=== PATIENT | male | born 1935 | race African-American/Black ===

== ENCOUNTER 2018-04-25 09:26 | Inpatient (IN) | payer MEDICARE ==
[~2018-04-25] VITALS: Ht 182.9 cm; Wt 73.0 kg
[2018-04-25] MEDS ORDERED: IV NORMAL SALINE 1000ML BAG 1,000 ML IV SCH (09:38)
[2018-04-25] MEDS ORDERED: HYOSCYAMINE 0.125 MG TAB.RAPDIS PO ONE (09:45)
[2018-04-25] MEDS ORDERED: ONDANSETRON PF 4 MG/2 ML VIAL. IV ONE (09:45)
[2018-04-25 10:00] LABS: BASO % 0 % (0-3); EOS % 0 % (0-3); HEMATOCRIT 41.1 % (39.0-53.0); HEMOGLOBIN 13.2 g/dL (13.0-17.5); LYMPH # 1.7 x10^3/uL (1.0-4.8); LYMPH % 13 % (24-48); MEAN CORPUSCULAR HEMOGLOBIN 23 pg (25-35); MEAN CORPUSCULAR HGB CONC 32 g/dL (31-37); MEAN CORPUSCULAR VOLUME 71 fL (79-100); MONO # 0.8 x10^3/uL (0.0-1.1); MONO % 6 % (0-9); NEUT # 11.3 x10^3uL (1.8-7.7); NEUT % 82 % (31-73); PLATELET COUNT 465 x10^3/uL (140-400); RED CELL DISTRIBUTION WIDTH 15.9 % (11.5-14.5); WHITE BLOOD COUNT 13.9 x10^3/uL (4.0-11.0)
--- NOTE | 2018-04-25 10:10 | PHYS DOC ---
Past Medical History Past Medical History: Asthma, Hypertension Additional Past Surgical Histo: KNEE Additional Information: NON-SMOKER Alcohol Use: None Drug Use: None Adult General Chief Complaint Chief Complaint: ABDOMINAL PAIN HPI HPI Patient is a 82 year old male who presents with upper abdominal pain, vomiting , and diarrhea. This has been present for the past week. He reports some blood in the emesis. Denies black or bloody stool. Reports that he normally only eats one meal a day but that he is been unable to tolerate it during this time. Pain is dull and burning. Moderate to severe in intensity. Patient reports that he has been taking ibuprofen without any relief.[] Review of Systems Review of Systems Constitutional: Denies fever or chills [] Eyes: Denies change in visual acuity, redness, or eye pain [] HENT: Denies nasal congestion or sore throat [] Respiratory: Denies cough or shortness of breath [] Cardiovascular: No chest pain or palpitations[] GI: See history of present illness[] : Denies dysuria or hematuria [] Musculoskeletal: Denies back pain or joint pain [] Integument: Denies rash or skin lesions [] Neurologic: Denies headache, focal weakness or sensory changes [] Endocrine: Denies polyuria or polydipsia [] All other systems were reviewed and found to be within normal limits, except as documented in this note. Current Medications Current Medications Current Medications Medications (Trade) Dose Ordered Sig/Mina Start Time Stop Time Status Last Admin Dose Admin Hyoscyamine (Anaspaz) 0.125 mg ONCE ONCE 04/25/18 09:45 04/25/18 09:46 DC 04/25/18 10:12 0.125 MG Ondansetron HCl (Zofran) 4 mg 1X ONCE 04/25/18 09:45 04/25/18 09:46 DC 04/25/18 10:11 4 MG Pantoprazole Sodium (PROTONIX VIAL for IV PUSH) 40 mg 1X ONCE 04/25/18 10:15 04/25/18 10:16 DC 04/25/18 10:23 40 MG Sodium Chloride 1,000 ml @ 1,000 mls/hr Q1H 04/25/18 09:38 04/25/18 10:37 DC 04/25/18 10:12 1,000 MLS/HR Allergies Allergies Allergies Coded Allergies Type Severity Reaction Last Updated Verified No Known Drug Allergies 04/25/18 No Physical Exam Physical Exam Constitutional: Well developed, well nourished, no acute distress, non-toxic appearance. [] HENT: Normocephalic, atraumatic, bilateral external ears normal, oropharynx moist, no oral exudates, nose normal. [] Eyes: PERRLA, EOMI, conjunctiva normal, no discharge. [] Neck: Normal range of motion, no tenderness, supple, no stridor. [] Cardiovascular:Heart rate regular rhythm, no murmur [] Lungs & Thorax: Bilateral breath sounds clear to auscultation [] Abdomen: Bowel sounds normal, soft, epigastric tenderness, no rebound, no guarding, no rigidity, no masses, no pulsatile masses. Rectal exam showed brown stool, no gross bleeding [] Skin: Warm, dry, no erythema, no rash. [] Back: No tenderness, no CVA tenderness. [] Extremities: No tenderness, no cyanosis, no clubbing, ROM intact, no edema. [] Neurologic: Alert and oriented X 3, normal motor function, normal sensory function, no focal deficits noted. [] Psychologic: Affect normal, judgement normal, mood normal. [] Current Patient Data Vital Signs Vital Signs Date Time Temp Pulse Resp B/P (MAP) Pulse Ox O2 Delivery O2 Flow Rate FiO2 04/25/18 09:33 97.7 91 18 116/59 (78) 99 Room Air 97.7 Lab Values Laboratory Tests Test 04/25/18 09:40 04/25/18 09:54 04/25/18 10:08 04/25/18 10:40 White Blood Count 13.9 x10^3/uL (4.0-11.0) H Red Blood Count 5.80 x10^6/uL (4.30-5.70) H Hemoglobin 13.2 g/dL (13.0-17.5) Hematocrit 41.1 % (39.0-53.0) Mean Corpuscular Volume 71 fL (79-100) L Mean Corpuscular Hemoglobin 23 pg (25-35) L Mean Corpuscular Hemoglobin Concent 32 g/dL (31-37) Red Cell Distribution Width 15.9 % (11.5-14.5) H Platelet Count 465 x10^3/uL (140-400) H Neutrophils (%) (Auto) 82 % (31-73) H Lymphocytes (%) (Auto) 13 % (24-48) L Monocytes (%) (Auto) 6 % (0-9) Eosinophils (%) (Auto) 0 % (0-3) Basophils (%) (Auto) 0 % (0-3) Neutrophils # (Auto) 11.3 x10^3uL (1.8-7.7) H Lymphocytes # (Auto) 1.7 x10^3/uL (1.0-4.8) Monocytes # (Auto) 0.8 x10^3/uL (0.0-1.1) Eosinophils # (Auto) 0.0 x10^3/uL (0.0-0.7) Basophils # (Auto) 0.0 x10^3/uL (0.0-0.2) Platelet Estimate Pending Sodium Level 138 mmol/L (136-145) Potassium Level 3.1 mmol/L (3.5-5.1) L Chloride Level 97 mmol/L (98-107) L Carbon Dioxide Level 19 mmol/L (21-32) L Anion Gap 22 (6-14) H Blood Urea Nitrogen 88 mg/dL (8-26) H Creatinine 3.7 mg/dL (0.7-1.3) H Estimated GFR (Cockcroft-Gault) 19.1 BUN/Creatinine Ratio 24 (6-20) H Glucose Level 128 mg/dL (70-99) H Calcium Level 9.8 mg/dL (8.5-10.1) Total Bilirubin 1.4 mg/dL (0.2-1.0) H Aspartate Amino Transferase (AST) 29 U/L (15-37) Alanine Aminotransferase (ALT) 26 U/L (16-63) Alkaline Phosphatase 292 U/L (46-116) H Troponin I Quantitative < 0.017 ng/mL (0.000-0.055) Total Protein 8.2 g/dL (6.4-8.2) Albumin 2.7 g/dL (3.4-5.0) L Albumin/Globulin Ratio 0.5 (1.0-1.7) L Lipase 3214 U/L (73-393) H Influenza Type A Antigen Negative (NEGATIVE) Influenza Type B Antigen Negative (NEGATIVE) Stool Occult Blood Negative (NEG) Prothrombin Time 15.4 SEC (11.7-14.0) H Prothrombin Time INR 1.3 (0.8-1.1) H Laboratory Tests 04/25/18 09:40 Laboratory Tests 04/25/18 09:40 EKG EKG EKG shows a sinus rhythm at 90 bpm, normal axis, prolonged QTc at 523 ms, no ST elevations, no old EKG is available for comparison, this was interpreted by me at 0950[] Radiology/Procedures Radiology/Procedures Examination: CT of the abdomen pelvis without contrast HISTORY: History of upper abdominal pain COMPARISON: None available Technique: Axial CT images of the abdomen pelvis were performed without contrast. Coronal and sagittal reformats are performed. Exposure: One or more of the following individualized dose reduction techniques were utilized for this examination: 1. Automated exposure control 2. Adjustment of the mA and/or kV according to patient size 3. Use of iterative reconstruction technique FINDINGS: Bibasilar lung airspace opacities likely atelectasis or infiltrates with possible atelectasis or focal consolidation the left lower lobe of the lung. No evidence of free air identified in the abdomen. Hepatomegaly is identified. There are ill-defined hypodensities identified in the liver with the largest measuring 4.5 cm in the left lobe of the liver. Small hiatal hernia is identified. The stomach is mildly distended. Questionable minimal stranding identified about the pancreas. The small bowel is nondilated. Feces and gas noted in the colon. Multiple sigmoid colon diverticulosis identified. Appendix is normal. Urinary bladder is mildly distended. Urinary bladder diverticula identified with the largest measuring 4.5 cm in the posteriorly on the left to the urinary bladder. The prostate is mildly enlarged. Cystic structure identified in the left kidney measuring 2.5 cm. Mild aortic atherosclerosis. Moderate to severe degenerative changes identified in the visualized thoracolumbar spine. Small superior endplate Schmorl's node identified at L4 vertebral level. There is mild anterolisthesis of L4 on L5. IMPRESSION: 1. Multiple ill-defined hypodensities identified in the liver with the largest measuring 4.5 cm in the left lobe suspicious for metastasis or malignancy however evaluation is limited without contrast. Recommend MRI abdomen for further evaluation. 2. Questionable minimal fat stranding identified about the pancreas probably artifactual and less likely pancreatitis. Correlate with lab values. 3. 2.5 cm cystic structure identified in the left kidney could be a cyst or cystic lesion. 4. Focal consolidation identified in the left lower lobe of the lung could be round atelectasis or focal infiltrate with mild bibasilar lung airspace opacities likely atelectasis or infiltrates. Electronically signed by: Juan Alberto Boyle MD (04/25/2018 11:18 AM) [place] [id number] Portable chest, 04/25/2018: HISTORY: Upper abdominal pain The heart size is normal. There is calcific plaquing and tortuosity of the thoracic aorta. There are mild bibasilar opacities suggesting infiltrate. The basilar pulmonary markings were also prominent on an old chest exam from 05/12/2009, suggesting a component of scarring. The upper lung hamilton are clear. There is no evidence of pleural fluid. IMPRESSION: 1. Aortic atherosclerosis. 2. Mild bibasilar infiltrate and/or scarring. Electronically signed by: Silver Mar MD (04/25/2018 11:16 AM) [facility] [] Course & Med Decision Making Course & Med Decision Making Pertinent Labs and Imaging studies reviewed. (See chart for details) ED course and medical decision making: Patient arrived from EMS was placed in bed and tolerated exam well. EMS reports that the patient lives at home alone and his lighting situation is provided only by flashlights. He was noted to have an elevated heart rate given his age and slightly dry mucous membranes, IV fluids were started. His lipase was noted to be significantly elevated along with a slightly elevated white count so fluids were continued. He was also noted to have an infiltrate/atelectasis on the CT scan and imaging so IV antibiotics were started. Consultation was made with the hospitalist service for admission and they graciously accepted him. During his department stay up became concerned about his mental state/possible dementia, when going to perform the Hemoccult patient was very focused on his abdominal pain and unable to easily get across the need for the Hemoccult given his complaint of vomiting blood and insuring that there was no blood in his stool. 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 He was very tangentially focused and could not express a reason not to have a Hemoccult performed.[] Dragon Disclaimer Dragon Disclaimer This electronic medical record was generated, in whole or in part, using a voice recognition dictation system. Departure Departure Impression: Primary Impression: Pancreatitis Additional Impressions: Pneumonia Renal insufficiency Disposition: 01 HOME, SELF-CARE Admitting Physician: Other Condition: IMPROVED Problem Qualifiers Primary Impression: Pancreatitis Chronicity: acute Pancreatitis type: unspecified pancreatitis type Acute pancreatitis complication: unspecified Qualified Codes: K85.90 - Acute pancreatitis without necrosis or infection, unspecified Additional Impressions: Pneumonia Pneumonia type: due to unspecified organism Laterality: bilateral Lung location: lower lobe of lung Qualified Codes: J18.1 - Lobar pneumonia, unspecified organism MADAN SMALL DO Apr 25, 2018 10:10
[2018-04-25] MEDS ORDERED: PANTOPRAZOLE IV PUSH 40 MG VIAL. IVP ONE (10:15)
[2018-04-25 10:22] LABS: INFLUENZA A PATIENT NEGATIVE (NEGATIVE); INFLUENZA B PATIENT NEGATIVE (NEGATIVE)
[2018-04-25 10:24] LABS: CALCIUM 9.8 mg/dL (8.5-10.1); CREATININE 3.7 mg/dL (0.7-1.3); GFR 19.1; POTASSIUM 3.1 mmol/L (3.5-5.1)
[2018-04-25 10:28] LABS: ALBUMIN 2.7 g/dL (3.4-5.0); ALBUMIN/GLOBULIN RATIO 0.5 (1.0-1.7); TOTAL BILIRUBIN 1.4 mg/dL (0.2-1.0); TOTAL PROTEIN 8.2 g/dL (6.4-8.2)
[2018-04-25 10:49] LABS: FECAL OB PT NEGATIVE (NEG)
[2018-04-25 10:58] LABS: PROTHROMBIN TIME PATIENT 15.4 SEC (11.7-14.0)
--- NOTE | 2018-04-25 11:19 | RAD ---
Portable chest, 04/25/2018: HISTORY: Upper abdominal pain The heart size is normal. There is calcific plaquing and tortuosity of the thoracic aorta. There are mild bibasilar opacities suggesting infiltrate. The basilar pulmonary markings were also prominent on an old chest exam from 05/12/2009, suggesting a component of scarring. The upper lung hamilton are clear. There is no evidence of pleural fluid. IMPRESSION: 1. Aortic atherosclerosis. 2. Mild bibasilar infiltrate and/or scarring. Electronically signed by: Silver Mar MD (04/25/2018 11:16 AM) [facility]
--- NOTE | 2018-04-25 11:21 | RAD ---
Examination: CT of the abdomen pelvis without contrast HISTORY: History of upper abdominal pain COMPARISON: None available Technique: Axial CT images of the abdomen pelvis were performed without contrast. Coronal and sagittal reformats are performed. Exposure: One or more of the following individualized dose reduction techniques were utilized for this examination: 1. Automated exposure control 2. Adjustment of the mA and/or kV according to patient size 3. Use of iterative reconstruction technique FINDINGS: Bibasilar lung airspace opacities likely atelectasis or infiltrates with possible atelectasis or focal consolidation the left lower lobe of the lung. No evidence of free air identified in the abdomen. Hepatomegaly is identified. There are ill-defined hypodensities identified in the liver with the largest measuring 4.5 cm in the left lobe of the liver. Small hiatal hernia is identified. The stomach is mildly distended. Questionable minimal stranding identified about the pancreas. The small bowel is nondilated. Feces and gas noted in the colon. Multiple sigmoid colon diverticulosis identified. Appendix is normal. Urinary bladder is mildly distended. Urinary bladder diverticula identified with the largest measuring 4.5 cm in the posteriorly on the left to the urinary bladder. The prostate is mildly enlarged. Cystic structure identified in the left kidney measuring 2.5 cm. Mild aortic atherosclerosis. Moderate to severe degenerative changes identified in the visualized thoracolumbar spine. Small superior endplate Schmorl's node identified at L4 vertebral level. There is mild anterolisthesis of L4 on L5. IMPRESSION: 1. Multiple ill-defined hypodensities identified in the liver with the largest measuring 4.5 cm in the left lobe suspicious for metastasis or malignancy however evaluation is limited without contrast. Recommend MRI abdomen for further evaluation. 2. Questionable minimal fat stranding identified about the pancreas probably artifactual and less likely pancreatitis. Correlate with lab values. 3. 2.5 cm cystic structure identified in the left kidney could be a cyst or cystic lesion. 4. Focal consolidation identified in the left lower lobe of the lung could be round atelectasis or focal infiltrate with mild bibasilar lung airspace opacities likely atelectasis or infiltrates. Electronically signed by: Juan Alberto Boyle MD (04/25/2018 11:18 AM) [place] [id number]
[2018-04-25 11:41] LABS: ANISOCYTOSIS SLIGHT; HYPOCHROMIA MOD; MICROCYTOSIS SLIGHT; PLT ESTIMATE INCREASED (ADEQUATE)
--- NOTE | 2018-04-25 11:44 | PDOC1 ---
History and Physical Date of Admission Date of Admission DATE: 04/25/18 TIME: 11:39 Identification/Chief Complaint Chief Complaint Abdominal Pain Source Source: Chart review, Patient History of Present Illness History of Present Illness 82 year old male with PMHx HTN (he cannot recall any other PMHx) who presents with upper abdominal pain, vomiting, and diarrhea. This has been present for the past week. He reports some blood in his emesis. Denies black or bloody stool. Reports that he normally only eats one meal a day but that he is been unable to tolerate it during this time and states that even bread makes him feel nauseated. Cannot stand the sight of food recently. Pain is dull and burning. Moderate to severe in intensity. Patient reports that he has been taking ibuprofen without any relief. In ED had concerning CT scan for liver masses and pancreatic fat stranding and Lipase 3214 as well as leukocytosis WBC 13K, Bili 1.4, Alk phos 292 and Cr 3.7 as well as BUN 88 and K of 3.1. 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 He is from [place], [place] and has moved to [place] 6 years ago to be near his ex-. Notably he cannot remember her phone number or any of his children. He knows his pharmacy is [facility] and does not remember the name of his PCP. He notes he is a practicing [employer] and does not drink or smoke or use illicit substances. 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) Family History Family History: Hypertension (Father) Social History Smoke: No ALCOHOL: none Drugs: None Current Medications Current Medications Current Medications Sodium Chloride 1,000 ml @ 1,000 mls/hr Q1H IV Last administered on 04/25/18at 10:12; Start 04/25/18 at 09:38; Stop 04/25/18 at 10:37; Status DC Ondansetron HCl (Zofran) 4 mg 1X ONCE IV Last administered on 04/25/18at 10:11 ; Start 04/25/18 at 09:45; Stop 04/25/18 at 09:46; Status DC Hyoscyamine (Anaspaz) 0.125 mg ONCE ONCE PO Last administered on 04/25/18at 10: 12; Start 04/25/18 at 09:45; Stop 04/25/18 at 09:46; Status DC Pantoprazole Sodium (PROTONIX VIAL for IV PUSH) 40 mg 1X ONCE IVP Last administered on 04/25/18at 10:23; Start 04/25/18 at 10:15; Stop 04/25/18 at 10:16 ; Status DC Ceftriaxone Sodium (Rocephin) 1 gm 1X ONCE IVP ; Start 04/25/18 at 11:45; Stop 04/25/18 at 11:46; Status UNV Azithromycin 250 ml @ 250 mls/hr 1X ONCE IV ; Start 04/25/18 at 11:45; Stop at 12:44; Status UNV Ondansetron HCl (Zofran) 4 mg PRN Q8HRS PRN IV NAUSEA/VOMITING; Start 04/25/18 at 11:45; Stop 04/26/18 at 11:44; Status UNV Allergies Allergies: Coded Allergies: No Known Drug Allergies (Unverified , 04/25/18) ROS General: YES: Fatigue, Malaise, Appetite; No: Chills, Night Sweats, Other PSYCHOLOGICAL ROS: No: Anxiety, Behavioral Disorder, Concentration difficultie , Decreased libido, Depression, Disorientation, Hallucinations, Hostility, Irritablity, Memory difficulties, Mood Swings, Obsessive thoughts, Physical abuse, Sexual abuse, Sleep disturbances, Suicidal ideation, Other Eyes: No Blurry vision, No Decreased vision, No Double vision, No Dry eyes, No Excessive tearing, No Eye Pain, No Itchy Eyes, No Loss of vision, No Photophobia , No Scotomata, No Uses contacts, No Uses glasses, No Other HEENT: YES: Nasal congestion, Nasal discharge; No: Heacaches, Visual Changes, Hearing change, Oral lesions, Sinus pain, Sore Throat, Epistaxis, Sneezing, Snoring, Tinnitus, Vertigo, Vocal changes, Other ALLERGY AND IMMUNOLOGY: No: Hives, Insect Bite Sensitivity, Itchy/Watery Eyes, Nasal Congestion, Post Nasal Drip, Seasonal Allergies, Other Hematological and Lymphatic: No: Bleeding Problems, Blood Clots, Blood Transfusions, Brusing, Night Sweats, Pallor, Swollen Lymph Nodes, Other ENDOCRINE: No: Breast Changes, Galactorrhea, Hair Pattern Changes, Hot Flashes , Malaise/lethargy, Mood Swings, Palpitations, Polydipsia/polyuria, Skin Changes , Temperature Intolerance, Unexpected Weight Changes, Other Breast: No New/Changing Breast Lumps, No Nipple changes, No Nipple discharge, No Other Respiratory: No: Cough, Hemoptysis, Orthopnea, Pleuritic Pain, Shortness of breath, SOB with excertion, Sputum Changes, Stridor, Tachypnea, Wheezing, Other Cardiovascular: No Chest Pain, No Palpitations, No Orthopnea, No Paroxysmal Noc. Dyspnea, No Edema, No Lt Headedness, No Other Gastrointestinal: Yes Nausea, Yes Vomiting, Yes Abdominal Pain, Yes Other ( Hematemesis x1) Genitourinary: No Dysuria, No Frequency, No Incontinence, No Hematuria, No Retention, No Discharge, No Urgency, No Pain, No Flank Pain, No Other, No , No , No , No , No , No , No Musculoskeletal: No Gait Disturbance, No Joint Pain, No Joint Stiffness, No Joint Swelling, No Muscle Pain, No Muscular Weakness, No Pain In:, No Swelling In:, No Other Neurological: Yes Confusion; No Behavorial Changes, No Bowel/Bladder ControlChng, No Dizziness, No Gait Disturbance, No Headaches, No Impaired Coord/balance, No Memory Loss, No Numbness/Tingling, No Seizures, No Speech Problems, No Tremors, No Visual Changes, No Weakness, No Other Skin: No Dry Skin, No Eczema, No Hair Changes, No Lumps, No Mole Changes, No Mottling, No Nail Changes, No Pruritus, No Rash, No Skin Lesion Changes, No Other, No Acne Physical Exam General: Alert, Cooperative, mild distress HEENT: Atraumatic, PERRLA, EOMI, Mucous membr. moist/pink Lungs: Clear to auscultation, Normal air movement Heart: S1S2, RRR, no gallops, no murmurs Abdomen: Normal bowel sounds, Soft, No hepatosplenomegaly, No masses, Other ( RUQ tenderness) Male Genitals Exam: normal genitalia Rectal Exam: not examined Extremities: No clubbing, No cyanosis, No edema, Normal pulses, No tenderness/ swelling Skin: No rashes, No breakdown, No significant lesion Neuro: Normal speech, Strength at 5/5 X4 ext, Normal tone, Sensation intact, Cranial nerves 3-12 NL, Reflexes 2+ Psych/Mental Status: Mood NL, Other (Confused intermittently) Vitals Vitals Vital Signs Date Time Temp Pulse Resp B/P (MAP) Pulse Ox O2 Delivery O2 Flow Rate FiO2 04/25/18 09:33 97.7 91 18 116/59 (78) 99 Room Air 97.7 Labs Labs Laboratory Tests Test 04/25/18 09:40 04/25/18 09:54 04/25/18 10:08 04/25/18 10:40 White Blood Count 13.9 x10^3/uL (4.0-11.0) Red Blood Count 5.80 x10^6/uL (4.30-5.70) Hemoglobin 13.2 g/dL (13.0-17.5) Hematocrit 41.1 % (39.0-53.0) Mean Corpuscular Volume 71 fL (79-100) Mean Corpuscular Hemoglobin 23 pg (25-35) Mean Corpuscular Hemoglobin Concent 32 g/dL (31-37) Red Cell Distribution Width 15.9 % (11.5-14.5) Platelet Count 465 x10^3/uL (140-400) Neutrophils (%) (Auto) 82 % (31-73) Lymphocytes (%) (Auto) 13 % (24-48) Monocytes (%) (Auto) 6 % (0-9) Eosinophils (%) (Auto) 0 % (0-3) Basophils (%) (Auto) 0 % (0-3) Neutrophils # (Auto) 11.3 x10^3uL (1.8-7.7) Lymphocytes # (Auto) 1.7 x10^3/uL (1.0-4.8) Monocytes # (Auto) 0.8 x10^3/uL (0.0-1.1) Eosinophils # (Auto) 0.0 x10^3/uL (0.0-0.7) Basophils # (Auto) 0.0 x10^3/uL (0.0-0.2) Sodium Level 138 mmol/L (136-145) Potassium Level 3.1 mmol/L (3.5-5.1) Chloride Level 97 mmol/L (98-107) Carbon Dioxide Level 19 mmol/L (21-32) Anion Gap 22 (6-14) Blood Urea Nitrogen 88 mg/dL (8-26) Creatinine 3.7 mg/dL (0.7-1.3) Estimated GFR (Cockcroft-Gault) 19.1 BUN/Creatinine Ratio 24 (6-20) Glucose Level 128 mg/dL (70-99) Calcium Level 9.8 mg/dL (8.5-10.1) Total Bilirubin 1.4 mg/dL (0.2-1.0) Aspartate Amino Transf (AST/SGOT) 29 U/L (15-37) Alanine Aminotransferase (ALT/SGPT) 26 U/L (16-63) Alkaline Phosphatase 292 U/L (46-116) Troponin I Quantitative < 0.017 ng/mL (0.000-0.055) Total Protein 8.2 g/dL (6.4-8.2) Albumin 2.7 g/dL (3.4-5.0) Albumin/Globulin Ratio 0.5 (1.0-1.7) Lipase 3214 U/L (73-393) Influenza Type A Antigen Negative (NEGATIVE) Influenza Type B Antigen Negative (NEGATIVE) Stool Occult Blood Negative (NEG) Prothrombin Time 15.4 SEC (11.7-14.0) Prothromb Time International Ratio 1.3 (0.8-1.1) Laboratory Tests Test 04/25/18 09:40 04/25/18 09:54 04/25/18 10:08 04/25/18 10:40 White Blood Count 13.9 x10^3/uL (4.0-11.0) Red Blood Count 5.80 x10^6/uL (4.30-5.70) Hemoglobin 13.2 g/dL (13.0-17.5) Hematocrit 41.1 % (39.0-53.0) Mean Corpuscular Volume 71 fL (79-100) Mean Corpuscular Hemoglobin 23 pg (25-35) Mean Corpuscular Hemoglobin Concent 32 g/dL (31-37) Red Cell Distribution Width 15.9 % (11.5-14.5) Platelet Count 465 x10^3/uL (140-400) Neutrophils (%) (Auto) 82 % (31-73) Lymphocytes (%) (Auto) 13 % (24-48) Monocytes (%) (Auto) 6 % (0-9) Eosinophils (%) (Auto) 0 % (0-3) Basophils (%) (Auto) 0 % (0-3) Neutrophils # (Auto) 11.3 x10^3uL (1.8-7.7) Lymphocytes # (Auto) 1.7 x10^3/uL (1.0-4.8) Monocytes # (Auto) 0.8 x10^3/uL (0.0-1.1) Eosinophils # (Auto) 0.0 x10^3/uL (0.0-0.7) Basophils # (Auto) 0.0 x10^3/uL (0.0-0.2) Sodium Level 138 mmol/L (136-145) Potassium Level 3.1 mmol/L (3.5-5.1) Chloride Level 97 mmol/L (98-107) Carbon Dioxide Level 19 mmol/L (21-32) Anion Gap 22 (6-14) Blood Urea Nitrogen 88 mg/dL (8-26) Creatinine 3.7 mg/dL (0.7-1.3) Estimated GFR (Cockcroft-Gault) 19.1 BUN/Creatinine Ratio 24 (6-20) Glucose Level 128 mg/dL (70-99) Calcium Level 9.8 mg/dL (8.5-10.1) Total Bilirubin 1.4 mg/dL (0.2-1.0) Aspartate Amino Transf (AST/SGOT) 29 U/L (15-37) Alanine Aminotransferase (ALT/SGPT) 26 U/L (16-63) Alkaline Phosphatase 292 U/L (46-116) Troponin I Quantitative < 0.017 ng/mL (0.000-0.055) Total Protein 8.2 g/dL (6.4-8.2) Albumin 2.7 g/dL (3.4-5.0) Albumin/Globulin Ratio 0.5 (1.0-1.7) Lipase 3214 U/L (73-393) Influenza Type A Antigen Negative (NEGATIVE) Influenza Type B Antigen Negative (NEGATIVE) Stool Occult Blood Negative (NEG) Prothrombin Time 15.4 SEC (11.7-14.0) Prothromb Time International Ratio 1.3 (0.8-1.1) Images Images CT abdomen - 1. Multiple ill-defined hypodensities identified in the liver with the largest measuring 4.5 cm in the left lobe suspicious for metastasis or malignancy however evaluation is limited without contrast. Recommend MRI abdomen for further evaluation. 2. Questionable minimal fat stranding identified about the pancreas probably artifactual and less likely pancreatitis. Correlate with lab values. 3. 2.5 cm cystic structure identified in the left kidney could be a cyst or cystic lesion. 4. Focal consolidation identified in the left lower lobe of the lung could be round atelectasis or focal infiltrate with mild bibasilar lung airspace opacities likely atelectasis or infiltrates. CXR - 1. Aortic atherosclerosis. 2. Mild bibasilar infiltrate and/or scarring. (NOTED IN 2010 as well) VTE Prophylaxis Ordered VTE Prophylaxis Devices: Yes VTE Pharmacological Prophylaxi: No Assessment/Plan Assessment/Plan A/P: Acute pancreatitis - with Abdominal pain, nausea vomiting. NPO, consult GI. Still has GB, triglycerides normal, not on a thiazide that he knows of and he doesn't recall if he has been losing weight. Concerning liver masses on CT could be metastatic disease, he does not recall his last colonoscopy during my interview. Pain control with morphine Acute encephalopathy - this seems partially delerium as he can give accurate information but then is inaccurate with some easy questions. Bili not that high , could be uremia or he may have an element of dementia Hypokalemia - 3.1, will monitor. Replace IVF SYLVIE - Cr and BUN elevated. Unknown baseline. Seems acute with his mental status. Will consult nephrology Liver masses - possibly metastatic disease. Contrast contraindicated based on his renal function. Will consult GI. Will see if I can get ahold of his [facility] medical records. RBC microcytosis - will check iron studies, may be sickle trait, he does not recall HTN - will need to reconcile his meds FEN - NPO PPX - heparin SC FULL CODE Inpatient med/tele for at least 2 midnights for pancreatitis LAKISHA CR MD Apr 25, 2018 11:44
[2018-04-25] MEDS ORDERED: MORPHINE SULFATE 4 MG/ML VIAL. IV PRN (11:45)
[2018-04-25] MEDS ORDERED: cefTRIAXone IV Push 1 GM VIAL. IVP ONE (11:45)
[2018-04-25] MEDS ORDERED: ONDANSETRON PF 4 MG/2 ML VIAL. IV PRN ×2 (11:45→13:45)
[2018-04-25] MEDS ORDERED: AZITHRMYCN 500MG IVPB FOR OMNI 250 ML IV ONE (11:45)
[2018-04-25 11:59] LABS: BILIRUBIN,URINE MODERATE (NEG); CLARITY,URINE CLOUDY; COLOR,URINE AMBER; NITRITE,URINE NEGATIVE (NEG); PROTEIN,URINE 30 mg/dL (NEG-TRACE); UROBILINOGEN,URINE 0.2 mg/dL (0.2 mg/dL)
[2018-04-25 12:12] LABS: HYALINE CASTS, URINE MODERATE /HPF
[2018-04-25 12:13] LABS: BACTERIA,URINE 0 /HPF (0-FEW); RBC,URINE 20-40 /HPF (0-2); WBC,URINE OCC /HPF (0-4)
[2018-04-25 13:20] VITALS: BP 118/70
--- NOTE | 2018-04-25 14:19 | EKG ---
[facility] [address] [place] [address] Test Date: 2018-04-25 Test Time: 09:43:53 Pat Name: ODALIS YEAGER Department: Room: 526 1 Gender: Electronics Hardware Design Engineer: : 1935 Requested By: MADAN SMALL Order Number: [id number] Reading MD: Keegan Cardenas Measurements Intervals [place] Rate: P: WA: QRS: QRSD: T: QT: QTc: Interpretive Statements No previous ECG available for comparison Electronically Signed On 04-26-2018 9:12:03 [employer]IVIL ENGINEERING INTERN by Keegan Cardenas
--- NOTE | 2018-04-25 14:20 | PDOC2 ---
GI CONSULT Reason For Consult: Pancreatitis HPI: HPI: Pleasant and cooperative 82 y/o male though not a a good historian. Admitted through ER - I saw him this afternoon during abdominal ultrasound. He has been ill for awhile ("too long") but can't tell me exactly how long. Lives alone. Reports "pneumonia" but isn't sure who suggested that diagnosis and says he hasn 't been treated for this. Describes "a lot of phlegm." Says he saw a doctor at some point (?after symptoms began) but cannot tell me their name. Has upper abdominal pain and diarrhea (says 3-4 or 6-7 times daily). Additionally has had some vomiting (can't really tell me how frequently) and has been eating less (can't tell me the last time he ate). ER note suggests he reported blood in emesis - he denies this to me but says he sometimes sees red blood in stool that he attributes to hemorrhoids. Says he has lost 80 pounds - not sure over what time period. H/o GERD improved w/ Prilosec. No dysphagia or odynophagia. No melena. No constipation. Reports EGD and colonoscopy ~9 years ago in [place] - says both were normal. Thinks s/p cholecystectomy. No liver or pancreas history. Takes ibuprofen 800mg most days for knee pain. Notable labs: WBC 13.9, Hgb 13.2, MCV 71, INR 1.3, BUN 88, Cr 3.7, K 3.1, bili 1.4, AST 29, ALT 26, Alk Phos 292, lipase 3214, UA +blood, fecal occult neg. On CT: ?focal LLL consolidation, hepatomegaly, ill-defined hypodensities identified in the liver ( largest measuring 4.5 cm in left lobe), small hiatal hernia, mildly distended stomach, questionable minimal stranding identified about the pancreas, feces and gas noted in the colon, sigmoid diverticulosis, urinary bladder diverticula, mildly enlarged prostate, left kidney cystic structure. 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 PMH: PMH: ?HTN, asthma, diverticulosis bilateral knee replacements FH: Family History: No pertinent hx Social History: Smoke: No ALCOHOL: none Drugs: None ROS: GEN: Denies fevers, chills, sweats HEENT: Denies blurred vision, sore throat CV: Denies chest pain RESP: Denies shortness of air, cough GI: Per HPI : Denies hematuria, dysuria ENDO: +weight loss NEURO: Denies confusion, dizziness MSK: +knee pain SKIN: Denies jaundice, pruritus Vitals: Vitals: Vital Signs Date Time Temp Pulse Resp B/P (MAP) Pulse Ox O2 Delivery O2 Flow Rate FiO2 04/25/18 13:16 86 20 120/60 (80) 98 Room Air 04/25/18 09:33 97.7 97.7 Labs: Labs: Laboratory Tests Test 04/25/18 09:40 04/25/18 09:54 04/25/18 10:08 04/25/18 10:40 White Blood Count 13.9 x10^3/uL (4.0-11.0) Red Blood Count 5.80 x10^6/uL (4.30-5.70) Hemoglobin 13.2 g/dL (13.0-17.5) Hematocrit 41.1 % (39.0-53.0) Mean Corpuscular Volume 71 fL (79-100) Mean Corpuscular Hemoglobin 23 pg (25-35) Mean Corpuscular Hemoglobin Concent 32 g/dL (31-37) Red Cell Distribution Width 15.9 % (11.5-14.5) Platelet Count 465 x10^3/uL (140-400) Neutrophils (%) (Auto) 82 % (31-73) Lymphocytes (%) (Auto) 13 % (24-48) Monocytes (%) (Auto) 6 % (0-9) Eosinophils (%) (Auto) 0 % (0-3) Basophils (%) (Auto) 0 % (0-3) Neutrophils # (Auto) 11.3 x10^3uL (1.8-7.7) Lymphocytes # (Auto) 1.7 x10^3/uL (1.0-4.8) Monocytes # (Auto) 0.8 x10^3/uL (0.0-1.1) Eosinophils # (Auto) 0.0 x10^3/uL (0.0-0.7) Basophils # (Auto) 0.0 x10^3/uL (0.0-0.2) Platelet Estimate Increased (ADEQUATE) Hypochromasia Mod Anisocytosis Slight Microcytosis Slight Sodium Level 138 mmol/L (136-145) Potassium Level 3.1 mmol/L (3.5-5.1) Chloride Level 97 mmol/L (98-107) Carbon Dioxide Level 19 mmol/L (21-32) Anion Gap 22 (6-14) Blood Urea Nitrogen 88 mg/dL (8-26) Creatinine 3.7 mg/dL (0.7-1.3) Estimated GFR (Cockcroft-Gault) 19.1 BUN/Creatinine Ratio 24 (6-20) Glucose Level 128 mg/dL (70-99) Calcium Level 9.8 mg/dL (8.5-10.1) Total Bilirubin 1.4 mg/dL (0.2-1.0) Aspartate Amino Transf (AST/SGOT) 29 U/L (15-37) Alanine Aminotransferase (ALT/SGPT) 26 U/L (16-63) Alkaline Phosphatase 292 U/L (46-116) Troponin I Quantitative < 0.017 ng/mL (0.000-0.055) Total Protein 8.2 g/dL (6.4-8.2) Albumin 2.7 g/dL (3.4-5.0) Albumin/Globulin Ratio 0.5 (1.0-1.7) Lipase 3214 U/L (73-393) Influenza Type A Antigen Negative (NEGATIVE) Influenza Type B Antigen Negative (NEGATIVE) Stool Occult Blood Negative (NEG) Prothrombin Time 15.4 SEC (11.7-14.0) Prothromb Time International Ratio 1.3 (0.8-1.1) Ethyl Alcohol Level < 10 mg/dL (0-10) Test 04/25/18 11:40 Urine Collection Type U cath Urine Color Teresa Urine Clarity Cloudy Urine pH 5.0 Urine Specific [place] 1.020 Urine Protein 30 mg/dL (NEG-TRACE) Urine Glucose (UA) Negative mg/dL (NEG) Urine Ketones (Stick) Negative mg/dL (NEG) Urine Blood Large (NEG) Urine Nitrite Negative (NEG) Urine Bilirubin Moderate (NEG) Urine Urobilinogen Dipstick 0.2 mg/dL (0.2 mg/dL) Urine Leukocyte Esterase Negative (NEG) Urine RBC 20-40 /HPF (0-2) Urine WBC Occ /HPF (0-4) Urine Bacteria 0 /HPF (0-FEW) Urine Hyaline Casts Moderate /HPF Urine Mucus Slight /LPF Allergies: Coded Allergies: No Known Drug Allergies (Unverified , 04/25/18) Medications: Current Medications Medications (Trade) Dose Ordered Sig/Mina Route PRN Reason Start Time Stop Time Status Last Admin Dose Admin Sodium Chloride 1,000 ml @ 1,000 mls/hr Q1H IV 04/25/18 09:38 04/25/18 10:37 DC 04/25/18 10:12 Ondansetron HCl (Zofran) 4 mg 1X ONCE IV 04/25/18 09:45 04/25/18 09:46 DC 04/25/18 10:11 Hyoscyamine (Anaspaz) 0.125 mg ONCE ONCE PO 04/25/18 09:45 04/25/18 09:46 DC 04/25/18 10:12 Pantoprazole Sodium (PROTONIX VIAL for IV PUSH) 40 mg 1X ONCE IVP 04/25/18 10:15 04/25/18 10:16 DC 04/25/18 10:23 Ceftriaxone Sodium (Rocephin) 1 gm 1X ONCE IVP 04/25/18 11:45 04/25/18 11:46 DC 04/25/18 12:23 Azithromycin 250 ml @ 250 mls/hr 1X ONCE IV 04/25/18 11:45 04/25/18 12:44 DC 04/25/18 12:23 Morphine Sulfate (Morphine Sulfate) 2 mg PRN Q2HR PRN IV PAIN 04/25/18 11:45 04/26/18 11:44 04/25/18 12:19 Imaging: Imaging: CXR IMPRESSION: 1. Aortic atherosclerosis. 2. Mild bibasilar infiltrate and/or scarring. CT A/P FINDINGS: Bibasilar lung airspace opacities likely atelectasis or infiltrates with possible atelectasis or focal consolidation the left lower lobe of the lung. No evidence of free air identified in the abdomen. Hepatomegaly is identified. There are ill-defined hypodensities identified in the liver with the largest measuring 4.5 cm in the left lobe of the liver. Small hiatal hernia is identified. The stomach is mildly distended. Questionable minimal stranding identified about the pancreas. The small bowel is nondilated. Feces and gas noted in the colon. Multiple sigmoid colon diverticulosis identified. Appendix is normal. Urinary bladder is mildly distended. Urinary bladder diverticula identified with the largest measuring 4.5 cm in the posteriorly on the left to the urinary bladder. The prostate is mildly enlarged. Cystic structure identified in the left kidney measuring 2.5 cm. Mild aortic atherosclerosis. Moderate to severe degenerative changes identified in the visualized thoracolumbar spine. Small superior endplate Schmorl's node identified at L4 vertebral level. There is mild anterolisthesis of L4 on L5. IMPRESSION: 1. Multiple ill-defined hypodensities identified in the liver with the largest measuring 4.5 cm in the left lobe suspicious for metastasis or malignancy however evaluation is limited without contrast. Recommend MRI abdomen for further evaluation. 2. Questionable minimal fat stranding identified about the pancreas probably artifactual and less likely pancreatitis. Correlate with lab values. 3. 2.5 cm cystic structure identified in the left kidney could be a cyst or cystic lesion. 4. Focal consolidation identified in the left lower lobe of the lung could be round atelectasis or focal infiltrate with mild bibasilar lung airspace opacities likely atelectasis or infiltrates. Abd US (pending) PE: GEN: NAD HEENT: Atraumatic, PERRL LUNGS: CTAB HEART: RRR ABD: BS+, soft, non-distended, most discomfort in epigastrium EXTREMITY: No edema SKIN: No rashes, no jaundice NEURO/PSYCH: forgetful - can tell me the year, knows he's at the hospital but not sure the name (though knows it's on [address]), says he knows who the president is but prefers not to speak his name, knows his date of A/P: A/P: Upper abd pain, vomiting, diarrhea, weight loss, ?AMS Leukocytosis, microcytosis, SYLVIE, hypokalemia, hyperglycemia Mildly elevated bilirubin, elevated Alk Phos, elevated lipase Abnormal CT - hepatomegaly, ill-defined hypodensities identified in the liver, questionable minimal stranding identified about the pancreas GERD - on PPI, reports normal EGD 9 years ago CRC screen - reports normal colonoscopy 9 years ago in [place] Diverticulosis - in sigmoid colon and bladder on CT ?s/p cholecystectomy -- Pancreatitis - unclear etiology. Also note abnormal liver findings on CT. Abd US pending - await this. Continue PPI. ?diarrhea - monitor, check stool tests if indicated. Check iron profile. Additional recs per Dr. Gilmore. JOEL REIS Apr 25, 2018 14:20
[2018-04-25 14:42] LABS: CHOLESTEROL/HDL RATIO 2.7
[2018-04-25 15:00] VITALS: BP 119/72
--- NOTE | 2018-04-25 16:23 | RAD ---
Abdominal ultrasound, 04/25/2018: HISTORY: Pancreatitis The gallbladder is within normal limits in size. There is no sonographic evidence of cholelithiasis. The gallbladder wall is not thickened. The liver is enlarged and contains multiple ill-defined masses. The findings suggest metastatic disease. The largest of these measures approximately 10 cm. The pancreas was obscured by overlying bowel . The spleen is also inadequately visualized. The upper abdominal aorta is unremarkable. The distal aorta and inferior vena cava were obscured by overlying bowel. A 3.1 cm cyst is present in the left kidney. The kidneys show no evidence of obstruction. No free fluid is evident in the abdomen. IMPRESSION: 1. Hepatomegaly with multiple hepatic masses compatible with metastatic disease. 2. Small left renal cyst. 3. Obscuration of the pancreas, spleen and central retroperitoneum by overlying bowel. Electronically signed by: Silver Mar MD (04/25/2018 4:21 PM) [facility]
[2018-04-25] MEDS: IV NORMAL SALINE 1000ML BAG 1,000 ML IV SCH ×2 (16:34→19:36)
[2018-04-25 19:00] VITALS: BP 118/64
[2018-04-25] MEDS: IV RINGERS,LACTATED 1000ML 1,000 ML IV SCH (20:14)
[2018-04-25] MEDS: HEPARIN for SUB-Q USE 5,000 UNIT/ML VIAL. SQ SCH (21:00)
[2018-04-25 23:00] VITALS: BP 136/78
[2018-04-26] VITALS (11 sets, daily range): BP systolic 106–148; BP diastolic 62–108
[2018-04-26] MEDS: IV RINGERS,LACTATED 1000ML 1,000 ML IV SCH ×5 (00:04→11:54)
[2018-04-26] MEDS ORDERED: ALLO300T PO (03:09)
[2018-04-26] MEDS ORDERED: TAMS0.4C2 PO (03:09)
[2018-04-26] MEDS ORDERED: IBUP-1060 PO (03:09)
[2018-04-26] MEDS ORDERED: POTA20TA82 PO (03:09)
[2018-04-26] MEDS ORDERED: FURO20TA3 PO (03:09)
[2018-04-26] MEDS ORDERED: FINA5TAB4 PO (03:09)
[2018-04-26] MEDS ORDERED: LOSA100T14 PO (03:09)
[2018-04-26] MEDS ORDERED: DOXA8TAB59 PO (03:09)
[2018-04-26] MEDS ORDERED: ALBU2.5V5 NEB (03:09)
[2018-04-26] MEDS ORDERED: MECL12.52 PO (03:09)
[2018-04-26] MEDS ORDERED: PANT20TA2 PO (03:09)
[2018-04-26] MEDS: IV NORMAL SALINE 1000ML BAG 1,000 ML IV SCH (03:36)
[2018-04-26 07:17] LABS: BASO % 0 % (0-3); EOS % 0 % (0-3); HEMATOCRIT 37.9 % (39.0-53.0); LYMPH # 1.2 x10^3/uL (1.0-4.8); LYMPH % 7 % (24-48); MEAN CORPUSCULAR HEMOGLOBIN 23 pg (25-35); MEAN CORPUSCULAR HGB CONC 32 g/dL (31-37); MEAN CORPUSCULAR VOLUME 71 fL (79-100); MONO # 1.2 x10^3/uL (0.0-1.1); MONO % 7 % (0-9); NEUT # 14.9 x10^3uL (1.8-7.7); NEUT % 86 % (31-73); PLATELET COUNT 427 x10^3/uL (140-400); RED BLOOD COUNT 5.34 x10^6/uL (4.30-5.70); RED CELL DISTRIBUTION WIDTH 16.2 % (11.5-14.5); WHITE BLOOD COUNT 17.3 x10^3/uL (4.0-11.0)
[2018-04-26 07:31] LABS: ALBUMIN 2.3 g/dL (3.4-5.0); ALBUMIN/GLOBULIN RATIO 0.5 (1.0-1.7); CALCIUM 8.9 mg/dL (8.5-10.1); GFR 24.4; TOTAL BILIRUBIN 0.8 mg/dL (0.2-1.0); TOTAL PROTEIN 7.4 g/dL (6.4-8.2)
[2018-04-26 07:37] LABS: POTASSIUM 2.7 mmol/L (3.5-5.1)
[2018-04-26] MEDS: HEPARIN for SUB-Q USE 5,000 UNIT/ML VIAL. SQ SCH (09:00)
[2018-04-26] MEDS: PANTOPRAZOLE IV PUSH 40 MG VIAL. IVP SCH (09:12)
[2018-04-26 09:36] LABS: % LYMPHS 12 % (24-48); % MONOS 6 % (0-10); % SEGS 82 % (35-66)
[2018-04-26 09:37] LABS: HYPOCHROMIA MOD; PLT ESTIMATE INCREASED (ADEQUATE)
[2018-04-26 09:38] LABS: ANISOCYTOSIS PRESENT; MICROCYTOSIS MOD; OVALOCYTES FEW; POIKILOCYTOSIS PRESENT
--- NOTE | 2018-04-26 09:45 | NUR ---
Pt scheduled for a liver biopsy today through IR. Pt is alert and oriented to self only. It was noted in report that pt children live out of town and pt currently lives home alone. This RN looked through chart and found next of kin contact as Darnell Barone, , relation is friend. This RN attempted to call this number twice, and it is a number that is no longer in service. Consents were obtained with two nurse and physician verification. Verified with Dr. Patel and Shima RN. Notified Bev in IR of these plans. Will continue to monitor.
--- NOTE | 2018-04-26 09:52 | PDOC ---
PROGRESS NOTES Chief Complaint Chief Complaint Acute pancreatitis - with Abdominal pain, nausea vomiting. NPO, consult GI. Still has GB, triglycerides normal, not on a thiazide that he knows of and he doesn't recall if he has been losing weight. Concerning liver masses on CT could be metastatic disease, he does not recall his last colonoscopy during my interview. Pain control with morphine Acute metabolic encephalopathy - uremia, delirium Hypokalemia - 3.1, will monitor. Replace IVF SYLVIE - vasomotor with possible ATN, appears dry and Cr and BUN elevated. Unknown baseline. Liver masses - possibly metastatic disease. Contrast contraindicated based on his renal function. Will consult GI. Will see if I can get ahold of his [facility] medical records. RBC microcytosis - will check iron studies, may be sickle trait, he does not recall HTN - will need to reconcile his meds History of Present Illness History of Present Illness complains of NPO, dry mouth, upset, asks in animated fashion for "water, water, water, water, water" try to get liver biopsy today liver ca. suspected Vitals Vitals Vital Signs Date Time Temp Pulse Resp B/P (MAP) Pulse Ox O2 Delivery O2 Flow Rate FiO2 04/26/18 07:00 98.4 90 16 131/79 (96) 98 Room Air 98.4 Physical Exam General: Alert, Cooperative, mild distress Abdomen: Normal bowel sounds, Soft, No hepatosplenomegaly, No masses, Other ( RUQ tenderness) Extremities: No clubbing, No cyanosis, No edema, Normal pulses, No tenderness/ swelling Skin: No rashes, No breakdown, No significant lesion Labs LABS Laboratory Tests Test 04/25/18 09:54 04/25/18 10:08 04/25/18 10:40 04/25/18 11:40 Influenza Type A Antigen Negative (NEGATIVE) Influenza Type B Antigen Negative (NEGATIVE) Stool Occult Blood Negative (NEG) Prothrombin Time 15.4 SEC (11.7-14.0) Prothromb Time International Ratio 1.3 (0.8-1.1) Ferritin 620 ng/mL (26-388) Ethyl Alcohol Level < 10 mg/dL (0-10) Urine Collection Type U cath Urine Color Teresa Urine Clarity Cloudy Urine pH 5.0 Urine Specific [place] 1.020 Urine Protein 30 mg/dL (NEG-TRACE) Urine Glucose (UA) Negative mg/dL (NEG) Urine Ketones (Stick) Negative mg/dL (NEG) Urine Blood Large (NEG) Urine Nitrite Negative (NEG) Urine Bilirubin Moderate (NEG) Urine Urobilinogen Dipstick 0.2 mg/dL (0.2 mg/dL) Urine Leukocyte Esterase Negative (NEG) Urine RBC 20-40 /HPF (0-2) Urine WBC Occ /HPF (0-4) Urine Bacteria 0 /HPF (0-FEW) Urine Hyaline Casts Moderate /HPF Urine Mucus Slight /LPF Test 04/26/18 06:22 White Blood Count 17.3 x10^3/uL (4.0-11.0) Red Blood Count 5.34 x10^6/uL (4.30-5.70) Hemoglobin 12.0 g/dL (13.0-17.5) Hematocrit 37.9 % (39.0-53.0) Mean Corpuscular Volume 71 fL (79-100) Mean Corpuscular Hemoglobin 23 pg (25-35) Mean Corpuscular Hemoglobin Concent 32 g/dL (31-37) Red Cell Distribution Width 16.2 % (11.5-14.5) Platelet Count 427 x10^3/uL (140-400) Neutrophils (%) (Auto) 86 % (31-73) Lymphocytes (%) (Auto) 7 % (24-48) Monocytes (%) (Auto) 7 % (0-9) Eosinophils (%) (Auto) 0 % (0-3) Basophils (%) (Auto) 0 % (0-3) Neutrophils # (Auto) 14.9 x10^3uL (1.8-7.7) Lymphocytes # (Auto) 1.2 x10^3/uL (1.0-4.8) Monocytes # (Auto) 1.2 x10^3/uL (0.0-1.1) Eosinophils # (Auto) 0.0 x10^3/uL (0.0-0.7) Basophils # (Auto) 0.0 x10^3/uL (0.0-0.2) Segmented Neutrophils % 82 % (35-66) Lymphocytes % 12 % (24-48) Monocytes % 6 % (0-10) Platelet Estimate Increased (ADEQUATE) Large Platelets Present Hypochromasia Mod Poikilocytosis Present Anisocytosis Present Microcytosis Mod Ovalocytes Few Sodium Level 147 mmol/L (136-145) Potassium Level 2.7 mmol/L (3.5-5.1) Chloride Level 106 mmol/L (98-107) Carbon Dioxide Level 22 mmol/L (21-32) Anion Gap 19 (6-14) Blood Urea Nitrogen 88 mg/dL (8-26) Creatinine 3.0 mg/dL (0.7-1.3) Estimated GFR (Cockcroft-Gault) 24.4 BUN/Creatinine Ratio 29 (6-20) Glucose Level 81 mg/dL (70-99) Calcium Level 8.9 mg/dL (8.5-10.1) Total Bilirubin 0.8 mg/dL (0.2-1.0) Aspartate Amino Transf (AST/SGOT) 38 U/L (15-37) Alanine Aminotransferase (ALT/SGPT) 21 U/L (16-63) Alkaline Phosphatase 251 U/L (46-116) Total Protein 7.4 g/dL (6.4-8.2) Albumin 2.3 g/dL (3.4-5.0) Albumin/Globulin Ratio 0.5 (1.0-1.7) Assessment and Plan Assessmemt and Plan Problems Medical Problems: (1) Renal insufficiency Status: Acute Comment Review of Relevant I have reviewed the following items pily (where applicable) has been applied. Labs Laboratory Tests Test 04/25/18 09:40 04/25/18 09:54 04/25/18 10:08 04/25/18 10:40 White Blood Count 13.9 x10^3/uL (4.0-11.0) Red Blood Count 5.80 x10^6/uL (4.30-5.70) Hemoglobin 13.2 g/dL (13.0-17.5) Hematocrit 41.1 % (39.0-53.0) Mean Corpuscular Volume 71 fL (79-100) Mean Corpuscular Hemoglobin 23 pg (25-35) Mean Corpuscular Hemoglobin Concent 32 g/dL (31-37) Red Cell Distribution Width 15.9 % (11.5-14.5) Platelet Count 465 x10^3/uL (140-400) Neutrophils (%) (Auto) 82 % (31-73) Lymphocytes (%) (Auto) 13 % (24-48) Monocytes (%) (Auto) 6 % (0-9) Eosinophils (%) (Auto) 0 % (0-3) Basophils (%) (Auto) 0 % (0-3) Neutrophils # (Auto) 11.3 x10^3uL (1.8-7.7) Lymphocytes # (Auto) 1.7 x10^3/uL (1.0-4.8) Monocytes # (Auto) 0.8 x10^3/uL (0.0-1.1) Eosinophils # (Auto) 0.0 x10^3/uL (0.0-0.7) Basophils # (Auto) 0.0 x10^3/uL (0.0-0.2) Platelet Estimate Increased (ADEQUATE) Hypochromasia Mod Anisocytosis Slight Microcytosis Slight Sodium Level 138 mmol/L (136-145) Potassium Level 3.1 mmol/L (3.5-5.1) Chloride Level 97 mmol/L (98-107) Carbon Dioxide Level 19 mmol/L (21-32) Anion Gap 22 (6-14) Blood Urea Nitrogen 88 mg/dL (8-26) Creatinine 3.7 mg/dL (0.7-1.3) Estimated GFR (Cockcroft-Gault) 19.1 BUN/Creatinine Ratio 24 (6-20) Glucose Level 128 mg/dL (70-99) Calcium Level 9.8 mg/dL (8.5-10.1) Iron Level 25 ug/dL (65-175) Total Iron Binding Capacity 133 ug/dL (250-450) Iron Saturation 19 % (15-34) Total Bilirubin 1.4 mg/dL (0.2-1.0) Aspartate Amino Transf (AST/SGOT) 29 U/L (15-37) Alanine Aminotransferase (ALT/SGPT) 26 U/L (16-63) Alkaline Phosphatase 292 U/L (46-116) Troponin I Quantitative < 0.017 ng/mL (0.000-0.055) Total Protein 8.2 g/dL (6.4-8.2) Albumin 2.7 g/dL (3.4-5.0) Albumin/Globulin Ratio 0.5 (1.0-1.7) Triglycerides Level 54 mg/dL (0-150) Cholesterol Level 112 mg/dL (0-200) LDL Cholesterol, Calculated 59 mg/dL (0-100) VLDL Cholesterol, Calculated 11 mg/dL (0-40) Non-HDL Cholesterol Calculated 70 mg/dL (0-129) HDL Cholesterol 42 mg/dL (40-60) Cholesterol/HDL Ratio 2.7 Lipase 3214 U/L (73-393) Tumor Marker Alpha Fetoprotein 1.7 ng/mL (0.0-8.3) Influenza Type A Antigen Negative (NEGATIVE) Influenza Type B Antigen Negative (NEGATIVE) Stool Occult Blood Negative (NEG) Prothrombin Time 15.4 SEC (11.7-14.0) Prothromb Time International Ratio 1.3 (0.8-1.1) Ferritin 620 ng/mL (26-388) Ethyl Alcohol Level < 10 mg/dL (0-10) Test 04/25/18 11:40 04/26/18 06:22 Urine Collection Type U cath Urine Color Teresa Urine Clarity Cloudy Urine pH 5.0 Urine Specific [place] 1.020 Urine Protein 30 mg/dL (NEG-TRACE) Urine Glucose (UA) Negative mg/dL (NEG) Urine Ketones (Stick) Negative mg/dL (NEG) Urine Blood Large (NEG) Urine Nitrite Negative (NEG) Urine Bilirubin Moderate (NEG) Urine Urobilinogen Dipstick 0.2 mg/dL (0.2 mg/dL) Urine Leukocyte Esterase Negative (NEG) Urine RBC 20-40 /HPF (0-2) Urine WBC Occ /HPF (0-4) Urine Bacteria 0 /HPF (0-FEW) Urine Hyaline Casts Moderate /HPF Urine Mucus Slight /LPF White Blood Count 17.3 x10^3/uL (4.0-11.0) Red Blood Count 5.34 x10^6/uL (4.30-5.70) Hemoglobin 12.0 g/dL (13.0-17.5) Hematocrit 37.9 % (39.0-53.0) Mean Corpuscular Volume 71 fL (79-100) Mean Corpuscular Hemoglobin 23 pg (25-35) Mean Corpuscular Hemoglobin Concent 32 g/dL (31-37) Red Cell Distribution Width 16.2 % (11.5-14.5) Platelet Count 427 x10^3/uL (140-400) Neutrophils (%) (Auto) 86 % (31-73) Lymphocytes (%) (Auto) 7 % (24-48) Monocytes (%) (Auto) 7 % (0-9) Eosinophils (%) (Auto) 0 % (0-3) Basophils (%) (Auto) 0 % (0-3) Neutrophils # (Auto) 14.9 x10^3uL (1.8-7.7) Lymphocytes # (Auto) 1.2 x10^3/uL (1.0-4.8) Monocytes # (Auto) 1.2 x10^3/uL (0.0-1.1) Eosinophils # (Auto) 0.0 x10^3/uL (0.0-0.7) Basophils # (Auto) 0.0 x10^3/uL (0.0-0.2) Segmented Neutrophils % 82 % (35-66) Lymphocytes % 12 % (24-48) Monocytes % 6 % (0-10) Platelet Estimate Increased (ADEQUATE) Large Platelets Present Hypochromasia Mod Poikilocytosis Present Anisocytosis Present Microcytosis Mod Ovalocytes Few Sodium Level 147 mmol/L (136-145) Potassium Level 2.7 mmol/L (3.5-5.1) Chloride Level 106 mmol/L (98-107) Carbon Dioxide Level 22 mmol/L (21-32) Anion Gap 19 (6-14) Blood Urea Nitrogen 88 mg/dL (8-26) Creatinine 3.0 mg/dL (0.7-1.3) Estimated GFR (Cockcroft-Gault) 24.4 BUN/Creatinine Ratio 29 (6-20) Glucose Level 81 mg/dL (70-99) Calcium Level 8.9 mg/dL (8.5-10.1) Total Bilirubin 0.8 mg/dL (0.2-1.0) Aspartate Amino Transf (AST/SGOT) 38 U/L (15-37) Alanine Aminotransferase (ALT/SGPT) 21 U/L (16-63) Alkaline Phosphatase 251 U/L (46-116) Total Protein 7.4 g/dL (6.4-8.2) Albumin 2.3 g/dL (3.4-5.0) Albumin/Globulin Ratio 0.5 (1.0-1.7) Laboratory Tests Test 04/25/18 09:54 04/25/18 10:08 04/25/18 10:40 04/25/18 11:40 Influenza Type A Antigen Negative (NEGATIVE) Influenza Type B Antigen Negative (NEGATIVE) Stool Occult Blood Negative (NEG) Prothrombin Time 15.4 SEC (11.7-14.0) Prothromb Time International Ratio 1.3 (0.8-1.1) Ferritin 620 ng/mL (26-388) Ethyl Alcohol Level < 10 mg/dL (0-10) Urine Collection Type U cath Urine Color Teresa Urine Clarity Cloudy Urine pH 5.0 Urine Specific [place] 1.020 Urine Protein 30 mg/dL (NEG-TRACE) Urine Glucose (UA) Negative mg/dL (NEG) Urine Ketones (Stick) Negative mg/dL (NEG) Urine Blood Large (NEG) Urine Nitrite Negative (NEG) Urine Bilirubin Moderate (NEG) Urine Urobilinogen Dipstick 0.2 mg/dL (0.2 mg/dL) Urine Leukocyte Esterase Negative (NEG) Urine RBC 20-40 /HPF (0-2) Urine WBC Occ /HPF (0-4) Urine Bacteria 0 /HPF (0-FEW) Urine Hyaline Casts Moderate /HPF Urine Mucus Slight /LPF Test 04/26/18 06:22 White Blood Count 17.3 x10^3/uL (4.0-11.0) Red Blood Count 5.34 x10^6/uL (4.30-5.70) Hemoglobin 12.0 g/dL (13.0-17.5) Hematocrit 37.9 % (39.0-53.0) Mean Corpuscular Volume 71 fL (79-100) Mean Corpuscular Hemoglobin 23 pg (25-35) Mean Corpuscular Hemoglobin Concent 32 g/dL (31-37) Red Cell Distribution Width 16.2 % (11.5-14.5) Platelet Count 427 x10^3/uL (140-400) Neutrophils (%) (Auto) 86 % (31-73) Lymphocytes (%) (Auto) 7 % (24-48) Monocytes (%) (Auto) 7 % (0-9) Eosinophils (%) (Auto) 0 % (0-3) Basophils (%) (Auto) 0 % (0-3) Neutrophils # (Auto) 14.9 x10^3uL (1.8-7.7) Lymphocytes # (Auto) 1.2 x10^3/uL (1.0-4.8) Monocytes # (Auto) 1.2 x10^3/uL (0.0-1.1) Eosinophils # (Auto) 0.0 x10^3/uL (0.0-0.7) Basophils # (Auto) 0.0 x10^3/uL (0.0-0.2) Segmented Neutrophils % 82 % (35-66) Lymphocytes % 12 % (24-48) Monocytes % 6 % (0-10) Platelet Estimate Increased (ADEQUATE) Large Platelets Present Hypochromasia Mod Poikilocytosis Present Anisocytosis Present Microcytosis Mod Ovalocytes Few Sodium Level 147 mmol/L (136-145) Potassium Level 2.7 mmol/L (3.5-5.1) Chloride Level 106 mmol/L (98-107) Carbon Dioxide Level 22 mmol/L (21-32) Anion Gap 19 (6-14) Blood Urea Nitrogen 88 mg/dL (8-26) Creatinine 3.0 mg/dL (0.7-1.3) Estimated GFR (Cockcroft-Gault) 24.4 BUN/Creatinine Ratio 29 (6-20) Glucose Level 81 mg/dL (70-99) Calcium Level 8.9 mg/dL (8.5-10.1) Total Bilirubin 0.8 mg/dL (0.2-1.0) Aspartate Amino Transf (AST/SGOT) 38 U/L (15-37) Alanine Aminotransferase (ALT/SGPT) 21 U/L (16-63) Alkaline Phosphatase 251 U/L (46-116) Total Protein 7.4 g/dL (6.4-8.2) Albumin 2.3 g/dL (3.4-5.0) Albumin/Globulin Ratio 0.5 (1.0-1.7) Medications Current Medications Sodium Chloride 1,000 ml @ 1,000 mls/hr Q1H IV Last administered on 04/25/18at 10:12; Start 04/25/18 at 09:38; Stop 04/25/18 at 10:37; Status DC Ondansetron HCl (Zofran) 4 mg 1X ONCE IV Last administered on 04/25/18at 10:11 ; Start 04/25/18 at 09:45; Stop 04/25/18 at 09:46; Status DC Hyoscyamine (Anaspaz) 0.125 mg ONCE ONCE PO Last administered on 04/25/18 10: 12; Start 04/25/18 at 09:45; Stop 04/25/18 at 09:46; Status DC Pantoprazole Sodium (PROTONIX VIAL for IV PUSH) 40 mg 1X ONCE IVP Last administered on 04/25/18 10:23; Start 04/25/18 at 10:15; Stop 04/25/18 at 10:16 ; Status DC Ceftriaxone Sodium (Rocephin) 1 gm 1X ONCE IVP Last administered on 04/25/18 12:23; Start 04/25/18 at 11:45; Stop 04/25/18 at 11:46; Status DC Azithromycin 250 ml @ 250 mls/hr 1X ONCE IV Last administered on 04/25/18at 12 :23; Start 04/25/18 at 11:45; Stop 04/25/18 at 12:44; Status DC Ondansetron HCl (Zofran) 4 mg PRN Q8HRS PRN IV NAUSEA/VOMITING; Start 04/25/18 at 11:45; Stop 04/26/18 at 11:44 Morphine Sulfate (Morphine Sulfate) 2 mg PRN Q2HR PRN IV PAIN Last administered on 04/25/18 12:19; Start 04/25/18 at 11:45; Stop 04/26/18 at 11:44 Sodium Chloride 1,000 ml @ 125 mls/hr Q8H IV Last administered on 04/25/18at 16 :34; Start 04/25/18 at 11:36; Stop 04/26/18 at 06:23; Status DC Ringer's Solution 1,000 ml @ 150 mls/hr Q6H40M IV Last administered on 06:36; Start 04/25/18 at 13:34 Ondansetron HCl (Zofran) 4 mg PRN Q6HRS PRN IV NAUSEA/VOMITING; Start 04/25/18 at 13:45 Morphine Sulfate (Morphine Sulfate) 2 mg PRN Q4HRS PRN IV PAIN; Start 04/25/18 at 13:45 Acetaminophen/ Hydrocodone Bitart (Lortab 5/325) 1 tab PRN Q4HRS PRN PO MILD PAIN, 2ND CHOICE; Start 04/25/18 at 13:45 Heparin Sodium (Porcine) (Heparin Sodium) 5,000 unit Q12HR SQ ; Start 04/25/18 at 21:00 Pantoprazole Sodium (PROTONIX VIAL for IV PUSH) 40 mg DAILYAC IVP Last administered on 04/26/18at 09:12; Start 04/26/18 at 07:30 Active Scripts Active Reported Tamsulosin Hcl 0.4 Mg Cap.er.24h 0.4 Mg PO DAILY Potassium Chloride 20 Meq Tablet.er 20 Meq PO DAILY Protonix (Pantoprazole Sodium) 20 Mg Tablet.dr 20 Mg PO DAILY Meclizine Hcl 12.5 Mg Tablet 2 Tab PO TID Losartan Potassium 100 Mg Tablet 100 Mg PO DAILY Albuterol Sulfate Neb Soln (Albuterol Sulfate) 2.5 Mg/3 Ml Vial.neb 1 Vial NEB PRN Q4HRS Ibuprofen 800 Mg Tablet 800 Mg PO TID PRN Furosemide 20 Mg Tablet 1 Tab PO DAILY Finasteride 5 Mg Tablet 1 Tab PO DAILY Doxazosin Mesylate 8 Mg Tablet 1 Tab PO DAILY Allopurinol 300 Mg Tablet 1 Tab PO DAILY Vitals/I & O Vital Sign - Last 24 Hours 04/25/18 04/25/18 04/25/18 04/25/18 10:30 11:30 12:02 12:19 Pulse 90 88 88 Resp B/P (MAP) 114/65 (81) 119/69 (86) 128/65 (86) Pulse Ox 98 98 99 98 O2 Delivery Room Air Room Air Room Air Room Air 04/25/18 04/25/18 04/25/18 04/25/18 13:16 13:20 14:00 15:00 Temp 97.9 98.1 97.9 98.1 Pulse 86 86 87 Resp B/P (MAP) 120/60 (80) 118/70 (86) 119/72 (88) Pulse Ox 98 99 99 O2 Delivery Room Air Room Air Room Air Room Air 04/25/18 04/25/18 04/25/18 04/26/18 19:00 20:30 23:00 03:00 Temp 97.4 97.4 97.1 97.4 97.4 97.1 Pulse 90 95 89 Resp B/P (MAP) 118/64 (82) 136/78 (97) 125/80 (95) Pulse Ox 97 98 96 O2 Delivery Room Air Room Air Room Air Room Air 04/26/18 07:00 Temp 98.4 98.4 Pulse 90 Resp 16 B/P (MAP) 131/79 (96) Pulse Ox 98 O2 Delivery Room Air Intake and Output 04/25/18 04/25/18 04/26/18 15:00 23:00 07:00 Intake Total 1000 ml 120 ml 0 ml Output Total 1 ml 400 ml Balance 1000 ml 119 ml -400 ml JEFF OCHOA MD Apr 26, 2018 09:52
--- NOTE | 2018-04-26 10:00 | NUR ---
Pt attempting to get OOB on own. Frequently needing to be reoriented. Will move patient to room closer to nursing station.
--- NOTE | 2018-04-26 10:03 | PDOC ---
Subjective: Subjective: Wants some water - "I've been here for 20 days and no one will give me water." "Probably" has abdominal pain. Unsure if he has stooled - "if I did it was liquid." Objective: Objective: No stools charted. Vital Signs: Vital Signs Date Time Temp Pulse Resp B/P (MAP) Pulse Ox O2 Delivery O2 Flow Rate FiO2 04/26/18 07:00 98.4 90 16 131/79 (96) 98 Room Air 98.4 Labs: Laboratory Tests Test 04/25/18 09:54 04/25/18 10:08 04/25/18 10:40 04/25/18 11:40 Influenza Type A Antigen Negative Influenza Type B Antigen Negative Stool Occult Blood Negative Prothrombin Time 15.4 SEC Prothromb Time International Ratio 1.3 Ferritin 620 ng/mL Ethyl Alcohol Level < 10 mg/dL Urine Collection Type U cath Urine Color Teresa Urine Clarity Cloudy Urine pH 5.0 Urine Specific [place] 1.020 Urine Protein 30 mg/dL Urine Glucose (UA) Negative mg/dL Urine Ketones (Stick) Negative mg/dL Urine Blood Large Urine Nitrite Negative Urine Bilirubin Moderate Urine Urobilinogen Dipstick 0.2 mg/dL Urine Leukocyte Esterase Negative Urine RBC 20-40 /HPF Urine WBC Occ /HPF Urine Bacteria 0 /HPF Urine Hyaline Casts Moderate /HPF Urine Mucus Slight /LPF Test 04/26/18 06:22 White Blood Count 17.3 x10^3/uL Red Blood Count 5.34 x10^6/uL Hemoglobin 12.0 g/dL Hematocrit 37.9 % Mean Corpuscular Volume 71 fL Mean Corpuscular Hemoglobin 23 pg Mean Corpuscular Hemoglobin Concent 32 g/dL Red Cell Distribution Width 16.2 % Platelet Count 427 x10^3/uL Neutrophils (%) (Auto) 86 % Lymphocytes (%) (Auto) 7 % Monocytes (%) (Auto) 7 % Eosinophils (%) (Auto) 0 % Basophils (%) (Auto) 0 % Neutrophils # (Auto) 14.9 x10^3uL Lymphocytes # (Auto) 1.2 x10^3/uL Monocytes # (Auto) 1.2 x10^3/uL Eosinophils # (Auto) 0.0 x10^3/uL Basophils # (Auto) 0.0 x10^3/uL Segmented Neutrophils % 82 % Lymphocytes % 12 % Monocytes % 6 % Platelet Estimate Increased Large Platelets Present Hypochromasia Mod Poikilocytosis Present Anisocytosis Present Microcytosis Mod Ovalocytes Few Sodium Level 147 mmol/L Potassium Level 2.7 mmol/L Chloride Level 106 mmol/L Carbon Dioxide Level 22 mmol/L Anion Gap 19 Blood Urea Nitrogen 88 mg/dL Creatinine 3.0 mg/dL Estimated GFR (Cockcroft-Gault) 24.4 BUN/Creatinine Ratio 29 Glucose Level 81 mg/dL Calcium Level 8.9 mg/dL Total Bilirubin 0.8 mg/dL Aspartate Amino Transf (AST/SGOT) 38 U/L Alanine Aminotransferase (ALT/SGPT) 21 U/L Alkaline Phosphatase 251 U/L Total Protein 7.4 g/dL Albumin 2.3 g/dL Albumin/Globulin Ratio 0.5 Imaging: Abd US 04/25 The gallbladder is within normal limits in size. There is no sonographic evidence of cholelithiasis. The gallbladder wall is not thickened. The liver is enlarged and contains multiple ill-defined masses. The findings suggest metastatic disease. The largest of these measures approximately 10cm. The pancreas was obscured by overlying bowel . The spleen is also inadequately visualized. The upper abdominal aorta is unremarkable. The distal aorta and inferior vena cava were obscured by overlying bowel. A 3.1 cm cyst is present in the left kidney. The kidneys show no evidence of obstruction. No free fluid is evident in the abdomen. IMPRESSION: 1. Hepatomegaly with multiple hepatic masses compatible with metastatic disease. 2. Small left renal cyst. 3. Obscuration of the pancreas, spleen and central retroperitoneum by overlying bowel. PE: GEN: NAD LUNGS: CTAB HEART: RRR ABD: less tender NEURO/PSYCH: forgetful A/P: Abd pain, ?diarrhea, ?AMS Leukocytosis (worse), microcytic anemia (iron studies c/w chronic disease), SYLVIE (Cr better), hypokalemia (worse) Pancreatitis - unclear cause Hepatic masses - concerning for metastatic disease; AFP normal, CEA pending -- ?timing of liver biopsy Abd pain better? Could probably try some ice chips and water. JOEL REIS Apr 26, 2018 10:03
--- NOTE | 2018-04-26 11:29 | NUR ---
Pt has not had a BM since 04/24/18. No bowel movement noted since admission, cancelled the C.Diff stool sample. Will continue to monitor.
[2018-04-26] MEDS: POTASSIUM CHLORIDE 10MEQ 100 ML IV SCH ×4 (11:50→14:30)
--- NOTE | 2018-04-26 12:18 | PDOC2 ---
CONSULT Date of Consult Date of Consult DATE: 04/26/18 TIME: 12:01 Reason for Consult Reason for Consult: SYLVIE Identification/Chief Complaint Chief Complaint Unable to Obtain from Pt - Poor Historian,? Confused Source Source: Chart review History of Present Illness Reason for Visit: 82 year old male with PMHx HTN (he cannot recall any other PMHx) who presents with upper abdominal pain, vomiting, and diarrhea, present for the past week. He reported some blood when he vomited. Denies black or bloody stool. Poor PO intake He has been taking ibuprofen for abdominal pain without any relief. In ED had CT scan for liver masses and pancreatic fat stranding and elevated Lipase , WBC 13K, Increased BUN/Cr Denies any urinary complaints. No CP/SOB . 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) Family History Family History: Hypertension (Father) Social History No ALCOHOL: none Drugs: None Current Problem List Problem List Problems Medical Problems: (1) Renal insufficiency Status: Acute Current Medications Current Medications Current Medications Sodium Chloride 1,000 ml @ 1,000 mls/hr Q1H IV Last administered on 04/25/18at 10:12; Start 04/25/18 at 09:38; Stop 04/25/18 at 10:37; Status DC Ondansetron HCl (Zofran) 4 mg 1X ONCE IV Last administered on 04/25/18at 10:11 ; Start 04/25/18 at 09:45; Stop 04/25/18 at 09:46; Status DC Hyoscyamine (Anaspaz) 0.125 mg ONCE ONCE PO Last administered on 04/25/18at 10: 12; Start 04/25/18 at 09:45; Stop 04/25/18 at 09:46; Status DC Pantoprazole Sodium (PROTONIX VIAL for IV PUSH) 40 mg 1X ONCE IVP Last administered on 04/25/18at 10:23; Start 04/25/18 at 10:15; Stop 04/25/18 at 10:16 ; Status DC Ceftriaxone Sodium (Rocephin) 1 gm 1X ONCE IVP Last administered on 04/25/18 12:23; Start 04/25/18 at 11:45; Stop 04/25/18 at 11:46; Status DC Azithromycin 250 ml @ 250 mls/hr 1X ONCE IV Last administered on 04/25/18at 12 :23; Start 04/25/18 at 11:45; Stop 04/25/18 at 12:44; Status DC Ondansetron HCl (Zofran) 4 mg PRN Q8HRS PRN IV NAUSEA/VOMITING; Start 04/25/18 at 11:45; Stop 04/26/18 at 11:44; Status DC Morphine Sulfate (Morphine Sulfate) 2 mg PRN Q2HR PRN IV PAIN Last administered on 04/25/18 12:19; Start 04/25/18 at 11:45; Stop 04/26/18 at 11:44 ; Status DC Sodium Chloride 1,000 ml @ 125 mls/hr Q8H IV Last administered on 04/25/18at 16 :34; Start 04/25/18 at 11:36; Stop 04/26/18 at 06:23; Status DC Ringer's Solution 1,000 ml @ 150 mls/hr Q6H40M IV Last administered on at 11:54; Start 04/25/18 at 13:34 Ondansetron HCl (Zofran) 4 mg PRN Q6HRS PRN IV NAUSEA/VOMITING; Start 04/25/18 at 13:45 Morphine Sulfate (Morphine Sulfate) 2 mg PRN Q4HRS PRN IV PAIN; Start 04/25/18 at 13:45 Acetaminophen/ Hydrocodone Bitart (Lortab 5/325) 1 tab PRN Q4HRS PRN PO MILD PAIN, 2ND CHOICE; Start 04/25/18 at 13:45 Heparin Sodium (Porcine) (Heparin Sodium) 5,000 unit Q12HR SQ ; Start 04/25/18 at 21:00 Pantoprazole Sodium (PROTONIX VIAL for IV PUSH) 40 mg DAILYAC IVP Last administered on 04/26/18at 09:12; Start 04/26/18 at 07:30 Saliva Substitute (Biotene Moisturizing Mouth) 2 spray PRN Q15MIN PRN PO DRY MOUTH; Start 04/26/18 at 10:00 Potassium Chloride/Water 100 ml @ 100 mls/hr Q1H IV Last administered on at 11:50; Start 04/26/18 at 11:30; Stop 04/26/18 at 15:29 Potassium Chloride (Klor-Con) 20 meq DAILYWBKFT PO ; Start 04/27/18 at 08:00 Potassium Chloride (Klor-Con) 40 meq 1X ONCE PO ; Start 04/26/18 at 19:00; Stop 04/26/18 at 19:01 Active Scripts Active Reported Tamsulosin Hcl 0.4 Mg Cap.er.24h 0.4 Mg PO DAILY Potassium Chloride 20 Meq Tablet.er 20 Meq PO DAILY Protonix (Pantoprazole Sodium) 20 Mg Tablet.dr 20 Mg PO DAILY Meclizine Hcl 12.5 Mg Tablet 2 Tab PO TID Losartan Potassium 100 Mg Tablet 100 Mg PO DAILY Albuterol Sulfate Neb Soln (Albuterol Sulfate) 2.5 Mg/3 Ml Vial.neb 1 Vial NEB PRN Q4HRS Ibuprofen 800 Mg Tablet 800 Mg PO TID PRN Furosemide 20 Mg Tablet 1 Tab PO DAILY Finasteride 5 Mg Tablet 1 Tab PO DAILY Doxazosin Mesylate 8 Mg Tablet 1 Tab PO DAILY Allopurinol 300 Mg Tablet 1 Tab PO DAILY Allergies Allergies: Coded Allergies: No Known Drug Allergies (Unverified , 04/25/18) ROS Review of System As per HPI Physical Exam Physical Exam General:NAD , sitting up in chair HEENT: OM- Dryish Neck Supple Lungs: Clear to auscultation,Non labored Heart: S1S2, RRR, no gallops, no murmurs Abdomen: Normal bowel sounds, Soft, Extremities: No edema LE Skin: No rashes Neuro:? Confused , Grossly normal - No flank or SP tenderness, No Minor Vital Signs Vital Signs Date Time Temp Pulse Resp B/P (MAP) Pulse Ox O2 Delivery O2 Flow Rate FiO2 04/26/18 11:00 98.0 92 17 106/88 (94) 96 Room Air 98.0 Assessment & Plan SYLVIE - Dehydration sec to N/V poor PO intake Baseline renal function unknown Continue IVF, Strict I/O US- Unremarkable Kidneys, Bladder not reported UA- microscopic hematuria Monitor, Currently no emergent indication for VAMP MARKER Microscopic hematuria- ?Minor sample Check Non Minor sample - if persistent Consult urology No Proteinuria Hypokalemia- Replaced Monitor and replace as needed Acute pancreatitis -GI consulted Liver masses - possibly metastatic disease. GI consulted Plan for Liver Bx HTN - stable Discussed with RN, Unable to contact family as per RN Labs Labs Laboratory Tests Test 04/25/18 09:40 04/25/18 09:54 04/25/18 10:08 04/25/18 10:40 White Blood Count 13.9 x10^3/uL (4.0-11.0) Red Blood Count 5.80 x10^6/uL (4.30-5.70) Hemoglobin 13.2 g/dL (13.0-17.5) Hematocrit 41.1 % (39.0-53.0) Mean Corpuscular Volume 71 fL (79-100) Mean Corpuscular Hemoglobin 23 pg (25-35) Mean Corpuscular Hemoglobin Concent 32 g/dL (31-37) Red Cell Distribution Width 15.9 % (11.5-14.5) Platelet Count 465 x10^3/uL (140-400) Neutrophils (%) (Auto) 82 % (31-73) Lymphocytes (%) (Auto) 13 % (24-48) Monocytes (%) (Auto) 6 % (0-9) Eosinophils (%) (Auto) 0 % (0-3) Basophils (%) (Auto) 0 % (0-3) Neutrophils # (Auto) 11.3 x10^3uL (1.8-7.7) Lymphocytes # (Auto) 1.7 x10^3/uL (1.0-4.8) Monocytes # (Auto) 0.8 x10^3/uL (0.0-1.1) Eosinophils # (Auto) 0.0 x10^3/uL (0.0-0.7) Basophils # (Auto) 0.0 x10^3/uL (0.0-0.2) Platelet Estimate Increased (ADEQUATE) Hypochromasia Mod Anisocytosis Slight Microcytosis Slight Sodium Level 138 mmol/L (136-145) Potassium Level 3.1 mmol/L (3.5-5.1) Chloride Level 97 mmol/L (98-107) Carbon Dioxide Level 19 mmol/L (21-32) Anion Gap 22 (6-14) Blood Urea Nitrogen 88 mg/dL (8-26) Creatinine 3.7 mg/dL (0.7-1.3) Estimated GFR (Cockcroft-Gault) 19.1 BUN/Creatinine Ratio 24 (6-20) Glucose Level 128 mg/dL (70-99) Calcium Level 9.8 mg/dL (8.5-10.1) Iron Level 25 ug/dL (65-175) Total Iron Binding Capacity 133 ug/dL (250-450) Iron Saturation 19 % (15-34) Total Bilirubin 1.4 mg/dL (0.2-1.0) Aspartate Amino Transf (AST/SGOT) 29 U/L (15-37) Alanine Aminotransferase (ALT/SGPT) 26 U/L (16-63) Alkaline Phosphatase 292 U/L (46-116) Troponin I Quantitative < 0.017 ng/mL (0.000-0.055) Total Protein 8.2 g/dL (6.4-8.2) Albumin 2.7 g/dL (3.4-5.0) Albumin/Globulin Ratio 0.5 (1.0-1.7) Triglycerides Level 54 mg/dL (0-150) Cholesterol Level 112 mg/dL (0-200) LDL Cholesterol, Calculated 59 mg/dL (0-100) VLDL Cholesterol, Calculated 11 mg/dL (0-40) Non-HDL Cholesterol Calculated 70 mg/dL (0-129) HDL Cholesterol 42 mg/dL (40-60) Cholesterol/HDL Ratio 2.7 Lipase 3214 U/L (73-393) Tumor Marker Alpha Fetoprotein 1.7 ng/mL (0.0-8.3) Influenza Type A Antigen Negative (NEGATIVE) Influenza Type B Antigen Negative (NEGATIVE) Stool Occult Blood Negative (NEG) Prothrombin Time 15.4 SEC (11.7-14.0) Prothromb Time International Ratio 1.3 (0.8-1.1) Ferritin 620 ng/mL (26-388) Ethyl Alcohol Level < 10 mg/dL (0-10) Test 04/25/18 11:40 04/26/18 06:22 Urine Collection Type U cath Urine Color Teresa Urine Clarity Cloudy Urine pH 5.0 Urine Specific Morris 1.020 Urine Protein 30 mg/dL (NEG-TRACE) Urine Glucose (UA) Negative mg/dL (NEG) Urine Ketones (Stick) Negative mg/dL (NEG) Urine Blood Large (NEG) Urine Nitrite Negative (NEG) Urine Bilirubin Moderate (NEG) Urine Urobilinogen Dipstick 0.2 mg/dL (0.2 mg/dL) Urine Leukocyte Esterase Negative (NEG) Urine RBC 20-40 /HPF (0-2) Urine WBC Occ /HPF (0-4) Urine Bacteria 0 /HPF (0-FEW) Urine Hyaline Casts Moderate /HPF Urine Mucus Slight /LPF White Blood Count 17.3 x10^3/uL (4.0-11.0) Red Blood Count 5.34 x10^6/uL (4.30-5.70) Hemoglobin 12.0 g/dL (13.0-17.5) Hematocrit 37.9 % (39.0-53.0) Mean Corpuscular Volume 71 fL (79-100) Mean Corpuscular Hemoglobin 23 pg (25-35) Mean Corpuscular Hemoglobin Concent 32 g/dL (31-37) Red Cell Distribution Width 16.2 % (11.5-14.5) Platelet Count 427 x10^3/uL (140-400) Neutrophils (%) (Auto) 86 % (31-73) Lymphocytes (%) (Auto) 7 % (24-48) Monocytes (%) (Auto) 7 % (0-9) Eosinophils (%) (Auto) 0 % (0-3) Basophils (%) (Auto) 0 % (0-3) Neutrophils # (Auto) 14.9 x10^3uL (1.8-7.7) Lymphocytes # (Auto) 1.2 x10^3/uL (1.0-4.8) Monocytes # (Auto) 1.2 x10^3/uL (0.0-1.1) Eosinophils # (Auto) 0.0 x10^3/uL (0.0-0.7) Basophils # (Auto) 0.0 x10^3/uL (0.0-0.2) Segmented Neutrophils % 82 % (35-66) Lymphocytes % 12 % (24-48) Monocytes % 6 % (0-10) Platelet Estimate Increased (ADEQUATE) Large Platelets Present Hypochromasia Mod Poikilocytosis Present Anisocytosis Present Microcytosis Mod Ovalocytes Few Sodium Level 147 mmol/L (136-145) Potassium Level 2.7 mmol/L (3.5-5.1) Chloride Level 106 mmol/L (98-107) Carbon Dioxide Level 22 mmol/L (21-32) Anion Gap 19 (6-14) Blood Urea Nitrogen 88 mg/dL (8-26) Creatinine 3.0 mg/dL (0.7-1.3) Estimated GFR (Cockcroft-Gault) 24.4 BUN/Creatinine Ratio 29 (6-20) Glucose Level 81 mg/dL (70-99) Calcium Level 8.9 mg/dL (8.5-10.1) Total Bilirubin 0.8 mg/dL (0.2-1.0) Aspartate Amino Transf (AST/SGOT) 38 U/L (15-37) Alanine Aminotransferase (ALT/SGPT) 21 U/L (16-63) Alkaline Phosphatase 251 U/L (46-116) Total Protein 7.4 g/dL (6.4-8.2) Albumin 2.3 g/dL (3.4-5.0) Albumin/Globulin Ratio 0.5 (1.0-1.7) Laboratory Tests Test 04/26/18 06:22 White Blood Count 17.3 x10^3/uL (4.0-11.0) Red Blood Count 5.34 x10^6/uL (4.30-5.70) Hemoglobin 12.0 g/dL (13.0-17.5) Hematocrit 37.9 % (39.0-53.0) Mean Corpuscular Volume 71 fL (79-100) Mean Corpuscular Hemoglobin 23 pg (25-35) Mean Corpuscular Hemoglobin Concent 32 g/dL (31-37) Red Cell Distribution Width 16.2 % (11.5-14.5) Platelet Count 427 x10^3/uL (140-400) Neutrophils (%) (Auto) 86 % (31-73) Lymphocytes (%) (Auto) 7 % (24-48) Monocytes (%) (Auto) 7 % (0-9) Eosinophils (%) (Auto) 0 % (0-3) Basophils (%) (Auto) 0 % (0-3) Neutrophils # (Auto) 14.9 x10^3uL (1.8-7.7) Lymphocytes # (Auto) 1.2 x10^3/uL (1.0-4.8) Monocytes # (Auto) 1.2 x10^3/uL (0.0-1.1) Eosinophils # (Auto) 0.0 x10^3/uL (0.0-0.7) Basophils # (Auto) 0.0 x10^3/uL (0.0-0.2) Segmented Neutrophils % 82 % (35-66) Lymphocytes % 12 % (24-48) Monocytes % 6 % (0-10) Platelet Estimate Increased (ADEQUATE) Large Platelets Present Hypochromasia Mod Poikilocytosis Present Anisocytosis Present Microcytosis Mod Ovalocytes Few Sodium Level 147 mmol/L (136-145) Potassium Level 2.7 mmol/L (3.5-5.1) Chloride Level 106 mmol/L (98-107) Carbon Dioxide Level 22 mmol/L (21-32) Anion Gap 19 (6-14) Blood Urea Nitrogen 88 mg/dL (8-26) Creatinine 3.0 mg/dL (0.7-1.3) Estimated GFR (Cockcroft-Gault) 24.4 BUN/Creatinine Ratio 29 (6-20) Glucose Level 81 mg/dL (70-99) Calcium Level 8.9 mg/dL (8.5-10.1) Total Bilirubin 0.8 mg/dL (0.2-1.0) Aspartate Amino Transf (AST/SGOT) 38 U/L (15-37) Alanine Aminotransferase (ALT/SGPT) 21 U/L (16-63) Alkaline Phosphatase 251 U/L (46-116) Total Protein 7.4 g/dL (6.4-8.2) Albumin 2.3 g/dL (3.4-5.0) Albumin/Globulin Ratio 0.5 (1.0-1.7) Review All relevant outside records, renal labs, imaging studies, telemetry/EKG's were reviewed. Images Images CT abdomen - 1. Multiple ill-defined hypodensities identified in the liver with the largest measuring 4.5 cm in the left lobe suspicious for metastasis or malignancy however evaluation is limited without contrast. Recommend MRI abdomen for further evaluation. 2. Questionable minimal fat stranding identified about the pancreas probably artifactual and less likely pancreatitis. Correlate with lab values. 3. 2.5 cm cystic structure identified in the left kidney could be a cyst or cystic lesion. 4. Focal consolidation identified in the left lower lobe of the lung could be round atelectasis or focal infiltrate with mild bibasilar lung airspace opacities likely atelectasis or infiltrates. CXR - 1. Aortic atherosclerosis. 2. Mild bibasilar infiltrate and/or scarring. (NOTED IN 2010 as well) US Abdomen-- The kidneys show no evidence of obstruction. No free fluid is evident in the abdomen. Hepatomegaly with multiple hepatic masses compatible with metastatic disease. Small left renal cyst. Obscuration of the pancreas, spleen and central retroperitoneum by overlying bowel. DEION AZEVEDO MD Apr 26, 2018 12:17
[2018-04-26] MEDS ORDERED: GELATIN SPONGE SIZE 12-7MM SPONGE. ONE (13:46)
[2018-04-26] MEDS ORDERED: LIDOCAINE WITH 8.4% SOD BICARB 3 ML DISP.SYRIN. ONE (13:46)
[2018-04-26] MEDS ORDERED: fentaNYL PF VIAL 100 MCG/2 ML VIAL ONE (14:13)
[2018-04-26] MEDS ORDERED: MIDAZOLAM HCL/PF 2 MG/2 ML VIAL. ONE (14:13)
--- NOTE | 2018-04-26 14:44 | PDOC ---
BRIEF OPERATIVE NOTE Pre-Op Diagnosis Liver masses Post-Op Diagnosis same Procedure Performed US liver biopsy Surgeon Airam Findings 4 x 20g cores Complications No immediate RACHELLE NAVAS MD Apr 26, 2018 14:44
[2018-04-26] MEDS ORDERED: GELATIN SPONGE SIZE 12-7MM SPONGE. TP ONE (14:45)
[2018-04-26] MEDS ORDERED: LIDOCAINE WITH 8.4% SOD BICARB 3 ML DISP.SYRIN. INJ ONE (14:45)
--- NOTE | 2018-04-26 15:05 | RAD ---
Procedure: Ultrasound-guided liver biopsy Clinical Indication: 82-year-old with multiple large liver masses Sedation: Local anesthesia only Antibiotics: None Sterility: The procedure was performed in its entirety using appropriate elements of sterile technique. Consent: The procedure was explained in its entirety to the patient or the patients designated credit representative by a member of the treatment team, including a discussion of the risks, benefits and commonly accepted alternatives to the procedure, as well as the expected consequences of no therapy whatsoever. Discussion of the risks included, but was not limited to, those that are most frequent and those that are rare but possibly severe or life-threatening, as well as the possibility of unforeseen complications. Technique and Findings: Following informed consent, the patient was prepped and draped in usual sterile fashion. Ultrasound interrogation of the liver revealed numerous liver masses. 1% lidocaine was used to achieve local anesthesia over the area of interest. A small dermatotomy was made. Under ultrasound guidance, a 17-gauge guide was advanced towards a large target lesion within the right lobe of the liver. Hardcopy ultrasound images were recorded. 4 x 18-gauge core biopsy specimens were then obtained and preserved in formalin. Gelfoam pledgets were applied as the needle guide was removed and hemostasis was achieved with manual compression. Complications: No immediate Impression: 1. Ultrasound-guided liver biopsy as described
--- NOTE | 2018-04-26 16:35 | NUR ---
SW following pt for anticipated dc needs. Spoke with RN who reported 'pt is not able to remember family names'. SW phoned the phone number listed on pt's face sheet and home address but phone was either disconnected or keeps ringing. SW will continue to follow.
--- NOTE | 2018-04-26 16:45 | NUR ---
Upon doing patient rounds, found patient sitting at end of bed, with peripheral IV pulled out and blood on bed and patient. Cleaned patient and changed linens. Asked patient if there was anyone whom we could call to notify them of pt's hospitalization. Pt did not answer. Will continue to monitor.
[2018-04-26] MEDS: cefTRIAXone IV Push 1 GM VIAL. IVP SCH (17:49)
[2018-04-26] MEDS: AZITHROMYCIN 250 MG in IV NORMAL SALINE 250ML 250 ML IV SCH (17:49)
[2018-04-26] MEDS ORDERED: POTASSIUM CHLORIDE 20 MEQ TABLET.ER. PO ONE (19:00)
[2018-04-26] MEDS: MORPHINE SULFATE 4 MG/ML VIAL. IV PRN (21:47)
[2018-04-27] MEDS: MORPHINE SULFATE 4 MG/ML VIAL. IV PRN ×2 (02:03→19:29)
[2018-04-27] MEDS: IV RINGERS,LACTATED 1000ML 1,000 ML IV SCH ×4 (02:03→21:24)
[2018-04-27 07:00] VITALS: BP 131/78
[2018-04-27 07:37] LABS: BASO % 0 % (0-3); EOS % 0 % (0-3); HEMATOCRIT 37.9 % (39.0-53.0); LYMPH # 1.6 x10^3/uL (1.0-4.8); LYMPH % 10 % (24-48); MEAN CORPUSCULAR HEMOGLOBIN 22 pg (25-35); MEAN CORPUSCULAR HGB CONC 32 g/dL (31-37); MEAN CORPUSCULAR VOLUME 71 fL (79-100); MONO # 1.5 x10^3/uL (0.0-1.1); MONO % 10 % (0-9); NEUT # 12.1 x10^3uL (1.8-7.7); NEUT % 79 % (31-73); PLATELET COUNT 407 x10^3/uL (140-400); RED BLOOD COUNT 5.36 x10^6/uL (4.30-5.70); RED CELL DISTRIBUTION WIDTH 16.5 % (11.5-14.5); WHITE BLOOD COUNT 15.3 x10^3/uL (4.0-11.0)
[2018-04-27] MEDS: PANTOPRAZOLE IV PUSH 40 MG VIAL. IVP SCH (07:37)
[2018-04-27] MEDS: POTASSIUM CHLORIDE 20 MEQ TABLET.ER. PO SCH ×2 (08:00→08:20)
[2018-04-27 08:21] LABS: ALBUMIN/GLOBULIN RATIO 0.4 (1.0-1.7); CREATININE 2.2 mg/dL (0.7-1.3); GFR 34.8; MAGNESIUM 2.9 mg/dL (1.8-2.4); TOTAL BILIRUBIN 0.7 mg/dL (0.2-1.0); TOTAL PROTEIN 6.8 g/dL (6.4-8.2)
--- NOTE | 2018-04-27 08:41 | NUR ---
Patient unable to take his PO Potassium. RN notified. Will monitor and support. SN SHAGUFTA Mera with instructor Nghia Murguia RN
--- NOTE | 2018-04-27 09:23 | NUR ---
Dr. Christensen notified patient too sleepy to take oral medication, possible r/t morphine for pain through noc. Patient serum potassium 3.0, last waxer. 2.2. Dr. Christensen notified. See orders.
[2018-04-27] MEDS: POTASSIUM CHLORIDE 10MEQ 100 ML IV SCH ×2 (09:53→11:10)
[2018-04-27 11:00] VITALS: BP 134/76
--- NOTE | 2018-04-27 11:05 | PDOC ---
Objective: Objective: D/w RN - got morphine overnight w/ agitation, drowsy this morning - too drowsy to take anything PO but has asked for urinal and uses that without issue. student services counselor says he was uncomfortable when they examined his abdomen. Vital Signs: Vital Signs Date Time Temp Pulse Resp B/P (MAP) Pulse Ox O2 Delivery O2 Flow Rate FiO2 04/27/18 08:00 Room Air 04/27/18 07:00 97.7 86 17 131/78 (95) 96 97.7 Labs: Laboratory Tests Test 04/27/18 07:15 White Blood Count 15.3 x10^3/uL Red Blood Count 5.36 x10^6/uL Hemoglobin 12.0 g/dL Hematocrit 37.9 % Mean Corpuscular Volume 71 fL Mean Corpuscular Hemoglobin 22 pg Mean Corpuscular Hemoglobin Concent 32 g/dL Red Cell Distribution Width 16.5 % Platelet Count 407 x10^3/uL Neutrophils (%) (Auto) 79 % Lymphocytes (%) (Auto) 10 % Monocytes (%) (Auto) 10 % Eosinophils (%) (Auto) 0 % Basophils (%) (Auto) 0 % Neutrophils # (Auto) 12.1 x10^3uL Lymphocytes # (Auto) 1.6 x10^3/uL Monocytes # (Auto) 1.5 x10^3/uL Eosinophils # (Auto) 0.0 x10^3/uL Basophils # (Auto) 0.0 x10^3/uL Sodium Level 146 mmol/L Potassium Level 3.0 mmol/L Chloride Level 106 mmol/L Carbon Dioxide Level 24 mmol/L Anion Gap 16 Blood Urea Nitrogen 76 mg/dL Creatinine 2.2 mg/dL Estimated GFR (Cockcroft-Gault) 34.8 BUN/Creatinine Ratio 35 Glucose Level 85 mg/dL Calcium Level 9.0 mg/dL Magnesium Level 2.9 mg/dL Total Bilirubin 0.7 mg/dL Aspartate Amino Transf (AST/SGOT) 33 U/L Alanine Aminotransferase (ALT/SGPT) 19 U/L Alkaline Phosphatase 244 U/L Total Protein 6.8 g/dL Albumin 2.0 g/dL Albumin/Globulin Ratio 0.4 BLOOD CULTURE Preliminary NO GROWTH AFTER 1 DAY PE: GEN: NAD - holding cup of water LUNGS: room air HEART: RRR ABD: soft, BS+, ?non-tender NEURO/PSYCH: keeps eyes closed and does not respond during interview/exam A/P: Hepatic masses s/p liver biopsy 04/26/18, AFP WNL, CEA pending Pancreatitis - unclear cause ACD Leukocytosis, SYLVIE - better -- Not communicating/drowsy this morning. Unclear what baseline mental status is - apparently lives at home alone. JOEL REIS Apr 27, 2018 11:05
--- NOTE | 2018-04-27 13:32 | PDOC ---
SUBJECTIVE ROS Stable OBJECTIVE Vital Signs Vital Signs Date Time Temp Pulse Resp B/P (MAP) Pulse Ox O2 Delivery O2 Flow Rate FiO2 04/27/18 11:00 97.9 83 16 134/76 (95) 100 Room Air 97.9 I & 0 Intake and Output 04/27/18 07:00 Intake Total 1300 ml Output Total 800 ml Balance 500 ml Intake Oral 300 ml IV Total 1000 ml Output Urine Total 800 ml # Voids 2 PHYSICAL EXAM Physical Exam General:NAD , sitting up in chair HEENT: OM- Dryish Neck Supple Lungs: Clear to auscultation,Non labored Heart: S1S2, RRR, no gallops, no murmurs Abdomen: Normal bowel sounds, Soft, Extremities: No edema LE Skin: No rashes Neuro:? Confused , Grossly normal - No flank or SP tenderness, No Minor DIAGNOSIS/ASSESSMENT Assessment & Plan SYLVIE - Dehydration sec to N/V poor PO intake Baseline renal function unknown Improving renal function US- Unremarkable Kidneys, UA- microscopic hematuria Monitor , strict I/O Microscopic hematuria- ?Minor sample Check Non Minor sample - if persistent Consult urology No Proteinuria Hypokalemia- Monitor and replace as needed Hypernatremia Mild Acute pancreatitis -GI consulted Liver masses - possibly metastatic disease. GI consulted s/p liver biopsy 04/26/18, AFP WNL, CEA pending HTN - stable COMMENT/RELEVANT DATA Meds Current Medications Medications (Trade) Dose Ordered Sig/Mina Start Time Stop Time Status Last Admin Dose Admin Acetaminophen/ Hydrocodone Bitart (Lortab 5/325) 1 tab PRN Q4HRS PRN 04/25/18 13:45 Azithromycin 250 ml @ 250 mls/hr 1X ONCE 04/25/18 11:45 04/25/18 12:44 DC 04/25/18 12:23 250 MLS/HR Azithromycin 250 mg/Sodium Chloride 250 ml @ 250 mls/hr Q24H 04/26/18 18:00 04/26/18 17:49 250 MLS/HR Ceftriaxone Sodium (Rocephin) 1 gm Q24H 04/26/18 17:30 04/26/18 17:49 1 GM Fentanyl Citrate (Fentanyl 2ml Vial) 100 mcg STK-MED ONCE 04/26/18 14:13 04/26/18 14:14 DC Gelatin (Gelfoam Size 12-7mm) 1 each 1X ONCE 04/26/18 14:45 04/26/18 14:46 DC 04/26/18 14:44 1 EACH Heparin Sodium (Porcine) (Heparin Sodium) 5,000 unit Q12HR 04/25/18 21:00 04/26/18 17:38 DC Hyoscyamine (Anaspaz) 0.125 mg ONCE ONCE 04/25/18 09:45 04/25/18 09:46 DC 04/25/18 10:12 0.125 MG Lidocaine/Sodium Bicarbonate (Buffered Lidocaine 1%) 3 ml 1X ONCE 04/26/18 14:45 04/26/18 14:46 DC 04/26/18 14:44 7 ML Midazolam HCl (Versed) 2 mg STK-MED ONCE 04/26/18 14:13 04/26/18 14:14 DC Morphine Sulfate (Morphine Sulfate) 2 mg PRN Q4HRS PRN 04/25/18 13:45 04/27/18 02:03 2 MG Ondansetron HCl (Zofran) 4 mg PRN Q6HRS PRN 04/25/18 13:45 Pantoprazole Sodium (PROTONIX VIAL for IV PUSH) 40 mg DAILYAC 04/26/18 07:30 04/27/18 07:37 40 MG Potassium Chloride/Water 100 ml @ 100 mls/hr Q1H 04/27/18 10:00 04/27/18 11:59 DC 04/27/18 11:10 100 MLS/HR Potassium Chloride (Klor-Con) 40 meq 1X ONCE 04/26/18 19:00 04/26/18 19:01 DC Ringer's Solution 1,000 ml @ 125 mls/hr Q8H 04/25/18 13:34 04/27/18 11:54 125 MLS/HR Saliva Substitute (Biotene Moisturizing Mouth) 2 spray PRN Q15MIN PRN 04/26/18 10:00 Sodium Chloride 1,000 ml @ 125 mls/hr Q8H 04/25/18 11:36 04/26/18 06:23 DC 04/25/18 16:34 125 MLS/HR Lab Laboratory Tests Test 04/27/18 07:15 White Blood Count 15.3 x10^3/uL (4.0-11.0) Red Blood Count 5.36 x10^6/uL (4.30-5.70) Hemoglobin 12.0 g/dL (13.0-17.5) Hematocrit 37.9 % (39.0-53.0) Mean Corpuscular Volume 71 fL (79-100) Mean Corpuscular Hemoglobin 22 pg (25-35) Mean Corpuscular Hemoglobin Concent 32 g/dL (31-37) Red Cell Distribution Width 16.5 % (11.5-14.5) Platelet Count 407 x10^3/uL (140-400) Neutrophils (%) (Auto) 79 % (31-73) Lymphocytes (%) (Auto) 10 % (24-48) Monocytes (%) (Auto) 10 % (0-9) Eosinophils (%) (Auto) 0 % (0-3) Basophils (%) (Auto) 0 % (0-3) Neutrophils # (Auto) 12.1 x10^3uL (1.8-7.7) Lymphocytes # (Auto) 1.6 x10^3/uL (1.0-4.8) Monocytes # (Auto) 1.5 x10^3/uL (0.0-1.1) Eosinophils # (Auto) 0.0 x10^3/uL (0.0-0.7) Basophils # (Auto) 0.0 x10^3/uL (0.0-0.2) Sodium Level 146 mmol/L (136-145) Potassium Level 3.0 mmol/L (3.5-5.1) Chloride Level 106 mmol/L (98-107) Carbon Dioxide Level 24 mmol/L (21-32) Anion Gap 16 (6-14) Blood Urea Nitrogen 76 mg/dL (8-26) Creatinine 2.2 mg/dL (0.7-1.3) Estimated GFR (Cockcroft-Gault) 34.8 BUN/Creatinine Ratio 35 (6-20) Glucose Level 85 mg/dL (70-99) Calcium Level 9.0 mg/dL (8.5-10.1) Magnesium Level 2.9 mg/dL (1.8-2.4) Total Bilirubin 0.7 mg/dL (0.2-1.0) Aspartate Amino Transf (AST/SGOT) 33 U/L (15-37) Alanine Aminotransferase (ALT/SGPT) 19 U/L (16-63) Alkaline Phosphatase 244 U/L (46-116) Total Protein 6.8 g/dL (6.4-8.2) Albumin 2.0 g/dL (3.4-5.0) Albumin/Globulin Ratio 0.4 (1.0-1.7) Results All relevant outside records, renal labs, imaging studies, telemetry/EKG's were reviewed. DEION AZEVEDO MD Apr 27, 2018 13:32
[2018-04-27 15:00] VITALS: BP 134/77
--- NOTE | 2018-04-27 16:15 | NUR ---
SW following pt. SW spoke with pt's nephew, Luis Carlos Holt, phone: [phone] and his , Krupa who reported pt had moved to [place] a couple of years ago. Luis Carlos and Krupa reported they communicate with pt via phone. They reported they will try to locate pt's children and follow up with SW in the am. Spoke with RN and pt has not been ambulating or eating well today. He has been taking fluids. Pt will benefit from PT/OT evaluation. Will continue to follow.
--- NOTE | 2018-04-27 16:35 | PDOC ---
PROGRESS NOTES Chief Complaint Chief Complaint Acute pancreatitis - with Abdominal pain, nausea vomiting. NPO, consult GI. Still has GB, triglycerides normal, not on a thiazide that he knows of and he doesn't recall if he has been losing weight. Concerning liver masses on CT could be metastatic disease, he does not recall his last colonoscopy during my interview. Pain control with morphine Acute metabolic encephalopathy - uremia, delirium Hypokalemia - 3.1, will monitor. Replace IVF SYLVIE - vasomotor with possible ATN, appears dry and Cr and BUN elevated. Unknown baseline. Liver masses - possibly metastatic disease. Contrast contraindicated based on his renal function. Will consult GI. Will see if I can get ahold of his [place] medical records. RBC microcytosis - will check iron studies, may be sickle trait, he does not recall HTN - will need to reconcile his meds History of Present Illness History of Present Illness Admitted for abdominal pain, confusion, found with pancreatitis and liver masses. S/p liver biopsy 04/26/18 Complains of dry mouth, upset, asks for water over and over. I informed him he can eat and drink now. He urinates into his water cup and attempts to drink from it. Plan: Advance diet, restart anticoagulation F/u liver biopsy results. He needs skilled/Memory services on d/c. We need to get ahold of family. Daughters live in [place], ex- lives here. Their numbers are in his phone, but not labeled. [phone] is [place] area code. Vitals Vitals Vital Signs Date Time Temp Pulse Resp B/P (MAP) Pulse Ox O2 Delivery O2 Flow Rate FiO2 04/27/18 15:00 98.1 83 16 134/77 (96) 94 Room Air 98.1 Physical Exam General: Alert, Cooperative, mild distress Abdomen: Normal bowel sounds, Soft, No hepatosplenomegaly, No masses, Other ( RUQ tenderness) Extremities: No clubbing, No cyanosis, No edema, Normal pulses, No tenderness/ swelling Skin: No rashes, No breakdown, No significant lesion Labs LABS Laboratory Tests Test 04/27/18 07:15 White Blood Count 15.3 x10^3/uL (4.0-11.0) Red Blood Count 5.36 x10^6/uL (4.30-5.70) Hemoglobin 12.0 g/dL (13.0-17.5) Hematocrit 37.9 % (39.0-53.0) Mean Corpuscular Volume 71 fL (79-100) Mean Corpuscular Hemoglobin 22 pg (25-35) Mean Corpuscular Hemoglobin Concent 32 g/dL (31-37) Red Cell Distribution Width 16.5 % (11.5-14.5) Platelet Count 407 x10^3/uL (140-400) Neutrophils (%) (Auto) 79 % (31-73) Lymphocytes (%) (Auto) 10 % (24-48) Monocytes (%) (Auto) 10 % (0-9) Eosinophils (%) (Auto) 0 % (0-3) Basophils (%) (Auto) 0 % (0-3) Neutrophils # (Auto) 12.1 x10^3uL (1.8-7.7) Lymphocytes # (Auto) 1.6 x10^3/uL (1.0-4.8) Monocytes # (Auto) 1.5 x10^3/uL (0.0-1.1) Eosinophils # (Auto) 0.0 x10^3/uL (0.0-0.7) Basophils # (Auto) 0.0 x10^3/uL (0.0-0.2) Sodium Level 146 mmol/L (136-145) Potassium Level 3.0 mmol/L (3.5-5.1) Chloride Level 106 mmol/L (98-107) Carbon Dioxide Level 24 mmol/L (21-32) Anion Gap 16 (6-14) Blood Urea Nitrogen 76 mg/dL (8-26) Creatinine 2.2 mg/dL (0.7-1.3) Estimated GFR (Cockcroft-Gault) 34.8 BUN/Creatinine Ratio 35 (6-20) Glucose Level 85 mg/dL (70-99) Calcium Level 9.0 mg/dL (8.5-10.1) Magnesium Level 2.9 mg/dL (1.8-2.4) Total Bilirubin 0.7 mg/dL (0.2-1.0) Aspartate Amino Transf (AST/SGOT) 33 U/L (15-37) Alanine Aminotransferase (ALT/SGPT) 19 U/L (16-63) Alkaline Phosphatase 244 U/L (46-116) Total Protein 6.8 g/dL (6.4-8.2) Albumin 2.0 g/dL (3.4-5.0) Albumin/Globulin Ratio 0.4 (1.0-1.7) Assessment and Plan Assessmemt and Plan Problems Medical Problems: (1) Renal insufficiency Status: Acute Comment Review of Relevant I have reviewed the following items pily (where applicable) has been applied. Labs Laboratory Tests Test 04/26/18 06:22 04/27/18 07:15 White Blood Count 17.3 x10^3/uL (4.0-11.0) 15.3 x10^3/uL (4.0-11.0) Red Blood Count 5.34 x10^6/uL (4.30-5.70) 5.36 x10^6/uL (4.30-5.70) Hemoglobin 12.0 g/dL (13.0-17.5) 12.0 g/dL (13.0-17.5) Hematocrit 37.9 % (39.0-53.0) 37.9 % (39.0-53.0) Mean Corpuscular Volume 71 fL (79-100) 71 fL (79-100) Mean Corpuscular Hemoglobin 23 pg (25-35) 22 pg (25-35) Mean Corpuscular Hemoglobin Concent 32 g/dL (31-37) 32 g/dL (31-37) Red Cell Distribution Width 16.2 % (11.5-14.5) 16.5 % (11.5-14.5) Platelet Count 427 x10^3/uL (140-400) 407 x10^3/uL (140-400) Neutrophils (%) (Auto) 86 % (31-73) 79 % (31-73) Lymphocytes (%) (Auto) 7 % (24-48) 10 % (24-48) Monocytes (%) (Auto) 7 % (0-9) 10 % (0-9) Eosinophils (%) (Auto) 0 % (0-3) 0 % (0-3) Basophils (%) (Auto) 0 % (0-3) 0 % (0-3) Neutrophils # (Auto) 14.9 x10^3uL (1.8-7.7) 12.1 x10^3uL (1.8-7.7) Lymphocytes # (Auto) 1.2 x10^3/uL (1.0-4.8) 1.6 x10^3/uL (1.0-4.8) Monocytes # (Auto) 1.2 x10^3/uL (0.0-1.1) 1.5 x10^3/uL (0.0-1.1) Eosinophils # (Auto) 0.0 x10^3/uL (0.0-0.7) 0.0 x10^3/uL (0.0-0.7) Basophils # (Auto) 0.0 x10^3/uL (0.0-0.2) 0.0 x10^3/uL (0.0-0.2) Segmented Neutrophils % 82 % (35-66) Lymphocytes % 12 % (24-48) Monocytes % 6 % (0-10) Platelet Estimate Increased (ADEQUATE) Large Platelets Present Hypochromasia Mod Poikilocytosis Present Anisocytosis Present Microcytosis Mod Ovalocytes Few Sodium Level 147 mmol/L (136-145) 146 mmol/L (136-145) Potassium Level 2.7 mmol/L (3.5-5.1) 3.0 mmol/L (3.5-5.1) Chloride Level 106 mmol/L (98-107) 106 mmol/L (98-107) Carbon Dioxide Level 22 mmol/L (21-32) 24 mmol/L (21-32) Anion Gap 19 (6-14) 16 (6-14) Blood Urea Nitrogen 88 mg/dL (8-26) 76 mg/dL (8-26) Creatinine 3.0 mg/dL (0.7-1.3) 2.2 mg/dL (0.7-1.3) Estimated GFR (Cockcroft-Gault) 24.4 34.8 BUN/Creatinine Ratio 29 (6-20) 35 (6-20) Glucose Level 81 mg/dL (70-99) 85 mg/dL (70-99) Calcium Level 8.9 mg/dL (8.5-10.1) 9.0 mg/dL (8.5-10.1) Total Bilirubin 0.8 mg/dL (0.2-1.0) 0.7 mg/dL (0.2-1.0) Aspartate Amino Transf (AST/SGOT) 38 U/L (15-37) 33 U/L (15-37) Alanine Aminotransferase (ALT/SGPT) 21 U/L (16-63) 19 U/L (16-63) Alkaline Phosphatase 251 U/L (46-116) 244 U/L (46-116) Total Protein 7.4 g/dL (6.4-8.2) 6.8 g/dL (6.4-8.2) Albumin 2.3 g/dL (3.4-5.0) 2.0 g/dL (3.4-5.0) Albumin/Globulin Ratio 0.5 (1.0-1.7) 0.4 (1.0-1.7) Magnesium Level 2.9 mg/dL (1.8-2.4) Laboratory Tests Test 04/27/18 07:15 White Blood Count 15.3 x10^3/uL (4.0-11.0) Red Blood Count 5.36 x10^6/uL (4.30-5.70) Hemoglobin 12.0 g/dL (13.0-17.5) Hematocrit 37.9 % (39.0-53.0) Mean Corpuscular Volume 71 fL (79-100) Mean Corpuscular Hemoglobin 22 pg (25-35) Mean Corpuscular Hemoglobin Concent 32 g/dL (31-37) Red Cell Distribution Width 16.5 % (11.5-14.5) Platelet Count 407 x10^3/uL (140-400) Neutrophils (%) (Auto) 79 % (31-73) Lymphocytes (%) (Auto) 10 % (24-48) Monocytes (%) (Auto) 10 % (0-9) Eosinophils (%) (Auto) 0 % (0-3) Basophils (%) (Auto) 0 % (0-3) Neutrophils # (Auto) 12.1 x10^3uL (1.8-7.7) Lymphocytes # (Auto) 1.6 x10^3/uL (1.0-4.8) Monocytes # (Auto) 1.5 x10^3/uL (0.0-1.1) Eosinophils # (Auto) 0.0 x10^3/uL (0.0-0.7) Basophils # (Auto) 0.0 x10^3/uL (0.0-0.2) Sodium Level 146 mmol/L (136-145) Potassium Level 3.0 mmol/L (3.5-5.1) Chloride Level 106 mmol/L (98-107) Carbon Dioxide Level 24 mmol/L (21-32) Anion Gap 16 (6-14) Blood Urea Nitrogen 76 mg/dL (8-26) Creatinine 2.2 mg/dL (0.7-1.3) Estimated GFR (Cockcroft-Gault) 34.8 BUN/Creatinine Ratio 35 (6-20) Glucose Level 85 mg/dL (70-99) Calcium Level 9.0 mg/dL (8.5-10.1) Magnesium Level 2.9 mg/dL (1.8-2.4) Total Bilirubin 0.7 mg/dL (0.2-1.0) Aspartate Amino Transf (AST/SGOT) 33 U/L (15-37) Alanine Aminotransferase (ALT/SGPT) 19 U/L (16-63) Alkaline Phosphatase 244 U/L (46-116) Total Protein 6.8 g/dL (6.4-8.2) Albumin 2.0 g/dL (3.4-5.0) Albumin/Globulin Ratio 0.4 (1.0-1.7) Microbiology 04/25/18 Blood Culture - Preliminary, Resulted NO GROWTH AFTER 2 DAYS Medications Current Medications Sodium Chloride 1,000 ml @ 1,000 mls/hr Q1H IV Last administered on 04/25/18at 10:12; Start 04/25/18 at 09:38; Stop 04/25/18 at 10:37; Status DC Ondansetron HCl (Zofran) 4 mg 1X ONCE IV Last administered on 04/25/18at 10:11 ; Start 04/25/18 at 09:45; Stop 04/25/18 at 09:46; Status DC Hyoscyamine (Anaspaz) 0.125 mg ONCE ONCE PO Last administered on 04/25/18at 10: 12; Start 04/25/18 at 09:45; Stop 04/25/18 at 09:46; Status DC Pantoprazole Sodium (PROTONIX VIAL for IV PUSH) 40 mg 1X ONCE IVP Last administered on 04/25/18at 10:23; Start 04/25/18 at 10:15; Stop 04/25/18 at 10:16 ; Status DC Ceftriaxone Sodium (Rocephin) 1 gm 1X ONCE IVP Last administered on 04/25/18at 12:23; Start 04/25/18 at 11:45; Stop 04/25/18 at 11:46; Status DC Azithromycin 250 ml @ 250 mls/hr 1X ONCE IV Last administered on 04/25/18at 12 :23; Start 04/25/18 at 11:45; Stop 04/25/18 at 12:44; Status DC Ondansetron HCl (Zofran) 4 mg PRN Q8HRS PRN IV NAUSEA/VOMITING; Start 04/25/18 at 11:45; Stop 04/26/18 at 11:44; Status DC Morphine Sulfate (Morphine Sulfate) 2 mg PRN Q2HR PRN IV PAIN Last administered on 04/25/18at 12:19; Start 04/25/18 at 11:45; Stop 04/26/18 at 11:44 ; Status DC Sodium Chloride 1,000 ml @ 125 mls/hr Q8H IV Last administered on 04/25/18at 16 :34; Start 04/25/18 at 11:36; Stop 04/26/18 at 06:23; Status DC Ringer's Solution 1,000 ml @ 125 mls/hr Q8H IV Last administered on 04/27/18at 11:54; Start 04/25/18 at 13:34 Ondansetron HCl (Zofran) 4 mg PRN Q6HRS PRN IV NAUSEA/VOMITING; Start 04/25/18 at 13:45 Morphine Sulfate (Morphine Sulfate) 2 mg PRN Q4HRS PRN IV PAIN Last administered on 04/27/18at 02:03; Start 04/25/18 at 13:45 Acetaminophen/ Hydrocodone Bitart (Lortab 5/325) 1 tab PRN Q4HRS PRN PO MILD PAIN, 2ND CHOICE; Start 04/25/18 at 13:45 Heparin Sodium (Porcine) (Heparin Sodium) 5,000 unit Q12HR SQ ; Start 04/25/18 at 21:00; Stop 04/26/18 at 17:38; Status DC Pantoprazole Sodium (PROTONIX VIAL for IV PUSH) 40 mg DAILYAC IVP Last administered on 04/27/18at 07:37; Start 04/26/18 at 07:30 Saliva Substitute (Biotene Moisturizing Mouth) 2 spray PRN Q15MIN PRN PO DRY MOUTH; Start 04/26/18 at 10:00 Potassium Chloride/Water 100 ml @ 100 mls/hr Q1H IV Last administered on at 14:30; Start 04/26/18 at 11:30; Stop 04/26/18 at 15:29; Status DC Potassium Chloride (Klor-Con) 20 meq DAILYWBKFT PO ; Start 04/27/18 at 08:00 Potassium Chloride (Klor-Con) 40 meq 1X ONCE PO ; Start 04/26/18 at 19:00; Stop 04/26/18 at 19:01; Status DC Lidocaine/Sodium Bicarbonate (Buffered Lidocaine 1%) 3 ml STK-MED ONCE .ROUTE ; Start 04/26/18 at 13:46; Stop 04/26/18 at 13:47; Status DC Gelatin (Gelfoam Size 12-7mm) 1 each STK-MED ONCE .ROUTE ; Start 04/26/18 at 13 :46; Stop 04/26/18 at 13:47; Status DC Midazolam HCl (Versed) 2 mg STK-MED ONCE .ROUTE ; Start 04/26/18 at 14:13; Stop 04/26/18 at 14:14; Status DC Fentanyl Citrate (Fentanyl 2ml Vial) 100 mcg STK-MED ONCE .ROUTE ; Start at 14:13; Stop 04/26/18 at 14:14; Status DC Lidocaine/Sodium Bicarbonate (Buffered Lidocaine 1%) 3 ml 1X ONCE INJ Last administered on 04/26/18at 14:44; Start 04/26/18 at 14:45; Stop 04/26/18 at 14:46 ; Status DC Gelatin (Gelfoam Size 12-7mm) 1 each 1X ONCE TP Last administered on at 14:44; Start 04/26/18 at 14:45; Stop 04/26/18 at 14:46; Status DC Azithromycin 250 mg/Sodium Chloride 250 ml @ 250 mls/hr Q24H IV Last administered on 04/26/18at 17:49; Start 04/26/18 at 18:00 Ceftriaxone Sodium (Rocephin) 1 gm Q24H IVP Last administered on 04/26/18at 17: 49; Start 04/26/18 at 17:30 Potassium Chloride/Water 100 ml @ 100 mls/hr Q1H IV Last administered on at 11:10; Start 04/27/18 at 10:00; Stop 04/27/18 at 11:59; Status DC Active Scripts Active Reported Tamsulosin Hcl 0.4 Mg Cap.er.24h 0.4 Mg PO DAILY Potassium Chloride 20 Meq Tablet.er 20 Meq PO DAILY Protonix (Pantoprazole Sodium) 20 Mg Tablet.dr 20 Mg PO DAILY Meclizine Hcl 12.5 Mg Tablet 2 Tab PO TID Losartan Potassium 100 Mg Tablet 100 Mg PO DAILY Albuterol Sulfate Neb Soln (Albuterol Sulfate) 2.5 Mg/3 Ml Vial.neb 1 Vial NEB PRN Q4HRS Ibuprofen 800 Mg Tablet 800 Mg PO TID PRN Furosemide 20 Mg Tablet 1 Tab PO DAILY Finasteride 5 Mg Tablet 1 Tab PO DAILY Doxazosin Mesylate 8 Mg Tablet 1 Tab PO DAILY Allopurinol 300 Mg Tablet 1 Tab PO DAILY Vitals/I & O Vital Sign - Last 24 Hours 04/26/18 04/26/18 04/26/18 04/26/18 16:50 16:51 16:52 16:52 B/P (MAP) 148/108 (121) 113/62 (79) 118/62 (80) 131/77 (95) 04/26/18 04/26/18 04/26/18 04/26/18 19:47 20:00 21:47 23:48 Temp 98.4 97.8 98.4 97.8 Pulse 86 87 Resp 18 16 18 B/P (MAP) 123/63 (83) 145/86 (105) Pulse Ox 96 96 98 O2 Delivery Room Air Room Air Room Air Room Air 04/27/18 04/27/18 04/27/18 04/27/18 02:03 03:01 07:00 08:00 Temp 97.7 97.7 Pulse 86 Resp 18 15 17 B/P (MAP) 131/78 (95) Pulse Ox 98 98 96 O2 Delivery Room Air Room Air Room Air Room Air 04/27/18 04/27/18 11:00 15:00 Temp 97.9 98.1 97.9 98.1 Pulse 83 83 Resp 16 16 B/P (MAP) 134/76 (95) 134/77 (96) Pulse Ox 100 94 O2 Delivery Room Air Room Air Intake and Output 04/26/18 04/26/18 04/27/18 14:59 22:59 06:59 Intake Total 1300 ml Output Total 600 ml 200 ml Balance -600 ml 1100 ml LAKISHA CR MD Apr 27, 2018 16:35
[2018-04-27] MEDS: cefTRIAXone IV Push 1 GM VIAL. IVP SCH (17:33)
[2018-04-27] MEDS: AZITHROMYCIN 250 MG in IV NORMAL SALINE 250ML 250 ML IV SCH (17:35)
[2018-04-27 18:02] VITALS: BP 134/77
[2018-04-27 19:00] VITALS: BP 129/76
[2018-04-27] MEDS: SALIVA STIMULANT AGENT 44ML SPRAY BOTTLE. PO PRN (22:35)
[2018-04-27 22:52] VITALS: BP 144/82
[2018-04-28] MEDS: MORPHINE SULFATE 4 MG/ML VIAL. IV PRN ×5 (00:25→19:22)
[2018-04-28] MEDS: SALIVA STIMULANT AGENT 44ML SPRAY BOTTLE. PO PRN (02:23)
[2018-04-28 03:00] VITALS: BP 141/86
[2018-04-28] MEDS: IV RINGERS,LACTATED 1000ML 1,000 ML IV SCH ×3 (04:51→22:08)
[2018-04-28 07:00] VITALS: BP 136/74
[2018-04-28] MEDS: PANTOPRAZOLE IV PUSH 40 MG VIAL. IVP SCH (07:45)
[2018-04-28] MEDS: POTASSIUM CHLORIDE 20 MEQ TABLET.ER. PO SCH (08:00)
--- NOTE | 2018-04-28 10:24 | NUR ---
Patient very confused and argumentative, stating the staff hid the urinal from him, talking about staff kicking him and parts will fall off, finally after talking for 10 minutes sitting at bedside patient used urinal and moved to chair, sitting up with personal alarm on. Morphine given for patient complaint of leg pain, continue to monitor. Unable to get patient to take any clear liquids or oral potassium.
[2018-04-28 11:00] VITALS: BP 125/72
--- NOTE | 2018-04-28 11:38 | PDOC ---
Objective: Objective: Reviewed w/ RN - was agitated and confused earlier, didn't eat, wouldn't take meds. Vital Signs: Vital Signs Date Time Temp Pulse Resp B/P (MAP) Pulse Ox O2 Delivery O2 Flow Rate FiO2 04/28/18 10:50 18 Room Air 04/28/18 07:00 98.3 86 136/74 (94) 96 98.3 PE: GEN: NAD, eyes closed, up to recliner LUNGS: CTAB HEART: RRR ABD: soft, grunts when touched NEURO/PSYCH: grunts when I say hello and ask about pain - also waved once A/P: Hepatic masses s/p liver biopsy 04/26/18 - AFP WNL, CEA 5.3 Pancreatitis - unclear cause ACD Leukocytosis, SYLVIE, hypokalemia Agitation, confusion -- Liver biopsy results pending. ?image head - not sure he'd cooperate Can try advancing diet as able. JOEL REIS Apr 28, 2018 11:38
--- NOTE | 2018-04-28 12:37 | NUR ---
Dr. Christensen notified patient not taking oral medications or diet and very confused. See previous notes and orders.
[2018-04-28 13:41] LABS: CALCIUM 8.8 mg/dL (8.5-10.1); CREATININE 1.8 mg/dL (0.7-1.3); GFR 43.9
--- NOTE | 2018-04-28 14:47 | PDOC ---
SUBJECTIVE ROS Stable OBJECTIVE Vital Signs Vital Signs Date Time Temp Pulse Resp B/P (MAP) Pulse Ox O2 Delivery O2 Flow Rate FiO2 04/28/18 14:29 18 Room Air 04/28/18 11:00 98.7 84 125/72 (89) 95 98.7 I & 0 Intake and Output 04/28/18 06:59 Intake Total 4270 ml Output Total 1320 ml Balance 2950 ml Intake Oral 320 ml IV Total 3950 ml Output Urine Total 1320 ml PHYSICAL EXAM Physical Exam General:NAD , sitting up in chair HEENT: OM- Dryish Neck Supple Lungs: Clear to auscultation,Non labored Heart: S1S2, RRR, no gallops, no murmurs Abdomen: Normal bowel sounds, Soft, Extremities: No edema LE Skin: No rashes Neuro:? Confused , Grossly normal - No flank or SP tenderness, No Minor DIAGNOSIS/ASSESSMENT Assessment & Plan SYLVIE - Dehydration sec to N/V poor PO intake Baseline renal function unknown Improving renal function US- Unremarkable Kidneys, UA- microscopic hematuria Monitor , strict I/O Microscopic hematuria- ?Minor sample No Proteinuria Hypokalemia- Monitor and replace as needed Hypernatremia Mild Encourage PO fluid intake Acute pancreatitis -GI consulted Liver masses - possibly metastatic disease. GI consulted s/p liver biopsy 04/26/18, AFP WNL, CEA pending HTN - stable COMMENT/RELEVANT DATA Meds Current Medications Medications (Trade) Dose Ordered Sig/Mina Start Time Stop Time Status Last Admin Dose Admin Acetaminophen/ Hydrocodone Bitart (Lortab 5/325) 1 tab PRN Q4HRS PRN 04/25/18 13:45 Azithromycin 250 ml @ 250 mls/hr 1X ONCE 04/25/18 11:45 04/25/18 12:44 DC 04/25/18 12:23 250 MLS/HR Azithromycin 250 mg/Sodium Chloride 250 ml @ 250 mls/hr Q24H 04/26/18 18:00 04/27/18 17:35 250 MLS/HR Ceftriaxone Sodium (Rocephin) 1 gm Q24H 04/26/18 17:30 04/27/18 17:33 1 GM Fentanyl Citrate (Fentanyl 2ml Vial) 100 mcg STK-MED ONCE 04/26/18 14:13 04/26/18 14:14 DC Gelatin (Gelfoam Size 12-7mm) 1 each 1X ONCE 04/26/18 14:45 04/26/18 14:46 DC 04/26/18 14:44 1 EACH Heparin Sodium (Porcine) (Heparin Sodium) 5,000 unit Q12HR 04/25/18 21:00 04/26/18 17:38 DC Hyoscyamine (Anaspaz) 0.125 mg ONCE ONCE 04/25/18 09:45 04/25/18 09:46 DC 04/25/18 10:12 0.125 MG Lidocaine/Sodium Bicarbonate (Buffered Lidocaine 1%) 3 ml 1X ONCE 04/26/18 14:45 04/26/18 14:46 DC 04/26/18 14:44 7 ML Midazolam HCl (Versed) 2 mg STK-MED ONCE 04/26/18 14:13 04/26/18 14:14 DC Morphine Sulfate (Morphine Sulfate) 2 mg PRN Q4HRS PRN 04/25/18 13:45 04/28/18 14:29 2 MG Ondansetron HCl (Zofran) 4 mg PRN Q6HRS PRN 04/25/18 13:45 Pantoprazole Sodium (PROTONIX VIAL for IV PUSH) 40 mg DAILYAC 04/26/18 07:30 04/28/18 07:45 40 MG Potassium Chloride/Water 100 ml @ 100 mls/hr Q1H 04/27/18 10:00 04/27/18 11:59 DC 04/27/18 11:10 100 MLS/HR Potassium Chloride (Klor-Con) 40 meq 1X ONCE 04/26/18 19:00 04/26/18 19:01 DC Ringer's Solution 1,000 ml @ 125 mls/hr Q8H 04/25/18 13:34 04/28/18 13:07 125 MLS/HR Saliva Substitute (Biotene Moisturizing Mouth) 2 spray PRN Q15MIN PRN 04/26/18 10:00 04/28/18 02:23 2 SPRAY Sodium Chloride 1,000 ml @ 125 mls/hr Q8H 04/25/18 11:36 04/26/18 06:23 DC 04/25/18 16:34 125 MLS/HR Lab Laboratory Tests Test 04/28/18 12:45 Sodium Level 146 mmol/L (136-145) Potassium Level 3.0 mmol/L (3.5-5.1) Chloride Level 106 mmol/L (98-107) Carbon Dioxide Level 26 mmol/L (21-32) Anion Gap 14 (6-14) Blood Urea Nitrogen 57 mg/dL (8-26) Creatinine 1.8 mg/dL (0.7-1.3) Estimated GFR (Cockcroft-Gault) 43.9 Glucose Level 72 mg/dL (70-99) Calcium Level 8.8 mg/dL (8.5-10.1) Ammonia < 10 mcmol/L (11-34) Results All relevant outside records, renal labs, imaging studies, telemetry/EKG's were reviewed. DEION AZEVEDO MD Apr 28, 2018 14:47
--- NOTE | 2018-04-28 14:56 | NUR ---
Patient continues to have bouts of rambling speech, accusing staff of "kicking my feet out from under me", "you are all liars", has removed gown several times and occasionally pulling at IV. Patient becomes argumentative and calls staff liars with attempts to orient. Facial grimaces and appearance of pain with back to bed, abd. biopsy site. Morphine per prn. Patient resting quietly now in bed with side rails up times two, call light at hand and bed alarm set. Maximum assist with 3 of staff to persuade patient to get back in bed from chair after incontinent episode.
[2018-04-28 15:00] VITALS: BP 126/74
[2018-04-28] MEDS: cefTRIAXone IV Push 1 GM VIAL. IVP SCH (16:56)
--- NOTE | 2018-04-28 17:00 | PDOC ---
PROGRESS NOTES Chief Complaint Chief Complaint Acute pancreatitis - with Abdominal pain, nausea vomiting. NPO, consult GI. Still has GB, triglycerides normal, not on a thiazide that he knows of and he doesn't recall if he has been losing weight. Concerning liver masses on CT could be metastatic disease, he does not recall his last colonoscopy during my interview. Pain control with morphine Acute metabolic encephalopathy - uremia, delirium Hypokalemia - 3.1, will monitor. Replace IVF SYLVIE - vasomotor with possible ATN, appears dry and Cr and BUN elevated. Unknown baseline. Liver masses - possibly metastatic disease. Contrast contraindicated based on his renal function. Will consult GI. Will see if I can get ahold of his [place] medical records. RBC microcytosis - will check iron studies, may be sickle trait, he does not recall HTN - will need to reconcile his meds History of Present Illness History of Present Illness Admitted for abdominal pain, confusion, found with pancreatitis and liver masses. S/p liver biopsy 04/26/1804/27: Very confused, refusing PO, attempted to drink his own urine. Complains of dry mouth, upset, asks for water over and over. He continues to refuse PO meds, will take IV. K is 3, Cr improved a bit. Plan: Advance diet, restart anticoagulation F/u liver biopsy results. Replace K IV He needs skilled/Memory services on d/c. We need to get ahold of family. Daughters live in [place], ex- lives here. Their numbers are in his phone, but not labeled. [phone] is [place]. Vitals Vitals Vital Signs Date Time Temp Pulse Resp B/P (MAP) Pulse Ox O2 Delivery O2 Flow Rate FiO2 04/28/18 15:00 97.5 85 16 126/74 (91) 97 Room Air 97.5 Physical Exam General: Alert, Cooperative, mild distress Abdomen: Normal bowel sounds, Soft, No hepatosplenomegaly, No masses, Other ( RUQ tenderness) Extremities: No clubbing, No cyanosis, No edema, Normal pulses, No tenderness/ swelling Skin: No rashes, No breakdown, No significant lesion Labs LABS Laboratory Tests Test 04/28/18 12:45 Sodium Level 146 mmol/L (136-145) Potassium Level 3.0 mmol/L (3.5-5.1) Chloride Level 106 mmol/L (98-107) Carbon Dioxide Level 26 mmol/L (21-32) Anion Gap 14 (6-14) Blood Urea Nitrogen 57 mg/dL (8-26) Creatinine 1.8 mg/dL (0.7-1.3) Estimated GFR (Cockcroft-Gault) 43.9 Glucose Level 72 mg/dL (70-99) Calcium Level 8.8 mg/dL (8.5-10.1) Ammonia < 10 mcmol/L (11-34) Assessment and Plan Assessmemt and Plan Problems Medical Problems: (1) Renal insufficiency Status: Acute Comment Review of Relevant I have reviewed the following items pily (where applicable) has been applied. Labs Laboratory Tests Test 04/27/18 07:15 04/28/18 12:45 White Blood Count 15.3 x10^3/uL (4.0-11.0) Red Blood Count 5.36 x10^6/uL (4.30-5.70) Hemoglobin 12.0 g/dL (13.0-17.5) Hematocrit 37.9 % (39.0-53.0) Mean Corpuscular Volume 71 fL (79-100) Mean Corpuscular Hemoglobin 22 pg (25-35) Mean Corpuscular Hemoglobin Concent 32 g/dL (31-37) Red Cell Distribution Width 16.5 % (11.5-14.5) Platelet Count 407 x10^3/uL (140-400) Neutrophils (%) (Auto) 79 % (31-73) Lymphocytes (%) (Auto) 10 % (24-48) Monocytes (%) (Auto) 10 % (0-9) Eosinophils (%) (Auto) 0 % (0-3) Basophils (%) (Auto) 0 % (0-3) Neutrophils # (Auto) 12.1 x10^3uL (1.8-7.7) Lymphocytes # (Auto) 1.6 x10^3/uL (1.0-4.8) Monocytes # (Auto) 1.5 x10^3/uL (0.0-1.1) Eosinophils # (Auto) 0.0 x10^3/uL (0.0-0.7) Basophils # (Auto) 0.0 x10^3/uL (0.0-0.2) Sodium Level 146 mmol/L (136-145) 146 mmol/L (136-145) Potassium Level 3.0 mmol/L (3.5-5.1) 3.0 mmol/L (3.5-5.1) Chloride Level 106 mmol/L (98-107) 106 mmol/L (98-107) Carbon Dioxide Level 24 mmol/L (21-32) 26 mmol/L (21-32) Anion Gap 16 (6-14) 14 (6-14) Blood Urea Nitrogen 76 mg/dL (8-26) 57 mg/dL (8-26) Creatinine 2.2 mg/dL (0.7-1.3) 1.8 mg/dL (0.7-1.3) Estimated GFR (Cockcroft-Gault) 34.8 43.9 BUN/Creatinine Ratio 35 (6-20) Glucose Level 85 mg/dL (70-99) 72 mg/dL (70-99) Calcium Level 9.0 mg/dL (8.5-10.1) 8.8 mg/dL (8.5-10.1) Magnesium Level 2.9 mg/dL (1.8-2.4) Total Bilirubin 0.7 mg/dL (0.2-1.0) Aspartate Amino Transf (AST/SGOT) 33 U/L (15-37) Alanine Aminotransferase (ALT/SGPT) 19 U/L (16-63) Alkaline Phosphatase 244 U/L (46-116) Total Protein 6.8 g/dL (6.4-8.2) Albumin 2.0 g/dL (3.4-5.0) Albumin/Globulin Ratio 0.4 (1.0-1.7) Ammonia < 10 mcmol/L (11-34) Laboratory Tests Test 04/28/18 12:45 Sodium Level 146 mmol/L (136-145) Potassium Level 3.0 mmol/L (3.5-5.1) Chloride Level 106 mmol/L (98-107) Carbon Dioxide Level 26 mmol/L (21-32) Anion Gap 14 (6-14) Blood Urea Nitrogen 57 mg/dL (8-26) Creatinine 1.8 mg/dL (0.7-1.3) Estimated GFR (Cockcroft-Gault) 43.9 Glucose Level 72 mg/dL (70-99) Calcium Level 8.8 mg/dL (8.5-10.1) Ammonia < 10 mcmol/L (11-34) Microbiology 04/25/18 Blood Culture - Preliminary, Resulted NO GROWTH AFTER 3 DAYS Medications Current Medications Sodium Chloride 1,000 ml @ 1,000 mls/hr Q1H IV Last administered on 04/25/18 10:12; Start 04/25/18 at 09:38; Stop 04/25/18 at 10:37; Status DC Ondansetron HCl (Zofran) 4 mg 1X ONCE IV Last administered on 04/25/18 10:11 ; Start 04/25/18 at 09:45; Stop 04/25/18 at 09:46; Status DC Hyoscyamine (Anaspaz) 0.125 mg ONCE ONCE PO Last administered on 04/25/18 10: 12; Start 04/25/18 at 09:45; Stop 04/25/18 at 09:46; Status DC Pantoprazole Sodium (PROTONIX VIAL for IV PUSH) 40 mg 1X ONCE IVP Last administered on 04/25/18 10:23; Start 04/25/18 at 10:15; Stop 04/25/18 at 10:16 ; Status DC Ceftriaxone Sodium (Rocephin) 1 gm 1X ONCE IVP Last administered on 04/25/18 12:23; Start 04/25/18 at 11:45; Stop 04/25/18 at 11:46; Status DC Azithromycin 250 ml @ 250 mls/hr 1X ONCE IV Last administered on 04/25/18 12 :23; Start 04/25/18 at 11:45; Stop 04/25/18 at 12:44; Status DC Ondansetron HCl (Zofran) 4 mg PRN Q8HRS PRN IV NAUSEA/VOMITING; Start 04/25/18 at 11:45; Stop 04/26/18 at 11:44; Status DC Morphine Sulfate (Morphine Sulfate) 2 mg PRN Q2HR PRN IV PAIN Last administered on 04/25/18 12:19; Start 04/25/18 at 11:45; Stop 04/26/18 at 11:44 ; Status DC Sodium Chloride 1,000 ml @ 125 mls/hr Q8H IV Last administered on 04/25/18 16 :34; Start 04/25/18 at 11:36; Stop 04/26/18 at 06:23; Status DC Ringer's Solution 1,000 ml @ 125 mls/hr Q8H IV Last administered on 04/28/18at 13:07; Start 04/25/18 at 13:34 Ondansetron HCl (Zofran) 4 mg PRN Q6HRS PRN IV NAUSEA/VOMITING; Start 04/25/18 at 13:45 Morphine Sulfate (Morphine Sulfate) 2 mg PRN Q4HRS PRN IV PAIN Last administered on 04/28/18at 14:29; Start 04/25/18 at 13:45 Acetaminophen/ Hydrocodone Bitart (Lortab 5/325) 1 tab PRN Q4HRS PRN PO MILD PAIN, 2ND CHOICE; Start 04/25/18 at 13:45 Heparin Sodium (Porcine) (Heparin Sodium) 5,000 unit Q12HR SQ ; Start 04/25/18 at 21:00; Stop 04/26/18 at 17:38; Status DC Pantoprazole Sodium (PROTONIX VIAL for IV PUSH) 40 mg DAILYAC IVP Last administered on 04/28/18at 07:45; Start 04/26/18 at 07:30 Saliva Substitute (Biotene Moisturizing Mouth) 2 spray PRN Q15MIN PRN PO DRY MOUTH Last administered on 04/28/18at 02:23; Start 04/26/18 at 10:00 Potassium Chloride/Water 100 ml @ 100 mls/hr Q1H IV Last administered on at 14:30; Start 04/26/18 at 11:30; Stop 04/26/18 at 15:29; Status DC Potassium Chloride (Klor-Con) 20 meq DAILYWBKFT PO ; Start 04/27/18 at 08:00 Potassium Chloride (Klor-Con) 40 meq 1X ONCE PO ; Start 04/26/18 at 19:00; Stop 04/26/18 at 19:01; Status DC Lidocaine/Sodium Bicarbonate (Buffered Lidocaine 1%) 3 ml STK-MED ONCE .ROUTE ; Start 04/26/18 at 13:46; Stop 04/26/18 at 13:47; Status DC Gelatin (Gelfoam Size 12-7mm) 1 each STK-MED ONCE .ROUTE ; Start 04/26/18 at 13 :46; Stop 04/26/18 at 13:47; Status DC Midazolam HCl (Versed) 2 mg STK-MED ONCE .ROUTE ; Start 04/26/18 at 14:13; Stop 04/26/18 at 14:14; Status DC Fentanyl Citrate (Fentanyl 2ml Vial) 100 mcg STK-MED ONCE .ROUTE ; Start at 14:13; Stop 04/26/18 at 14:14; Status DC Lidocaine/Sodium Bicarbonate (Buffered Lidocaine 1%) 3 ml 1X ONCE INJ Last administered on 04/26/18at 14:44; Start 04/26/18 at 14:45; Stop 04/26/18 at 14:46 ; Status DC Gelatin (Gelfoam Size 12-7mm) 1 each 1X ONCE TP Last administered on at 14:44; Start 04/26/18 at 14:45; Stop 04/26/18 at 14:46; Status DC Azithromycin 250 mg/Sodium Chloride 250 ml @ 250 mls/hr Q24H IV Last administered on 04/27/18at 17:35; Start 04/26/18 at 18:00 Ceftriaxone Sodium (Rocephin) 1 gm Q24H IVP Last administered on 04/27/18at 17: 33; Start 04/26/18 at 17:30 Potassium Chloride/Water 100 ml @ 100 mls/hr Q1H IV Last administered on at 11:10; Start 04/27/18 at 10:00; Stop 04/27/18 at 11:59; Status DC Potassium Chloride/Water 100 ml @ 100 mls/hr Q1H IV ; Start 04/28/18 at 18:00; Stop 04/28/18 at 19:59 Potassium Chloride (Klor-Con) 40 meq 1X ONCE PO ; Start 04/28/18 at 17:30; Stop 04/28/18 at 17:30; Status DC Potassium Chloride (Klor-Con) 20 meq DAILYWBKFT PO ; Start 04/29/18 at 08:00; Stop 04/29/18 at 08:00; Status DC Heparin Sodium (Porcine) (Heparin Sodium) 5,000 unit Q8HRS SQ ; Start 04/28/18 at 22:00 Potassium Chloride/Water 100 ml @ 100 mls/hr Q1H IV ; Start 04/28/18 at 17:00; Stop 04/28/18 at 18:59; Status UNV Haloperidol Lactate (Haldol Inj) 2.5 mg PRN Q6HRS PRN IVP AGITATION; Start at 17:00 Active Scripts Active Reported Tamsulosin Hcl 0.4 Mg Cap.er.24h 0.4 Mg PO DAILY Potassium Chloride 20 Meq Tablet.er 20 Meq PO DAILY Protonix (Pantoprazole Sodium) 20 Mg Tablet.dr 20 Mg PO DAILY Meclizine Hcl 12.5 Mg Tablet 2 Tab PO TID Losartan Potassium 100 Mg Tablet 100 Mg PO DAILY Albuterol Sulfate Neb Soln (Albuterol Sulfate) 2.5 Mg/3 Ml Vial.neb 1 Vial NEB PRN Q4HRS Ibuprofen 800 Mg Tablet 800 Mg PO TID PRN Furosemide 20 Mg Tablet 1 Tab PO DAILY Finasteride 5 Mg Tablet 1 Tab PO DAILY Doxazosin Mesylate 8 Mg Tablet 1 Tab PO DAILY Allopurinol 300 Mg Tablet 1 Tab PO DAILY Vitals/I & O Vital Sign - Last 24 Hours 04/27/18 04/27/18 04/27/18 04/27/18 18:02 19:00 19:29 20:00 Temp 98.1 97.6 98.1 97.6 Pulse 83 95 Resp 18 15 B/P (MAP) 134/77 (96) 129/76 (93) Pulse Ox 94 97 94 O2 Delivery Room Air Room Air Room Air Room Air 04/27/18 04/28/18 04/28/18 04/28/18 22:52 00:25 03:00 04:52 Temp 97.4 98.2 97.4 98.2 Pulse 85 95 Resp 18 17 18 15 B/P (MAP) 144/82 (102) 141/86 (104) Pulse Ox 95 95 91 91 O2 Delivery Room Air Room Air Room Air Room Air 04/28/18 04/28/18 04/28/18 04/28/18 05:30 07:00 08:00 10:20 Temp 98.3 98.3 Pulse 86 Resp 16 18 B/P (MAP) 136/74 (94) Pulse Ox 91 96 O2 Delivery Room Air Room Air Room Air 04/28/18 04/28/18 04/28/18 04/28/18 11:00 14:29 14:56 15:00 Temp 98.7 97.5 98.7 97.5 Pulse 84 85 Resp 12 18 16 16 B/P (MAP) 125/72 (89) 126/74 (91) Pulse Ox 95 97 O2 Delivery Room Air Room Air Room Air Room Air Intake and Output 04/27/18 04/27/18 04/28/18 15:00 23:00 07:00 Intake Total 2070 ml 1200 ml 1000 ml Output Total 100 ml 470 ml 750 ml Balance 1970 ml 730 ml 250 ml LAKISHA CR MD Apr 28, 2018 17:00
[2018-04-28] MEDS: AZITHROMYCIN 250 MG in IV NORMAL SALINE 250ML 250 ML IV SCH (17:01)
[2018-04-28] MEDS ORDERED: POTASSIUM CHLORIDE 20 MEQ TABLET.ER. PO ONE (17:30)
[2018-04-28] MEDS: POTASSIUM CHLORIDE 10MEQ 100 ML IV SCH ×4 (18:14→21:28)
[2018-04-28 19:00] VITALS: BP 138/85
[2018-04-28] MEDS: HEPARIN for SUB-Q USE 5,000 UNIT/ML VIAL. SQ SCH (22:11)
[2018-04-28 23:00] VITALS: BP 129/72
[2018-04-29] MEDS: MORPHINE SULFATE 4 MG/ML VIAL. IV PRN ×2 (00:56→05:26)
[2018-04-29 03:00] VITALS: BP 135/79
[2018-04-29] MEDS: IV RINGERS,LACTATED 1000ML 1,000 ML IV SCH ×3 (05:26→22:02)
[2018-04-29] MEDS: HEPARIN for SUB-Q USE 5,000 UNIT/ML VIAL. SQ SCH ×3 (05:31→22:07)
[2018-04-29 07:00] VITALS: BP 132/81
[2018-04-29] MEDS: POTASSIUM CHLORIDE 20 MEQ TABLET.ER. PO SCH (08:00)
[2018-04-29] MEDS ORDERED: POTASSIUM CHLORIDE 20 MEQ TABLET.ER. PO SCH ×2 (08:00→12:30)
--- NOTE | 2018-04-29 08:34 | PDOC ---
PROGRESS NOTES Chief Complaint Chief Complaint Acute pancreatitis - with Abdominal pain, nausea vomiting. NPO, consult GI. Still has GB, triglycerides normal, not on a thiazide that he knows of and he doesn't recall if he has been losing weight. Concerning liver masses on CT could be metastatic disease, he does not recall his last colonoscopy during my interview. Pain control with morphine Acute metabolic encephalopathy - uremia, delirium Hypokalemia - 3.1, will monitor. Replace IVF SYLVIE - vasomotor with possible ATN, appears dry and Cr and BUN elevated. Unknown baseline. Liver masses - possibly metastatic disease. Contrast contraindicated based on his renal function. Will consult GI. Will see if I can get ahold of his [place] medical records. RBC microcytosis - will check iron studies, may be sickle trait, he does not recall HTN - will need to reconcile his meds History of Present Illness History of Present Illness Admitted for abdominal pain, confusion, found with pancreatitis and liver masses. S/p liver biopsy 04/26/1804/27: Very confused, refusing PO, attempted to drink his own urine. 04/28: Complains of dry mouth, upset, asks for water over and over. He continues to refuse PO meds, will take IV. K is 3, Cr improved a bit. Still feeling agitated, but less so today. He is allowing examination. Offered food, he says he will pass. Still awaiting pathology. K still 3 Plan: Advanced diet, restarted anticoagulation F/u liver biopsy results. Replace K IV again He needs skilled/Memory services on d/c. We need to get ahold of family. Daughters live in [place], ex- lives here. Their numbers are in his phone, but not labeled. [phone] is [place] area code. Vitals Vitals Vital Signs Date Time Temp Pulse Resp B/P (MAP) Pulse Ox O2 Delivery O2 Flow Rate FiO2 04/29/18 07:00 97.3 81 18 132/81 (98) 95 Room Air 97.3 Physical Exam General: Alert, Cooperative, mild distress Abdomen: Normal bowel sounds, Soft, No hepatosplenomegaly, No masses, Other ( RUQ tenderness) Extremities: No clubbing, No cyanosis, No edema, Normal pulses, No tenderness/ swelling Skin: No rashes, No breakdown, No significant lesion Labs LABS Laboratory Tests Test 04/28/18 12:45 Sodium Level 146 mmol/L (136-145) Potassium Level 3.0 mmol/L (3.5-5.1) Chloride Level 106 mmol/L (98-107) Carbon Dioxide Level 26 mmol/L (21-32) Anion Gap 14 (6-14) Blood Urea Nitrogen 57 mg/dL (8-26) Creatinine 1.8 mg/dL (0.7-1.3) Estimated GFR (Cockcroft-Gault) 43.9 Glucose Level 72 mg/dL (70-99) Calcium Level 8.8 mg/dL (8.5-10.1) Ammonia < 10 mcmol/L (11-34) Assessment and Plan Assessmemt and Plan Problems Medical Problems: (1) Renal insufficiency Status: Acute Comment Review of Relevant I have reviewed the following items pily (where applicable) has been applied. Labs Laboratory Tests Test 04/28/18 12:45 Sodium Level 146 mmol/L (136-145) Potassium Level 3.0 mmol/L (3.5-5.1) Chloride Level 106 mmol/L (98-107) Carbon Dioxide Level 26 mmol/L (21-32) Anion Gap 14 (6-14) Blood Urea Nitrogen 57 mg/dL (8-26) Creatinine 1.8 mg/dL (0.7-1.3) Estimated GFR (Cockcroft-Gault) 43.9 Glucose Level 72 mg/dL (70-99) Calcium Level 8.8 mg/dL (8.5-10.1) Ammonia < 10 mcmol/L (11-34) Laboratory Tests Test 04/28/18 12:45 Sodium Level 146 mmol/L (136-145) Potassium Level 3.0 mmol/L (3.5-5.1) Chloride Level 106 mmol/L (98-107) Carbon Dioxide Level 26 mmol/L (21-32) Anion Gap 14 (6-14) Blood Urea Nitrogen 57 mg/dL (8-26) Creatinine 1.8 mg/dL (0.7-1.3) Estimated GFR (Cockcroft-Gault) 43.9 Glucose Level 72 mg/dL (70-99) Calcium Level 8.8 mg/dL (8.5-10.1) Ammonia < 10 mcmol/L (11-34) Microbiology 04/25/18 Blood Culture - Preliminary, Resulted NO GROWTH AFTER 3 DAYS Medications Current Medications Sodium Chloride 1,000 ml @ 1,000 mls/hr Q1H IV Last administered on 04/25/18 10:12; Start 04/25/18 at 09:38; Stop 04/25/18 at 10:37; Status DC Ondansetron HCl (Zofran) 4 mg 1X ONCE IV Last administered on 04/25/18 10:11 ; Start 04/25/18 at 09:45; Stop 04/25/18 at 09:46; Status DC Hyoscyamine (Anaspaz) 0.125 mg ONCE ONCE PO Last administered on 04/25/18 10: 12; Start 04/25/18 at 09:45; Stop 04/25/18 at 09:46; Status DC Pantoprazole Sodium (PROTONIX VIAL for IV PUSH) 40 mg 1X ONCE IVP Last administered on 04/25/18 10:23; Start 04/25/18 at 10:15; Stop 04/25/18 at 10:16 ; Status DC Ceftriaxone Sodium (Rocephin) 1 gm 1X ONCE IVP Last administered on 04/25/18 12:23; Start 04/25/18 at 11:45; Stop 04/25/18 at 11:46; Status DC Azithromycin 250 ml @ 250 mls/hr 1X ONCE IV Last administered on 04/25/18 12 :23; Start 04/25/18 at 11:45; Stop 04/25/18 at 12:44; Status DC Ondansetron HCl (Zofran) 4 mg PRN Q8HRS PRN IV NAUSEA/VOMITING; Start 04/25/18 at 11:45; Stop 04/26/18 at 11:44; Status DC Morphine Sulfate (Morphine Sulfate) 2 mg PRN Q2HR PRN IV PAIN Last administered on 04/25/18 12:19; Start 04/25/18 at 11:45; Stop 04/26/18 at 11:44 ; Status DC Sodium Chloride 1,000 ml @ 125 mls/hr Q8H IV Last administered on 04/25/18 16 :34; Start 04/25/18 at 11:36; Stop 04/26/18 at 06:23; Status DC Ringer's Solution 1,000 ml @ 125 mls/hr Q8H IV Last administered on 04/29/18 05:26; Start 04/25/18 at 13:34 Ondansetron HCl (Zofran) 4 mg PRN Q6HRS PRN IV NAUSEA/VOMITING; Start 04/25/18 at 13:45 Morphine Sulfate (Morphine Sulfate) 2 mg PRN Q4HRS PRN IV PAIN Last administered on 04/29/18at 05:26; Start 04/25/18 at 13:45 Acetaminophen/ Hydrocodone Bitart (Lortab 5/325) 1 tab PRN Q4HRS PRN PO MILD PAIN, 2ND CHOICE; Start 04/25/18 at 13:45 Heparin Sodium (Porcine) (Heparin Sodium) 5,000 unit Q12HR SQ ; Start 04/25/18 at 21:00; Stop 04/26/18 at 17:38; Status DC Pantoprazole Sodium (PROTONIX VIAL for IV PUSH) 40 mg DAILYAC IVP Last administered on 04/28/18at 07:45; Start 04/26/18 at 07:30 Saliva Substitute (Biotene Moisturizing Mouth) 2 spray PRN Q15MIN PRN PO DRY MOUTH Last administered on 04/28/18at 02:23; Start 04/26/18 at 10:00 Potassium Chloride/Water 100 ml @ 100 mls/hr Q1H IV Last administered on at 14:30; Start 04/26/18 at 11:30; Stop 04/26/18 at 15:29; Status DC Potassium Chloride (Klor-Con) 20 meq DAILYWBKFT PO ; Start 04/27/18 at 08:00 Potassium Chloride (Klor-Con) 40 meq 1X ONCE PO ; Start 04/26/18 at 19:00; Stop 04/26/18 at 19:01; Status DC Lidocaine/Sodium Bicarbonate (Buffered Lidocaine 1%) 3 ml STK-MED ONCE .ROUTE ; Start 04/26/18 at 13:46; Stop 04/26/18 at 13:47; Status DC Gelatin (Gelfoam Size 12-7mm) 1 each STK-MED ONCE .ROUTE ; Start 04/26/18 at 13 :46; Stop 04/26/18 at 13:47; Status DC Midazolam HCl (Versed) 2 mg STK-MED ONCE .ROUTE ; Start 04/26/18 at 14:13; Stop 04/26/18 at 14:14; Status DC Fentanyl Citrate (Fentanyl 2ml Vial) 100 mcg STK-MED ONCE .ROUTE ; Start at 14:13; Stop 04/26/18 at 14:14; Status DC Lidocaine/Sodium Bicarbonate (Buffered Lidocaine 1%) 3 ml 1X ONCE INJ Last administered on 04/26/18at 14:44; Start 04/26/18 at 14:45; Stop 04/26/18 at 14:46 ; Status DC Gelatin (Gelfoam Size 12-7mm) 1 each 1X ONCE TP Last administered on at 14:44; Start 04/26/18 at 14:45; Stop 04/26/18 at 14:46; Status DC Azithromycin 250 mg/Sodium Chloride 250 ml @ 250 mls/hr Q24H IV Last administered on 04/28/18at 17:01; Start 04/26/18 at 18:00 Ceftriaxone Sodium (Rocephin) 1 gm Q24H IVP Last administered on 04/28/18at 16: 56; Start 04/26/18 at 17:30 Potassium Chloride/Water 100 ml @ 100 mls/hr Q1H IV Last administered on at 11:10; Start 04/27/18 at 10:00; Stop 04/27/18 at 11:59; Status DC Potassium Chloride/Water 100 ml @ 100 mls/hr Q1H IV Last administered on at 19:14; Start 04/28/18 at 18:00; Stop 04/28/18 at 19:59; Status DC Potassium Chloride (Klor-Con) 40 meq 1X ONCE PO ; Start 04/28/18 at 17:30; Stop 04/28/18 at 17:30; Status DC Potassium Chloride (Klor-Con) 20 meq DAILYWBKFT PO ; Start 04/29/18 at 08:00; Stop 04/29/18 at 08:00; Status DC Heparin Sodium (Porcine) (Heparin Sodium) 5,000 unit Q8HRS SQ Last administered on 04/29/18at 05:31; Start 04/28/18 at 22:00 Potassium Chloride/Water 100 ml @ 100 mls/hr Q1H IV Last administered on at 21:28; Start 04/28/18 at 20:00; Stop 04/28/18 at 21:59; Status DC Haloperidol Lactate (Haldol Inj) 2.5 mg PRN Q6HRS PRN IVP AGITATION; Start at 17:00 Active Scripts Active Reported Tamsulosin Hcl 0.4 Mg Cap.er.24h 0.4 Mg PO DAILY Potassium Chloride 20 Meq Tablet.er 20 Meq PO DAILY Protonix (Pantoprazole Sodium) 20 Mg Tablet.dr 20 Mg PO DAILY Meclizine Hcl 12.5 Mg Tablet 2 Tab PO TID Losartan Potassium 100 Mg Tablet 100 Mg PO DAILY Albuterol Sulfate Neb Soln (Albuterol Sulfate) 2.5 Mg/3 Ml Vial.neb 1 Vial NEB PRN Q4HRS Ibuprofen 800 Mg Tablet 800 Mg PO TID PRN Furosemide 20 Mg Tablet 1 Tab PO DAILY Finasteride 5 Mg Tablet 1 Tab PO DAILY Doxazosin Mesylate 8 Mg Tablet 1 Tab PO DAILY Allopurinol 300 Mg Tablet 1 Tab PO DAILY Vitals/I & O Vital Sign - Last 24 Hours 04/28/18 04/28/18 04/28/18 04/28/18 10:20 11:00 14:29 15:00 Temp 98.7 97.5 98.7 97.5 Pulse 84 85 Resp 18 12 18 16 B/P (MAP) 125/72 (89) 126/74 (91) Pulse Ox 95 97 O2 Delivery Room Air Room Air Room Air Room Air 04/28/18 04/28/18 04/28/18 04/28/18 19:00 19:22 19:32 23:00 Temp 97.5 97.6 97.5 97.6 Pulse 84 78 Resp 18 20 18 B/P (MAP) 138/85 (102) 129/72 (91) Pulse Ox 96 98 O2 Delivery Room Air Room Air Room Air Room Air 04/29/18 04/29/18 04/29/18 04/29/18 00:56 03:00 05:26 06:00 Temp 97.5 97.5 Pulse 82 Resp 20 18 20 20 B/P (MAP) 135/79 (97) Pulse Ox 96 O2 Delivery Room Air Room Air Room Air Room Air 04/29/18 07:00 Temp 97.3 97.3 Pulse 81 Resp 18 B/P (MAP) 132/81 (98) Pulse Ox 95 O2 Delivery Room Air Intake and Output 04/28/18 04/28/18 04/29/18 14:59 22:59 06:59 Intake Total 1000 ml 770 ml 620 ml Output Total 220 ml 300 ml 750 ml Balance 780 ml 470 ml -130 ml LAKISHA CR MD Apr 29, 2018 08:34
[2018-04-29] MEDS: PANTOPRAZOLE IV PUSH 40 MG VIAL. IVP SCH (08:58)
[2018-04-29 10:57] LABS: BASO % 0 % (0-3); EOS # 0.2 x10^3/uL (0.0-0.7); EOS % 2 % (0-3); HEMATOCRIT 37.7 % (39.0-53.0); HEMOGLOBIN 11.8 g/dL (13.0-17.5); LYMPH # 1.5 x10^3/uL (1.0-4.8); LYMPH % 13 % (24-48); MEAN CORPUSCULAR HEMOGLOBIN 22 pg (25-35); MEAN CORPUSCULAR HGB CONC 31 g/dL (31-37); MEAN CORPUSCULAR VOLUME 72 fL (79-100); MONO % 9 % (0-9); NEUT # 8.7 x10^3uL (1.8-7.7); NEUT % 76 % (31-73); PLATELET COUNT 367 x10^3/uL (140-400); RED BLOOD COUNT 5.26 x10^6/uL (4.30-5.70); RED CELL DISTRIBUTION WIDTH 16.8 % (11.5-14.5); WHITE BLOOD COUNT 11.4 x10^3/uL (4.0-11.0)
[2018-04-29 11:00] VITALS: BP 148/67
[2018-04-29 11:06] LABS: ALBUMIN 1.8 g/dL (3.4-5.0); ALBUMIN/GLOBULIN RATIO 0.4 (1.0-1.7); CALCIUM 8.8 mg/dL (8.5-10.1); CREATININE 1.5 mg/dL (0.7-1.3); GFR 54.2; POTASSIUM 3.1 mmol/L (3.5-5.1); TOTAL BILIRUBIN 0.6 mg/dL (0.2-1.0); TOTAL PROTEIN 6.7 g/dL (6.4-8.2)
--- NOTE | 2018-04-29 12:19 | PDOC ---
SUBJECTIVE ROS Follow-up for acute kidney injury Patient denies any new complaints currently. OBJECTIVE Vital Signs Vital Signs Date Time Temp Pulse Resp B/P (MAP) Pulse Ox O2 Delivery O2 Flow Rate FiO2 04/29/18 11:00 97.2 72 20 148/67 (94) 94 Room Air 97.2 I & 0 Intake and Output 04/29/18 06:59 Intake Total 2390 ml Output Total 1270 ml Balance 1120 ml Intake Oral 120 ml IV Total 2270 ml Output Urine Total 1270 ml PHYSICAL EXAM Physical Exam GEN: Awake, Oriented x 2-3, In no distress EYES: Vision Unchanged, Conjunctiva Normal EN: No EN Drainage, Mucous Membranes dryish NECK: no JVD, no JVP, Supple, no Thyromegaly CVS: S1S2, ? Murmur, No Gallop, No Rub,no Edema RESP: no Rales, no Rhonchi,no Acc. Muscle Use GI: BS + ve, NO Bruit, Non Tender, ? Obese versus Distended : no CVA tenderness, no Suprapubic Tenderness DIAGNOSIS/ASSESSMENT Assessment & Plan SYLVIE - Baseline renal function unknown; Improving renal function, urine output is acceptable for now as documented. Microscopic hematuria- ?Minor sample versus ATN. One of many findings as noted on CT scan (as below) may contribute to this also. 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 The prostate is mildly enlarged. Cystic structure identified in the left kidney measuring 2.5 cm. Mild aortic atherosclerosis.) Hypokalemia- Monitor and replace as needed /ordered Severe hypoalbuminemia: Unclear if liver lesions or contributing to this. By mouth intake appears to be marginal to Hypernatremia: Now resolved Acute pancreatitis -GI consulted COMMENT/RELEVANT DATA Meds Current Medications Medications (Trade) Dose Ordered Sig/Mina Start Time Stop Time Status Last Admin Dose Admin Acetaminophen/ Hydrocodone Bitart (Lortab 5/325) 1 tab PRN Q4HRS PRN 04/25/18 13:45 Azithromycin 250 ml @ 250 mls/hr 1X ONCE 04/25/18 11:45 04/25/18 12:44 DC 04/25/18 12:23 250 MLS/HR Azithromycin 250 mg/Sodium Chloride 250 ml @ 250 mls/hr Q24H 04/26/18 18:00 04/28/18 17:01 250 MLS/HR Ceftriaxone Sodium (Rocephin) 1 gm Q24H 04/26/18 17:30 04/28/18 16:56 1 GM Fentanyl Citrate (Fentanyl 2ml Vial) 100 mcg STK-MED ONCE 04/26/18 14:13 04/26/18 14:14 DC Gelatin (Gelfoam Size 12-7mm) 1 each 1X ONCE 04/26/18 14:45 04/26/18 14:46 DC 04/26/18 14:44 1 EACH Haloperidol Lactate (Haldol Inj) 2.5 mg PRN Q6HRS PRN 04/28/18 17:00 Heparin Sodium (Porcine) (Heparin Sodium) 5,000 unit Q8HRS 04/28/18 22:00 04/29/18 05:31 5,000 UNIT Hyoscyamine (Anaspaz) 0.125 mg ONCE ONCE 04/25/18 09:45 04/25/18 09:46 DC 04/25/18 10:12 0.125 MG Lidocaine/Sodium Bicarbonate (Buffered Lidocaine 1%) 3 ml 1X ONCE 04/26/18 14:45 04/26/18 14:46 DC 04/26/18 14:44 7 ML Midazolam HCl (Versed) 2 mg STK-MED ONCE 04/26/18 14:13 04/26/18 14:14 DC Morphine Sulfate (Morphine Sulfate) 2 mg PRN Q4HRS PRN 04/25/18 13:45 04/29/18 05:26 2 MG Ondansetron HCl (Zofran) 4 mg PRN Q6HRS PRN 04/25/18 13:45 Pantoprazole Sodium (PROTONIX VIAL for IV PUSH) 40 mg DAILYAC 04/26/18 07:30 04/29/18 08:58 40 MG Potassium Chloride/Water 100 ml @ 100 mls/hr Q1H 04/28/18 20:00 04/28/18 21:59 DC 04/28/18 21:28 100 MLS/HR Potassium Chloride (Klor-Con) 20 meq DAILYWBKFT 04/29/18 08:00 04/29/18 08:00 DC Ringer's Solution 1,000 ml @ 125 mls/hr Q8H 04/25/18 13:34 04/29/18 05:26 125 MLS/HR Saliva Substitute (Biotene Moisturizing Mouth) 2 spray PRN Q15MIN PRN 04/26/18 10:00 04/28/18 02:23 2 SPRAY Sodium Chloride 1,000 ml @ 125 mls/hr Q8H 04/25/18 11:36 04/26/18 06:23 DC 04/25/18 16:34 125 MLS/HR Lab Laboratory Tests Test 04/28/18 12:45 04/29/18 10:03 Sodium Level 146 mmol/L (136-145) 145 mmol/L (136-145) Potassium Level 3.0 mmol/L (3.5-5.1) 3.1 mmol/L (3.5-5.1) Chloride Level 106 mmol/L (98-107) 107 mmol/L (98-107) Carbon Dioxide Level 26 mmol/L (21-32) 23 mmol/L (21-32) Anion Gap 14 (6-14) 15 (6-14) Blood Urea Nitrogen 57 mg/dL (8-26) 46 mg/dL (8-26) Creatinine 1.8 mg/dL (0.7-1.3) 1.5 mg/dL (0.7-1.3) Estimated GFR (Cockcroft-Gault) 43.9 54.2 Glucose Level 72 mg/dL (70-99) 76 mg/dL (70-99) Calcium Level 8.8 mg/dL (8.5-10.1) 8.8 mg/dL (8.5-10.1) Ammonia < 10 mcmol/L (11-34) White Blood Count 11.4 x10^3/uL (4.0-11.0) Red Blood Count 5.26 x10^6/uL (4.30-5.70) Hemoglobin 11.8 g/dL (13.0-17.5) Hematocrit 37.7 % (39.0-53.0) Mean Corpuscular Volume 72 fL (79-100) Mean Corpuscular Hemoglobin 22 pg (25-35) Mean Corpuscular Hemoglobin Concent 31 g/dL (31-37) Red Cell Distribution Width 16.8 % (11.5-14.5) Platelet Count 367 x10^3/uL (140-400) Neutrophils (%) (Auto) 76 % (31-73) Lymphocytes (%) (Auto) 13 % (24-48) Monocytes (%) (Auto) 9 % (0-9) Eosinophils (%) (Auto) 2 % (0-3) Basophils (%) (Auto) 0 % (0-3) Neutrophils # (Auto) 8.7 x10^3uL (1.8-7.7) Lymphocytes # (Auto) 1.5 x10^3/uL (1.0-4.8) Monocytes # (Auto) 1.0 x10^3/uL (0.0-1.1) Eosinophils # (Auto) 0.2 x10^3/uL (0.0-0.7) Basophils # (Auto) 0.0 x10^3/uL (0.0-0.2) BUN/Creatinine Ratio 31 (6-20) Total Bilirubin 0.6 mg/dL (0.2-1.0) Aspartate Amino Transf (AST/SGOT) 28 U/L (15-37) Alanine Aminotransferase (ALT/SGPT) 15 U/L (16-63) Alkaline Phosphatase 190 U/L (46-116) Total Protein 6.7 g/dL (6.4-8.2) Albumin 1.8 g/dL (3.4-5.0) Albumin/Globulin Ratio 0.4 (1.0-1.7) Results All relevant outside records, renal labs, imaging studies, telemetry/EKG's were reviewed. REYNA CRUZ MD Apr 29, 2018 12:19
[2018-04-29] MEDS ORDERED: MAGNESIUM SULFATE 2GM 50 ML IV PRN (12:30)
--- NOTE | 2018-04-29 13:25 | PDOC ---
G I PROGRESS NOTE Subjective More alert today. Still limited verbalization. Physical Exam Lungs clear. RRR Abdomen soft, not distended. Review of Relevant I have reviewed the following items pily (where applicable) has been applied. Labs Laboratory Tests Test 04/28/18 12:45 04/29/18 10:03 Sodium Level 146 mmol/L (136-145) 145 mmol/L (136-145) Potassium Level 3.0 mmol/L (3.5-5.1) 3.1 mmol/L (3.5-5.1) Chloride Level 106 mmol/L (98-107) 107 mmol/L (98-107) Carbon Dioxide Level 26 mmol/L (21-32) 23 mmol/L (21-32) Anion Gap 14 (6-14) 15 (6-14) Blood Urea Nitrogen 57 mg/dL (8-26) 46 mg/dL (8-26) Creatinine 1.8 mg/dL (0.7-1.3) 1.5 mg/dL (0.7-1.3) Estimated GFR (Cockcroft-Gault) 43.9 54.2 Glucose Level 72 mg/dL (70-99) 76 mg/dL (70-99) Calcium Level 8.8 mg/dL (8.5-10.1) 8.8 mg/dL (8.5-10.1) Ammonia < 10 mcmol/L (11-34) White Blood Count 11.4 x10^3/uL (4.0-11.0) Red Blood Count 5.26 x10^6/uL (4.30-5.70) Hemoglobin 11.8 g/dL (13.0-17.5) Hematocrit 37.7 % (39.0-53.0) Mean Corpuscular Volume 72 fL (79-100) Mean Corpuscular Hemoglobin 22 pg (25-35) Mean Corpuscular Hemoglobin Concent 31 g/dL (31-37) Red Cell Distribution Width 16.8 % (11.5-14.5) Platelet Count 367 x10^3/uL (140-400) Neutrophils (%) (Auto) 76 % (31-73) Lymphocytes (%) (Auto) 13 % (24-48) Monocytes (%) (Auto) 9 % (0-9) Eosinophils (%) (Auto) 2 % (0-3) Basophils (%) (Auto) 0 % (0-3) Neutrophils # (Auto) 8.7 x10^3uL (1.8-7.7) Lymphocytes # (Auto) 1.5 x10^3/uL (1.0-4.8) Monocytes # (Auto) 1.0 x10^3/uL (0.0-1.1) Eosinophils # (Auto) 0.2 x10^3/uL (0.0-0.7) Basophils # (Auto) 0.0 x10^3/uL (0.0-0.2) BUN/Creatinine Ratio 31 (6-20) Total Bilirubin 0.6 mg/dL (0.2-1.0) Aspartate Amino Transf (AST/SGOT) 28 U/L (15-37) Alanine Aminotransferase (ALT/SGPT) 15 U/L (16-63) Alkaline Phosphatase 190 U/L (46-116) Total Protein 6.7 g/dL (6.4-8.2) Albumin 1.8 g/dL (3.4-5.0) Albumin/Globulin Ratio 0.4 (1.0-1.7) Laboratory Tests Test 04/29/18 10:03 White Blood Count 11.4 x10^3/uL (4.0-11.0) Red Blood Count 5.26 x10^6/uL (4.30-5.70) Hemoglobin 11.8 g/dL (13.0-17.5) Hematocrit 37.7 % (39.0-53.0) Mean Corpuscular Volume 72 fL (79-100) Mean Corpuscular Hemoglobin 22 pg (25-35) Mean Corpuscular Hemoglobin Concent 31 g/dL (31-37) Red Cell Distribution Width 16.8 % (11.5-14.5) Platelet Count 367 x10^3/uL (140-400) Neutrophils (%) (Auto) 76 % (31-73) Lymphocytes (%) (Auto) 13 % (24-48) Monocytes (%) (Auto) 9 % (0-9) Eosinophils (%) (Auto) 2 % (0-3) Basophils (%) (Auto) 0 % (0-3) Neutrophils # (Auto) 8.7 x10^3uL (1.8-7.7) Lymphocytes # (Auto) 1.5 x10^3/uL (1.0-4.8) Monocytes # (Auto) 1.0 x10^3/uL (0.0-1.1) Eosinophils # (Auto) 0.2 x10^3/uL (0.0-0.7) Basophils # (Auto) 0.0 x10^3/uL (0.0-0.2) Sodium Level 145 mmol/L (136-145) Potassium Level 3.1 mmol/L (3.5-5.1) Chloride Level 107 mmol/L (98-107) Carbon Dioxide Level 23 mmol/L (21-32) Anion Gap 15 (6-14) Blood Urea Nitrogen 46 mg/dL (8-26) Creatinine 1.5 mg/dL (0.7-1.3) Estimated GFR (Cockcroft-Gault) 54.2 BUN/Creatinine Ratio 31 (6-20) Glucose Level 76 mg/dL (70-99) Calcium Level 8.8 mg/dL (8.5-10.1) Total Bilirubin 0.6 mg/dL (0.2-1.0) Aspartate Amino Transf (AST/SGOT) 28 U/L (15-37) Alanine Aminotransferase (ALT/SGPT) 15 U/L (16-63) Alkaline Phosphatase 190 U/L (46-116) Total Protein 6.7 g/dL (6.4-8.2) Albumin 1.8 g/dL (3.4-5.0) Albumin/Globulin Ratio 0.4 (1.0-1.7) Microbiology 04/25/18 Blood Culture - Preliminary, Resulted NO GROWTH AFTER 4 DAYS Liver mass biopsy pending. Vitals/I & O Vital Sign - Last 24 Hours 04/28/18 04/28/18 04/28/18 04/28/18 14:29 15:00 19:00 19:22 Temp 97.5 97.5 97.5 97.5 Pulse 85 84 Resp 18 16 18 20 B/P (MAP) 126/74 (91) 138/85 (102) Pulse Ox 97 96 O2 Delivery Room Air Room Air Room Air Room Air 04/28/18 04/28/18 04/29/18 04/29/18 19:32 23:00 00:56 03:00 Temp 97.6 97.5 97.6 97.5 Pulse 78 82 Resp 18 20 18 B/P (MAP) 129/72 (91) 135/79 (97) Pulse Ox 98 96 O2 Delivery Room Air Room Air Room Air Room Air 04/29/18 04/29/18 04/29/18 04/29/18 05:26 06:00 07:00 08:00 Temp 97.3 97.3 Pulse 81 Resp 20 20 18 B/P (MAP) 132/81 (98) Pulse Ox 95 O2 Delivery Room Air Room Air Room Air Room Air 04/29/18 11:00 Temp 97.2 97.2 Pulse 72 Resp 20 B/P (MAP) 148/67 (94) Pulse Ox 94 O2 Delivery Room Air Intake and Output 04/28/18 04/28/18 04/29/18 14:59 22:59 06:59 Intake Total 1000 ml 770 ml 620 ml Output Total 220 ml 300 ml 750 ml Balance 780 ml 470 ml -130 ml Problem List Problems Medical Problems: (1) Renal insufficiency Status: Acute Assessment Liver masses. Plan of Care Note Await path. Continue general support. PATEL COLLIER MD Apr 29, 2018 13:25
[2018-04-29 15:00] VITALS: BP 129/75
[2018-04-29] MEDS: POTASSIUM CHLORIDE 10MEQ 100 ML IV SCH ×4 (15:18→20:29)
[2018-04-29] MEDS: AZITHROMYCIN 250 MG in IV NORMAL SALINE 250ML 250 ML IV SCH (17:51)
[2018-04-29] MEDS: cefTRIAXone IV Push 1 GM VIAL. IVP SCH (17:52)
[2018-04-29] MEDS: HALOPERIDOL LACTATE 5 MG/ML VIAL. IVP PRN (18:31)
[2018-04-29 19:00] VITALS: BP 133/84
[2018-04-29 23:00] VITALS: BP 135/78
[2018-04-30 03:00] VITALS: BP 135/77
[2018-04-30] MEDS: PANTOPRAZOLE IV PUSH 40 MG VIAL. IVP SCH (05:54)
[2018-04-30] MEDS: IV RINGERS,LACTATED 1000ML 1,000 ML IV SCH ×2 (05:57→08:32)
[2018-04-30] MEDS: HEPARIN for SUB-Q USE 5,000 UNIT/ML VIAL. SQ SCH ×3 (06:01→21:16)
[2018-04-30 07:00] VITALS: BP 135/82
--- NOTE | 2018-04-30 08:16 | PDOC ---
PROGRESS NOTES Chief Complaint Chief Complaint Acute pancreatitis - with Abdominal pain, nausea vomiting. NPO, consult GI. Still has GB, triglycerides normal, not on a thiazide that he knows of and he doesn't recall if he has been losing weight. Concerning liver masses on CT could be metastatic disease, he does not recall his last colonoscopy during my interview. Pain control with morphine Acute metabolic encephalopathy - uremia, delirium Hypokalemia - 3.1, will monitor. Replace IVF SYLVIE - vasomotor with possible ATN, appears dry and Cr and BUN elevated. Unknown baseline. Liver masses - possibly metastatic disease. Contrast contraindicated based on his renal function. Will consult GI. Will see if I can get ahold of his [place] medical records. RBC microcytosis - will check iron studies, may be sickle trait, he does not recall HTN - will need to reconcile his meds History of Present Illness History of Present Illness Admitted for abdominal pain, confusion, found with pancreatitis and liver masses. S/p liver biopsy 04/26/1804/27: Very confused, refusing PO, attempted to drink his own urine. 04/28: Complains of dry mouth, upset, asks for water over and over. He continues to refuse PO meds, will take IV. K is 3, Cr improved a bit. 04/29: Still feeling agitated, but less so today. He is allowing examination. Offered food, he says he will pass. Still awaiting pathology. K still 3 Still very confused. swiping on his phone and slightly agitated. Asking if he can speak with someone from the local mu-ism. K improved. Sodium up to 150 today. Ex- and best friend called. None of his family is in town. Plan: Advanced diet, restarted anticoagulation F/u liver biopsy results. Needs free water, will encourage, may need to give free water in IV if he continues to refuse He needs skilled/Memory services on d/c. We need to get ahold of family. Daughters live in [place], ex- eloped with his best friend here. Their numbers are in his phone, but not labeled. Awaiting records from [facility] in [place] Vitals Vitals Vital Signs Date Time Temp Pulse Resp B/P (MAP) Pulse Ox O2 Delivery O2 Flow Rate FiO2 04/30/18 03:00 97.9 92 18 135/77 (96) 97 Room Air 97.9 Physical Exam General: Alert, Cooperative, mild distress Abdomen: Normal bowel sounds, Soft, No hepatosplenomegaly, No masses, Other ( RUQ tenderness) Extremities: No clubbing, No cyanosis, No edema, Normal pulses, No tenderness/ swelling Skin: No rashes, No breakdown, No significant lesion Labs LABS Laboratory Tests Test 04/29/18 10:03 04/30/18 04:35 White Blood Count 11.4 x10^3/uL (4.0-11.0) Red Blood Count 5.26 x10^6/uL (4.30-5.70) Hemoglobin 11.8 g/dL (13.0-17.5) Hematocrit 37.7 % (39.0-53.0) Mean Corpuscular Volume 72 fL (79-100) Mean Corpuscular Hemoglobin 22 pg (25-35) Mean Corpuscular Hemoglobin Concent 31 g/dL (31-37) Red Cell Distribution Width 16.8 % (11.5-14.5) Platelet Count 367 x10^3/uL (140-400) Neutrophils (%) (Auto) 76 % (31-73) Lymphocytes (%) (Auto) 13 % (24-48) Monocytes (%) (Auto) 9 % (0-9) Eosinophils (%) (Auto) 2 % (0-3) Basophils (%) (Auto) 0 % (0-3) Neutrophils # (Auto) 8.7 x10^3uL (1.8-7.7) Lymphocytes # (Auto) 1.5 x10^3/uL (1.0-4.8) Monocytes # (Auto) 1.0 x10^3/uL (0.0-1.1) Eosinophils # (Auto) 0.2 x10^3/uL (0.0-0.7) Basophils # (Auto) 0.0 x10^3/uL (0.0-0.2) Sodium Level 145 mmol/L (136-145) Potassium Level 3.1 mmol/L (3.5-5.1) Chloride Level 107 mmol/L (98-107) Carbon Dioxide Level 23 mmol/L (21-32) Anion Gap 15 (6-14) Blood Urea Nitrogen 46 mg/dL (8-26) Creatinine 1.5 mg/dL (0.7-1.3) Estimated GFR (Cockcroft-Gault) 54.2 BUN/Creatinine Ratio 31 (6-20) Glucose Level 76 mg/dL (70-99) Calcium Level 8.8 mg/dL (8.5-10.1) Total Bilirubin 0.6 mg/dL (0.2-1.0) Aspartate Amino Transf (AST/SGOT) 28 U/L (15-37) Alanine Aminotransferase (ALT/SGPT) 15 U/L (16-63) Alkaline Phosphatase 190 U/L (46-116) Total Protein 6.7 g/dL (6.4-8.2) Albumin 1.8 g/dL (3.4-5.0) Albumin/Globulin Ratio 0.4 (1.0-1.7) Magnesium Level 2.3 mg/dL (1.8-2.4) Assessment and Plan Assessmemt and Plan Problems Medical Problems: (1) Renal insufficiency Status: Acute Comment Review of Relevant I have reviewed the following items pily (where applicable) has been applied. Labs Laboratory Tests Test 04/28/18 12:45 04/29/18 10:03 04/30/18 04:35 Sodium Level 146 mmol/L (136-145) 145 mmol/L (136-145) Potassium Level 3.0 mmol/L (3.5-5.1) 3.1 mmol/L (3.5-5.1) Chloride Level 106 mmol/L (98-107) 107 mmol/L (98-107) Carbon Dioxide Level 26 mmol/L (21-32) 23 mmol/L (21-32) Anion Gap 14 (6-14) 15 (6-14) Blood Urea Nitrogen 57 mg/dL (8-26) 46 mg/dL (8-26) Creatinine 1.8 mg/dL (0.7-1.3) 1.5 mg/dL (0.7-1.3) Estimated GFR (Cockcroft-Gault) 43.9 54.2 Glucose Level 72 mg/dL (70-99) 76 mg/dL (70-99) Calcium Level 8.8 mg/dL (8.5-10.1) 8.8 mg/dL (8.5-10.1) Ammonia < 10 mcmol/L (11-34) White Blood Count 11.4 x10^3/uL (4.0-11.0) Red Blood Count 5.26 x10^6/uL (4.30-5.70) Hemoglobin 11.8 g/dL (13.0-17.5) Hematocrit 37.7 % (39.0-53.0) Mean Corpuscular Volume 72 fL (79-100) Mean Corpuscular Hemoglobin 22 pg (25-35) Mean Corpuscular Hemoglobin Concent 31 g/dL (31-37) Red Cell Distribution Width 16.8 % (11.5-14.5) Platelet Count 367 x10^3/uL (140-400) Neutrophils (%) (Auto) 76 % (31-73) Lymphocytes (%) (Auto) 13 % (24-48) Monocytes (%) (Auto) 9 % (0-9) Eosinophils (%) (Auto) 2 % (0-3) Basophils (%) (Auto) 0 % (0-3) Neutrophils # (Auto) 8.7 x10^3uL (1.8-7.7) Lymphocytes # (Auto) 1.5 x10^3/uL (1.0-4.8) Monocytes # (Auto) 1.0 x10^3/uL (0.0-1.1) Eosinophils # (Auto) 0.2 x10^3/uL (0.0-0.7) Basophils # (Auto) 0.0 x10^3/uL (0.0-0.2) BUN/Creatinine Ratio 31 (6-20) Total Bilirubin 0.6 mg/dL (0.2-1.0) Aspartate Amino Transf (AST/SGOT) 28 U/L (15-37) Alanine Aminotransferase (ALT/SGPT) 15 U/L (16-63) Alkaline Phosphatase 190 U/L (46-116) Total Protein 6.7 g/dL (6.4-8.2) Albumin 1.8 g/dL (3.4-5.0) Albumin/Globulin Ratio 0.4 (1.0-1.7) Magnesium Level 2.3 mg/dL (1.8-2.4) Laboratory Tests Test 04/29/18 10:03 04/30/18 04:35 White Blood Count 11.4 x10^3/uL (4.0-11.0) Red Blood Count 5.26 x10^6/uL (4.30-5.70) Hemoglobin 11.8 g/dL (13.0-17.5) Hematocrit 37.7 % (39.0-53.0) Mean Corpuscular Volume 72 fL (79-100) Mean Corpuscular Hemoglobin 22 pg (25-35) Mean Corpuscular Hemoglobin Concent 31 g/dL (31-37) Red Cell Distribution Width 16.8 % (11.5-14.5) Platelet Count 367 x10^3/uL (140-400) Neutrophils (%) (Auto) 76 % (31-73) Lymphocytes (%) (Auto) 13 % (24-48) Monocytes (%) (Auto) 9 % (0-9) Eosinophils (%) (Auto) 2 % (0-3) Basophils (%) (Auto) 0 % (0-3) Neutrophils # (Auto) 8.7 x10^3uL (1.8-7.7) Lymphocytes # (Auto) 1.5 x10^3/uL (1.0-4.8) Monocytes # (Auto) 1.0 x10^3/uL (0.0-1.1) Eosinophils # (Auto) 0.2 x10^3/uL (0.0-0.7) Basophils # (Auto) 0.0 x10^3/uL (0.0-0.2) Sodium Level 145 mmol/L (136-145) Potassium Level 3.1 mmol/L (3.5-5.1) Chloride Level 107 mmol/L (98-107) Carbon Dioxide Level 23 mmol/L (21-32) Anion Gap 15 (6-14) Blood Urea Nitrogen 46 mg/dL (8-26) Creatinine 1.5 mg/dL (0.7-1.3) Estimated GFR (Cockcroft-Gault) 54.2 BUN/Creatinine Ratio 31 (6-20) Glucose Level 76 mg/dL (70-99) Calcium Level 8.8 mg/dL (8.5-10.1) Total Bilirubin 0.6 mg/dL (0.2-1.0) Aspartate Amino Transf (AST/SGOT) 28 U/L (15-37) Alanine Aminotransferase (ALT/SGPT) 15 U/L (16-63) Alkaline Phosphatase 190 U/L (46-116) Total Protein 6.7 g/dL (6.4-8.2) Albumin 1.8 g/dL (3.4-5.0) Albumin/Globulin Ratio 0.4 (1.0-1.7) Magnesium Level 2.3 mg/dL (1.8-2.4) Microbiology 04/25/18 Blood Culture - Preliminary, Resulted NO GROWTH AFTER 4 DAYS Medications Current Medications Sodium Chloride 1,000 ml @ 1,000 mls/hr Q1H IV Last administered on 04/25/18 10:12; Start 04/25/18 at 09:38; Stop 04/25/18 at 10:37; Status DC Ondansetron HCl (Zofran) 4 mg 1X ONCE IV Last administered on 04/25/18 10:11 ; Start 04/25/18 at 09:45; Stop 04/25/18 at 09:46; Status DC Hyoscyamine (Anaspaz) 0.125 mg ONCE ONCE PO Last administered on 04/25/18 10: 12; Start 04/25/18 at 09:45; Stop 04/25/18 at 09:46; Status DC Pantoprazole Sodium (PROTONIX VIAL for IV PUSH) 40 mg 1X ONCE IVP Last administered on 04/25/18 10:23; Start 04/25/18 at 10:15; Stop 04/25/18 at 10:16 ; Status DC Ceftriaxone Sodium (Rocephin) 1 gm 1X ONCE IVP Last administered on 04/25/18 12:23; Start 04/25/18 at 11:45; Stop 04/25/18 at 11:46; Status DC Azithromycin 250 ml @ 250 mls/hr 1X ONCE IV Last administered on 04/25/18 12 :23; Start 04/25/18 at 11:45; Stop 04/25/18 at 12:44; Status DC Ondansetron HCl (Zofran) 4 mg PRN Q8HRS PRN IV NAUSEA/VOMITING; Start 04/25/18 at 11:45; Stop 04/26/18 at 11:44; Status DC Morphine Sulfate (Morphine Sulfate) 2 mg PRN Q2HR PRN IV PAIN Last administered on 2/19/19at 12:19; Start 04/25/18 at 11:45; Stop 04/26/18 at 11:44 ; Status DC Sodium Chloride 1,000 ml @ 125 mls/hr Q8H IV Last administered on 04/25/18 16 :34; Start 04/25/18 at 11:36; Stop 04/26/18 at 06:23; Status DC Ringer's Solution 1,000 ml @ 125 mls/hr Q8H IV Last administered on 04/30/18 05:57; Start 04/25/18 at 13:34 Ondansetron HCl (Zofran) 4 mg PRN Q6HRS PRN IV NAUSEA/VOMITING; Start 04/25/18 at 13:45 Morphine Sulfate (Morphine Sulfate) 2 mg PRN Q4HRS PRN IV PAIN Last administered on 04/29/18 05:26; Start 04/25/18 at 13:45 Acetaminophen/ Hydrocodone Bitart (Lortab 5/325) 1 tab PRN Q4HRS PRN PO MILD PAIN, 2ND CHOICE; Start 04/25/18 at 13:45 Heparin Sodium (Porcine) (Heparin Sodium) 5,000 unit Q12HR SQ ; Start 04/25/18 at 21:00; Stop 04/26/18 at 17:38; Status DC Pantoprazole Sodium (PROTONIX VIAL for IV PUSH) 40 mg DAILYAC IVP Last administered on 04/30/18at 05:54; Start 04/26/18 at 07:30 Saliva Substitute (Biotene Moisturizing Mouth) 2 spray PRN Q15MIN PRN PO DRY MOUTH Last administered on 04/28/18at 02:23; Start 04/26/18 at 10:00 Potassium Chloride/Water 100 ml @ 100 mls/hr Q1H IV Last administered on at 14:30; Start 04/26/18 at 11:30; Stop 04/26/18 at 15:29; Status DC Potassium Chloride (Klor-Con) 20 meq DAILYWBKFT PO ; Start 04/27/18 at 08:00; Stop 04/29/18 at 12:20; Status DC Potassium Chloride (Klor-Con) 40 meq 1X ONCE PO ; Start 04/26/18 at 19:00; Stop 04/26/18 at 19:01; Status DC Lidocaine/Sodium Bicarbonate (Buffered Lidocaine 1%) 3 ml STK-MED ONCE .ROUTE ; Start 04/26/18 at 13:46; Stop 04/26/18 at 13:47; Status DC Gelatin (Gelfoam Size 12-7mm) 1 each STK-MED ONCE .ROUTE ; Start 04/26/18 at 13 :46; Stop 04/26/18 at 13:47; Status DC Midazolam HCl (Versed) 2 mg STK-MED ONCE .ROUTE ; Start 04/26/18 at 14:13; Stop 04/26/18 at 14:14; Status DC Fentanyl Citrate (Fentanyl 2ml Vial) 100 mcg STK-MED ONCE .ROUTE ; Start at 14:13; Stop 04/26/18 at 14:14; Status DC Lidocaine/Sodium Bicarbonate (Buffered Lidocaine 1%) 3 ml 1X ONCE INJ Last administered on 04/26/18at 14:44; Start 04/26/18 at 14:45; Stop 04/26/18 at 14:46 ; Status DC Gelatin (Gelfoam Size 12-7mm) 1 each 1X ONCE TP Last administered on at 14:44; Start 04/26/18 at 14:45; Stop 04/26/18 at 14:46; Status DC Azithromycin 250 mg/Sodium Chloride 250 ml @ 250 mls/hr Q24H IV Last administered on 04/29/18at 17:51; Start 04/26/18 at 18:00 Ceftriaxone Sodium (Rocephin) 1 gm Q24H IVP Last administered on 04/29/18at 17: 52; Start 04/26/18 at 17:30 Potassium Chloride/Water 100 ml @ 100 mls/hr Q1H IV Last administered on at 11:10; Start 04/27/18 at 10:00; Stop 04/27/18 at 11:59; Status DC Potassium Chloride/Water 100 ml @ 100 mls/hr Q1H IV Last administered on at 19:14; Start 04/28/18 at 18:00; Stop 04/28/18 at 19:59; Status DC Potassium Chloride (Klor-Con) 40 meq 1X ONCE PO ; Start 04/28/18 at 17:30; Stop 04/28/18 at 17:30; Status DC Potassium Chloride (Klor-Con) 20 meq DAILYWBKFT PO ; Start 04/29/18 at 08:00; Stop 04/29/18 at 08:00; Status DC Heparin Sodium (Porcine) (Heparin Sodium) 5,000 unit Q8HRS SQ Last administered on 04/30/18at 06:01; Start 04/28/18 at 22:00 Potassium Chloride/Water 100 ml @ 100 mls/hr Q1H IV Last administered on at 21:28; Start 04/28/18 at 20:00; Stop 04/28/18 at 21:59; Status DC Haloperidol Lactate (Haldol Inj) 2.5 mg PRN Q6HRS PRN IVP AGITATION Last administered on 04/29/18at 18:31; Start 04/28/18 at 17:00 Magnesium Sulfate 50 ml @ 25 mls/hr PRN DAILY PRN IV for Mag < 1.7 on am labs; Start 04/29/18 at 12:30 Potassium Chloride (Klor-Con) 40 meq BID PO ; Start 04/29/18 at 12:30; Stop at 13:29; Status DC Potassium Chloride (Klor-Con) 20 meq DAILYWBKFT PO ; Start 05/01/18 at 08:00 Potassium Chloride/Water 100 ml @ 100 mls/hr Q1H IV Last administered on at 20:29; Start 04/29/18 at 14:00; Stop 04/29/18 at 17:59; Status DC Active Scripts Active Reported Tamsulosin Hcl 0.4 Mg Cap.er.24h 0.4 Mg PO DAILY Potassium Chloride 20 Meq Tablet.er 20 Meq PO DAILY Protonix (Pantoprazole Sodium) 20 Mg Tablet.dr 20 Mg PO DAILY Meclizine Hcl 12.5 Mg Tablet 2 Tab PO TID Losartan Potassium 100 Mg Tablet 100 Mg PO DAILY Albuterol Sulfate Neb Soln (Albuterol Sulfate) 2.5 Mg/3 Ml Vial.neb 1 Vial NEB PRN Q4HRS Ibuprofen 800 Mg Tablet 800 Mg PO TID PRN Furosemide 20 Mg Tablet 1 Tab PO DAILY Finasteride 5 Mg Tablet 1 Tab PO DAILY Doxazosin Mesylate 8 Mg Tablet 1 Tab PO DAILY Allopurinol 300 Mg Tablet 1 Tab PO DAILY Vitals/I & O Vital Sign - Last 24 Hours 04/29/18 04/29/18 04/29/18 04/29/18 11:00 15:00 19:00 20:00 Temp 97.2 97.2 97.8 97.2 97.2 97.8 Pulse 72 79 87 Resp 20 18 17 B/P (MAP) 148/67 (94) 129/75 (93) 133/84 (100) Pulse Ox 94 96 97 O2 Delivery Room Air Room Air Room Air Room Air 04/29/18 04/30/18 23:00 03:00 Temp 97.4 97.9 97.4 97.9 Pulse 96 92 Resp 18 18 B/P (MAP) 135/78 (97) 135/77 (96) Pulse Ox 98 97 O2 Delivery Room Air Room Air Intake and Output 04/29/18 04/29/18 04/30/18 15:00 23:00 07:00 Intake Total 10 ml 10 ml Output Total 100 ml 200 ml Balance -100 ml -190 ml 10 ml LAKISHA CR MD Apr 30, 2018 08:16
[2018-04-30 08:28] LABS: BASO % 0 % (0-3); EOS # 0.1 x10^3/uL (0.0-0.7); EOS % 1 % (0-3); HEMATOCRIT 40.2 % (39.0-53.0); HEMOGLOBIN 12.8 g/dL (13.0-17.5); LYMPH # 1.4 x10^3/uL (1.0-4.8); LYMPH % 14 % (24-48); MEAN CORPUSCULAR HEMOGLOBIN 23 pg (25-35); MEAN CORPUSCULAR HGB CONC 32 g/dL (31-37); MEAN CORPUSCULAR VOLUME 73 fL (79-100); MONO # 0.9 x10^3/uL (0.0-1.1); MONO % 9 % (0-9); NEUT # 7.7 x10^3uL (1.8-7.7); NEUT % 76 % (31-73); PLATELET COUNT 362 x10^3/uL (140-400); RED BLOOD COUNT 5.52 x10^6/uL (4.30-5.70); RED CELL DISTRIBUTION WIDTH 17.2 % (11.5-14.5); WHITE BLOOD COUNT 10.2 x10^3/uL (4.0-11.0)
[2018-04-30] MEDS: AMINO AC 3%/ELECTROLYTE/GLYCER 1,000 ML IV SCH ×2 (08:28→21:12)
[2018-04-30 08:48] LABS: ALBUMIN/GLOBULIN RATIO 0.5 (1.0-1.7); CALCIUM 8.9 mg/dL (8.5-10.1); CREATININE 1.4 mg/dL (0.7-1.3); GFR 58.7; POTASSIUM 3.4 mmol/L (3.5-5.1); TOTAL BILIRUBIN 0.7 mg/dL (0.2-1.0); TOTAL PROTEIN 6.1 g/dL (6.4-8.2)
[2018-04-30 11:00] VITALS: BP 143/84
[2018-04-30] MEDS ORDERED: OLANZapine IM 10 MG VIAL. IM ONE (11:45)
--- NOTE | 2018-04-30 12:44 | PDOC ---
G I PROGRESS NOTE Subjective Nil from him. Objective Per staff, continues to pull out IV's, refuse pills. Won't eat as believes being poisoned. Physical Exam Lungs clear. RRR Abdomen soft, not distended. Review of Relevant I have reviewed the following items pily (where applicable) has been applied. Labs Laboratory Tests Test 04/28/18 12:45 04/29/18 10:03 04/30/18 04:35 04/30/18 06:50 Sodium Level 146 mmol/L (136-145) 145 mmol/L (136-145) Potassium Level 3.0 mmol/L (3.5-5.1) 3.1 mmol/L (3.5-5.1) Chloride Level 106 mmol/L (98-107) 107 mmol/L (98-107) Carbon Dioxide Level 26 mmol/L (21-32) 23 mmol/L (21-32) Anion Gap 14 (6-14) 15 (6-14) Blood Urea Nitrogen 57 mg/dL (8-26) 46 mg/dL (8-26) Creatinine 1.8 mg/dL (0.7-1.3) 1.5 mg/dL (0.7-1.3) Estimated GFR (Cockcroft-Gault) 43.9 54.2 Glucose Level 72 mg/dL (70-99) 76 mg/dL (70-99) Calcium Level 8.8 mg/dL (8.5-10.1) 8.8 mg/dL (8.5-10.1) Ammonia < 10 mcmol/L (11-34) White Blood Count 11.4 x10^3/uL (4.0-11.0) 10.2 x10^3/uL (4.0-11.0) Red Blood Count 5.26 x10^6/uL (4.30-5.70) 5.52 x10^6/uL (4.30-5.70) Hemoglobin 11.8 g/dL (13.0-17.5) 12.8 g/dL (13.0-17.5) Hematocrit 37.7 % (39.0-53.0) 40.2 % (39.0-53.0) Mean Corpuscular Volume 72 fL (79-100) 73 fL (79-100) Mean Corpuscular Hemoglobin 22 pg (25-35) 23 pg (25-35) Mean Corpuscular Hemoglobin Concent 31 g/dL (31-37) 32 g/dL (31-37) Red Cell Distribution Width 16.8 % (11.5-14.5) 17.2 % (11.5-14.5) Platelet Count 367 x10^3/uL (140-400) 362 x10^3/uL (140-400) Neutrophils (%) (Auto) 76 % (31-73) 76 % (31-73) Lymphocytes (%) (Auto) 13 % (24-48) 14 % (24-48) Monocytes (%) (Auto) 9 % (0-9) 9 % (0-9) Eosinophils (%) (Auto) 2 % (0-3) 1 % (0-3) Basophils (%) (Auto) 0 % (0-3) 0 % (0-3) Neutrophils # (Auto) 8.7 x10^3uL (1.8-7.7) 7.7 x10^3uL (1.8-7.7) Lymphocytes # (Auto) 1.5 x10^3/uL (1.0-4.8) 1.4 x10^3/uL (1.0-4.8) Monocytes # (Auto) 1.0 x10^3/uL (0.0-1.1) 0.9 x10^3/uL (0.0-1.1) Eosinophils # (Auto) 0.2 x10^3/uL (0.0-0.7) 0.1 x10^3/uL (0.0-0.7) Basophils # (Auto) 0.0 x10^3/uL (0.0-0.2) 0.0 x10^3/uL (0.0-0.2) BUN/Creatinine Ratio 31 (6-20) Total Bilirubin 0.6 mg/dL (0.2-1.0) Aspartate Amino Transf (AST/SGOT) 28 U/L (15-37) Alanine Aminotransferase (ALT/SGPT) 15 U/L (16-63) Alkaline Phosphatase 190 U/L (46-116) Total Protein 6.7 g/dL (6.4-8.2) Albumin 1.8 g/dL (3.4-5.0) Albumin/Globulin Ratio 0.4 (1.0-1.7) Magnesium Level 2.3 mg/dL (1.8-2.4) Test 04/30/18 07:05 Sodium Level 150 mmol/L (136-145) Potassium Level 3.4 mmol/L (3.5-5.1) Chloride Level 110 mmol/L (98-107) Carbon Dioxide Level 20 mmol/L (21-32) Anion Gap 20 (6-14) Blood Urea Nitrogen 38 mg/dL (8-26) Creatinine 1.4 mg/dL (0.7-1.3) Estimated GFR (Cockcroft-Gault) 58.7 BUN/Creatinine Ratio 27 (6-20) Glucose Level 72 mg/dL (70-99) Calcium Level 8.9 mg/dL (8.5-10.1) Total Bilirubin 0.7 mg/dL (0.2-1.0) Aspartate Amino Transf (AST/SGOT) 31 U/L (15-37) Alanine Aminotransferase (ALT/SGPT) 19 U/L (16-63) Alkaline Phosphatase 202 U/L (46-116) Total Protein 6.1 g/dL (6.4-8.2) Albumin 2.0 g/dL (3.4-5.0) Albumin/Globulin Ratio 0.5 (1.0-1.7) Laboratory Tests Test 04/30/18 04:35 04/30/18 06:50 04/30/18 07:05 Magnesium Level 2.3 mg/dL (1.8-2.4) White Blood Count 10.2 x10^3/uL (4.0-11.0) Red Blood Count 5.52 x10^6/uL (4.30-5.70) Hemoglobin 12.8 g/dL (13.0-17.5) Hematocrit 40.2 % (39.0-53.0) Mean Corpuscular Volume 73 fL (79-100) Mean Corpuscular Hemoglobin 23 pg (25-35) Mean Corpuscular Hemoglobin Concent 32 g/dL (31-37) Red Cell Distribution Width 17.2 % (11.5-14.5) Platelet Count 362 x10^3/uL (140-400) Neutrophils (%) (Auto) 76 % (31-73) Lymphocytes (%) (Auto) 14 % (24-48) Monocytes (%) (Auto) 9 % (0-9) Eosinophils (%) (Auto) 1 % (0-3) Basophils (%) (Auto) 0 % (0-3) Neutrophils # (Auto) 7.7 x10^3uL (1.8-7.7) Lymphocytes # (Auto) 1.4 x10^3/uL (1.0-4.8) Monocytes # (Auto) 0.9 x10^3/uL (0.0-1.1) Eosinophils # (Auto) 0.1 x10^3/uL (0.0-0.7) Basophils # (Auto) 0.0 x10^3/uL (0.0-0.2) Sodium Level 150 mmol/L (136-145) Potassium Level 3.4 mmol/L (3.5-5.1) Chloride Level 110 mmol/L (98-107) Carbon Dioxide Level 20 mmol/L (21-32) Anion Gap 20 (6-14) Blood Urea Nitrogen 38 mg/dL (8-26) Creatinine 1.4 mg/dL (0.7-1.3) Estimated GFR (Cockcroft-Gault) 58.7 BUN/Creatinine Ratio 27 (6-20) Glucose Level 72 mg/dL (70-99) Calcium Level 8.9 mg/dL (8.5-10.1) Total Bilirubin 0.7 mg/dL (0.2-1.0) Aspartate Amino Transf (AST/SGOT) 31 U/L (15-37) Alanine Aminotransferase (ALT/SGPT) 19 U/L (16-63) Alkaline Phosphatase 202 U/L (46-116) Total Protein 6.1 g/dL (6.4-8.2) Albumin 2.0 g/dL (3.4-5.0) Albumin/Globulin Ratio 0.5 (1.0-1.7) Microbiology 04/25/18 Blood Culture - Final, Complete NO GROWTH AFTER 5 DAYS Hypernatremic. Liver biopsy pending still. Vitals/I & O Vital Sign - Last 24 Hours 04/29/18 04/29/18 04/29/18 04/29/18 15:00 19:00 20:00 23:00 Temp 97.2 97.8 97.4 97.2 97.8 97.4 Pulse 79 87 96 Resp 18 17 18 B/P (MAP) 129/75 (93) 133/84 (100) 135/78 (97) Pulse Ox 96 97 98 O2 Delivery Room Air Room Air Room Air Room Air 04/30/18 04/30/18 04/30/18 03:00 07:00 08:00 Temp 97.9 98.1 97.9 98.1 Pulse 92 90 Resp 18 16 B/P (MAP) 135/77 (96) 135/82 (99) Pulse Ox 97 95 O2 Delivery Room Air Room Air Room Air Intake and Output 04/29/18 04/29/18 04/30/18 14:59 22:59 06:59 Intake Total 10 ml 10 ml Output Total 100 ml 200 ml Balance -100 ml -190 ml 10 ml Problem List Problems Medical Problems: (1) Renal insufficiency Status: Acute Assessment Probable metastatic liver lesions, primary unclear. Paranoid delusions? Plan of Care: Continue current Tx, Mgmt Plan of Care Note Await path to guide any further w/u or treatment. PATEL COLLIER MD Apr 30, 2018 12:44
[2018-04-30 15:00] VITALS: BP 128/75
[2018-04-30] MEDS: cefTRIAXone IV Push 1 GM VIAL. IVP SCH (17:54)
[2018-04-30] MEDS: AZITHROMYCIN 250 MG in IV NORMAL SALINE 250ML 250 ML IV SCH (17:54)
[2018-04-30 19:00] VITALS: BP 121/71
[2018-04-30 23:00] VITALS: BP 154/88
[2018-05-01 03:00] VITALS: BP 153/85
[2018-05-01] MEDS: PANTOPRAZOLE IV PUSH 40 MG VIAL. IVP SCH (05:35)
[2018-05-01] MEDS: HEPARIN for SUB-Q USE 5,000 UNIT/ML VIAL. SQ SCH ×3 (05:43→21:40)
[2018-05-01 07:00] VITALS: BP 155/94
[2018-05-01 07:31] LABS: BASO % 0 % (0-3); EOS # 0.2 x10^3/uL (0.0-0.7); EOS % 2 % (0-3); HEMATOCRIT 36.1 % (39.0-53.0); HEMOGLOBIN 11.3 g/dL (13.0-17.5); LYMPH # 1.7 x10^3/uL (1.0-4.8); LYMPH % 16 % (24-48); MEAN CORPUSCULAR HEMOGLOBIN 22 pg (25-35); MEAN CORPUSCULAR HGB CONC 31 g/dL (31-37); MEAN CORPUSCULAR VOLUME 72 fL (79-100); MONO % 9 % (0-9); NEUT # 7.9 x10^3uL (1.8-7.7); NEUT % 73 % (31-73); PLATELET COUNT 408 x10^3/uL (140-400); RED BLOOD COUNT 5.04 x10^6/uL (4.30-5.70); RED CELL DISTRIBUTION WIDTH 16.4 % (11.5-14.5); WHITE BLOOD COUNT 10.8 x10^3/uL (4.0-11.0)
[2018-05-01 07:35] LABS: ALBUMIN/GLOBULIN RATIO 0.4 (1.0-1.7); CREATININE 1.3 mg/dL (0.7-1.3); GFR 63.9; MAGNESIUM 2.1 mg/dL (1.8-2.4); POTASSIUM 3.4 mmol/L (3.5-5.1); TOTAL BILIRUBIN 0.6 mg/dL (0.2-1.0); TOTAL PROTEIN 6.9 g/dL (6.4-8.2)
[2018-05-01] MEDS: POTASSIUM CHLORIDE 20 MEQ TABLET.ER. PO SCH (08:00)
[2018-05-01] MEDS: HALOPERIDOL LACTATE 5 MG/ML VIAL. IVP PRN (08:12)
[2018-05-01] MEDS: AMINO AC 3%/ELECTROLYTE/GLYCER 1,000 ML IV SCH ×2 (08:56→23:30)
--- NOTE | 2018-05-01 10:00 | NUR ---
AMELIA following pt. Spoke with RN who reported pt's friend, Eliseo had called in to check in pt over the weekend. He had reported pt's son is currently in longterm and daughter had from [place]. Pt's ex- is currently at [place], [place] with pt's best friend, Eliseo. Pt does not have family in [place] but pt had told RN he did not want 'Eliseo to know' about his current situation. PT recommends SNU but pt still has AMS. RN reports pt's liver biopsy results is pending and might come in today. AMELIA phoned pt's nephew, Luis Carlos and left a voice mail requesting a call back. DW PT/OT and RN. Will continue to follow.
--- NOTE | 2018-05-01 10:07 | PATHOLOGY ---
[facility] Accession Number: [id number] . 01 Material submitted: . LIVER LESION BIOPSY . 01 Clinical history: . Liver lesions . 02 Diagnosis: Liver biopsy, "liver biopsy": - POORLY DIFFERENTIATED CARCINOMA WITH NEUROENDOCRINE FEATURES. SEE COMMENT. . (SHA:cordwood cutter; 04/28/2018) MBR/04/28/2018 . 02 Comment: Immunoperoxidase stains reveal chromogranin positive, synaptophysin positive, CK19 positive, CDX2 positive, CK7 negative, CK20 negative, TTF-1 negative, B40 negative, p63 negative, CD10 negative in the tumor. PSA negative, PSAP negative. Mucin negative. . The CD56 immunostain is positive. . Thrombomodulin in tumor cells is negative. . This case was also reviewed by Dr. Paty Robertson. . An attempt was made to call Dr. Kip Gilmore on 04/28/18 at 12:45 p.m. . (SHA:cordwood cutter/deshawn; 04/28/2018) . 02 Electronically signed: . Maciel Manzano MD, Pathologist NPI- [id number] . 01 Gross description: . Received in formalin labeled "Elieser Lay, liver lesion BX," are 5 distinct needle cores of rea soft tissue ranging from 0.5 to 1.4 cm in length and measuring less than 0.1 cm each in diameter. The specimen is submitted entirely in cassette A1 and A2. Additionally received in the same container are multiple fragments of needle cores of rea soft tissue measuring 0.5 x 0.3 x 0.1 cm in aggregate dimensions. The specimen is filtered and entirely submitted in cassette A3. (TSD; 04/26/2018) TOB/TOB . 02 Pathologist provided ICD-10: C22.9 . 02 CPT . 566559, C40049, [id number], [id number] Specimen Comment: A courtesy copy of this report has been sent to Specimen Comment: [phone], , . Specimen Comment: Report sent to ,DR SMALL / DR CR Specimen Comment: A duplicate report has been generated due to demographic updates. Performed at: 01 [facility] [address] [id number] MD Emanuel Aguirre MD Phone: [phone] Performed at: 02 [facility] [address] [id number] MD Moy Neal MD Phone: [phone]
--- NOTE | 2018-05-01 10:45 | PDOC ---
PROGRESS NOTES Chief Complaint Chief Complaint Acute pancreatitis - with Abdominal pain, , consult GI. Still has GB, triglycerides normal, not on a thiazide that he knows of and he doesn't recall if he has been losing weight. Concerning liver masses on CT could be metastatic disease, he does not recall his last colonoscopy during my interview. Pain control with morphine Acute metabolic encephalopathy - uremia, delirium Hypokalemia - 3.1, will monitor. Replace IVF SYLVIE - vasomotor with possible ATN, appears dry and Cr and BUN elevated. Unknown baseline. Liver masses - possibly metastatic disease. Contrast contraindicated based on his renal function. consult GI. NEED [place] medical records. RBC microcytosis - will check iron studies, may be sickle trait, HTN - HOME MEDS, ADJUST PRN History of Present Illness History of Present Illness Admitted for abdominal pain, confusion, found with pancreatitis and liver masses. S/p liver biopsy 04/26/1804/27: Very confused, refusing PO, attempted to drink his own urine. 04/28: Complains of dry mouth, upset, asks for water over and over. He continues to refuse PO meds, will take IV. K is 3, Cr improved a bit. 04/29: Still feeling agitated, but less so today. He is allowing examination. Offered food, he says he will pass. Still awaiting pathology. 05/01 STILL agitated at times 05/01 very confused. THINKS we are poisoning him , slightly agitated. K improved. Sodium was 150 . Ex- and best friend called. None of his family is in town. cxr today, pulm consulted personally reviewed ct chest region Plan: consult pulm, cxr add seroquel 50 mg er daily Advanced diet, restarted anticoagulation F/u liver biopsy results. Needs free water, encouraged, will give iv potassium refusing po meds 05/01 He needs skilled/Memory services on d/c. We need to contact family. Daughters live in [place], ex- eloped with his best friend here. Their numbers are in his phone, but not labeled. need and requested records from [facility] in [place] Vitals Vitals Vital Signs Date Time Temp Pulse Resp B/P (MAP) Pulse Ox O2 Delivery O2 Flow Rate FiO2 05/01/18 07:00 97.4 93 18 155/94 (114) 98 Room Air 97.4 Physical Exam General: Alert, Cooperative, mild distress, Other (paranoid at times, trying to get out of bed) Lungs: Other (dec LLL) Abdomen: Normal bowel sounds, Soft, No hepatosplenomegaly, No masses, Other ( RUQ tenderness) Extremities: No clubbing, No cyanosis, No edema, Normal pulses, No tenderness/ swelling Skin: No rashes, No breakdown, No significant lesion Labs LABS Exposure: One or more of the following individualized dose reduction techniques were utilized for this examination: 1. Automated exposure control 2. Adjustment of the mA and/or kV according to patient size 3. Use of iterative reconstruction technique FINDINGS: Bibasilar lung airspace opacities likely atelectasis or infiltrates with possible atelectasis or focal consolidation the left lower lobe of the lung. No evidence of free air identified in the abdomen. Hepatomegaly is identified. There are ill-defined hypodensities identified in the liver with the largest measuring 4.5 cm in the left lobe of the liver. Small hiatal hernia is identified. The stomach is mildly distended. Questionable minimal stranding identified about the pancreas. The small bowel is nondilated. Feces and gas noted in the colon. Multiple sigmoid colon diverticulosis identified. Appendix is normal. Urinary bladder is mildly distended. Urinary bladder diverticula identified with the largest measuring 4.5 cm in the posteriorly on the left to the urinary bladder. The prostate is mildly enlarged. Cystic structure identified in the left kidney measuring 2.5 cm. Mild aortic atherosclerosis. Moderate to severe degenerative changes identified in the visualized thoracolumbar spine. Small superior endplate Schmorl's node identified at L4 vertebral level. There is mild anterolisthesis of L4 on L5. IMPRESSION: 1. Multiple ill-defined hypodensities identified in the liver with the largest measuring 4.5 cm in the left lobe suspicious for metastasis or malignancy however evaluation is limited without contrast. Recommend MRI abdomen for further evaluation. 2. Questionable minimal fat stranding identified about the pancreas probably artifactual and less likely pancreatitis. Correlate with lab values. 3. 2.5 cm cystic structure identified in the left kidney could be a cyst or cystic lesion. 4. Focal consolidation identified in the left lower lobe of the lung could be round atelectasis or focal infiltrate with mild bibasilar lung airspace opacities likely atelectasis or infiltrates. Electronically signed by: Juan Alberto Boyle MD (04/25/2018 11:18 AM) [place] [id number] Laboratory Tests Test 05/01/18 06:23 White Blood Count 10.8 x10^3/uL (4.0-11.0) Red Blood Count 5.04 x10^6/uL (4.30-5.70) Hemoglobin 11.3 g/dL (13.0-17.5) Hematocrit 36.1 % (39.0-53.0) Mean Corpuscular Volume 72 fL (79-100) Mean Corpuscular Hemoglobin 22 pg (25-35) Mean Corpuscular Hemoglobin Concent 31 g/dL (31-37) Red Cell Distribution Width 16.4 % (11.5-14.5) Platelet Count 408 x10^3/uL (140-400) Neutrophils (%) (Auto) 73 % (31-73) Lymphocytes (%) (Auto) 16 % (24-48) Monocytes (%) (Auto) 9 % (0-9) Eosinophils (%) (Auto) 2 % (0-3) Basophils (%) (Auto) 0 % (0-3) Neutrophils # (Auto) 7.9 x10^3uL (1.8-7.7) Lymphocytes # (Auto) 1.7 x10^3/uL (1.0-4.8) Monocytes # (Auto) 1.0 x10^3/uL (0.0-1.1) Eosinophils # (Auto) 0.2 x10^3/uL (0.0-0.7) Basophils # (Auto) 0.0 x10^3/uL (0.0-0.2) Sodium Level 147 mmol/L (136-145) Potassium Level 3.4 mmol/L (3.5-5.1) Chloride Level 109 mmol/L (98-107) Carbon Dioxide Level 24 mmol/L (21-32) Anion Gap 14 (6-14) Blood Urea Nitrogen 31 mg/dL (8-26) Creatinine 1.3 mg/dL (0.7-1.3) Estimated GFR (Cockcroft-Gault) 63.9 BUN/Creatinine Ratio 24 (6-20) Glucose Level 91 mg/dL (70-99) Calcium Level 9.0 mg/dL (8.5-10.1) Magnesium Level 2.1 mg/dL (1.8-2.4) Total Bilirubin 0.6 mg/dL (0.2-1.0) Aspartate Amino Transf (AST/SGOT) 33 U/L (15-37) Alanine Aminotransferase (ALT/SGPT) 21 U/L (16-63) Alkaline Phosphatase 184 U/L (46-116) Total Protein 6.9 g/dL (6.4-8.2) Albumin 2.0 g/dL (3.4-5.0) Albumin/Globulin Ratio 0.4 (1.0-1.7) Assessment and Plan Assessmemt and Plan Problems Medical Problems: (1) Renal insufficiency Status: Acute Comment Review of Relevant I have reviewed the following items pily (where applicable) has been applied. Labs Laboratory Tests Test 04/30/18 04:35 04/30/18 06:50 04/30/18 07:05 05/01/18 06:23 Magnesium Level 2.3 mg/dL (1.8-2.4) 2.1 mg/dL (1.8-2.4) White Blood Count 10.2 x10^3/uL (4.0-11.0) 10.8 x10^3/uL (4.0-11.0) Red Blood Count 5.52 x10^6/uL (4.30-5.70) 5.04 x10^6/uL (4.30-5.70) Hemoglobin 12.8 g/dL (13.0-17.5) 11.3 g/dL (13.0-17.5) Hematocrit 40.2 % (39.0-53.0) 36.1 % (39.0-53.0) Mean Corpuscular Volume 73 fL (79-100) 72 fL (79-100) Mean Corpuscular Hemoglobin 23 pg (25-35) 22 pg (25-35) Mean Corpuscular Hemoglobin Concent 32 g/dL (31-37) 31 g/dL (31-37) Red Cell Distribution Width 17.2 % (11.5-14.5) 16.4 % (11.5-14.5) Platelet Count 362 x10^3/uL (140-400) 408 x10^3/uL (140-400) Neutrophils (%) (Auto) 76 % (31-73) 73 % (31-73) Lymphocytes (%) (Auto) 14 % (24-48) 16 % (24-48) Monocytes (%) (Auto) 9 % (0-9) 9 % (0-9) Eosinophils (%) (Auto) 1 % (0-3) 2 % (0-3) Basophils (%) (Auto) 0 % (0-3) 0 % (0-3) Neutrophils # (Auto) 7.7 x10^3uL (1.8-7.7) 7.9 x10^3uL (1.8-7.7) Lymphocytes # (Auto) 1.4 x10^3/uL (1.0-4.8) 1.7 x10^3/uL (1.0-4.8) Monocytes # (Auto) 0.9 x10^3/uL (0.0-1.1) 1.0 x10^3/uL (0.0-1.1) Eosinophils # (Auto) 0.1 x10^3/uL (0.0-0.7) 0.2 x10^3/uL (0.0-0.7) Basophils # (Auto) 0.0 x10^3/uL (0.0-0.2) 0.0 x10^3/uL (0.0-0.2) Sodium Level 150 mmol/L (136-145) 147 mmol/L (136-145) Potassium Level 3.4 mmol/L (3.5-5.1) 3.4 mmol/L (3.5-5.1) Chloride Level 110 mmol/L (98-107) 109 mmol/L (98-107) Carbon Dioxide Level 20 mmol/L (21-32) 24 mmol/L (21-32) Anion Gap 20 (6-14) 14 (6-14) Blood Urea Nitrogen 38 mg/dL (8-26) 31 mg/dL (8-26) Creatinine 1.4 mg/dL (0.7-1.3) 1.3 mg/dL (0.7-1.3) Estimated GFR (Cockcroft-Gault) 58.7 63.9 BUN/Creatinine Ratio 27 (6-20) 24 (6-20) Glucose Level 72 mg/dL (70-99) 91 mg/dL (70-99) Calcium Level 8.9 mg/dL (8.5-10.1) 9.0 mg/dL (8.5-10.1) Total Bilirubin 0.7 mg/dL (0.2-1.0) 0.6 mg/dL (0.2-1.0) Aspartate Amino Transf (AST/SGOT) 31 U/L (15-37) 33 U/L (15-37) Alanine Aminotransferase (ALT/SGPT) 19 U/L (16-63) 21 U/L (16-63) Alkaline Phosphatase 202 U/L (46-116) 184 U/L (46-116) Total Protein 6.1 g/dL (6.4-8.2) 6.9 g/dL (6.4-8.2) Albumin 2.0 g/dL (3.4-5.0) 2.0 g/dL (3.4-5.0) Albumin/Globulin Ratio 0.5 (1.0-1.7) 0.4 (1.0-1.7) Laboratory Tests Test 05/01/18 06:23 White Blood Count 10.8 x10^3/uL (4.0-11.0) Red Blood Count 5.04 x10^6/uL (4.30-5.70) Hemoglobin 11.3 g/dL (13.0-17.5) Hematocrit 36.1 % (39.0-53.0) Mean Corpuscular Volume 72 fL (79-100) Mean Corpuscular Hemoglobin 22 pg (25-35) Mean Corpuscular Hemoglobin Concent 31 g/dL (31-37) Red Cell Distribution Width 16.4 % (11.5-14.5) Platelet Count 408 x10^3/uL (140-400) Neutrophils (%) (Auto) 73 % (31-73) Lymphocytes (%) (Auto) 16 % (24-48) Monocytes (%) (Auto) 9 % (0-9) Eosinophils (%) (Auto) 2 % (0-3) Basophils (%) (Auto) 0 % (0-3) Neutrophils # (Auto) 7.9 x10^3uL (1.8-7.7) Lymphocytes # (Auto) 1.7 x10^3/uL (1.0-4.8) Monocytes # (Auto) 1.0 x10^3/uL (0.0-1.1) Eosinophils # (Auto) 0.2 x10^3/uL (0.0-0.7) Basophils # (Auto) 0.0 x10^3/uL (0.0-0.2) Sodium Level 147 mmol/L (136-145) Potassium Level 3.4 mmol/L (3.5-5.1) Chloride Level 109 mmol/L (98-107) Carbon Dioxide Level 24 mmol/L (21-32) Anion Gap 14 (6-14) Blood Urea Nitrogen 31 mg/dL (8-26) Creatinine 1.3 mg/dL (0.7-1.3) Estimated GFR (Cockcroft-Gault) 63.9 BUN/Creatinine Ratio 24 (6-20) Glucose Level 91 mg/dL (70-99) Calcium Level 9.0 mg/dL (8.5-10.1) Magnesium Level 2.1 mg/dL (1.8-2.4) Total Bilirubin 0.6 mg/dL (0.2-1.0) Aspartate Amino Transf (AST/SGOT) 33 U/L (15-37) Alanine Aminotransferase (ALT/SGPT) 21 U/L (16-63) Alkaline Phosphatase 184 U/L (46-116) Total Protein 6.9 g/dL (6.4-8.2) Albumin 2.0 g/dL (3.4-5.0) Albumin/Globulin Ratio 0.4 (1.0-1.7) Microbiology 04/25/18 Blood Culture - Final, Complete NO GROWTH AFTER 5 DAYS Medications Current Medications Sodium Chloride 1,000 ml @ 1,000 mls/hr Q1H IV Last administered on 04/25/18at 10:12; Start 04/25/18 at 09:38; Stop 04/25/18 at 10:37; Status DC Ondansetron HCl (Zofran) 4 mg 1X ONCE IV Last administered on 04/25/18at 10:11 ; Start 04/25/18 at 09:45; Stop 04/25/18 at 09:46; Status DC Hyoscyamine (Anaspaz) 0.125 mg ONCE ONCE PO Last administered on 04/25/18 10: 12; Start 04/25/18 at 09:45; Stop 04/25/18 at 09:46; Status DC Pantoprazole Sodium (PROTONIX VIAL for IV PUSH) 40 mg 1X ONCE IVP Last administered on 04/25/18 10:23; Start 04/25/18 at 10:15; Stop 04/25/18 at 10:16 ; Status DC Ceftriaxone Sodium (Rocephin) 1 gm 1X ONCE IVP Last administered on 04/25/18 12:23; Start 04/25/18 at 11:45; Stop 04/25/18 at 11:46; Status DC Azithromycin 250 ml @ 250 mls/hr 1X ONCE IV Last administered on 04/25/18 12 :23; Start 04/25/18 at 11:45; Stop 04/25/18 at 12:44; Status DC Ondansetron HCl (Zofran) 4 mg PRN Q8HRS PRN IV NAUSEA/VOMITING; Start 04/25/18 at 11:45; Stop 04/26/18 at 11:44; Status DC Morphine Sulfate (Morphine Sulfate) 2 mg PRN Q2HR PRN IV PAIN Last administered on 04/25/18 12:19; Start 04/25/18 at 11:45; Stop 04/26/18 at 11:44 ; Status DC Sodium Chloride 1,000 ml @ 125 mls/hr Q8H IV Last administered on 04/25/18 16 :34; Start 04/25/18 at 11:36; Stop 04/26/18 at 06:23; Status DC Ringer's Solution 1,000 ml @ 125 mls/hr Q8H IV Last administered on 04/30/18 05:57; Start 04/25/18 at 13:34; Stop 04/30/18 at 09:56; Status DC Ondansetron HCl (Zofran) 4 mg PRN Q6HRS PRN IV NAUSEA/VOMITING; Start 04/25/18 at 13:45 Morphine Sulfate (Morphine Sulfate) 2 mg PRN Q4HRS PRN IV PAIN Last administered on 04/29/18 05:26; Start 04/25/18 at 13:45 Acetaminophen/ Hydrocodone Bitart (Lortab 5/325) 1 tab PRN Q4HRS PRN PO MILD PAIN, 2ND CHOICE; Start 04/25/18 at 13:45 Heparin Sodium (Porcine) (Heparin Sodium) 5,000 unit Q12HR SQ ; Start 04/25/18 at 21:00; Stop 04/26/18 at 17:38; Status DC Pantoprazole Sodium (PROTONIX VIAL for IV PUSH) 40 mg DAILYAC IVP Last administered on 05/01/18at 05:35; Start 04/26/18 at 07:30 Saliva Substitute (Biotene Moisturizing Mouth) 2 spray PRN Q15MIN PRN PO DRY MOUTH Last administered on 04/28/18at 02:23; Start 04/26/18 at 10:00 Potassium Chloride/Water 100 ml @ 100 mls/hr Q1H IV Last administered on at 14:30; Start 04/26/18 at 11:30; Stop 04/26/18 at 15:29; Status DC Potassium Chloride (Klor-Con) 20 meq DAILYWBKFT PO ; Start 04/27/18 at 08:00; Stop 04/29/18 at 12:20; Status DC Potassium Chloride (Klor-Con) 40 meq 1X ONCE PO ; Start 04/26/18 at 19:00; Stop 04/26/18 at 19:01; Status DC Lidocaine/Sodium Bicarbonate (Buffered Lidocaine 1%) 3 ml STK-MED ONCE .ROUTE ; Start 04/26/18 at 13:46; Stop 04/26/18 at 13:47; Status DC Gelatin (Gelfoam Size 12-7mm) 1 each STK-MED ONCE .ROUTE ; Start 04/26/18 at 13 :46; Stop 04/26/18 at 13:47; Status DC Midazolam HCl (Versed) 2 mg STK-MED ONCE .ROUTE ; Start 04/26/18 at 14:13; Stop 04/26/18 at 14:14; Status DC Fentanyl Citrate (Fentanyl 2ml Vial) 100 mcg STK-MED ONCE .ROUTE ; Start at 14:13; Stop 04/26/18 at 14:14; Status DC Lidocaine/Sodium Bicarbonate (Buffered Lidocaine 1%) 3 ml 1X ONCE INJ Last administered on 04/26/18at 14:44; Start 04/26/18 at 14:45; Stop 04/26/18 at 14:46 ; Status DC Gelatin (Gelfoam Size 12-7mm) 1 each 1X ONCE TP Last administered on at 14:44; Start 04/26/18 at 14:45; Stop 04/26/18 at 14:46; Status DC Azithromycin 250 mg/Sodium Chloride 250 ml @ 250 mls/hr Q24H IV Last administered on 04/30/18at 17:54; Start 04/26/18 at 18:00 Ceftriaxone Sodium (Rocephin) 1 gm Q24H IVP Last administered on 04/30/18at 17: 54; Start 04/26/18 at 17:30 Potassium Chloride/Water 100 ml @ 100 mls/hr Q1H IV Last administered on at 11:10; Start 04/27/18 at 10:00; Stop 04/27/18 at 11:59; Status DC Potassium Chloride/Water 100 ml @ 100 mls/hr Q1H IV Last administered on at 19:14; Start 04/28/18 at 18:00; Stop 04/28/18 at 19:59; Status DC Potassium Chloride (Klor-Con) 40 meq 1X ONCE PO ; Start 04/28/18 at 17:30; Stop 04/28/18 at 17:30; Status DC Potassium Chloride (Klor-Con) 20 meq DAILYWBKFT PO ; Start 04/29/18 at 08:00; Stop 04/29/18 at 08:00; Status DC Heparin Sodium (Porcine) (Heparin Sodium) 5,000 unit Q8HRS SQ Last administered on 05/01/18at 05:43; Start 04/28/18 at 22:00 Potassium Chloride/Water 100 ml @ 100 mls/hr Q1H IV Last administered on at 21:28; Start 04/28/18 at 20:00; Stop 04/28/18 at 21:59; Status DC Haloperidol Lactate (Haldol Inj) 2.5 mg PRN Q6HRS PRN IVP AGITATION Last administered on 05/01/18at 08:12; Start 04/28/18 at 17:00 Magnesium Sulfate 50 ml @ 25 mls/hr PRN DAILY PRN IV for Mag < 1.7 on am labs; Start 04/29/18 at 12:30 Potassium Chloride (Klor-Con) 40 meq BID PO ; Start 04/29/18 at 12:30; Stop at 13:29; Status DC Potassium Chloride (Klor-Con) 20 meq DAILYWBKFT PO ; Start 05/01/18 at 08:00 Potassium Chloride/Water 100 ml @ 100 mls/hr Q1H IV Last administered on at 20:29; Start 04/29/18 at 14:00; Stop 04/29/18 at 17:59; Status DC Amino Acids/ Glycerin/ Electrolytes 1,000 ml @ 80 mls/hr [id number] IV Last administered on 05/01/18at 08:56; Start 04/30/18 at 08:15 Olanzapine (ZyPREXA IM) 10 mg 1X ONCE IM Last administered on 04/30/18at 11:51 ; Start 04/30/18 at 11:45; Stop 04/30/18 at 11:46; Status DC Active Scripts Active Reported Tamsulosin Hcl 0.4 Mg Cap.er.24h 0.4 Mg PO DAILY Potassium Chloride 20 Meq Tablet.er 20 Meq PO DAILY Protonix (Pantoprazole Sodium) 20 Mg Tablet.dr 20 Mg PO DAILY Meclizine Hcl 12.5 Mg Tablet 2 Tab PO TID Losartan Potassium 100 Mg Tablet 100 Mg PO DAILY Albuterol Sulfate Neb Soln (Albuterol Sulfate) 2.5 Mg/3 Ml Vial.neb 1 Vial NEB PRN Q4HRS Ibuprofen 800 Mg Tablet 800 Mg PO TID PRN Furosemide 20 Mg Tablet 1 Tab PO DAILY Finasteride 5 Mg Tablet 1 Tab PO DAILY Doxazosin Mesylate 8 Mg Tablet 1 Tab PO DAILY Allopurinol 300 Mg Tablet 1 Tab PO DAILY Vitals/I & O Vital Sign - Last 24 Hours 04/30/18 04/30/18 04/30/18 04/30/18 11:00 15:00 19:00 20:09 Temp 97.9 97.7 97.9 97.7 Pulse 89 85 87 Resp 18 16 18 B/P (MAP) 143/84 (103) 128/75 (92) 121/71 (88) Pulse Ox 96 97 O2 Delivery Room Air Room Air Room Air 04/30/18 05/01/18 05/01/18 23:00 03:00 07:00 Temp 97.5 97.7 97.4 97.5 97.7 97.4 Pulse 85 60 93 Resp 18 18 18 B/P (MAP) 154/88 (110) 153/85 (107) 155/94 (114) Pulse Ox 98 97 98 O2 Delivery Room Air Room Air Room Air Intake and Output 04/30/18 04/30/18 05/01/18 14:59 22:59 06:59 Intake Total 30 ml 60 ml Balance 30 ml 60 ml THERESA CLARK MD May 01, 2018 10:45
[2018-05-01 11:00] VITALS: BP 160/92
[2018-05-01] MEDS: QUEtiapine 50 MG TAB.ER.24H. PO SCH (11:00)
[2018-05-01] MEDS ORDERED: POTASSIUM CHLORIDE 20 MEQ TABLET.ER. PO ONE (11:15)
--- NOTE | 2018-05-01 12:35 | CONS ---
DATE OF CONSULTATION: ATTENDING PHYSICIAN: Dr. Christensen. REASON FOR CONSULTATION: Pneumonia. HISTORY OF PRESENT ILLNESS: The patient is an 82-year-old male who has a past medical history of hypertension. He was hospitalized with upper abdominal pain, vomiting, and diarrhea. The patient underwent imaging study and a CT abdomen and pelvis was performed on 04/25, which showed multiple ill-defined densities in the liver, largest being 4.5 cm and was suspicious for metastasis. The patient also had some focal consolidation in the left lower lobe and some bibasilar airspace opacities. He has been on antibiotic. I have been asked to see him for further evaluation. He underwent liver biopsy. His lipase was also markedly elevated. The patient has been coughing. He has been confused. He has a history of very minimal tobacco use. No vomiting, no diarrhea. Does not smoke cigarettes. No focal weakness. No dysuria. PAST MEDICAL HISTORY: Significant for history of hypertension. PAST SURGICAL HISTORY: Total knee replacement. FAMILY HISTORY: Hypertension. SOCIAL HISTORY: No significant tobacco history. MEDICATIONS: Reviewed as listed in the MRAD including antibiotics, Rocephin and Zithromax. PHYSICAL EXAMINATION: GENERAL: He is awake, does not appear to be in any obvious respiratory distress. VITAL SIGNS: Reviewed. Pulse ox 98% on room air. NECK: Supple. LUNGS: With rhonchi, lung base. CARDIOVASCULAR: Regular rate and rhythm. ABDOMEN: Soft. EXTREMITIES: With bilateral edema. LABORATORY DATA: Reviewed. White cell count 10.8, hemoglobin 11.3 and platelets are 408. BUN and creatinine 31 and 1.3. Influenza screen negative. INR is 1.3. IMPRESSION: 1. Clinically suspected left lower lobe pneumonia/ possible rounded atelectasis LLL. We will obtain noncontrast CT chest for further evaluation. 2. Abnormal CT abdomen and pelvis with multiple densities seen in the liver, largest being 4.5 cm. 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 I will obtain noncontrast CT chest to rule out any primary in the lung. 3. No significant history of tobacco use. 4. Acute kidney injury, present on admission, improving. 5. Acute pancreatitis. 6. Metabolic encephalopathy related to uremia with mild improvement. RECOMMENDATIONS: 1. Continue present antibiotics. 2. PRN oxygen. 3. We will do a noncontrast CT chest to rule out any lung masses/ Primary lung cancer and better assess for pneumonia. 4. DVT prophylaxis with heparin. 5. Follow GI recommendation. 6. Follow renal recommendation. 7. Consult Oncology. ALEYDA LUNA MD DR: JILLIAN/jass JOB#: [id number] / [id number] MINOO
--- NOTE | 2018-05-01 12:38 | PDOC ---
Provider Note Provider Note Med Onc consult: 1. Metastatic cancer in liver - In view of stage 4 malignancy and poor functional status, I recommend palliative care/hospice. Pt unable to make decisions. See dictation MANAS PATEL MD May 01, 2018 12:38
--- NOTE | 2018-05-01 12:51 | PDOC2 ---
PALLIATIVE CARE Palliative Care Note Palliative Care Consult requested by Nany Serrano Medical Assessment per Medical records 1. Clinically suspected left lower lobe pneumonia. 2. Abnormal CT abdomen and pelvis with multiple densities seen in the liver, largest being 4.5 cm. 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 No significant history of tobacco use. 4. Acute kidney injury, present on admission, improving. 5. Acute pancreatitis. 6. Metabolic encephalopathy related to uremia with mild improvement. Patient 1:1 Nursing Care. Confused --some improvement per staff. Patient alert to self only. Unable to provide health information or why he is in the hospital. 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 Stated Luis Carlos Holt is his nephew ("sisters boy") Received permission to call him. Attempted to call Luis Carlos [phone]. No answer . Will continue to try to reach him. Did not provide any other information regarding family contact. Spoke with Delroy CISNEROS who is assisting also in contacting family. ROSIE HARRIS May 01, 2018 12:51
--- NOTE | 2018-05-01 13:05 | PDOC ---
Renal-Progress Notes Subjective Notes Notes NONE History of Present Illness Hx of present illness STABLE Vitals Vitals Vital Signs Date Time Temp Pulse Resp B/P (MAP) Pulse Ox O2 Delivery O2 Flow Rate FiO2 05/01/18 11:00 96.6 83 18 160/92 (114) 98 Room Air 96.6 Weight Weight [ ] I.O. Intake and Output Intake and Output 05/01/18 06:59 Intake Total 90 ml Balance 90 ml Intake Oral 90 ml # Voids 9 Labs Labs Laboratory Tests Test 05/01/18 06:23 White Blood Count 10.8 x10^3/uL (4.0-11.0) Red Blood Count 5.04 x10^6/uL (4.30-5.70) Hemoglobin 11.3 g/dL (13.0-17.5) Hematocrit 36.1 % (39.0-53.0) Mean Corpuscular Volume 72 fL (79-100) Mean Corpuscular Hemoglobin 22 pg (25-35) Mean Corpuscular Hemoglobin Concent 31 g/dL (31-37) Red Cell Distribution Width 16.4 % (11.5-14.5) Platelet Count 408 x10^3/uL (140-400) Neutrophils (%) (Auto) 73 % (31-73) Lymphocytes (%) (Auto) 16 % (24-48) Monocytes (%) (Auto) 9 % (0-9) Eosinophils (%) (Auto) 2 % (0-3) Basophils (%) (Auto) 0 % (0-3) Neutrophils # (Auto) 7.9 x10^3uL (1.8-7.7) Lymphocytes # (Auto) 1.7 x10^3/uL (1.0-4.8) Monocytes # (Auto) 1.0 x10^3/uL (0.0-1.1) Eosinophils # (Auto) 0.2 x10^3/uL (0.0-0.7) Basophils # (Auto) 0.0 x10^3/uL (0.0-0.2) Sodium Level 147 mmol/L (136-145) Potassium Level 3.4 mmol/L (3.5-5.1) Chloride Level 109 mmol/L (98-107) Carbon Dioxide Level 24 mmol/L (21-32) Anion Gap 14 (6-14) Blood Urea Nitrogen 31 mg/dL (8-26) Creatinine 1.3 mg/dL (0.7-1.3) Estimated GFR (Cockcroft-Gault) 63.9 BUN/Creatinine Ratio 24 (6-20) Glucose Level 91 mg/dL (70-99) Calcium Level 9.0 mg/dL (8.5-10.1) Magnesium Level 2.1 mg/dL (1.8-2.4) Total Bilirubin 0.6 mg/dL (0.2-1.0) Aspartate Amino Transf (AST/SGOT) 33 U/L (15-37) Alanine Aminotransferase (ALT/SGPT) 21 U/L (16-63) Alkaline Phosphatase 184 U/L (46-116) Total Protein 6.9 g/dL (6.4-8.2) Albumin 2.0 g/dL (3.4-5.0) Albumin/Globulin Ratio 0.4 (1.0-1.7) Micro Micro Microbiology 04/25/18 Blood Culture - Final, Complete NO GROWTH AFTER 5 DAYS Review of Systems Constitutional: yes: other (SOME CONFUSION) Physical Exam General Appearance: no apparent distress Skin: warm Respiratory: decreased breath sounds Heart: S1S2, RRR Abdomen: soft, bowel sounds present Genitourinary: bladder flat Extremities: pulses present Assessment Assessment IMP SYLVIE-BETTER HYPOKALEMIA-BETTER HYPERNATREMIA-STABLE PANCREATITIS METS TO LIVER ?PNEUMONIA PLAN CONT SUPPORTIVE CARE SUPPLEMENT K CONT PPN CONT ANTIBIOTICS PALLIATIVE CARE TO SEE PT MARQUIS GOMEZ MD May 01, 2018 13:05
--- NOTE | 2018-05-01 13:09 | PDOC ---
Objective: Objective: Reviewed w/ staff - confused and agitated, got Haldol, tried to get out of bed and "fell" (nurse helped to floor). Has pulled our IVs, getting PPN currently - thinks people are trying to poison him. Closest relative in [place]. Vital Signs: Vital Signs Date Time Temp Pulse Resp B/P (MAP) Pulse Ox O2 Delivery O2 Flow Rate FiO2 05/01/18 11:00 96.6 83 18 160/92 (114) 98 Room Air 96.6 Labs: Laboratory Tests Test 05/01/18 06:23 White Blood Count 10.8 x10^3/uL Red Blood Count 5.04 x10^6/uL Hemoglobin 11.3 g/dL Hematocrit 36.1 % Mean Corpuscular Volume 72 fL Mean Corpuscular Hemoglobin 22 pg Mean Corpuscular Hemoglobin Concent 31 g/dL Red Cell Distribution Width 16.4 % Platelet Count 408 x10^3/uL Neutrophils (%) (Auto) 73 % Lymphocytes (%) (Auto) 16 % Monocytes (%) (Auto) 9 % Eosinophils (%) (Auto) 2 % Basophils (%) (Auto) 0 % Neutrophils # (Auto) 7.9 x10^3uL Lymphocytes # (Auto) 1.7 x10^3/uL Monocytes # (Auto) 1.0 x10^3/uL Eosinophils # (Auto) 0.2 x10^3/uL Basophils # (Auto) 0.0 x10^3/uL Sodium Level 147 mmol/L Potassium Level 3.4 mmol/L Chloride Level 109 mmol/L Carbon Dioxide Level 24 mmol/L Anion Gap 14 Blood Urea Nitrogen 31 mg/dL Creatinine 1.3 mg/dL Estimated GFR (Cockcroft-Gault) 63.9 BUN/Creatinine Ratio 24 Glucose Level 91 mg/dL Calcium Level 9.0 mg/dL Magnesium Level 2.1 mg/dL Total Bilirubin 0.6 mg/dL Aspartate Amino Transf (AST/SGOT) 33 U/L Alanine Aminotransferase (ALT/SGPT) 21 U/L Alkaline Phosphatase 184 U/L Total Protein 6.9 g/dL Albumin 2.0 g/dL Albumin/Globulin Ratio 0.4 BLOOD CULTURE Final NO GROWTH AFTER 5 DAYS Material submitted: . LIVER LESION BIOPSY Clinical history: . Liver lesions Diagnosis: Liver biopsy, "liver biopsy": - POORLY DIFFERENTIATED CARCINOMA WITH NEUROENDOCRINE FEATURES. PE: GEN: NAD LUNGS: room air NEURO/PSYCH: sleeping, not awakened A/P: Agitation, confusion - refusing to eat Hepatic masses s/p liver biopsy - path as above,palliative care recommended by oncology Pancreatitis - unclear cause LLL pneumonia - CT chest ordered ACD, leukocytosis (resolved), SYLVIE (better), hypernatremia -- Other per Dr. Gilmore. JOEL REIS May 01, 2018 13:09
--- NOTE | 2018-05-01 13:43 | RAD ---
EXAM: Chest, single view. HISTORY: Pneumonia. COMPARISON: 05/01/2018 FINDINGS: A frontal view of the chest obtained. There is diffuse lower lobe predominant increased interstitial opacity due to interstitial infiltrate there is no consolidation, pleural effusion or pneumothorax. There is cardiomegaly. IMPRESSION: Diffuse lower lobe predominant interstitial infiltrate. Electronically signed by: Mariza Ching MD (05/01/2018 1:40 PM) [facility]
[2018-05-01 14:17] LABS: BILIRUBIN,URINE SMALL (NEG); CLARITY,URINE CLEAR; COLOR,URINE YELLOW; NITRITE,URINE NEGATIVE (NEG); PH,URINE 5.5; PROTEIN,URINE NEGATIVE (NEG-TRACE); UROBILINOGEN,URINE 0.2 mg/dL (0.2 mg/dL)
[2018-05-01 14:44] LABS: BACTERIA,URINE 0 /HPF (0-FEW); SQUAMOUS EPITHELIAL CELL,UR FEW /LPF; WBC,URINE RARE /HPF (0-4)
--- NOTE | 2018-05-01 14:53 | RAD ---
CT study of the chest without contrast Clinical indications: Liver metastatic disease. Round infiltrate of the left lower lobe seen on abdomen CT dated April 25, 2018. TECHNIQUE: Noncontrast helical CT scanning of the chest was performed. Without contrast, the sensitivity to detect organ pathology including hilar lymphadenopathy is decreased. PQRS compliance Statement One or more of the following individualized dose reduction techniques were utilized for this study: 1. Automated exposure control 2. Adjustment of the mA and/or kV according to patient size 3. Use of iterative reconstruction technique COMPARISON: Abdomen CT dated April 25, 2018. FINDINGS: No enlarged thoracic lymphadenopathy is evident. No focal aneurysmal dilatation of the thoracic aorta is seen. Calcified atheromatous disease of the thoracic aorta and coronary arteries is seen. The heart size is at the upper limits normal. No pericardial effusion is seen. Small bilateral pleural effusions are evident which have developed since the previous study. There is an increase in left lower lobe lung consolidation around the previously seen left lower lobe round infiltrate. Again seen is an ill-defined nodular infiltrate or atelectasis the right lower lobe. Bronchiectasis of both lower lobes is seen. There is a noncalcified lung nodule within the posterior segment of the right upper lobe adjacent to the major fissure measuring 9 mm in size seen on image 33 and series 2. There is some mild nodular interstitial lung within the inferior aspect of the right middle lobe. Bronchiectasis is seen here. There is mild bronchiectasis within the left upper lobe. No pneumothorax is seen. The proximal bronchial tree is patent. There is some mild mucus within the posterior distal aspect of the right trachea. No lytic process is seen. Upper abdominal findings as discussed on previous CT study of the abdomen dated April 25, 2018. IMPRESSION: There is an increase in left lower lobe consolidation of the basal segments around the previously seen round area of infiltrate noted on April 25, [address] study. There is stable ill-defined nodular interstitial lung infiltrates of the right lower lobe. There is less prominent interstitial nodular lung infiltrate within the inferior aspect of the right middle lobe. Bilateral lower lobe bronchiectasis and right middle lobe bronchiectasis and left upper lobe bronchiectasis is evident. Noncalcified 9 mm lung nodule within the posterior segment of the right upper lobe. An early metastatic lung nodule is possible. New finding of small bilateral pleural effusions. Calcified atheromatous disease of the coronary arteries. Heart size at the upper limits of normal. No thoracic lymphadenopathy. Electronically signed by: Eliseo Jack MD (05/01/2018 2:50 PM) [facility]
[2018-05-01 15:00] VITALS: BP 148/84
[2018-05-01] MEDS: cefTRIAXone IV Push 1 GM VIAL. IVP SCH (17:41)
[2018-05-01] MEDS: AZITHROMYCIN 250 MG in IV NORMAL SALINE 250ML 250 ML IV SCH (17:44)
--- NOTE | 2018-05-01 17:58 | NUR ---
Around 1130 patients bed alarm sounded off, sql report writer was speaking with patients MD at time of alarm going off, upon walking into patients room patients legs where off the bed along with his buttock but was keeping himself off the floor by having his arm on his bed. Patient was lowered to the ground by sql report writer. Then assisted back to bed with the help of NA and OT. VSS. Patient is confused at baseline. MD ordered 1:1 for patient since confused and agitated. Will continue to monitor patient.
[2018-05-01 19:00] VITALS: BP 139/82
[2018-05-01 23:00] VITALS: BP 148/89
--- NOTE | 2018-05-01 23:12 | CONS ---
DATE OF CONSULTATION: 05/01/2018 REQUESTING PHYSICIAN: Dr. Scott Christensen. REASON FOR CONSULTATION: Poorly differentiated carcinoma with neuroendocrine features and multiple metastatic nodules in the liver. HISTORY OF PRESENT ILLNESS: The patient is an 82-year-old gentleman who presented to [facility] on 04/25/2018 with upper abdominal pain, vomiting, and diarrhea. He has had these symptoms for a week prior to admission. He has also had blood in his emesis. No history of black stools or bloody stools. He eats only one meal a day because he feels nauseated. Pain is dull and moderate in intensity. The patient is a retired charge nurse. However, he cannot recall the year or season and he has been confused even at the time of admission. He has had history of EGD and colonoscopy several years ago. He has lost over 80 pounds of weight. He underwent CT scan of the abdomen and pelvis on 04/25/2018 which revealed multiple ill-defined hypodensities in the liver with the largest measuring 4.5 cm, suspicious for metastatic disease. Changes suggestive of pancreatitis were also noted. A 2.5 cm cystic structure in the left kidney was noted and there was focal consolidation in the left lower lobe of the lung. He underwent a liver biopsy on 04/26/2018 which revealed poorly differentiated carcinoma with neuroendocrine features. PAST MEDICAL HISTORY: Hypertension. FAMILY HISTORY: Hypertension. PAST SURGICAL HISTORY: Bilateral total knee replacement. SOCIAL HISTORY: No smoking or alcohol abuse. REVIEW OF SYSTEMS: A 12-point review of system was performed. Pertinent positives are mentioned in the history of present illness. Rest of the system review is negative. I discussed in detail with the medical staff and I also reviewed the chart in detail. The patient is confused and not able to give all history. PHYSICAL EXAMINATION: GENERAL APPEARANCE: The patient is an 82-year-old gentleman who is in no acute cardiorespiratory distress. VITAL SIGNS: Blood pressure 160/92, temperature 96.6. HEENT: Atraumatic, normocephalic. Eyes: No icterus. NECK: Supple. CHEST: Bilaterally symmetrical. HEART: S1, S2 normal. ABDOMEN: Soft, mildly distended. CENTRAL NERVOUS SYSTEM: No focal deficits. He is confused. PSYCHOLOGIC: He has got a flat affect. MUSCULOSKELETAL: No joint effusions. LYMPHATICS: No lymphadenopathy. LABORATORY DATA: WBC 10.8, hemoglobin 11.3, platelet count 408, creatinine 1.3. CEA level is 5.3. Alpha fetoprotein 1.7. Lipase 3214. IMPRESSION AND PLAN: 1. 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 Primary is unknown. However, he has not had a CT scan of the chest. He is confused at this time and he would not be able to tolerate a CT scan of the chest at this time. In addition, further investigation to look for primary would not add much to the treatment plan as his functional status is very poor. His mental status is poor and he is not a candidate for any aggressive chemotherapy. He is on one-on-one watch in the hospital and I discussed with the registered nurse. His ECOG performance status at this time is 4 and he is needing help for all his daily activities. I also discussed with the nurse that the patient does not have any immediate family members. There is a nephew in [place] who is also not the DPOA. I will consult palliative care for further help in transitioning to hospice and best supportive care. 2. Pancreatitis. Appreciate Gastroenterology evaluation and management. His lipase was significantly elevated. 3. Altered mental status and confusion. Continue supportive care. 4. Anemia. Hemoglobin 11.3, thought to be due to malignancy. Continue to monitor p.r.n. MANAS PATEL MD DR: GUILLE/jass JOB#: [id number] / [id number]
[2018-05-02] MEDS: HALOPERIDOL LACTATE 5 MG/ML VIAL. IVP PRN ×2 (00:52→08:39)
[2018-05-02 03:00] VITALS: BP 141/82
[2018-05-02] MEDS: PANTOPRAZOLE IV PUSH 40 MG VIAL. IVP SCH (05:47)
[2018-05-02] MEDS: HEPARIN for SUB-Q USE 5,000 UNIT/ML VIAL. SQ SCH ×3 (05:50→21:34)
[2018-05-02 07:15] LABS: BASO % 0 % (0-3); EOS # 0.2 x10^3/uL (0.0-0.7); EOS % 2 % (0-3); HEMATOCRIT 34.2 % (39.0-53.0); HEMOGLOBIN 10.8 g/dL (13.0-17.5); LYMPH # 1.5 x10^3/uL (1.0-4.8); LYMPH % 16 % (24-48); MEAN CORPUSCULAR HEMOGLOBIN 23 pg (25-35); MEAN CORPUSCULAR HGB CONC 32 g/dL (31-37); MEAN CORPUSCULAR VOLUME 71 fL (79-100); MONO % 10 % (0-9); NEUT # 6.9 x10^3uL (1.8-7.7); NEUT % 72 % (31-73); PLATELET COUNT 382 x10^3/uL (140-400); RED CELL DISTRIBUTION WIDTH 16.4 % (11.5-14.5); WHITE BLOOD COUNT 9.6 x10^3/uL (4.0-11.0)
[2018-05-02 07:21] VITALS: BP 162/103
[2018-05-02 07:43] LABS: ALBUMIN/GLOBULIN RATIO 0.4 (1.0-1.7); CALCIUM 8.9 mg/dL (8.5-10.1); CREATININE 1.2 mg/dL (0.7-1.3); GFR 70.1; MAGNESIUM 2.1 mg/dL (1.8-2.4); PHOSPHORUS 1.9 mg/dL (2.6-4.7); POTASSIUM 3.1 mmol/L (3.5-5.1); TOTAL BILIRUBIN 0.6 mg/dL (0.2-1.0); TOTAL PROTEIN 6.6 g/dL (6.4-8.2)
[2018-05-02] MEDS: POTASSIUM CHLORIDE 20 MEQ TABLET.ER. PO SCH (08:00)
[2018-05-02] MEDS ORDERED: POTASSIUM CHLORIDE 20 MEQ TABLET.ER. PO SCH (08:00)
[2018-05-02] MEDS: QUEtiapine 50 MG TAB.ER.24H. PO SCH (09:00)
--- NOTE | 2018-05-02 09:03 | PDOC ---
PROGRESS NOTES Subjective Subjective HPI - f/u of Liver mets ROS - confused Objective Objective Vital Signs Date Time Temp Pulse Resp B/P (MAP) Pulse Ox O2 Delivery O2 Flow Rate FiO2 05/02/18 07:54 Room Air 05/02/18 07:21 96.3 100 20 162/103 (122) 96 96.3 Intake and Output 05/02/18 07:00 Intake Total 300 ml Output Total 175 ml Balance 125 ml Intake Oral 300 ml Output Urine Total 175 ml # Voids 5 # Bowel Movements 3 Physical Exam General: Alert, No acute distress Neck: No JVD Assessment Assessment Problems Medical Problems: (1) Renal insufficiency Status: Acute IMPRESSION AND PLAN: 1. 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 Primary is unknown. However, he has not had a CT scan of the chest. He is confused at this time and he would not be able to tolerate a CT scan of the chest at this time. In addition, further investigation to look for primary would not add much to the treatment plan as his functional status is very poor. His mental status is poor and he is not a candidate for any aggressive chemotherapy. He is on one-on-one watch in the hospital and I discussed with the registered nurse. His ECOG performance status at this time is 4 and he is needing help for all his daily activities. I also discussed with the nurse that the patient does not have any immediate family members. There is a nephew in [place] who is also not the DPOA. Appreciate palliative care help in transitioning to hospice and best supportive care. 2. Pancreatitis. Appreciate Gastroenterology evaluation and management. His lipase was significantly elevated. 3. Altered mental status and confusion. Continue supportive care. 4. Anemia. Hemoglobin 10.8, thought to be due to malignancy. Continue to monitor p.r.n. Comment Review of Relevant I have reviewed the following items pily (where applicable) has been applied. Labs Laboratory Tests Test 05/01/18 06:23 05/01/18 13:50 05/02/18 06:00 White Blood Count 10.8 x10^3/uL (4.0-11.0) 9.6 x10^3/uL (4.0-11.0) Red Blood Count 5.04 x10^6/uL (4.30-5.70) 4.80 x10^6/uL (4.30-5.70) Hemoglobin 11.3 g/dL (13.0-17.5) 10.8 g/dL (13.0-17.5) Hematocrit 36.1 % (39.0-53.0) 34.2 % (39.0-53.0) Mean Corpuscular Volume 72 fL (79-100) 71 fL (79-100) Mean Corpuscular Hemoglobin 22 pg (25-35) 23 pg (25-35) Mean Corpuscular Hemoglobin Concent 31 g/dL (31-37) 32 g/dL (31-37) Red Cell Distribution Width 16.4 % (11.5-14.5) 16.4 % (11.5-14.5) Platelet Count 408 x10^3/uL (140-400) 382 x10^3/uL (140-400) Neutrophils (%) (Auto) 73 % (31-73) 72 % (31-73) Lymphocytes (%) (Auto) 16 % (24-48) 16 % (24-48) Monocytes (%) (Auto) 9 % (0-9) 10 % (0-9) Eosinophils (%) (Auto) 2 % (0-3) 2 % (0-3) Basophils (%) (Auto) 0 % (0-3) 0 % (0-3) Neutrophils # (Auto) 7.9 x10^3uL (1.8-7.7) 6.9 x10^3uL (1.8-7.7) Lymphocytes # (Auto) 1.7 x10^3/uL (1.0-4.8) 1.5 x10^3/uL (1.0-4.8) Monocytes # (Auto) 1.0 x10^3/uL (0.0-1.1) 1.0 x10^3/uL (0.0-1.1) Eosinophils # (Auto) 0.2 x10^3/uL (0.0-0.7) 0.2 x10^3/uL (0.0-0.7) Basophils # (Auto) 0.0 x10^3/uL (0.0-0.2) 0.0 x10^3/uL (0.0-0.2) Sodium Level 147 mmol/L (136-145) 148 mmol/L (136-145) Potassium Level 3.4 mmol/L (3.5-5.1) 3.1 mmol/L (3.5-5.1) Chloride Level 109 mmol/L (98-107) 108 mmol/L (98-107) Carbon Dioxide Level 24 mmol/L (21-32) 26 mmol/L (21-32) Anion Gap 14 (6-14) 14 (6-14) Blood Urea Nitrogen 31 mg/dL (8-26) 28 mg/dL (8-26) Creatinine 1.3 mg/dL (0.7-1.3) 1.2 mg/dL (0.7-1.3) Estimated GFR (Cockcroft-Gault) 63.9 70.1 BUN/Creatinine Ratio 24 (6-20) 23 (6-20) Glucose Level 91 mg/dL (70-99) 95 mg/dL (70-99) Calcium Level 9.0 mg/dL (8.5-10.1) 8.9 mg/dL (8.5-10.1) Magnesium Level 2.1 mg/dL (1.8-2.4) 2.1 mg/dL (1.8-2.4) Total Bilirubin 0.6 mg/dL (0.2-1.0) 0.6 mg/dL (0.2-1.0) Aspartate Amino Transf (AST/SGOT) 33 U/L (15-37) 37 U/L (15-37) Alanine Aminotransferase (ALT/SGPT) 21 U/L (16-63) 21 U/L (16-63) Alkaline Phosphatase 184 U/L (46-116) 198 U/L (46-116) Total Protein 6.9 g/dL (6.4-8.2) 6.6 g/dL (6.4-8.2) Albumin 2.0 g/dL (3.4-5.0) 2.0 g/dL (3.4-5.0) Albumin/Globulin Ratio 0.4 (1.0-1.7) 0.4 (1.0-1.7) Urine Collection Type Unknown Urine Color Yellow Urine Clarity Clear Urine pH 5.5 Urine Specific [place] 1.015 Urine Protein Negative mg/dL (NEG-TRACE) Urine Glucose (UA) Negative mg/dL (NEG) Urine Ketones (Stick) 15 mg/dL (NEG) Urine Blood Moderate (NEG) Urine Nitrite Negative (NEG) Urine Bilirubin Small (NEG) Urine Urobilinogen Dipstick 0.2 mg/dL (0.2 mg/dL) Urine Leukocyte Esterase Negative (NEG) Urine RBC 11-20 /HPF (0-2) Urine WBC Rare /HPF (0-4) Urine Squamous Epithelial Cells Few /LPF Urine Bacteria 0 /HPF (0-FEW) Urine Mucus Slight /LPF Phosphorus Level 1.9 mg/dL (2.6-4.7) Laboratory Tests Test 05/01/18 13:50 05/02/18 06:00 Urine Collection Type Unknown Urine Color Yellow Urine Clarity Clear Urine pH 5.5 Urine Specific [place] 1.015 Urine Protein Negative mg/dL (NEG-TRACE) Urine Glucose (UA) Negative mg/dL (NEG) Urine Ketones (Stick) 15 mg/dL (NEG) Urine Blood Moderate (NEG) Urine Nitrite Negative (NEG) Urine Bilirubin Small (NEG) Urine Urobilinogen Dipstick 0.2 mg/dL (0.2 mg/dL) Urine Leukocyte Esterase Negative (NEG) Urine RBC 11-20 /HPF (0-2) Urine WBC Rare /HPF (0-4) Urine Squamous Epithelial Cells Few /LPF Urine Bacteria 0 /HPF (0-FEW) Urine Mucus Slight /LPF White Blood Count 9.6 x10^3/uL (4.0-11.0) Red Blood Count 4.80 x10^6/uL (4.30-5.70) Hemoglobin 10.8 g/dL (13.0-17.5) Hematocrit 34.2 % (39.0-53.0) Mean Corpuscular Volume 71 fL (79-100) Mean Corpuscular Hemoglobin 23 pg (25-35) Mean Corpuscular Hemoglobin Concent 32 g/dL (31-37) Red Cell Distribution Width 16.4 % (11.5-14.5) Platelet Count 382 x10^3/uL (140-400) Neutrophils (%) (Auto) 72 % (31-73) Lymphocytes (%) (Auto) 16 % (24-48) Monocytes (%) (Auto) 10 % (0-9) Eosinophils (%) (Auto) 2 % (0-3) Basophils (%) (Auto) 0 % (0-3) Neutrophils # (Auto) 6.9 x10^3uL (1.8-7.7) Lymphocytes # (Auto) 1.5 x10^3/uL (1.0-4.8) Monocytes # (Auto) 1.0 x10^3/uL (0.0-1.1) Eosinophils # (Auto) 0.2 x10^3/uL (0.0-0.7) Basophils # (Auto) 0.0 x10^3/uL (0.0-0.2) Sodium Level 148 mmol/L (136-145) Potassium Level 3.1 mmol/L (3.5-5.1) Chloride Level 108 mmol/L (98-107) Carbon Dioxide Level 26 mmol/L (21-32) Anion Gap 14 (6-14) Blood Urea Nitrogen 28 mg/dL (8-26) Creatinine 1.2 mg/dL (0.7-1.3) Estimated GFR (Cockcroft-Gault) 70.1 BUN/Creatinine Ratio 23 (6-20) Glucose Level 95 mg/dL (70-99) Calcium Level 8.9 mg/dL (8.5-10.1) Phosphorus Level 1.9 mg/dL (2.6-4.7) Magnesium Level 2.1 mg/dL (1.8-2.4) Total Bilirubin 0.6 mg/dL (0.2-1.0) Aspartate Amino Transf (AST/SGOT) 37 U/L (15-37) Alanine Aminotransferase (ALT/SGPT) 21 U/L (16-63) Alkaline Phosphatase 198 U/L (46-116) Total Protein 6.6 g/dL (6.4-8.2) Albumin 2.0 g/dL (3.4-5.0) Albumin/Globulin Ratio 0.4 (1.0-1.7) Microbiology 04/25/18 Blood Culture - Final, Complete NO GROWTH AFTER 5 DAYS Medications Current Medications Sodium Chloride 1,000 ml @ 1,000 mls/hr Q1H IV Last administered on 04/25/18at 10:12; Start 04/25/18 at 09:38; Stop 04/25/18 at 10:37; Status DC Ondansetron HCl (Zofran) 4 mg 1X ONCE IV Last administered on 04/25/18 10:11 ; Start 04/25/18 at 09:45; Stop 04/25/18 at 09:46; Status DC Hyoscyamine (Anaspaz) 0.125 mg ONCE ONCE PO Last administered on 04/25/18 10: 12; Start 04/25/18 at 09:45; Stop 04/25/18 at 09:46; Status DC Pantoprazole Sodium (PROTONIX VIAL for IV PUSH) 40 mg 1X ONCE IVP Last administered on 04/25/18 10:23; Start 04/25/18 at 10:15; Stop 04/25/18 at 10:16 ; Status DC Ceftriaxone Sodium (Rocephin) 1 gm 1X ONCE IVP Last administered on 04/25/18 12:23; Start 04/25/18 at 11:45; Stop 04/25/18 at 11:46; Status DC Azithromycin 250 ml @ 250 mls/hr 1X ONCE IV Last administered on 04/25/18 12 :23; Start 04/25/18 at 11:45; Stop 04/25/18 at 12:44; Status DC Ondansetron HCl (Zofran) 4 mg PRN Q8HRS PRN IV NAUSEA/VOMITING; Start 04/25/18 at 11:45; Stop 04/26/18 at 11:44; Status DC Morphine Sulfate (Morphine Sulfate) 2 mg PRN Q2HR PRN IV PAIN Last administered on 04/25/18 12:19; Start 04/25/18 at 11:45; Stop 04/26/18 at 11:44 ; Status DC Sodium Chloride 1,000 ml @ 125 mls/hr Q8H IV Last administered on 04/25/18 16 :34; Start 04/25/18 at 11:36; Stop 04/26/18 at 06:23; Status DC Ringer's Solution 1,000 ml @ 125 mls/hr Q8H IV Last administered on 04/30/18 05:57; Start 04/25/18 at 13:34; Stop 04/30/18 at 09:56; Status DC Ondansetron HCl (Zofran) 4 mg PRN Q6HRS PRN IV NAUSEA/VOMITING; Start 04/25/18 at 13:45 Morphine Sulfate (Morphine Sulfate) 2 mg PRN Q4HRS PRN IV PAIN Last administered on 04/29/18at 05:26; Start 04/25/18 at 13:45 Acetaminophen/ Hydrocodone Bitart (Lortab 5/325) 1 tab PRN Q4HRS PRN PO MILD PAIN, 2ND CHOICE; Start 04/25/18 at 13:45 Heparin Sodium (Porcine) (Heparin Sodium) 5,000 unit Q12HR SQ ; Start 04/25/18 at 21:00; Stop 04/26/18 at 17:38; Status DC Pantoprazole Sodium (PROTONIX VIAL for IV PUSH) 40 mg DAILYAC IVP Last administered on 05/02/18at 05:47; Start 04/26/18 at 07:30 Saliva Substitute (Biotene Moisturizing Mouth) 2 spray PRN Q15MIN PRN PO DRY MOUTH Last administered on 04/28/18at 02:23; Start 04/26/18 at 10:00 Potassium Chloride/Water 100 ml @ 100 mls/hr Q1H IV Last administered on at 14:30; Start 04/26/18 at 11:30; Stop 04/26/18 at 15:29; Status DC Potassium Chloride (Klor-Con) 20 meq DAILYWBKFT PO ; Start 04/27/18 at 08:00; Stop 04/29/18 at 12:20; Status DC Potassium Chloride (Klor-Con) 40 meq 1X ONCE PO ; Start 04/26/18 at 19:00; Stop 04/26/18 at 19:01; Status DC Lidocaine/Sodium Bicarbonate (Buffered Lidocaine 1%) 3 ml STK-MED ONCE .ROUTE ; Start 04/26/18 at 13:46; Stop 04/26/18 at 13:47; Status DC Gelatin (Gelfoam Size 12-7mm) 1 each STK-MED ONCE .ROUTE ; Start 04/26/18 at 13 :46; Stop 04/26/18 at 13:47; Status DC Midazolam HCl (Versed) 2 mg STK-MED ONCE .ROUTE ; Start 04/26/18 at 14:13; Stop 04/26/18 at 14:14; Status DC Fentanyl Citrate (Fentanyl 2ml Vial) 100 mcg STK-MED ONCE .ROUTE ; Start at 14:13; Stop 04/26/18 at 14:14; Status DC Lidocaine/Sodium Bicarbonate (Buffered Lidocaine 1%) 3 ml 1X ONCE INJ Last administered on 04/26/18at 14:44; Start 04/26/18 at 14:45; Stop 04/26/18 at 14:46 ; Status DC Gelatin (Gelfoam Size 12-7mm) 1 each 1X ONCE TP Last administered on at 14:44; Start 04/26/18 at 14:45; Stop 04/26/18 at 14:46; Status DC Azithromycin 250 mg/Sodium Chloride 250 ml @ 250 mls/hr Q24H IV Last administered on 05/01/18at 17:44; Start 04/26/18 at 18:00 Ceftriaxone Sodium (Rocephin) 1 gm Q24H IVP Last administered on 05/01/18at 17: 41; Start 04/26/18 at 17:30 Potassium Chloride/Water 100 ml @ 100 mls/hr Q1H IV Last administered on at 11:10; Start 04/27/18 at 10:00; Stop 04/27/18 at 11:59; Status DC Potassium Chloride/Water 100 ml @ 100 mls/hr Q1H IV Last administered on at 19:14; Start 04/28/18 at 18:00; Stop 04/28/18 at 19:59; Status DC Potassium Chloride (Klor-Con) 40 meq 1X ONCE PO ; Start 04/28/18 at 17:30; Stop 04/28/18 at 17:30; Status DC Potassium Chloride (Klor-Con) 20 meq DAILYWBKFT PO ; Start 04/29/18 at 08:00; Stop 04/29/18 at 08:00; Status DC Heparin Sodium (Porcine) (Heparin Sodium) 5,000 unit Q8HRS SQ Last administered on 05/02/18at 05:50; Start 04/28/18 at 22:00 Potassium Chloride/Water 100 ml @ 100 mls/hr Q1H IV Last administered on at 21:28; Start 04/28/18 at 20:00; Stop 04/28/18 at 21:59; Status DC Haloperidol Lactate (Haldol Inj) 2.5 mg PRN Q6HRS PRN IVP AGITATION Last administered on 05/02/18at 08:39; Start 04/28/18 at 17:00 Magnesium Sulfate 50 ml @ 25 mls/hr PRN DAILY PRN IV for Mag < 1.7 on am labs; Start 04/29/18 at 12:30 Potassium Chloride (Klor-Con) 40 meq BID PO ; Start 04/29/18 at 12:30; Stop at 13:29; Status DC Potassium Chloride (Klor-Con) 20 meq DAILYWBKFT PO ; Start 05/01/18 at 08:00 Potassium Chloride/Water 100 ml @ 100 mls/hr Q1H IV Last administered on at 20:29; Start 04/29/18 at 14:00; Stop 04/29/18 at 17:59; Status DC Amino Acids/ Glycerin/ Electrolytes 1,000 ml @ 80 mls/hr [id number] IV Last administered on 05/01/18at 23:30; Start 04/30/18 at 08:15 Olanzapine (ZyPREXA IM) 10 mg 1X ONCE IM Last administered on 04/30/18at 11:51 ; Start 04/30/18 at 11:45; Stop 04/30/18 at 11:46; Status DC Quetiapine Fumarate (SEROquel XR) 50 mg DAILY PO ; Start 05/01/18 at 11:00 Potassium Chloride (Klor-Con) 40 meq 1X ONCE PO ; Start 05/01/18 at 11:15; Stop 05/01/18 at 11:16; Status DC Potassium Chloride (Klor-Con) 20 meq DAILYWBKFT PO ; Start 05/02/18 at 08:00; Stop 05/02/18 at 08:00; Status DC Active Scripts Active Reported Tamsulosin Hcl 0.4 Mg Cap.er.24h 0.4 Mg PO DAILY Potassium Chloride 20 Meq Tablet.er 20 Meq PO DAILY Protonix (Pantoprazole Sodium) 20 Mg Tablet.dr 20 Mg PO DAILY Meclizine Hcl 12.5 Mg Tablet 2 Tab PO TID Losartan Potassium 100 Mg Tablet 100 Mg PO DAILY Albuterol Sulfate Neb Soln (Albuterol Sulfate) 2.5 Mg/3 Ml Vial.neb 1 Vial NEB PRN Q4HRS Ibuprofen 800 Mg Tablet 800 Mg PO TID PRN Furosemide 20 Mg Tablet 1 Tab PO DAILY Finasteride 5 Mg Tablet 1 Tab PO DAILY Doxazosin Mesylate 8 Mg Tablet 1 Tab PO DAILY Allopurinol 300 Mg Tablet 1 Tab PO DAILY Vitals/I & O Vital Sign - Last 24 Hours 05/01/18 05/01/18 05/01/18 05/01/18 11:00 15:00 19:00 20:02 Temp 96.6 98.2 97.7 96.6 98.2 97.7 Pulse 83 77 82 Resp 18 18 18 B/P (MAP) 160/92 (114) 148/84 (105) 139/82 (101) Pulse Ox 98 96 97 O2 Delivery Room Air Room Air Room Air 05/01/18 05/02/18 05/02/18 05/02/18 23:00 03:00 07:21 07:54 Temp 98.0 98.0 96.3 98.0 98.0 96.3 Pulse 86 84 100 Resp 18 18 20 B/P (MAP) 148/89 (108) 141/82 (101) 162/103 (122) Pulse Ox 98 97 96 O2 Delivery Room Air Intake and Output 05/01/18 05/01/18 05/02/18 15:00 23:00 07:00 Intake Total 240 ml 60 ml Output Total 75 ml 100 ml Balance 165 ml -40 ml MANAS PATEL MD May 02, 2018 09:03
--- NOTE | 2018-05-02 09:11 | PDOC ---
PULMONARY PROGRESS NOTES Subjective PT AWAKE NOT VERY RESPONSIVE Vitals Vital Signs Date Time Temp Pulse Resp B/P (MAP) Pulse Ox O2 Delivery O2 Flow Rate FiO2 05/02/18 07:54 Room Air 05/02/18 07:21 96.3 100 20 162/103 (122) 96 96.3 ROS: No Nausea Lungs: Clear Cardiovascular: S1, S2 Abdomen: Soft Neuro Exam: Alert Extremities: No Edema Labs Laboratory Tests Test 05/01/18 06:23 05/01/18 13:50 05/02/18 06:00 White Blood Count 10.8 x10^3/uL (4.0-11.0) 9.6 x10^3/uL (4.0-11.0) Red Blood Count 5.04 x10^6/uL (4.30-5.70) 4.80 x10^6/uL (4.30-5.70) Hemoglobin 11.3 g/dL (13.0-17.5) 10.8 g/dL (13.0-17.5) Hematocrit 36.1 % (39.0-53.0) 34.2 % (39.0-53.0) Mean Corpuscular Volume 72 fL (79-100) 71 fL (79-100) Mean Corpuscular Hemoglobin 22 pg (25-35) 23 pg (25-35) Mean Corpuscular Hemoglobin Concent 31 g/dL (31-37) 32 g/dL (31-37) Red Cell Distribution Width 16.4 % (11.5-14.5) 16.4 % (11.5-14.5) Platelet Count 408 x10^3/uL (140-400) 382 x10^3/uL (140-400) Neutrophils (%) (Auto) 73 % (31-73) 72 % (31-73) Lymphocytes (%) (Auto) 16 % (24-48) 16 % (24-48) Monocytes (%) (Auto) 9 % (0-9) 10 % (0-9) Eosinophils (%) (Auto) 2 % (0-3) 2 % (0-3) Basophils (%) (Auto) 0 % (0-3) 0 % (0-3) Neutrophils # (Auto) 7.9 x10^3uL (1.8-7.7) 6.9 x10^3uL (1.8-7.7) Lymphocytes # (Auto) 1.7 x10^3/uL (1.0-4.8) 1.5 x10^3/uL (1.0-4.8) Monocytes # (Auto) 1.0 x10^3/uL (0.0-1.1) 1.0 x10^3/uL (0.0-1.1) Eosinophils # (Auto) 0.2 x10^3/uL (0.0-0.7) 0.2 x10^3/uL (0.0-0.7) Basophils # (Auto) 0.0 x10^3/uL (0.0-0.2) 0.0 x10^3/uL (0.0-0.2) Sodium Level 147 mmol/L (136-145) 148 mmol/L (136-145) Potassium Level 3.4 mmol/L (3.5-5.1) 3.1 mmol/L (3.5-5.1) Chloride Level 109 mmol/L (98-107) 108 mmol/L (98-107) Carbon Dioxide Level 24 mmol/L (21-32) 26 mmol/L (21-32) Anion Gap 14 (6-14) 14 (6-14) Blood Urea Nitrogen 31 mg/dL (8-26) 28 mg/dL (8-26) Creatinine 1.3 mg/dL (0.7-1.3) 1.2 mg/dL (0.7-1.3) Estimated GFR (Cockcroft-Gault) 63.9 70.1 BUN/Creatinine Ratio 24 (6-20) 23 (6-20) Glucose Level 91 mg/dL (70-99) 95 mg/dL (70-99) Calcium Level 9.0 mg/dL (8.5-10.1) 8.9 mg/dL (8.5-10.1) Magnesium Level 2.1 mg/dL (1.8-2.4) 2.1 mg/dL (1.8-2.4) Total Bilirubin 0.6 mg/dL (0.2-1.0) 0.6 mg/dL (0.2-1.0) Aspartate Amino Transf (AST/SGOT) 33 U/L (15-37) 37 U/L (15-37) Alanine Aminotransferase (ALT/SGPT) 21 U/L (16-63) 21 U/L (16-63) Alkaline Phosphatase 184 U/L (46-116) 198 U/L (46-116) Total Protein 6.9 g/dL (6.4-8.2) 6.6 g/dL (6.4-8.2) Albumin 2.0 g/dL (3.4-5.0) 2.0 g/dL (3.4-5.0) Albumin/Globulin Ratio 0.4 (1.0-1.7) 0.4 (1.0-1.7) Urine Collection Type Unknown Urine Color Yellow Urine Clarity Clear Urine pH 5.5 Urine Specific [place] 1.015 Urine Protein Negative mg/dL (NEG-TRACE) Urine Glucose (UA) Negative mg/dL (NEG) Urine Ketones (Stick) 15 mg/dL (NEG) Urine Blood Moderate (NEG) Urine Nitrite Negative (NEG) Urine Bilirubin Small (NEG) Urine Urobilinogen Dipstick 0.2 mg/dL (0.2 mg/dL) Urine Leukocyte Esterase Negative (NEG) Urine RBC 11-20 /HPF (0-2) Urine WBC Rare /HPF (0-4) Urine Squamous Epithelial Cells Few /LPF Urine Bacteria 0 /HPF (0-FEW) Urine Mucus Slight /LPF Phosphorus Level 1.9 mg/dL (2.6-4.7) Laboratory Tests Test 05/01/18 13:50 05/02/18 06:00 Urine Collection Type Unknown Urine Color Yellow Urine Clarity Clear Urine pH 5.5 Urine Specific [place] 1.015 Urine Protein Negative mg/dL (NEG-TRACE) Urine Glucose (UA) Negative mg/dL (NEG) Urine Ketones (Stick) 15 mg/dL (NEG) Urine Blood Moderate (NEG) Urine Nitrite Negative (NEG) Urine Bilirubin Small (NEG) Urine Urobilinogen Dipstick 0.2 mg/dL (0.2 mg/dL) Urine Leukocyte Esterase Negative (NEG) Urine RBC 11-20 /HPF (0-2) Urine WBC Rare /HPF (0-4) Urine Squamous Epithelial Cells Few /LPF Urine Bacteria 0 /HPF (0-FEW) Urine Mucus Slight /LPF White Blood Count 9.6 x10^3/uL (4.0-11.0) Red Blood Count 4.80 x10^6/uL (4.30-5.70) Hemoglobin 10.8 g/dL (13.0-17.5) Hematocrit 34.2 % (39.0-53.0) Mean Corpuscular Volume 71 fL (79-100) Mean Corpuscular Hemoglobin 23 pg (25-35) Mean Corpuscular Hemoglobin Concent 32 g/dL (31-37) Red Cell Distribution Width 16.4 % (11.5-14.5) Platelet Count 382 x10^3/uL (140-400) Neutrophils (%) (Auto) 72 % (31-73) Lymphocytes (%) (Auto) 16 % (24-48) Monocytes (%) (Auto) 10 % (0-9) Eosinophils (%) (Auto) 2 % (0-3) Basophils (%) (Auto) 0 % (0-3) Neutrophils # (Auto) 6.9 x10^3uL (1.8-7.7) Lymphocytes # (Auto) 1.5 x10^3/uL (1.0-4.8) Monocytes # (Auto) 1.0 x10^3/uL (0.0-1.1) Eosinophils # (Auto) 0.2 x10^3/uL (0.0-0.7) Basophils # (Auto) 0.0 x10^3/uL (0.0-0.2) Sodium Level 148 mmol/L (136-145) Potassium Level 3.1 mmol/L (3.5-5.1) Chloride Level 108 mmol/L (98-107) Carbon Dioxide Level 26 mmol/L (21-32) Anion Gap 14 (6-14) Blood Urea Nitrogen 28 mg/dL (8-26) Creatinine 1.2 mg/dL (0.7-1.3) Estimated GFR (Cockcroft-Gault) 70.1 BUN/Creatinine Ratio 23 (6-20) Glucose Level 95 mg/dL (70-99) Calcium Level 8.9 mg/dL (8.5-10.1) Phosphorus Level 1.9 mg/dL (2.6-4.7) Magnesium Level 2.1 mg/dL (1.8-2.4) Total Bilirubin 0.6 mg/dL (0.2-1.0) Aspartate Amino Transf (AST/SGOT) 37 U/L (15-37) Alanine Aminotransferase (ALT/SGPT) 21 U/L (16-63) Alkaline Phosphatase 198 U/L (46-116) Total Protein 6.6 g/dL (6.4-8.2) Albumin 2.0 g/dL (3.4-5.0) Albumin/Globulin Ratio 0.4 (1.0-1.7) Medications Active Scripts Medications Dose Route/Sig Max Daily Dose Days Date Category Tamsulosin Hcl 0.4 Mg Cap.er.24h 0.4 Mg PO DAILY 04/26/18 Reported Potassium Chloride 20 Meq Tablet.er 20 Meq PO DAILY 04/26/18 Reported Protonix (Pantoprazole Sodium) 20 Mg Tablet.dr 20 Mg PO DAILY 04/26/18 Reported Meclizine Hcl 12.5 Mg Tablet 2 Tab PO TID 04/26/18 Reported Losartan Potassium 100 Mg Tablet 100 Mg PO DAILY 04/26/18 Reported Albuterol Sulfate Neb Soln (Albuterol Sulfate) 2.5 Mg/3 Ml Vial.neb 1 Vial NEB PRN Q4HRS 04/26/18 Reported Ibuprofen 800 Mg Tablet 800 Mg PO TID PRN 04/26/18 Reported Furosemide 20 Mg Tablet 1 Tab PO DAILY 04/26/18 Reported Finasteride 5 Mg Tablet 1 Tab PO DAILY 04/26/18 Reported Doxazosin Mesylate 8 Mg Tablet 1 Tab PO DAILY 04/26/18 Reported Allopurinol 300 Mg Tablet 1 Tab PO DAILY 04/26/18 Reported Impression . 1. PNEUMONIA LLL 2. Abnormal CT abdomen and pelvis with multiple densities seen in the liver, largest being 4.5 cm. 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 3. No significant history of tobacco use. 4. Acute kidney injury, present on admission, improving. 5. Acute pancreatitis. 6. Metabolic encephalopathy related to uremia with mild improvement. 7. ACUTE BRONCHIECTASIS 8. [address] REPORT IMPRESSION: There is an increase in left lower lobe consolidation of the basal segments around the previously seen round area of infiltrate noted on April 25, [address] study. There is stable ill-defined nodular interstitial lung infiltrates of the right lower lobe. There is less prominent interstitial nodular lung infiltrate within the inferior aspect of the right middle lobe. Bilateral lower lobe bronchiectasis and right middle lobe bronchiectasis and left upper lobe bronchiectasis is evident. Noncalcified 9 mm lung nodule within the posterior segment of the right upper lobe. An early metastatic lung nodule is possible. New finding of small bilateral pleural effusions. Calcified atheromatous disease of the coronary arteries. Heart size at the upper limits of normal. No thoracic lymphadenopathy. Plan . SEE CT CHEST REPORT ANTIBX DVT PROPH FOLLOW ONCO RECOMMENDATION PALLIATIVE CARE MEETING IN AM PROGNOSIS IS POOR DR PATEL'S RECOMMENDATION I reviewed case at tumor conference today. 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 This is not high grade and hence prognosis is better but still incurable. I would recommend supportive care only. ENRIQUE NICOLE MD May 02, 2018 09:11
--- NOTE | 2018-05-02 09:17 | NUR ---
Pt refused po meds and food and fluids,offered and encouraged to eat drink and take medication pt continues to refuse.
--- NOTE | 2018-05-02 10:13 | NUR ---
Pt moved to 5 South per bed to room 584 with all belongings. Pt to continue in 1:1 with this nurse. Pt sleeping no distress noted at this time.
[2018-05-02 10:43] VITALS: BP 160/104
--- NOTE | 2018-05-02 13:29 | PDOC ---
PROGRESS NOTES Chief Complaint Chief Complaint Acute pancreatitis - with Abdominal pain, , consult GI. Still has GB, triglycerides normal, not on a thiazide that he knows of and he doesn't recall if he has been losing weight. Concerning liver masses on CT could be metastatic disease, he does not recall his last colonoscopy during my interview. Pain control with morphine Acute metabolic encephalopathy - uremia, delirium Hypokalemia - 3.1, will monitor. Replace IVF SYLVIE - vasomotor with possible ATN, appears dry and Cr and BUN elevated. Unknown baseline. Liver masses - possibly metastatic disease. Contrast contraindicated based on his renal function. consult GI. NEED [place] medical records. RBC microcytosis - will check iron studies, may be sickle trait, HTN - HOME MEDS, ADJUST PRN POor PO Enceph, met History of Present Illness History of Present Illness My First day with him Sitter at bedside Can be unpredictable with behavior Refusing by mouth pills and to eat Breakfast tray untouched ProcalAmine running Potassium low 3.1 Palliative and social research assistant trying to reach family Patient not cooperative with me Plan Continue Procalamine KCl 201 or 4 today via peripheral line Appreciate palliative and social work Continue sitter Can be off telemetry Vitals Vitals Vital Signs Date Time Temp Pulse Resp B/P (MAP) Pulse Ox O2 Delivery O2 Flow Rate FiO2 05/02/18 10:43 97.9 100 20 160/104 (122) 96 Room Air 97.9 Physical Exam General: Alert, No acute distress Lungs: Other (dec LLL) Abdomen: Normal bowel sounds, Soft, No hepatosplenomegaly, No masses, Other ( RUQ tenderness) Extremities: No clubbing, No cyanosis, No edema, Normal pulses, No tenderness/ swelling Skin: No rashes, No breakdown, No significant lesion Labs LABS Laboratory Tests Test 05/01/18 13:50 05/02/18 06:00 Urine Collection Type Unknown Urine Color Yellow Urine Clarity Clear Urine pH 5.5 Urine Specific [place] 1.015 Urine Protein Negative mg/dL (NEG-TRACE) Urine Glucose (UA) Negative mg/dL (NEG) Urine Ketones (Stick) 15 mg/dL (NEG) Urine Blood Moderate (NEG) Urine Nitrite Negative (NEG) Urine Bilirubin Small (NEG) Urine Urobilinogen Dipstick 0.2 mg/dL (0.2 mg/dL) Urine Leukocyte Esterase Negative (NEG) Urine RBC 11-20 /HPF (0-2) Urine WBC Rare /HPF (0-4) Urine Squamous Epithelial Cells Few /LPF Urine Bacteria 0 /HPF (0-FEW) Urine Mucus Slight /LPF White Blood Count 9.6 x10^3/uL (4.0-11.0) Red Blood Count 4.80 x10^6/uL (4.30-5.70) Hemoglobin 10.8 g/dL (13.0-17.5) Hematocrit 34.2 % (39.0-53.0) Mean Corpuscular Volume 71 fL (79-100) Mean Corpuscular Hemoglobin 23 pg (25-35) Mean Corpuscular Hemoglobin Concent 32 g/dL (31-37) Red Cell Distribution Width 16.4 % (11.5-14.5) Platelet Count 382 x10^3/uL (140-400) Neutrophils (%) (Auto) 72 % (31-73) Lymphocytes (%) (Auto) 16 % (24-48) Monocytes (%) (Auto) 10 % (0-9) Eosinophils (%) (Auto) 2 % (0-3) Basophils (%) (Auto) 0 % (0-3) Neutrophils # (Auto) 6.9 x10^3uL (1.8-7.7) Lymphocytes # (Auto) 1.5 x10^3/uL (1.0-4.8) Monocytes # (Auto) 1.0 x10^3/uL (0.0-1.1) Eosinophils # (Auto) 0.2 x10^3/uL (0.0-0.7) Basophils # (Auto) 0.0 x10^3/uL (0.0-0.2) Sodium Level 148 mmol/L (136-145) Potassium Level 3.1 mmol/L (3.5-5.1) Chloride Level 108 mmol/L (98-107) Carbon Dioxide Level 26 mmol/L (21-32) Anion Gap 14 (6-14) Blood Urea Nitrogen 28 mg/dL (8-26) Creatinine 1.2 mg/dL (0.7-1.3) Estimated GFR (Cockcroft-Gault) 70.1 BUN/Creatinine Ratio 23 (6-20) Glucose Level 95 mg/dL (70-99) Calcium Level 8.9 mg/dL (8.5-10.1) Phosphorus Level 1.9 mg/dL (2.6-4.7) Magnesium Level 2.1 mg/dL (1.8-2.4) Total Bilirubin 0.6 mg/dL (0.2-1.0) Aspartate Amino Transf (AST/SGOT) 37 U/L (15-37) Alanine Aminotransferase (ALT/SGPT) 21 U/L (16-63) Alkaline Phosphatase 198 U/L (46-116) Total Protein 6.6 g/dL (6.4-8.2) Albumin 2.0 g/dL (3.4-5.0) Albumin/Globulin Ratio 0.4 (1.0-1.7) Review of Systems Review of Systems limited ROS - uncooperative Assessment and Plan Assessmemt and Plan Problems Medical Problems: (1) Renal insufficiency Status: Acute Comment Review of Relevant I have reviewed the following items pily (where applicable) has been applied. Labs Laboratory Tests Test 05/01/18 06:23 05/01/18 13:50 05/02/18 06:00 White Blood Count 10.8 x10^3/uL (4.0-11.0) 9.6 x10^3/uL (4.0-11.0) Red Blood Count 5.04 x10^6/uL (4.30-5.70) 4.80 x10^6/uL (4.30-5.70) Hemoglobin 11.3 g/dL (13.0-17.5) 10.8 g/dL (13.0-17.5) Hematocrit 36.1 % (39.0-53.0) 34.2 % (39.0-53.0) Mean Corpuscular Volume 72 fL (79-100) 71 fL (79-100) Mean Corpuscular Hemoglobin 22 pg (25-35) 23 pg (25-35) Mean Corpuscular Hemoglobin Concent 31 g/dL (31-37) 32 g/dL (31-37) Red Cell Distribution Width 16.4 % (11.5-14.5) 16.4 % (11.5-14.5) Platelet Count 408 x10^3/uL (140-400) 382 x10^3/uL (140-400) Neutrophils (%) (Auto) 73 % (31-73) 72 % (31-73) Lymphocytes (%) (Auto) 16 % (24-48) 16 % (24-48) Monocytes (%) (Auto) 9 % (0-9) 10 % (0-9) Eosinophils (%) (Auto) 2 % (0-3) 2 % (0-3) Basophils (%) (Auto) 0 % (0-3) 0 % (0-3) Neutrophils # (Auto) 7.9 x10^3uL (1.8-7.7) 6.9 x10^3uL (1.8-7.7) Lymphocytes # (Auto) 1.7 x10^3/uL (1.0-4.8) 1.5 x10^3/uL (1.0-4.8) Monocytes # (Auto) 1.0 x10^3/uL (0.0-1.1) 1.0 x10^3/uL (0.0-1.1) Eosinophils # (Auto) 0.2 x10^3/uL (0.0-0.7) 0.2 x10^3/uL (0.0-0.7) Basophils # (Auto) 0.0 x10^3/uL (0.0-0.2) 0.0 x10^3/uL (0.0-0.2) Sodium Level 147 mmol/L (136-145) 148 mmol/L (136-145) Potassium Level 3.4 mmol/L (3.5-5.1) 3.1 mmol/L (3.5-5.1) Chloride Level 109 mmol/L (98-107) 108 mmol/L (98-107) Carbon Dioxide Level 24 mmol/L (21-32) 26 mmol/L (21-32) Anion Gap 14 (6-14) 14 (6-14) Blood Urea Nitrogen 31 mg/dL (8-26) 28 mg/dL (8-26) Creatinine 1.3 mg/dL (0.7-1.3) 1.2 mg/dL (0.7-1.3) Estimated GFR (Cockcroft-Gault) 63.9 70.1 BUN/Creatinine Ratio 24 (6-20) 23 (6-20) Glucose Level 91 mg/dL (70-99) 95 mg/dL (70-99) Calcium Level 9.0 mg/dL (8.5-10.1) 8.9 mg/dL (8.5-10.1) Magnesium Level 2.1 mg/dL (1.8-2.4) 2.1 mg/dL (1.8-2.4) Total Bilirubin 0.6 mg/dL (0.2-1.0) 0.6 mg/dL (0.2-1.0) Aspartate Amino Transf (AST/SGOT) 33 U/L (15-37) 37 U/L (15-37) Alanine Aminotransferase (ALT/SGPT) 21 U/L (16-63) 21 U/L (16-63) Alkaline Phosphatase 184 U/L (46-116) 198 U/L (46-116) Total Protein 6.9 g/dL (6.4-8.2) 6.6 g/dL (6.4-8.2) Albumin 2.0 g/dL (3.4-5.0) 2.0 g/dL (3.4-5.0) Albumin/Globulin Ratio 0.4 (1.0-1.7) 0.4 (1.0-1.7) Urine Collection Type Unknown Urine Color Yellow Urine Clarity Clear Urine pH 5.5 Urine Specific [place] 1.015 Urine Protein Negative mg/dL (NEG-TRACE) Urine Glucose (UA) Negative mg/dL (NEG) Urine Ketones (Stick) 15 mg/dL (NEG) Urine Blood Moderate (NEG) Urine Nitrite Negative (NEG) Urine Bilirubin Small (NEG) Urine Urobilinogen Dipstick 0.2 mg/dL (0.2 mg/dL) Urine Leukocyte Esterase Negative (NEG) Urine RBC 11-20 /HPF (0-2) Urine WBC Rare /HPF (0-4) Urine Squamous Epithelial Cells Few /LPF Urine Bacteria 0 /HPF (0-FEW) Urine Mucus Slight /LPF Phosphorus Level 1.9 mg/dL (2.6-4.7) Laboratory Tests Test 05/01/18 13:50 05/02/18 06:00 Urine Collection Type Unknown Urine Color Yellow Urine Clarity Clear Urine pH 5.5 Urine Specific [place] 1.015 Urine Protein Negative mg/dL (NEG-TRACE) Urine Glucose (UA) Negative mg/dL (NEG) Urine Ketones (Stick) 15 mg/dL (NEG) Urine Blood Moderate (NEG) Urine Nitrite Negative (NEG) Urine Bilirubin Small (NEG) Urine Urobilinogen Dipstick 0.2 mg/dL (0.2 mg/dL) Urine Leukocyte Esterase Negative (NEG) Urine RBC 11-20 /HPF (0-2) Urine WBC Rare /HPF (0-4) Urine Squamous Epithelial Cells Few /LPF Urine Bacteria 0 /HPF (0-FEW) Urine Mucus Slight /LPF White Blood Count 9.6 x10^3/uL (4.0-11.0) Red Blood Count 4.80 x10^6/uL (4.30-5.70) Hemoglobin 10.8 g/dL (13.0-17.5) Hematocrit 34.2 % (39.0-53.0) Mean Corpuscular Volume 71 fL (79-100) Mean Corpuscular Hemoglobin 23 pg (25-35) Mean Corpuscular Hemoglobin Concent 32 g/dL (31-37) Red Cell Distribution Width 16.4 % (11.5-14.5) Platelet Count 382 x10^3/uL (140-400) Neutrophils (%) (Auto) 72 % (31-73) Lymphocytes (%) (Auto) 16 % (24-48) Monocytes (%) (Auto) 10 % (0-9) Eosinophils (%) (Auto) 2 % (0-3) Basophils (%) (Auto) 0 % (0-3) Neutrophils # (Auto) 6.9 x10^3uL (1.8-7.7) Lymphocytes # (Auto) 1.5 x10^3/uL (1.0-4.8) Monocytes # (Auto) 1.0 x10^3/uL (0.0-1.1) Eosinophils # (Auto) 0.2 x10^3/uL (0.0-0.7) Basophils # (Auto) 0.0 x10^3/uL (0.0-0.2) Sodium Level 148 mmol/L (136-145) Potassium Level 3.1 mmol/L (3.5-5.1) Chloride Level 108 mmol/L (98-107) Carbon Dioxide Level 26 mmol/L (21-32) Anion Gap 14 (6-14) Blood Urea Nitrogen 28 mg/dL (8-26) Creatinine 1.2 mg/dL (0.7-1.3) Estimated GFR (Cockcroft-Gault) 70.1 BUN/Creatinine Ratio 23 (6-20) Glucose Level 95 mg/dL (70-99) Calcium Level 8.9 mg/dL (8.5-10.1) Phosphorus Level 1.9 mg/dL (2.6-4.7) Magnesium Level 2.1 mg/dL (1.8-2.4) Total Bilirubin 0.6 mg/dL (0.2-1.0) Aspartate Amino Transf (AST/SGOT) 37 U/L (15-37) Alanine Aminotransferase (ALT/SGPT) 21 U/L (16-63) Alkaline Phosphatase 198 U/L (46-116) Total Protein 6.6 g/dL (6.4-8.2) Albumin 2.0 g/dL (3.4-5.0) Albumin/Globulin Ratio 0.4 (1.0-1.7) Microbiology 04/25/18 Blood Culture - Final, Complete NO GROWTH AFTER 5 DAYS Medications Current Medications Sodium Chloride 1,000 ml @ 1,000 mls/hr Q1H IV Last administered on 04/25/18 10:12; Start 04/25/18 at 09:38; Stop 04/25/18 at 10:37; Status DC Ondansetron HCl (Zofran) 4 mg 1X ONCE IV Last administered on 04/25/18 10:11 ; Start 04/25/18 at 09:45; Stop 04/25/18 at 09:46; Status DC Hyoscyamine (Anaspaz) 0.125 mg ONCE ONCE PO Last administered on 04/25/18 10: 12; Start 04/25/18 at 09:45; Stop 04/25/18 at 09:46; Status DC Pantoprazole Sodium (PROTONIX VIAL for IV PUSH) 40 mg 1X ONCE IVP Last administered on 04/25/18 10:23; Start 04/25/18 at 10:15; Stop 04/25/18 at 10:16 ; Status DC Ceftriaxone Sodium (Rocephin) 1 gm 1X ONCE IVP Last administered on 04/25/18 12:23; Start 04/25/18 at 11:45; Stop 04/25/18 at 11:46; Status DC Azithromycin 250 ml @ 250 mls/hr 1X ONCE IV Last administered on 04/25/18 12 :23; Start 04/25/18 at 11:45; Stop 04/25/18 at 12:44; Status DC Ondansetron HCl (Zofran) 4 mg PRN Q8HRS PRN IV NAUSEA/VOMITING; Start 04/25/18 at 11:45; Stop 04/26/18 at 11:44; Status DC Morphine Sulfate (Morphine Sulfate) 2 mg PRN Q2HR PRN IV PAIN Last administered on 04/25/18 12:19; Start 04/25/18 at 11:45; Stop 04/26/18 at 11:44 ; Status DC Sodium Chloride 1,000 ml @ 125 mls/hr Q8H IV Last administered on 04/25/18 16 :34; Start 04/25/18 at 11:36; Stop 04/26/18 at 06:23; Status DC Ringer's Solution 1,000 ml @ 125 mls/hr Q8H IV Last administered on 04/30/18 05:57; Start 04/25/18 at 13:34; Stop 04/30/18 at 09:56; Status DC Ondansetron HCl (Zofran) 4 mg PRN Q6HRS PRN IV NAUSEA/VOMITING; Start 04/25/18 at 13:45 Morphine Sulfate (Morphine Sulfate) 2 mg PRN Q4HRS PRN IV PAIN Last administered on 04/29/18 05:26; Start 04/25/18 at 13:45 Acetaminophen/ Hydrocodone Bitart (Lortab 5/325) 1 tab PRN Q4HRS PRN PO MILD PAIN, 2ND CHOICE; Start 04/25/18 at 13:45 Heparin Sodium (Porcine) (Heparin Sodium) 5,000 unit Q12HR SQ ; Start 04/25/18 at 21:00; Stop 04/26/18 at 17:38; Status DC Pantoprazole Sodium (PROTONIX VIAL for IV PUSH) 40 mg DAILYAC IVP Last administered on 05/02/18 05:47; Start 04/26/18 at 07:30 Saliva Substitute (Biotene Moisturizing Mouth) 2 spray PRN Q15MIN PRN PO DRY MOUTH Last administered on 2/22/19at 02:23; Start 04/26/18 at 10:00 Potassium Chloride/Water 100 ml @ 100 mls/hr Q1H IV Last administered on at 14:30; Start 04/26/18 at 11:30; Stop 04/26/18 at 15:29; Status DC Potassium Chloride (Klor-Con) 20 meq DAILYWBKFT PO ; Start 04/27/18 at 08:00; Stop 04/29/18 at 12:20; Status DC Potassium Chloride (Klor-Con) 40 meq 1X ONCE PO ; Start 04/26/18 at 19:00; Stop 04/26/18 at 19:01; Status DC Lidocaine/Sodium Bicarbonate (Buffered Lidocaine 1%) 3 ml STK-MED ONCE .ROUTE ; Start 04/26/18 at 13:46; Stop 04/26/18 at 13:47; Status DC Gelatin (Gelfoam Size 12-7mm) 1 each STK-MED ONCE .ROUTE ; Start 04/26/18 at 13 :46; Stop 04/26/18 at 13:47; Status DC Midazolam HCl (Versed) 2 mg STK-MED ONCE .ROUTE ; Start 04/26/18 at 14:13; Stop 04/26/18 at 14:14; Status DC Fentanyl Citrate (Fentanyl 2ml Vial) 100 mcg STK-MED ONCE .ROUTE ; Start at 14:13; Stop 04/26/18 at 14:14; Status DC Lidocaine/Sodium Bicarbonate (Buffered Lidocaine 1%) 3 ml 1X ONCE INJ Last administered on 04/26/18at 14:44; Start 04/26/18 at 14:45; Stop 04/26/18 at 14:46 ; Status DC Gelatin (Gelfoam Size 12-7mm) 1 each 1X ONCE TP Last administered on at 14:44; Start 04/26/18 at 14:45; Stop 04/26/18 at 14:46; Status DC Azithromycin 250 mg/Sodium Chloride 250 ml @ 250 mls/hr Q24H IV Last administered on 05/01/18 17:44; Start 04/26/18 at 18:00 Ceftriaxone Sodium (Rocephin) 1 gm Q24H IVP Last administered on 05/01/18at 17: 41; Start 04/26/18 at 17:30 Potassium Chloride/Water 100 ml @ 100 mls/hr Q1H IV Last administered on at 11:10; Start 04/27/18 at 10:00; Stop 04/27/18 at 11:59; Status DC Potassium Chloride/Water 100 ml @ 100 mls/hr Q1H IV Last administered on at 19:14; Start 04/28/18 at 18:00; Stop 04/28/18 at 19:59; Status DC Potassium Chloride (Klor-Con) 40 meq 1X ONCE PO ; Start 04/28/18 at 17:30; Stop 04/28/18 at 17:30; Status DC Potassium Chloride (Klor-Con) 20 meq DAILYWBKFT PO ; Start 04/29/18 at 08:00; Stop 04/29/18 at 08:00; Status DC Heparin Sodium (Porcine) (Heparin Sodium) 5,000 unit Q8HRS SQ Last administered on 05/02/18at 05:50; Start 04/28/18 at 22:00 Potassium Chloride/Water 100 ml @ 100 mls/hr Q1H IV Last administered on at 21:28; Start 04/28/18 at 20:00; Stop 04/28/18 at 21:59; Status DC Haloperidol Lactate (Haldol Inj) 2.5 mg PRN Q6HRS PRN IVP AGITATION Last administered on 05/02/18at 08:39; Start 04/28/18 at 17:00 Magnesium Sulfate 50 ml @ 25 mls/hr PRN DAILY PRN IV for Mag < 1.7 on am labs; Start 04/29/18 at 12:30 Potassium Chloride (Klor-Con) 40 meq BID PO ; Start 04/29/18 at 12:30; Stop at 13:29; Status DC Potassium Chloride (Klor-Con) 20 meq DAILYWBKFT PO ; Start 05/01/18 at 08:00 Potassium Chloride/Water 100 ml @ 100 mls/hr Q1H IV Last administered on at 20:29; Start 04/29/18 at 14:00; Stop 04/29/18 at 17:59; Status DC Amino Acids/ Glycerin/ Electrolytes 1,000 ml @ 80 mls/hr [id number] IV Last administered on 05/01/18at 23:30; Start 04/30/18 at 08:15 Olanzapine (ZyPREXA IM) 10 mg 1X ONCE IM Last administered on 04/30/18at 11:51 ; Start 04/30/18 at 11:45; Stop 04/30/18 at 11:46; Status DC Quetiapine Fumarate (SEROquel XR) 50 mg DAILY PO ; Start 05/01/18 at 11:00 Potassium Chloride (Klor-Con) 40 meq 1X ONCE PO ; Start 05/01/18 at 11:15; Stop 05/01/18 at 11:16; Status DC Potassium Chloride (Klor-Con) 20 meq DAILYWBKFT PO ; Start 05/02/18 at 08:00; Stop 05/02/18 at 08:00; Status DC Active Scripts Active Reported Tamsulosin Hcl 0.4 Mg Cap.er.24h 0.4 Mg PO DAILY Potassium Chloride 20 Meq Tablet.er 20 Meq PO DAILY Protonix (Pantoprazole Sodium) 20 Mg Tablet.dr 20 Mg PO DAILY Meclizine Hcl 12.5 Mg Tablet 2 Tab PO TID Losartan Potassium 100 Mg Tablet 100 Mg PO DAILY Albuterol Sulfate Neb Soln (Albuterol Sulfate) 2.5 Mg/3 Ml Vial.neb 1 Vial NEB PRN Q4HRS Ibuprofen 800 Mg Tablet 800 Mg PO TID PRN Furosemide 20 Mg Tablet 1 Tab PO DAILY Finasteride 5 Mg Tablet 1 Tab PO DAILY Doxazosin Mesylate 8 Mg Tablet 1 Tab PO DAILY Allopurinol 300 Mg Tablet 1 Tab PO DAILY Vitals/I & O Vital Sign - Last 24 Hours 05/01/18 05/01/18 05/01/18 05/01/18 15:00 19:00 20:02 23:00 Temp 98.2 97.7 98.0 98.2 97.7 98.0 Pulse 77 82 86 Resp 18 18 18 B/P (MAP) 148/84 (105) 139/82 (101) 148/89 (108) Pulse Ox 96 97 98 O2 Delivery Room Air Room Air 05/02/18 05/02/18 05/02/18 05/02/18 03:00 07:21 07:54 10:43 Temp 98.0 96.3 97.9 98.0 96.3 97.9 Pulse 84 100 100 Resp 18 20 20 B/P (MAP) 141/82 (101) 162/103 (122) 160/104 (122) Pulse Ox 97 96 96 O2 Delivery Room Air Room Air Intake and Output 05/01/18 05/01/18 05/02/18 15:00 23:00 07:00 Intake Total 240 ml 60 ml Output Total 75 ml 100 ml Balance 165 ml -40 ml POPPY COLON MD May 02, 2018 13:29
[2018-05-02] MEDS: POTASSIUM CHLORIDE 10MEQ 100 ML IV SCH ×4 (14:16→17:14)
[2018-05-02] MEDS: AMINO AC 3%/ELECTROLYTE/GLYCER 1,000 ML IV SCH (14:16)
--- NOTE | 2018-05-02 14:51 | PDOC ---
Objective: Objective: Per 1:1 sitter, refusing to eat, confused. Vital Signs: Vital Signs Date Time Temp Pulse Resp B/P (MAP) Pulse Ox O2 Delivery O2 Flow Rate FiO2 05/02/18 10:43 97.9 100 20 160/104 (122) 96 Room Air 97.9 Labs: Laboratory Tests Test 05/02/18 06:00 White Blood Count 9.6 x10^3/uL Red Blood Count 4.80 x10^6/uL Hemoglobin 10.8 g/dL Hematocrit 34.2 % Mean Corpuscular Volume 71 fL Mean Corpuscular Hemoglobin 23 pg Mean Corpuscular Hemoglobin Concent 32 g/dL Red Cell Distribution Width 16.4 % Platelet Count 382 x10^3/uL Neutrophils (%) (Auto) 72 % Lymphocytes (%) (Auto) 16 % Monocytes (%) (Auto) 10 % Eosinophils (%) (Auto) 2 % Basophils (%) (Auto) 0 % Neutrophils # (Auto) 6.9 x10^3uL Lymphocytes # (Auto) 1.5 x10^3/uL Monocytes # (Auto) 1.0 x10^3/uL Eosinophils # (Auto) 0.2 x10^3/uL Basophils # (Auto) 0.0 x10^3/uL Sodium Level 148 mmol/L Potassium Level 3.1 mmol/L Chloride Level 108 mmol/L Carbon Dioxide Level 26 mmol/L Anion Gap 14 Blood Urea Nitrogen 28 mg/dL Creatinine 1.2 mg/dL Estimated GFR (Cockcroft-Gault) 70.1 BUN/Creatinine Ratio 23 Glucose Level 95 mg/dL Calcium Level 8.9 mg/dL Phosphorus Level 1.9 mg/dL Magnesium Level 2.1 mg/dL Total Bilirubin 0.6 mg/dL Aspartate Amino Transf (AST/SGOT) 37 U/L Alanine Aminotransferase (ALT/SGPT) 21 U/L Alkaline Phosphatase 198 U/L Total Protein 6.6 g/dL Albumin 2.0 g/dL Albumin/Globulin Ratio 0.4 PE: GEN: NAD, laying upside down in bed LUNGS: room air NEURO/PSYCH: confused/drowsy A/P: Confusion/agitation Hepatic masses s/p liver biopsy - 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 JOEL REIS May 02, 2018 14:51
[2018-05-02 15:00] VITALS: BP 162/97
--- NOTE | 2018-05-02 15:04 | PDOC ---
Renal-Progress Notes Subjective Notes Notes CONFUSED History of Present Illness Hx of present illness STABLE Vitals Vitals Vital Signs Date Time Temp Pulse Resp B/P (MAP) Pulse Ox O2 Delivery O2 Flow Rate FiO2 05/02/18 10:43 97.9 100 20 160/104 (122) 96 Room Air 97.9 Weight Weight [ ] I.O. Intake and Output Intake and Output 05/02/18 06:59 Intake Total 300 ml Output Total 175 ml Balance 125 ml Intake Oral 300 ml Output Urine Total 175 ml # Voids 5 # Bowel Movements 3 Labs Labs Laboratory Tests Test 05/02/18 06:00 White Blood Count 9.6 x10^3/uL (4.0-11.0) Red Blood Count 4.80 x10^6/uL (4.30-5.70) Hemoglobin 10.8 g/dL (13.0-17.5) Hematocrit 34.2 % (39.0-53.0) Mean Corpuscular Volume 71 fL (79-100) Mean Corpuscular Hemoglobin 23 pg (25-35) Mean Corpuscular Hemoglobin Concent 32 g/dL (31-37) Red Cell Distribution Width 16.4 % (11.5-14.5) Platelet Count 382 x10^3/uL (140-400) Neutrophils (%) (Auto) 72 % (31-73) Lymphocytes (%) (Auto) 16 % (24-48) Monocytes (%) (Auto) 10 % (0-9) Eosinophils (%) (Auto) 2 % (0-3) Basophils (%) (Auto) 0 % (0-3) Neutrophils # (Auto) 6.9 x10^3uL (1.8-7.7) Lymphocytes # (Auto) 1.5 x10^3/uL (1.0-4.8) Monocytes # (Auto) 1.0 x10^3/uL (0.0-1.1) Eosinophils # (Auto) 0.2 x10^3/uL (0.0-0.7) Basophils # (Auto) 0.0 x10^3/uL (0.0-0.2) Sodium Level 148 mmol/L (136-145) Potassium Level 3.1 mmol/L (3.5-5.1) Chloride Level 108 mmol/L (98-107) Carbon Dioxide Level 26 mmol/L (21-32) Anion Gap 14 (6-14) Blood Urea Nitrogen 28 mg/dL (8-26) Creatinine 1.2 mg/dL (0.7-1.3) Estimated GFR (Cockcroft-Gault) 70.1 BUN/Creatinine Ratio 23 (6-20) Glucose Level 95 mg/dL (70-99) Calcium Level 8.9 mg/dL (8.5-10.1) Phosphorus Level 1.9 mg/dL (2.6-4.7) Magnesium Level 2.1 mg/dL (1.8-2.4) Total Bilirubin 0.6 mg/dL (0.2-1.0) Aspartate Amino Transf (AST/SGOT) 37 U/L (15-37) Alanine Aminotransferase (ALT/SGPT) 21 U/L (16-63) Alkaline Phosphatase 198 U/L (46-116) Total Protein 6.6 g/dL (6.4-8.2) Albumin 2.0 g/dL (3.4-5.0) Albumin/Globulin Ratio 0.4 (1.0-1.7) Micro Micro Microbiology 04/25/18 Blood Culture - Final, Complete NO GROWTH AFTER 5 DAYS Review of Systems Constitutional: yes: other (SOME CONFUSION) Physical Exam General Appearance: no apparent distress Skin: warm Respiratory: decreased breath sounds Heart: S1S2, RRR Abdomen: soft, bowel sounds present Genitourinary: bladder flat Extremities: pulses present Assessment Assessment IMP SYLVIE-BETTER HYPOKALEMIA-BETTER HYPERNATREMIA-STABLE PANCREATITIS METS TO LIVER ?PNEUMONIA PLAN CONT SUPPORTIVE CARE SUPPLEMENT K CONT PPN CONT ANTIBIOTICS PALLIATIVE CARE TO SEE PT MARQUIS GOMEZ MD May 02, 2018 15:04
--- NOTE | 2018-05-02 15:44 | PDOC2 ---
PALLIATIVE CARE Palliative Care Note Palliative Care Patient asleep. Received Haldol this am for restlessness. Spoke with Luis Carlos Holt (nephew) [phone]. Confirmed that he is nephew of Elieser Lay (Jonathon). States he is unable to find any of patient's children in [facility]. States he is willing to help with decisions that may need to be made for this uncle. Plan meeting tomorrow at 1300 Tuesday per phone. ROSIE HARRIS May 02, 2018 15:44
--- NOTE | 2018-05-02 16:03 | PDOC ---
Provider Note Provider Note ADDENDUM: I reviewed case at tumor conference today. 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 This is not high grade and hence prognosis is better but still incurable. I would recommend supportive care only. MANAS PATEL MD May 02, 2018 16:03
[2018-05-02] MEDS: cefTRIAXone IV Push 1 GM VIAL. IVP SCH (18:13)
[2018-05-02] MEDS: AZITHROMYCIN 250 MG in IV NORMAL SALINE 250ML 250 ML IV SCH (18:14)
[2018-05-02 19:00] VITALS: BP 147/93
[2018-05-02 23:00] VITALS: BP 152/98
[2018-05-03] MEDS: HALOPERIDOL LACTATE 5 MG/ML VIAL. IVP PRN ×2 (00:33→17:17)
[2018-05-03 03:00] VITALS: BP 168/98
[2018-05-03] MEDS: AMINO AC 3%/ELECTROLYTE/GLYCER 1,000 ML IV SCH ×3 (04:53→23:45)
[2018-05-03] MEDS: HEPARIN for SUB-Q USE 5,000 UNIT/ML VIAL. SQ SCH ×3 (05:17→20:49)
[2018-05-03 06:48] LABS: BASO # 0.1 x10^3/uL (0.0-0.2); BASO % 1 % (0-3); EOS # 0.2 x10^3/uL (0.0-0.7); EOS % 3 % (0-3); HEMATOCRIT 36.7 % (39.0-53.0); HEMOGLOBIN 11.7 g/dL (13.0-17.5); LYMPH # 1.4 x10^3/uL (1.0-4.8); LYMPH % 16 % (24-48); MEAN CORPUSCULAR HEMOGLOBIN 23 pg (25-35); MEAN CORPUSCULAR HGB CONC 32 g/dL (31-37); MEAN CORPUSCULAR VOLUME 72 fL (79-100); MONO # 0.9 x10^3/uL (0.0-1.1); MONO % 9 % (0-9); NEUT # 6.5 x10^3uL (1.8-7.7); NEUT % 72 % (31-73); PLATELET COUNT 298 x10^3/uL (140-400); RED BLOOD COUNT 5.11 x10^6/uL (4.30-5.70); RED CELL DISTRIBUTION WIDTH 16.6 % (11.5-14.5); WHITE BLOOD COUNT 9.2 x10^3/uL (4.0-11.0)
[2018-05-03 07:00] VITALS: BP 136/76
[2018-05-03 07:27] LABS: ALBUMIN 2.1 g/dL (3.4-5.0); ALBUMIN/GLOBULIN RATIO 0.4 (1.0-1.7); CALCIUM 8.9 mg/dL (8.5-10.1); CREATININE 1.2 mg/dL (0.7-1.3); GFR 70.1; MAGNESIUM 1.9 mg/dL (1.8-2.4); PHOSPHORUS 2.5 mg/dL (2.6-4.7); POTASSIUM 3.5 mmol/L (3.5-5.1); TOTAL BILIRUBIN 0.5 mg/dL (0.2-1.0); TOTAL PROTEIN 6.9 g/dL (6.4-8.2)
[2018-05-03] MEDS: PANTOPRAZOLE IV PUSH 40 MG VIAL. IVP SCH (08:29)
[2018-05-03] MEDS: QUEtiapine 50 MG TAB.ER.24H. PO SCH (08:29)
[2018-05-03] MEDS: POTASSIUM CHLORIDE 20 MEQ TABLET.ER. PO SCH (08:32)
--- NOTE | 2018-05-03 09:18 | PDOC ---
PROGRESS NOTES Chief Complaint Chief Complaint Acute pancreatitis - with Abdominal pain, , consult GI. Still has GB, triglycerides normal, not on a thiazide that he knows of and he doesn't recall if he has been losing weight. Concerning liver masses on CT could be metastatic disease, he does not recall his last colonoscopy during my interview. Pain control with morphine Acute metabolic encephalopathy - uremia, delirium Hypokalemia - 3.1, will monitor. Replace IVF SYLVIE - vasomotor with possible ATN, appears dry and Cr and BUN elevated. Unknown baseline. Liver masses - metastatic disease. Contrast contraindicated based on his renal function. consult GI. NEED [facility]. RBC microcytosis - will check iron studies, may be sickle trait, HTN - HOME MEDS, ADJUST PRN POor PO Enceph, met AGITATION, CONTINUES TO NEED SITTER History of Present Illness History of Present Illness NEPHEW AGREES WITH HOSPICE PLAN Sitter at bedside unpredictable with behavior Refusing by mouth pills and to eat ProcalAmine running Potassium REPLACED Palliative and social media campaign manager trying to reach family Patient not cooperative with me Plan Continue Procalamine KCl 20 Appreciate palliative and social work Continue sitter Can be off telemetry, FOCUS ON COMFORT MEASURES Vitals Vitals Vital Signs Date Time Temp Pulse Resp B/P (MAP) Pulse Ox O2 Delivery O2 Flow Rate FiO2 05/03/18 07:00 98.7 79 16 136/76 (96) 99 Room Air 98.7 Physical Exam General: Alert, Cooperative, No acute distress Heart: Regular rate Lungs: Clear Abdomen: Normal bowel sounds, Soft, No hepatosplenomegaly, No masses, Other ( RUQ tenderness) Extremities: No clubbing, No cyanosis, No edema, Normal pulses, No tenderness/ swelling Skin: No rashes, No breakdown, No significant lesion Labs LABS Laboratory Tests Test 05/03/18 06:00 White Blood Count 9.2 x10^3/uL (4.0-11.0) Red Blood Count 5.11 x10^6/uL (4.30-5.70) Hemoglobin 11.7 g/dL (13.0-17.5) Hematocrit 36.7 % (39.0-53.0) Mean Corpuscular Volume 72 fL (79-100) Mean Corpuscular Hemoglobin 23 pg (25-35) Mean Corpuscular Hemoglobin Concent 32 g/dL (31-37) Red Cell Distribution Width 16.6 % (11.5-14.5) Platelet Count 298 x10^3/uL (140-400) Neutrophils (%) (Auto) 72 % (31-73) Lymphocytes (%) (Auto) 16 % (24-48) Monocytes (%) (Auto) 9 % (0-9) Eosinophils (%) (Auto) 3 % (0-3) Basophils (%) (Auto) 1 % (0-3) Neutrophils # (Auto) 6.5 x10^3uL (1.8-7.7) Lymphocytes # (Auto) 1.4 x10^3/uL (1.0-4.8) Monocytes # (Auto) 0.9 x10^3/uL (0.0-1.1) Eosinophils # (Auto) 0.2 x10^3/uL (0.0-0.7) Basophils # (Auto) 0.1 x10^3/uL (0.0-0.2) Sodium Level 145 mmol/L (136-145) Potassium Level 3.5 mmol/L (3.5-5.1) Chloride Level 108 mmol/L (98-107) Carbon Dioxide Level 22 mmol/L (21-32) Anion Gap 15 (6-14) Blood Urea Nitrogen 25 mg/dL (8-26) Creatinine 1.2 mg/dL (0.7-1.3) Estimated GFR (Cockcroft-Gault) 70.1 BUN/Creatinine Ratio 21 (6-20) Glucose Level 109 mg/dL (70-99) Calcium Level 8.9 mg/dL (8.5-10.1) Phosphorus Level 2.5 mg/dL (2.6-4.7) Magnesium Level 1.9 mg/dL (1.8-2.4) Total Bilirubin 0.5 mg/dL (0.2-1.0) Aspartate Amino Transf (AST/SGOT) 46 U/L (15-37) Alanine Aminotransferase (ALT/SGPT) 30 U/L (16-63) Alkaline Phosphatase 215 U/L (46-116) Total Protein 6.9 g/dL (6.4-8.2) Albumin 2.1 g/dL (3.4-5.0) Albumin/Globulin Ratio 0.4 (1.0-1.7) Assessment and Plan Assessmemt and Plan Problems Medical Problems: (1) Renal insufficiency Status: Acute Comment Review of Relevant I have reviewed the following items pily (where applicable) has been applied. Labs Laboratory Tests Test 05/01/18 13:50 05/02/18 06:00 05/03/18 06:00 Urine Collection Type Unknown Urine Color Yellow Urine Clarity Clear Urine pH 5.5 Urine Specific [place] 1.015 Urine Protein Negative mg/dL (NEG-TRACE) Urine Glucose (UA) Negative mg/dL (NEG) Urine Ketones (Stick) 15 mg/dL (NEG) Urine Blood Moderate (NEG) Urine Nitrite Negative (NEG) Urine Bilirubin Small (NEG) Urine Urobilinogen Dipstick 0.2 mg/dL (0.2 mg/dL) Urine Leukocyte Esterase Negative (NEG) Urine RBC 11-20 /HPF (0-2) Urine WBC Rare /HPF (0-4) Urine Squamous Epithelial Cells Few /LPF Urine Bacteria 0 /HPF (0-FEW) Urine Mucus Slight /LPF White Blood Count 9.6 x10^3/uL (4.0-11.0) 9.2 x10^3/uL (4.0-11.0) Red Blood Count 4.80 x10^6/uL (4.30-5.70) 5.11 x10^6/uL (4.30-5.70) Hemoglobin 10.8 g/dL (13.0-17.5) 11.7 g/dL (13.0-17.5) Hematocrit 34.2 % (39.0-53.0) 36.7 % (39.0-53.0) Mean Corpuscular Volume 71 fL (79-100) 72 fL (79-100) Mean Corpuscular Hemoglobin 23 pg (25-35) 23 pg (25-35) Mean Corpuscular Hemoglobin Concent 32 g/dL (31-37) 32 g/dL (31-37) Red Cell Distribution Width 16.4 % (11.5-14.5) 16.6 % (11.5-14.5) Platelet Count 382 x10^3/uL (140-400) 298 x10^3/uL (140-400) Neutrophils (%) (Auto) 72 % (31-73) 72 % (31-73) Lymphocytes (%) (Auto) 16 % (24-48) 16 % (24-48) Monocytes (%) (Auto) 10 % (0-9) 9 % (0-9) Eosinophils (%) (Auto) 2 % (0-3) 3 % (0-3) Basophils (%) (Auto) 0 % (0-3) 1 % (0-3) Neutrophils # (Auto) 6.9 x10^3uL (1.8-7.7) 6.5 x10^3uL (1.8-7.7) Lymphocytes # (Auto) 1.5 x10^3/uL (1.0-4.8) 1.4 x10^3/uL (1.0-4.8) Monocytes # (Auto) 1.0 x10^3/uL (0.0-1.1) 0.9 x10^3/uL (0.0-1.1) Eosinophils # (Auto) 0.2 x10^3/uL (0.0-0.7) 0.2 x10^3/uL (0.0-0.7) Basophils # (Auto) 0.0 x10^3/uL (0.0-0.2) 0.1 x10^3/uL (0.0-0.2) Sodium Level 148 mmol/L (136-145) 145 mmol/L (136-145) Potassium Level 3.1 mmol/L (3.5-5.1) 3.5 mmol/L (3.5-5.1) Chloride Level 108 mmol/L (98-107) 108 mmol/L (98-107) Carbon Dioxide Level 26 mmol/L (21-32) 22 mmol/L (21-32) Anion Gap 14 (6-14) 15 (6-14) Blood Urea Nitrogen 28 mg/dL (8-26) 25 mg/dL (8-26) Creatinine 1.2 mg/dL (0.7-1.3) 1.2 mg/dL (0.7-1.3) Estimated GFR (Cockcroft-Gault) 70.1 70.1 BUN/Creatinine Ratio 23 (6-20) 21 (6-20) Glucose Level 95 mg/dL (70-99) 109 mg/dL (70-99) Calcium Level 8.9 mg/dL (8.5-10.1) 8.9 mg/dL (8.5-10.1) Phosphorus Level 1.9 mg/dL (2.6-4.7) 2.5 mg/dL (2.6-4.7) Magnesium Level 2.1 mg/dL (1.8-2.4) 1.9 mg/dL (1.8-2.4) Total Bilirubin 0.6 mg/dL (0.2-1.0) 0.5 mg/dL (0.2-1.0) Aspartate Amino Transf (AST/SGOT) 37 U/L (15-37) 46 U/L (15-37) Alanine Aminotransferase (ALT/SGPT) 21 U/L (16-63) 30 U/L (16-63) Alkaline Phosphatase 198 U/L (46-116) 215 U/L (46-116) Total Protein 6.6 g/dL (6.4-8.2) 6.9 g/dL (6.4-8.2) Albumin 2.0 g/dL (3.4-5.0) 2.1 g/dL (3.4-5.0) Albumin/Globulin Ratio 0.4 (1.0-1.7) 0.4 (1.0-1.7) Laboratory Tests Test 05/03/18 06:00 White Blood Count 9.2 x10^3/uL (4.0-11.0) Red Blood Count 5.11 x10^6/uL (4.30-5.70) Hemoglobin 11.7 g/dL (13.0-17.5) Hematocrit 36.7 % (39.0-53.0) Mean Corpuscular Volume 72 fL (79-100) Mean Corpuscular Hemoglobin 23 pg (25-35) Mean Corpuscular Hemoglobin Concent 32 g/dL (31-37) Red Cell Distribution Width 16.6 % (11.5-14.5) Platelet Count 298 x10^3/uL (140-400) Neutrophils (%) (Auto) 72 % (31-73) Lymphocytes (%) (Auto) 16 % (24-48) Monocytes (%) (Auto) 9 % (0-9) Eosinophils (%) (Auto) 3 % (0-3) Basophils (%) (Auto) 1 % (0-3) Neutrophils # (Auto) 6.5 x10^3uL (1.8-7.7) Lymphocytes # (Auto) 1.4 x10^3/uL (1.0-4.8) Monocytes # (Auto) 0.9 x10^3/uL (0.0-1.1) Eosinophils # (Auto) 0.2 x10^3/uL (0.0-0.7) Basophils # (Auto) 0.1 x10^3/uL (0.0-0.2) Sodium Level 145 mmol/L (136-145) Potassium Level 3.5 mmol/L (3.5-5.1) Chloride Level 108 mmol/L (98-107) Carbon Dioxide Level 22 mmol/L (21-32) Anion Gap 15 (6-14) Blood Urea Nitrogen 25 mg/dL (8-26) Creatinine 1.2 mg/dL (0.7-1.3) Estimated GFR (Cockcroft-Gault) 70.1 BUN/Creatinine Ratio 21 (6-20) Glucose Level 109 mg/dL (70-99) Calcium Level 8.9 mg/dL (8.5-10.1) Phosphorus Level 2.5 mg/dL (2.6-4.7) Magnesium Level 1.9 mg/dL (1.8-2.4) Total Bilirubin 0.5 mg/dL (0.2-1.0) Aspartate Amino Transf (AST/SGOT) 46 U/L (15-37) Alanine Aminotransferase (ALT/SGPT) 30 U/L (16-63) Alkaline Phosphatase 215 U/L (46-116) Total Protein 6.9 g/dL (6.4-8.2) Albumin 2.1 g/dL (3.4-5.0) Albumin/Globulin Ratio 0.4 (1.0-1.7) Microbiology 04/25/18 Blood Culture - Final, Complete NO GROWTH AFTER 5 DAYS Medications Current Medications Sodium Chloride 1,000 ml @ 1,000 mls/hr Q1H IV Last administered on 04/25/18at 10:12; Start 04/25/18 at 09:38; Stop 04/25/18 at 10:37; Status DC Ondansetron HCl (Zofran) 4 mg 1X ONCE IV Last administered on 04/25/18 10:11 ; Start 04/25/18 at 09:45; Stop 04/25/18 at 09:46; Status DC Hyoscyamine (Anaspaz) 0.125 mg ONCE ONCE PO Last administered on 04/25/18 10: 12; Start 04/25/18 at 09:45; Stop 04/25/18 at 09:46; Status DC Pantoprazole Sodium (PROTONIX VIAL for IV PUSH) 40 mg 1X ONCE IVP Last administered on 04/25/18 10:23; Start 04/25/18 at 10:15; Stop 04/25/18 at 10:16 ; Status DC Ceftriaxone Sodium (Rocephin) 1 gm 1X ONCE IVP Last administered on 04/25/18 12:23; Start 04/25/18 at 11:45; Stop 04/25/18 at 11:46; Status DC Azithromycin 250 ml @ 250 mls/hr 1X ONCE IV Last administered on 04/25/18 12 :23; Start 04/25/18 at 11:45; Stop 04/25/18 at 12:44; Status DC Ondansetron HCl (Zofran) 4 mg PRN Q8HRS PRN IV NAUSEA/VOMITING; Start 04/25/18 at 11:45; Stop 04/26/18 at 11:44; Status DC Morphine Sulfate (Morphine Sulfate) 2 mg PRN Q2HR PRN IV PAIN Last administered on 04/25/18 12:19; Start 04/25/18 at 11:45; Stop 04/26/18 at 11:44 ; Status DC Sodium Chloride 1,000 ml @ 125 mls/hr Q8H IV Last administered on 04/25/18 16 :34; Start 04/25/18 at 11:36; Stop 04/26/18 at 06:23; Status DC Ringer's Solution 1,000 ml @ 125 mls/hr Q8H IV Last administered on 04/30/18 05:57; Start 04/25/18 at 13:34; Stop 04/30/18 at 09:56; Status DC Ondansetron HCl (Zofran) 4 mg PRN Q6HRS PRN IV NAUSEA/VOMITING; Start 04/25/18 at 13:45 Morphine Sulfate (Morphine Sulfate) 2 mg PRN Q4HRS PRN IV PAIN Last administered on 04/29/18at 05:26; Start 04/25/18 at 13:45 Acetaminophen/ Hydrocodone Bitart (Lortab 5/325) 1 tab PRN Q4HRS PRN PO MILD PAIN, 2ND CHOICE; Start 04/25/18 at 13:45 Heparin Sodium (Porcine) (Heparin Sodium) 5,000 unit Q12HR SQ ; Start 04/25/18 at 21:00; Stop 04/26/18 at 17:38; Status DC Pantoprazole Sodium (PROTONIX VIAL for IV PUSH) 40 mg DAILYAC IVP Last administered on 05/03/18at 08:29; Start 04/26/18 at 07:30 Saliva Substitute (Biotene Moisturizing Mouth) 2 spray PRN Q15MIN PRN PO DRY MOUTH Last administered on 04/28/18at 02:23; Start 04/26/18 at 10:00 Potassium Chloride/Water 100 ml @ 100 mls/hr Q1H IV Last administered on at 14:30; Start 04/26/18 at 11:30; Stop 04/26/18 at 15:29; Status DC Potassium Chloride (Klor-Con) 20 meq DAILYWBKFT PO ; Start 04/27/18 at 08:00; Stop 04/29/18 at 12:20; Status DC Potassium Chloride (Klor-Con) 40 meq 1X ONCE PO ; Start 04/26/18 at 19:00; Stop 04/26/18 at 19:01; Status DC Lidocaine/Sodium Bicarbonate (Buffered Lidocaine 1%) 3 ml STK-MED ONCE .ROUTE ; Start 04/26/18 at 13:46; Stop 04/26/18 at 13:47; Status DC Gelatin (Gelfoam Size 12-7mm) 1 each STK-MED ONCE .ROUTE ; Start 04/26/18 at 13 :46; Stop 04/26/18 at 13:47; Status DC Midazolam HCl (Versed) 2 mg STK-MED ONCE .ROUTE ; Start 04/26/18 at 14:13; Stop 04/26/18 at 14:14; Status DC Fentanyl Citrate (Fentanyl 2ml Vial) 100 mcg STK-MED ONCE .ROUTE ; Start at 14:13; Stop 04/26/18 at 14:14; Status DC Lidocaine/Sodium Bicarbonate (Buffered Lidocaine 1%) 3 ml 1X ONCE INJ Last administered on 04/26/18 14:44; Start 04/26/18 at 14:45; Stop 04/26/18 at 14:46 ; Status DC Gelatin (Gelfoam Size 12-7mm) 1 each 1X ONCE TP Last administered on 14:44; Start 04/26/18 at 14:45; Stop 04/26/18 at 14:46; Status DC Azithromycin 250 mg/Sodium Chloride 250 ml @ 250 mls/hr Q24H IV Last administered on 05/02/18 18:14; Start 04/26/18 at 18:00 Ceftriaxone Sodium (Rocephin) 1 gm Q24H IVP Last administered on 05/02/18at 18: 13; Start 04/26/18 at 17:30 Potassium Chloride/Water 100 ml @ 100 mls/hr Q1H IV Last administered on at 11:10; Start 04/27/18 at 10:00; Stop 04/27/18 at 11:59; Status DC Potassium Chloride/Water 100 ml @ 100 mls/hr Q1H IV Last administered on 19:14; Start 04/28/18 at 18:00; Stop 04/28/18 at 19:59; Status DC Potassium Chloride (Klor-Con) 40 meq 1X ONCE PO ; Start 04/28/18 at 17:30; Stop 04/28/18 at 17:30; Status DC Potassium Chloride (Klor-Con) 20 meq DAILYWBKFT PO ; Start 04/29/18 at 08:00; Stop 04/29/18 at 08:00; Status DC Heparin Sodium (Porcine) (Heparin Sodium) 5,000 unit Q8HRS SQ Last administered on 05/02/18 14:28; Start 04/28/18 at 22:00 Potassium Chloride/Water 100 ml @ 100 mls/hr Q1H IV Last administered on at 21:28; Start 04/28/18 at 20:00; Stop 04/28/18 at 21:59; Status DC Haloperidol Lactate (Haldol Inj) 2.5 mg PRN Q6HRS PRN IVP AGITATION Last administered on 05/03/18at 00:33; Start 04/28/18 at 17:00 Magnesium Sulfate 50 ml @ 25 mls/hr PRN DAILY PRN IV for Mag < 1.7 on am labs; Start 04/29/18 at 12:30 Potassium Chloride (Klor-Con) 40 meq BID PO ; Start 04/29/18 at 12:30; Stop at 13:29; Status DC Potassium Chloride (Klor-Con) 20 meq DAILYWBKFT PO Last administered on at 08:32; Start 05/01/18 at 08:00 Potassium Chloride/Water 100 ml @ 100 mls/hr Q1H IV Last administered on at 20:29; Start 04/29/18 at 14:00; Stop 04/29/18 at 17:59; Status DC Amino Acids/ Glycerin/ Electrolytes 1,000 ml @ 80 mls/hr [id number] IV Last administered on 05/03/18at 04:53; Start 04/30/18 at 08:15 Olanzapine (ZyPREXA IM) 10 mg 1X ONCE IM Last administered on 04/30/18at 11:51 ; Start 04/30/18 at 11:45; Stop 04/30/18 at 11:46; Status DC Quetiapine Fumarate (SEROquel XR) 50 mg DAILY PO Last administered on at 08:29; Start 05/01/18 at 11:00 Potassium Chloride (Klor-Con) 40 meq 1X ONCE PO ; Start 05/01/18 at 11:15; Stop 05/01/18 at 11:16; Status DC Potassium Chloride (Klor-Con) 20 meq DAILYWBKFT PO ; Start 05/02/18 at 08:00; Stop 05/02/18 at 08:00; Status DC Potassium Chloride/Water 100 ml @ 100 mls/hr Q1H IV Last administered on at 17:14; Start 05/02/18 at 14:00; Stop 05/02/18 at 17:59; Status DC Active Scripts Active Reported Tamsulosin Hcl 0.4 Mg Cap.er.24h 0.4 Mg PO DAILY Potassium Chloride 20 Meq Tablet.er 20 Meq PO DAILY Protonix (Pantoprazole Sodium) 20 Mg Tablet.dr 20 Mg PO DAILY Meclizine Hcl 12.5 Mg Tablet 2 Tab PO TID Losartan Potassium 100 Mg Tablet 100 Mg PO DAILY Albuterol Sulfate Neb Soln (Albuterol Sulfate) 2.5 Mg/3 Ml Vial.neb 1 Vial NEB PRN Q4HRS Ibuprofen 800 Mg Tablet 800 Mg PO TID PRN Furosemide 20 Mg Tablet 1 Tab PO DAILY Finasteride 5 Mg Tablet 1 Tab PO DAILY Doxazosin Mesylate 8 Mg Tablet 1 Tab PO DAILY Allopurinol 300 Mg Tablet 1 Tab PO DAILY Vitals/I & O Vital Sign - Last 24 Hours 05/02/18 05/02/18 05/02/18 05/02/18 10:43 15:00 19:00 20:00 Temp 97.9 96.3 98.1 97.9 96.3 98.1 Pulse 100 80 83 Resp 20 20 18 B/P (MAP) 160/104 (122) 162/97 (118) 147/93 (111) Pulse Ox 96 99 99 O2 Delivery Room Air Room Air Room Air Room Air 05/02/18 05/03/18 05/03/18 23:00 03:00 07:00 Temp 98.8 98.1 98.7 98.8 98.1 98.7 Pulse 84 89 79 Resp 18 18 16 B/P (MAP) 152/98 (116) 168/98 (121) 136/76 (96) Pulse Ox 98 97 99 O2 Delivery Room Air Room Air Room Air Intake and Output 05/02/18 05/02/18 05/03/18 15:00 23:00 07:00 Output Total 100 ml Balance -100 ml THERESA CLARK MD May 03, 2018 09:18
--- NOTE | 2018-05-03 09:50 | PDOC ---
PULMONARY PROGRESS NOTES Subjective PT AWAKE NOT VERY RESPONSIVE Vitals Vital Signs Date Time Temp Pulse Resp B/P (MAP) Pulse Ox O2 Delivery O2 Flow Rate FiO2 05/03/18 07:00 98.7 79 16 136/76 (96) 99 Room Air 98.7 ROS: No Nausea Lungs: Clear Cardiovascular: S1, S2 Abdomen: Soft Neuro Exam: Alert Extremities: No Edema Labs Laboratory Tests Test 05/01/18 13:50 05/02/18 06:00 05/03/18 06:00 Urine Collection Type Unknown Urine Color Yellow Urine Clarity Clear Urine pH 5.5 Urine Specific [place] 1.015 Urine Protein Negative mg/dL (NEG-TRACE) Urine Glucose (UA) Negative mg/dL (NEG) Urine Ketones (Stick) 15 mg/dL (NEG) Urine Blood Moderate (NEG) Urine Nitrite Negative (NEG) Urine Bilirubin Small (NEG) Urine Urobilinogen Dipstick 0.2 mg/dL (0.2 mg/dL) Urine Leukocyte Esterase Negative (NEG) Urine RBC 11-20 /HPF (0-2) Urine WBC Rare /HPF (0-4) Urine Squamous Epithelial Cells Few /LPF Urine Bacteria 0 /HPF (0-FEW) Urine Mucus Slight /LPF White Blood Count 9.6 x10^3/uL (4.0-11.0) 9.2 x10^3/uL (4.0-11.0) Red Blood Count 4.80 x10^6/uL (4.30-5.70) 5.11 x10^6/uL (4.30-5.70) Hemoglobin 10.8 g/dL (13.0-17.5) 11.7 g/dL (13.0-17.5) Hematocrit 34.2 % (39.0-53.0) 36.7 % (39.0-53.0) Mean Corpuscular Volume 71 fL (79-100) 72 fL (79-100) Mean Corpuscular Hemoglobin 23 pg (25-35) 23 pg (25-35) Mean Corpuscular Hemoglobin Concent 32 g/dL (31-37) 32 g/dL (31-37) Red Cell Distribution Width 16.4 % (11.5-14.5) 16.6 % (11.5-14.5) Platelet Count 382 x10^3/uL (140-400) 298 x10^3/uL (140-400) Neutrophils (%) (Auto) 72 % (31-73) 72 % (31-73) Lymphocytes (%) (Auto) 16 % (24-48) 16 % (24-48) Monocytes (%) (Auto) 10 % (0-9) 9 % (0-9) Eosinophils (%) (Auto) 2 % (0-3) 3 % (0-3) Basophils (%) (Auto) 0 % (0-3) 1 % (0-3) Neutrophils # (Auto) 6.9 x10^3uL (1.8-7.7) 6.5 x10^3uL (1.8-7.7) Lymphocytes # (Auto) 1.5 x10^3/uL (1.0-4.8) 1.4 x10^3/uL (1.0-4.8) Monocytes # (Auto) 1.0 x10^3/uL (0.0-1.1) 0.9 x10^3/uL (0.0-1.1) Eosinophils # (Auto) 0.2 x10^3/uL (0.0-0.7) 0.2 x10^3/uL (0.0-0.7) Basophils # (Auto) 0.0 x10^3/uL (0.0-0.2) 0.1 x10^3/uL (0.0-0.2) Sodium Level 148 mmol/L (136-145) 145 mmol/L (136-145) Potassium Level 3.1 mmol/L (3.5-5.1) 3.5 mmol/L (3.5-5.1) Chloride Level 108 mmol/L (98-107) 108 mmol/L (98-107) Carbon Dioxide Level 26 mmol/L (21-32) 22 mmol/L (21-32) Anion Gap 14 (6-14) 15 (6-14) Blood Urea Nitrogen 28 mg/dL (8-26) 25 mg/dL (8-26) Creatinine 1.2 mg/dL (0.7-1.3) 1.2 mg/dL (0.7-1.3) Estimated GFR (Cockcroft-Gault) 70.1 70.1 BUN/Creatinine Ratio 23 (6-20) 21 (6-20) Glucose Level 95 mg/dL (70-99) 109 mg/dL (70-99) Calcium Level 8.9 mg/dL (8.5-10.1) 8.9 mg/dL (8.5-10.1) Phosphorus Level 1.9 mg/dL (2.6-4.7) 2.5 mg/dL (2.6-4.7) Magnesium Level 2.1 mg/dL (1.8-2.4) 1.9 mg/dL (1.8-2.4) Total Bilirubin 0.6 mg/dL (0.2-1.0) 0.5 mg/dL (0.2-1.0) Aspartate Amino Transf (AST/SGOT) 37 U/L (15-37) 46 U/L (15-37) Alanine Aminotransferase (ALT/SGPT) 21 U/L (16-63) 30 U/L (16-63) Alkaline Phosphatase 198 U/L (46-116) 215 U/L (46-116) Total Protein 6.6 g/dL (6.4-8.2) 6.9 g/dL (6.4-8.2) Albumin 2.0 g/dL (3.4-5.0) 2.1 g/dL (3.4-5.0) Albumin/Globulin Ratio 0.4 (1.0-1.7) 0.4 (1.0-1.7) Laboratory Tests Test 05/03/18 06:00 White Blood Count 9.2 x10^3/uL (4.0-11.0) Red Blood Count 5.11 x10^6/uL (4.30-5.70) Hemoglobin 11.7 g/dL (13.0-17.5) Hematocrit 36.7 % (39.0-53.0) Mean Corpuscular Volume 72 fL (79-100) Mean Corpuscular Hemoglobin 23 pg (25-35) Mean Corpuscular Hemoglobin Concent 32 g/dL (31-37) Red Cell Distribution Width 16.6 % (11.5-14.5) Platelet Count 298 x10^3/uL (140-400) Neutrophils (%) (Auto) 72 % (31-73) Lymphocytes (%) (Auto) 16 % (24-48) Monocytes (%) (Auto) 9 % (0-9) Eosinophils (%) (Auto) 3 % (0-3) Basophils (%) (Auto) 1 % (0-3) Neutrophils # (Auto) 6.5 x10^3uL (1.8-7.7) Lymphocytes # (Auto) 1.4 x10^3/uL (1.0-4.8) Monocytes # (Auto) 0.9 x10^3/uL (0.0-1.1) Eosinophils # (Auto) 0.2 x10^3/uL (0.0-0.7) Basophils # (Auto) 0.1 x10^3/uL (0.0-0.2) Sodium Level 145 mmol/L (136-145) Potassium Level 3.5 mmol/L (3.5-5.1) Chloride Level 108 mmol/L (98-107) Carbon Dioxide Level 22 mmol/L (21-32) Anion Gap 15 (6-14) Blood Urea Nitrogen 25 mg/dL (8-26) Creatinine 1.2 mg/dL (0.7-1.3) Estimated GFR (Cockcroft-Gault) 70.1 BUN/Creatinine Ratio 21 (6-20) Glucose Level 109 mg/dL (70-99) Calcium Level 8.9 mg/dL (8.5-10.1) Phosphorus Level 2.5 mg/dL (2.6-4.7) Magnesium Level 1.9 mg/dL (1.8-2.4) Total Bilirubin 0.5 mg/dL (0.2-1.0) Aspartate Amino Transf (AST/SGOT) 46 U/L (15-37) Alanine Aminotransferase (ALT/SGPT) 30 U/L (16-63) Alkaline Phosphatase 215 U/L (46-116) Total Protein 6.9 g/dL (6.4-8.2) Albumin 2.1 g/dL (3.4-5.0) Albumin/Globulin Ratio 0.4 (1.0-1.7) Medications Active Scripts Medications Dose Route/Sig Max Daily Dose Days Date Category Tamsulosin Hcl 0.4 Mg Cap.er.24h 0.4 Mg PO DAILY 04/26/18 Reported Potassium Chloride 20 Meq Tablet.er 20 Meq PO DAILY 04/26/18 Reported Protonix (Pantoprazole Sodium) 20 Mg Tablet.dr 20 Mg PO DAILY 04/26/18 Reported Meclizine Hcl 12.5 Mg Tablet 2 Tab PO TID 04/26/18 Reported Losartan Potassium 100 Mg Tablet 100 Mg PO DAILY 04/26/18 Reported Albuterol Sulfate Neb Soln (Albuterol Sulfate) 2.5 Mg/3 Ml Vial.neb 1 Vial NEB PRN Q4HRS 04/26/18 Reported Ibuprofen 800 Mg Tablet 800 Mg PO TID PRN 04/26/18 Reported Furosemide 20 Mg Tablet 1 Tab PO DAILY 04/26/18 Reported Finasteride 5 Mg Tablet 1 Tab PO DAILY 04/26/18 Reported Doxazosin Mesylate 8 Mg Tablet 1 Tab PO DAILY 04/26/18 Reported Allopurinol 300 Mg Tablet 1 Tab PO DAILY 04/26/18 Reported Impression . 1. PNEUMONIA LLL 2. Abnormal CT abdomen and pelvis with multiple densities seen in the liver, largest being 4.5 cm. 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 3. No significant history of tobacco use. 4. Acute kidney injury, present on admission, improving. 5. Acute pancreatitis. 6. Metabolic encephalopathy related to uremia with mild improvement. 7. ACUTE BRONCHIECTASIS 8. [address] REPORT IMPRESSION: There is an increase in left lower lobe consolidation of the basal segments around the previously seen round area of infiltrate noted on April 25, [address] study. There is stable ill-defined nodular interstitial lung infiltrates of the right lower lobe. There is less prominent interstitial nodular lung infiltrate within the inferior aspect of the right middle lobe. Bilateral lower lobe bronchiectasis and right middle lobe bronchiectasis and left upper lobe bronchiectasis is evident. Noncalcified 9 mm lung nodule within the posterior segment of the right upper lobe. An early metastatic lung nodule is possible. New finding of small bilateral pleural effusions. Calcified atheromatous disease of the coronary arteries. Heart size at the upper limits of normal. No thoracic lymphadenopathy. Plan . SEE CT CHEST REPORT ANTIBX DVT PROPH FOLLOW ONCO RECOMMENDATION PALLIATIVE CARE MEETING IN AM PROGNOSIS IS POOR DR PATEL'S RECOMMENDATION I reviewed case at tumor conference today. 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 This is not high grade and hence prognosis is better but still incurable. I would recommend supportive care only. ENRIQUE NICOLE MD May 03, 2018 09:50
[2018-05-03 10:53] VITALS: BP 133/86
--- NOTE | 2018-05-03 14:18 | PDOC ---
Objective: Objective: Reviewed palliative care note - meeting via phone today. Vital Signs: Vital Signs Date Time Temp Pulse Resp B/P (MAP) Pulse Ox O2 Delivery O2 Flow Rate FiO2 05/03/18 10:53 98.2 83 18 133/86 (102) 100 Room Air 98.2 PE: GEN: NAD LUNGS: room air NEURO/PSYCH: sleeping, not awakened A/P: Confusion/agitation Hepatic masses path w/ poorly differentiated carcinoma w/ neuroendocrine features -- Ongoing palliative care discussion. JOEL REIS May 03, 2018 14:18
[2018-05-03 14:52] VITALS: BP 126/78
--- NOTE | 2018-05-03 15:43 | NUR ---
AMELIA following. Discussed with RN. Nan Ledezma had a phone meeting with pt's nephew, Luis Carlos ([phone]). Luis Carlos advised he will enrol pt in hospice and does not have a preference as to which hospice agency. AMELIA attempted to contact Luis Carlos to determine if Luis Carlos knows about pt's finances. AMELIA left voicemail requesting a call back. AMELIA contacted [facility] to determine if pt would be able to come on hospice LTC. [facility] advised pt could come with medicaid, otherwise it would be self pay $250 a day. AMELIA awaiting call back from Luis Carlos. RN notified. AMELIA will continue to follow.
[2018-05-03] MEDS: cefTRIAXone IV Push 1 GM VIAL. IVP SCH (16:58)
[2018-05-03] MEDS: AZITHROMYCIN 250 MG in IV NORMAL SALINE 250ML 250 ML IV SCH (16:58)
--- NOTE | 2018-05-03 17:47 | NUR ---
Computers were down today from approximately 11:30am until 2:30pm. No medications were scanned during that time.
[2018-05-03 19:00] VITALS: BP 130/86
[2018-05-03 23:00] VITALS: BP 139/88
[2018-05-04] MEDS: HYDROcodone/APAP 5/325MG 1 TAB TABLET PO PRN (00:16)
[2018-05-04 03:00] VITALS: BP 134/95
[2018-05-04 05:04] LABS: ALBUMIN 1.9 g/dL (3.4-5.0); CALCIUM 8.4 mg/dL (8.5-10.1); CREATININE 1.2 mg/dL (0.7-1.3); GFR 70.1; MAGNESIUM 1.8 mg/dL (1.8-2.4); PHOSPHORUS 2.4 mg/dL (2.6-4.7); POTASSIUM 3.7 mmol/L (3.5-5.1)
[2018-05-04] MEDS: HALOPERIDOL LACTATE 5 MG/ML VIAL. IVP PRN ×2 (05:52→11:58)
[2018-05-04] MEDS: HEPARIN for SUB-Q USE 5,000 UNIT/ML VIAL. SQ SCH ×3 (05:56→20:31)
[2018-05-04 07:00] VITALS: BP 129/84
[2018-05-04] MEDS: AMINO AC 3%/ELECTROLYTE/GLYCER 1,000 ML IV SCH (08:41)
[2018-05-04] MEDS: QUEtiapine 50 MG TAB.ER.24H. PO SCH (08:43)
[2018-05-04] MEDS: PANTOPRAZOLE IV PUSH 40 MG VIAL. IVP SCH (08:43)
[2018-05-04] MEDS: POTASSIUM CHLORIDE 20 MEQ TABLET.ER. PO SCH (08:44)
--- NOTE | 2018-05-04 09:01 | PDOC ---
PULMONARY PROGRESS NOTES Subjective PT AWAKE NOT VERY RESPONSIVE Vitals Vital Signs Date Time Temp Pulse Resp B/P (MAP) Pulse Ox O2 Delivery O2 Flow Rate FiO2 05/04/18 07:00 97.9 82 18 129/84 (99) 98 Room Air 97.9 ROS: No Nausea Lungs: Clear Cardiovascular: S1, S2 Abdomen: Soft Neuro Exam: Alert Extremities: No Edema Labs Laboratory Tests Test 05/03/18 06:00 05/04/18 04:10 White Blood Count 9.2 x10^3/uL (4.0-11.0) Red Blood Count 5.11 x10^6/uL (4.30-5.70) Hemoglobin 11.7 g/dL (13.0-17.5) Hematocrit 36.7 % (39.0-53.0) Mean Corpuscular Volume 72 fL (79-100) Mean Corpuscular Hemoglobin 23 pg (25-35) Mean Corpuscular Hemoglobin Concent 32 g/dL (31-37) Red Cell Distribution Width 16.6 % (11.5-14.5) Platelet Count 298 x10^3/uL (140-400) Neutrophils (%) (Auto) 72 % (31-73) Lymphocytes (%) (Auto) 16 % (24-48) Monocytes (%) (Auto) 9 % (0-9) Eosinophils (%) (Auto) 3 % (0-3) Basophils (%) (Auto) 1 % (0-3) Neutrophils # (Auto) 6.5 x10^3uL (1.8-7.7) Lymphocytes # (Auto) 1.4 x10^3/uL (1.0-4.8) Monocytes # (Auto) 0.9 x10^3/uL (0.0-1.1) Eosinophils # (Auto) 0.2 x10^3/uL (0.0-0.7) Basophils # (Auto) 0.1 x10^3/uL (0.0-0.2) Sodium Level 145 mmol/L (136-145) 144 mmol/L (136-145) Potassium Level 3.5 mmol/L (3.5-5.1) 3.7 mmol/L (3.5-5.1) Chloride Level 108 mmol/L (98-107) 108 mmol/L (98-107) Carbon Dioxide Level 22 mmol/L (21-32) 24 mmol/L (21-32) Anion Gap 15 (6-14) 12 (6-14) Blood Urea Nitrogen 25 mg/dL (8-26) 23 mg/dL (8-26) Creatinine 1.2 mg/dL (0.7-1.3) 1.2 mg/dL (0.7-1.3) Estimated GFR (Cockcroft-Gault) 70.1 70.1 BUN/Creatinine Ratio 21 (6-20) Glucose Level 109 mg/dL (70-99) 102 mg/dL (70-99) Calcium Level 8.9 mg/dL (8.5-10.1) 8.4 mg/dL (8.5-10.1) Phosphorus Level 2.5 mg/dL (2.6-4.7) 2.4 mg/dL (2.6-4.7) Magnesium Level 1.9 mg/dL (1.8-2.4) 1.8 mg/dL (1.8-2.4) Total Bilirubin 0.5 mg/dL (0.2-1.0) Aspartate Amino Transf (AST/SGOT) 46 U/L (15-37) Alanine Aminotransferase (ALT/SGPT) 30 U/L (16-63) Alkaline Phosphatase 215 U/L (46-116) Total Protein 6.9 g/dL (6.4-8.2) Albumin 2.1 g/dL (3.4-5.0) 1.9 g/dL (3.4-5.0) Albumin/Globulin Ratio 0.4 (1.0-1.7) Laboratory Tests Test 05/04/18 04:10 Sodium Level 144 mmol/L (136-145) Potassium Level 3.7 mmol/L (3.5-5.1) Chloride Level 108 mmol/L (98-107) Carbon Dioxide Level 24 mmol/L (21-32) Anion Gap 12 (6-14) Blood Urea Nitrogen 23 mg/dL (8-26) Creatinine 1.2 mg/dL (0.7-1.3) Estimated GFR (Cockcroft-Gault) 70.1 Glucose Level 102 mg/dL (70-99) Calcium Level 8.4 mg/dL (8.5-10.1) Phosphorus Level 2.4 mg/dL (2.6-4.7) Magnesium Level 1.8 mg/dL (1.8-2.4) Albumin 1.9 g/dL (3.4-5.0) Medications Active Scripts Medications Dose Route/Sig Max Daily Dose Days Date Category Tamsulosin Hcl 0.4 Mg Cap.er.24h 0.4 Mg PO DAILY 04/26/18 Reported Potassium Chloride 20 Meq Tablet.er 20 Meq PO DAILY 04/26/18 Reported Protonix (Pantoprazole Sodium) 20 Mg Tablet.dr 20 Mg PO DAILY 04/26/18 Reported Meclizine Hcl 12.5 Mg Tablet 2 Tab PO TID 04/26/18 Reported Losartan Potassium 100 Mg Tablet 100 Mg PO DAILY 04/26/18 Reported Albuterol Sulfate Neb Soln (Albuterol Sulfate) 2.5 Mg/3 Ml Vial.neb 1 Vial NEB PRN Q4HRS 04/26/18 Reported Ibuprofen 800 Mg Tablet 800 Mg PO TID PRN 04/26/18 Reported Furosemide 20 Mg Tablet 1 Tab PO DAILY 04/26/18 Reported Finasteride 5 Mg Tablet 1 Tab PO DAILY 04/26/18 Reported Doxazosin Mesylate 8 Mg Tablet 1 Tab PO DAILY 04/26/18 Reported Allopurinol 300 Mg Tablet 1 Tab PO DAILY 04/26/18 Reported Impression . 1. PNEUMONIA LLL 2. Abnormal CT abdomen and pelvis with multiple densities seen in the liver, largest being 4.5 cm. 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 3. No significant history of tobacco use. 4. Acute kidney injury, present on admission, improving. 5. Acute pancreatitis. 6. Metabolic encephalopathy related to uremia with mild improvement. 7. ACUTE BRONCHIECTASIS 8. [address] REPORT IMPRESSION: There is an increase in left lower lobe consolidation of the basal segments around the previously seen round area of infiltrate noted on April 25, [address] study. There is stable ill-defined nodular interstitial lung infiltrates of the right lower lobe. There is less prominent interstitial nodular lung infiltrate within the inferior aspect of the right middle lobe. Bilateral lower lobe bronchiectasis and right middle lobe bronchiectasis and left upper lobe bronchiectasis is evident. Noncalcified 9 mm lung nodule within the posterior segment of the right upper lobe. An early metastatic lung nodule is possible. New finding of small bilateral pleural effusions. Calcified atheromatous disease of the coronary arteries. Heart size at the upper limits of normal. No thoracic lymphadenopathy. Plan . PLACEMENT IS AN ISSUE SEE CT CHEST REPORT ANTIBX DVT PROPH FOLLOW ONCO RECOMMENDATION PROGNOSIS IS POOR DR PATEL'S RECOMMENDATION I reviewed case at tumor conference today. 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 This is not high grade and hence prognosis is better but still incurable. I would recommend supportive care only. ENRIQUE NICOLE MD May 04, 2018 09:01
--- NOTE | 2018-05-04 10:39 | PDOC ---
PROGRESS NOTES Chief Complaint Chief Complaint Acute pancreatitis - with Abdominal pain, , consult GI. Still has GB, triglycerides normal, not on a thiazide that he knows of and he doesn't recall if he has been losing weight. Concerning liver masses on CT could be metastatic disease, he does not recall his last colonoscopy during my interview. Pain control with morphine Acute metabolic encephalopathy - uremia, delirium Hypokalemia - 3.1, will monitor. Replace IVF SYLVIE - vasomotor with possible ATN, appears dry and Cr and BUN elevated. Unknown baseline. Liver masses - metastatic disease. Contrast contraindicated based on his renal function. consult GI. NEED [place] [facility] medical records. 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 palliative care discussed with PAT History of Present Illness History of Present Illness NEPHEW AGREES WITH HOSPICE PLAN Sitter at bedside unpredictable with behavior Refusing by mouth pills and to eat ProcalAmine running Potassium REPLACED Palliative and social professionals trying to reach family Patient not cooperative with me Plan Continue Procalamine KCl 20 Appreciate palliative and social work Continue sitter Can be off telemetry, FOCUS ON COMFORT MEASURES Vitals Vitals Vital Signs Date Time Temp Pulse Resp B/P (MAP) Pulse Ox O2 Delivery O2 Flow Rate FiO2 05/04/18 07:00 97.9 82 18 129/84 (99) 98 Room Air 97.9 Physical Exam General: Alert, Cooperative, No acute distress, mild distress Heart: Regular rate Lungs: Clear Abdomen: Normal bowel sounds, Soft, No hepatosplenomegaly, No masses, Other ( RUQ tenderness) Extremities: No clubbing, No cyanosis, No edema, Normal pulses, No tenderness/ swelling Skin: No rashes, No breakdown, No significant lesion Labs LABS EXAM: Chest, single view. HISTORY: Pneumonia. COMPARISON: 05/01/2018 FINDINGS: A frontal view of the chest obtained. There is diffuse lower lobe predominant increased interstitial opacity due to interstitial infiltrate there is no consolidation, pleural effusion or pneumothorax. There is cardiomegaly. IMPRESSION: Diffuse lower lobe predominant interstitial infiltrate. Electronically signed by: Mariza Ching MD (05/01/2018 1:40 PM) [place] [id number] DICTATED and SIGNED BY: MARIZA CHING MD DATE: 05/01/18 1339 Laboratory Tests Test 2/28/19 04:10 Sodium Level 144 mmol/L (136-145) Potassium Level 3.7 mmol/L (3.5-5.1) Chloride Level 108 mmol/L (98-107) Carbon Dioxide Level 24 mmol/L (21-32) Anion Gap 12 (6-14) Blood Urea Nitrogen 23 mg/dL (8-26) Creatinine 1.2 mg/dL (0.7-1.3) Estimated GFR (Cockcroft-Gault) 70.1 Glucose Level 102 mg/dL (70-99) Calcium Level 8.4 mg/dL (8.5-10.1) Phosphorus Level 2.4 mg/dL (2.6-4.7) Magnesium Level 1.8 mg/dL (1.8-2.4) Albumin 1.9 g/dL (3.4-5.0) Assessment and Plan Assessmemt and Plan Problems Medical Problems: (1) Renal insufficiency Status: Acute Comment Review of Relevant I have reviewed the following items pily (where applicable) has been applied. Labs Laboratory Tests Test 05/03/18 06:00 05/04/18 04:10 White Blood Count 9.2 x10^3/uL (4.0-11.0) Red Blood Count 5.11 x10^6/uL (4.30-5.70) Hemoglobin 11.7 g/dL (13.0-17.5) Hematocrit 36.7 % (39.0-53.0) Mean Corpuscular Volume 72 fL (79-100) Mean Corpuscular Hemoglobin 23 pg (25-35) Mean Corpuscular Hemoglobin Concent 32 g/dL (31-37) Red Cell Distribution Width 16.6 % (11.5-14.5) Platelet Count 298 x10^3/uL (140-400) Neutrophils (%) (Auto) 72 % (31-73) Lymphocytes (%) (Auto) 16 % (24-48) Monocytes (%) (Auto) 9 % (0-9) Eosinophils (%) (Auto) 3 % (0-3) Basophils (%) (Auto) 1 % (0-3) Neutrophils # (Auto) 6.5 x10^3uL (1.8-7.7) Lymphocytes # (Auto) 1.4 x10^3/uL (1.0-4.8) Monocytes # (Auto) 0.9 x10^3/uL (0.0-1.1) Eosinophils # (Auto) 0.2 x10^3/uL (0.0-0.7) Basophils # (Auto) 0.1 x10^3/uL (0.0-0.2) Sodium Level 145 mmol/L (136-145) 144 mmol/L (136-145) Potassium Level 3.5 mmol/L (3.5-5.1) 3.7 mmol/L (3.5-5.1) Chloride Level 108 mmol/L (98-107) 108 mmol/L (98-107) Carbon Dioxide Level 22 mmol/L (21-32) 24 mmol/L (21-32) Anion Gap 15 (6-14) 12 (6-14) Blood Urea Nitrogen 25 mg/dL (8-26) 23 mg/dL (8-26) Creatinine 1.2 mg/dL (0.7-1.3) 1.2 mg/dL (0.7-1.3) Estimated GFR (Cockcroft-Gault) 70.1 70.1 BUN/Creatinine Ratio 21 (6-20) Glucose Level 109 mg/dL (70-99) 102 mg/dL (70-99) Calcium Level 8.9 mg/dL (8.5-10.1) 8.4 mg/dL (8.5-10.1) Phosphorus Level 2.5 mg/dL (2.6-4.7) 2.4 mg/dL (2.6-4.7) Magnesium Level 1.9 mg/dL (1.8-2.4) 1.8 mg/dL (1.8-2.4) Total Bilirubin 0.5 mg/dL (0.2-1.0) Aspartate Amino Transf (AST/SGOT) 46 U/L (15-37) Alanine Aminotransferase (ALT/SGPT) 30 U/L (16-63) Alkaline Phosphatase 215 U/L (46-116) Total Protein 6.9 g/dL (6.4-8.2) Albumin 2.1 g/dL (3.4-5.0) 1.9 g/dL (3.4-5.0) Albumin/Globulin Ratio 0.4 (1.0-1.7) Laboratory Tests Test 05/04/18 04:10 Sodium Level 144 mmol/L (136-145) Potassium Level 3.7 mmol/L (3.5-5.1) Chloride Level 108 mmol/L (98-107) Carbon Dioxide Level 24 mmol/L (21-32) Anion Gap 12 (6-14) Blood Urea Nitrogen 23 mg/dL (8-26) Creatinine 1.2 mg/dL (0.7-1.3) Estimated GFR (Cockcroft-Gault) 70.1 Glucose Level 102 mg/dL (70-99) Calcium Level 8.4 mg/dL (8.5-10.1) Phosphorus Level 2.4 mg/dL (2.6-4.7) Magnesium Level 1.8 mg/dL (1.8-2.4) Albumin 1.9 g/dL (3.4-5.0) Microbiology 04/25/18 Blood Culture - Final, Complete NO GROWTH AFTER 5 DAYS Medications Current Medications Sodium Chloride 1,000 ml @ 1,000 mls/hr Q1H IV Last administered on 04/25/18 10:12; Start 04/25/18 at 09:38; Stop 04/25/18 at 10:37; Status DC Ondansetron HCl (Zofran) 4 mg 1X ONCE IV Last administered on 04/25/18 10:11 ; Start 04/25/18 at 09:45; Stop 04/25/18 at 09:46; Status DC Hyoscyamine (Anaspaz) 0.125 mg ONCE ONCE PO Last administered on 04/25/18 10: 12; Start 04/25/18 at 09:45; Stop 04/25/18 at 09:46; Status DC Pantoprazole Sodium (PROTONIX VIAL for IV PUSH) 40 mg 1X ONCE IVP Last administered on 04/25/18 10:23; Start 04/25/18 at 10:15; Stop 04/25/18 at 10:16 ; Status DC Ceftriaxone Sodium (Rocephin) 1 gm 1X ONCE IVP Last administered on 04/25/18 12:23; Start 04/25/18 at 11:45; Stop 04/25/18 at 11:46; Status DC Azithromycin 250 ml @ 250 mls/hr 1X ONCE IV Last administered on 04/25/18 12 :23; Start 04/25/18 at 11:45; Stop 04/25/18 at 12:44; Status DC Ondansetron HCl (Zofran) 4 mg PRN Q8HRS PRN IV NAUSEA/VOMITING; Start 04/25/18 at 11:45; Stop 04/26/18 at 11:44; Status DC Morphine Sulfate (Morphine Sulfate) 2 mg PRN Q2HR PRN IV PAIN Last administered on 04/25/18 12:19; Start 04/25/18 at 11:45; Stop 04/26/18 at 11:44 ; Status DC Sodium Chloride 1,000 ml @ 125 mls/hr Q8H IV Last administered on 04/25/18 16 :34; Start 04/25/18 at 11:36; Stop 04/26/18 at 06:23; Status DC Ringer's Solution 1,000 ml @ 125 mls/hr Q8H IV Last administered on 04/30/18 05:57; Start 04/25/18 at 13:34; Stop 04/30/18 at 09:56; Status DC Ondansetron HCl (Zofran) 4 mg PRN Q6HRS PRN IV NAUSEA/VOMITING; Start 04/25/18 at 13:45 Morphine Sulfate (Morphine Sulfate) 2 mg PRN Q4HRS PRN IV PAIN Last administered on 04/29/18 05:26; Start 04/25/18 at 13:45 Acetaminophen/ Hydrocodone Bitart (Lortab 5/325) 1 tab PRN Q4HRS PRN PO MILD PAIN, 2ND CHOICE Last administered on 05/04/18 00:16; Start 04/25/18 at 13:45 Heparin Sodium (Porcine) (Heparin Sodium) 5,000 unit Q12HR SQ ; Start 04/25/18 at 21:00; Stop 04/26/18 at 17:38; Status DC Pantoprazole Sodium (PROTONIX VIAL for IV PUSH) 40 mg DAILYAC IVP Last administered on 05/04/18 08:43; Start 04/26/18 at 07:30 Saliva Substitute (Biotene Moisturizing Mouth) 2 spray PRN Q15MIN PRN PO DRY MOUTH Last administered on 04/28/18 02:23; Start 04/26/18 at 10:00 Potassium Chloride/Water 100 ml @ 100 mls/hr Q1H IV Last administered on at 14:30; Start 04/26/18 at 11:30; Stop 04/26/18 at 15:29; Status DC Potassium Chloride (Klor-Con) 20 meq DAILYWBKFT PO ; Start 04/27/18 at 08:00; Stop 04/29/18 at 12:20; Status DC Potassium Chloride (Klor-Con) 40 meq 1X ONCE PO ; Start 04/26/18 at 19:00; Stop 04/26/18 at 19:01; Status DC Lidocaine/Sodium Bicarbonate (Buffered Lidocaine 1%) 3 ml STK-MED ONCE .ROUTE ; Start 04/26/18 at 13:46; Stop 04/26/18 at 13:47; Status DC Gelatin (Gelfoam Size 12-7mm) 1 each STK-MED ONCE .ROUTE ; Start 04/26/18 at 13 :46; Stop 04/26/18 at 13:47; Status DC Midazolam HCl (Versed) 2 mg STK-MED ONCE .ROUTE ; Start 04/26/18 at 14:13; Stop 04/26/18 at 14:14; Status DC Fentanyl Citrate (Fentanyl 2ml Vial) 100 mcg STK-MED ONCE .ROUTE ; Start at 14:13; Stop 04/26/18 at 14:14; Status DC Lidocaine/Sodium Bicarbonate (Buffered Lidocaine 1%) 3 ml 1X ONCE INJ Last administered on 04/26/18at 14:44; Start 04/26/18 at 14:45; Stop 04/26/18 at 14:46 ; Status DC Gelatin (Gelfoam Size 12-7mm) 1 each 1X ONCE TP Last administered on at 14:44; Start 04/26/18 at 14:45; Stop 04/26/18 at 14:46; Status DC Azithromycin 250 mg/Sodium Chloride 250 ml @ 250 mls/hr Q24H IV Last administered on 05/03/18at 16:58; Start 04/26/18 at 18:00 Ceftriaxone Sodium (Rocephin) 1 gm Q24H IVP Last administered on 05/03/18at 16: 58; Start 04/26/18 at 17:30 Potassium Chloride/Water 100 ml @ 100 mls/hr Q1H IV Last administered on at 11:10; Start 04/27/18 at 10:00; Stop 04/27/18 at 11:59; Status DC Potassium Chloride/Water 100 ml @ 100 mls/hr Q1H IV Last administered on at 19:14; Start 04/28/18 at 18:00; Stop 04/28/18 at 19:59; Status DC Potassium Chloride (Klor-Con) 40 meq 1X ONCE PO ; Start 04/28/18 at 17:30; Stop 04/28/18 at 17:30; Status DC Potassium Chloride (Klor-Con) 20 meq DAILYWBKFT PO ; Start 04/29/18 at 08:00; Stop 04/29/18 at 08:00; Status DC Heparin Sodium (Porcine) (Heparin Sodium) 5,000 unit Q8HRS SQ Last administered on 05/04/18 05:56; Start 04/28/18 at 22:00 Potassium Chloride/Water 100 ml @ 100 mls/hr Q1H IV Last administered on 21:28; Start 04/28/18 at 20:00; Stop 04/28/18 at 21:59; Status DC Haloperidol Lactate (Haldol Inj) 2.5 mg PRN Q6HRS PRN IVP AGITATION Last administered on 05/04/18 05:52; Start 04/28/18 at 17:00 Magnesium Sulfate 50 ml @ 25 mls/hr PRN DAILY PRN IV for Mag < 1.7 on am labs; Start 04/29/18 at 12:30 Potassium Chloride (Klor-Con) 40 meq BID PO ; Start 04/29/18 at 12:30; Stop at 13:29; Status DC Potassium Chloride (Klor-Con) 20 meq DAILYWBKFT PO Last administered on 08:44; Start 05/01/18 at 08:00 Potassium Chloride/Water 100 ml @ 100 mls/hr Q1H IV Last administered on at 20:29; Start 04/29/18 at 14:00; Stop 04/29/18 at 17:59; Status DC Amino Acids/ Glycerin/ Electrolytes 1,000 ml @ 80 mls/hr [id number] IV Last administered on 2/28/19at 08:41; Start 04/30/18 at 08:15 Olanzapine (ZyPREXA IM) 10 mg 1X ONCE IM Last administered on 04/30/18at 11:51 ; Start 04/30/18 at 11:45; Stop 04/30/18 at 11:46; Status DC Quetiapine Fumarate (SEROquel XR) 50 mg DAILY PO Last administered on at 08:43; Start 05/01/18 at 11:00 Potassium Chloride (Klor-Con) 40 meq 1X ONCE PO ; Start 05/01/18 at 11:15; Stop 05/01/18 at 11:16; Status DC Potassium Chloride (Klor-Con) 20 meq DAILYWBKFT PO ; Start 05/02/18 at 08:00; Stop 05/02/18 at 08:00; Status DC Potassium Chloride/Water 100 ml @ 100 mls/hr Q1H IV Last administered on at 17:14; Start 05/02/18 at 14:00; Stop 05/02/18 at 17:59; Status DC Active Scripts Active Reported Tamsulosin Hcl 0.4 Mg Cap.er.24h 0.4 Mg PO DAILY Potassium Chloride 20 Meq Tablet.er 20 Meq PO DAILY Protonix (Pantoprazole Sodium) 20 Mg Tablet.dr 20 Mg PO DAILY Meclizine Hcl 12.5 Mg Tablet 2 Tab PO TID Losartan Potassium 100 Mg Tablet 100 Mg PO DAILY Albuterol Sulfate Neb Soln (Albuterol Sulfate) 2.5 Mg/3 Ml Vial.neb 1 Vial NEB PRN Q4HRS Ibuprofen 800 Mg Tablet 800 Mg PO TID PRN Furosemide 20 Mg Tablet 1 Tab PO DAILY Finasteride 5 Mg Tablet 1 Tab PO DAILY Doxazosin Mesylate 8 Mg Tablet 1 Tab PO DAILY Allopurinol 300 Mg Tablet 1 Tab PO DAILY Vitals/I & O Vital Sign - Last 24 Hours 05/03/18 05/03/18 05/03/18 05/03/18 10:53 14:52 19:00 20:00 Temp 98.2 97.9 97.7 98.2 97.9 97.7 Pulse 83 79 92 Resp 18 18 20 B/P (MAP) 133/86 (102) 126/78 (94) 130/86 (101) Pulse Ox 100 97 98 O2 Delivery Room Air Room Air Room Air 2/27/19 2/28/19 2/28/19 2/28/19 23:00 00:16 03:00 07:00 Temp 100.2 99.0 97.9 100.2 99.0 97.9 Pulse 82 95 82 Resp 18 18 20 18 B/P (MAP) 139/88 (105) 134/95 (108) 129/84 (99) Pulse Ox 98 99 98 O2 Delivery Room Air Room Air Room Air Room Air Intake and Output 05/03/18 05/03/18 05/04/18 15:00 23:00 07:00 Intake Total 100 ml 1050 ml Balance 100 ml 1050 ml THERESA CLARK MD May 04, 2018 10:39
[2018-05-04 10:53] VITALS: BP 115/94
--- NOTE | 2018-05-04 11:34 | PDOC ---
Renal-Progress Notes Subjective Notes Notes CONFUSED History of Present Illness Hx of present illness NO CHANGE Vitals Vitals Vital Signs Date Time Temp Pulse Resp B/P (MAP) Pulse Ox O2 Delivery O2 Flow Rate FiO2 05/04/18 10:53 98.8 88 16 115/94 (101) 99 Room Air 98.8 Weight Weight [ ] I.O. Intake and Output Intake and Output 05/04/18 06:59 Intake Total 1150 ml Balance 1150 ml Intake Oral 300 ml IV Total 850 ml # Voids 10 # Bowel Movements 8 Labs Labs Laboratory Tests Test 05/04/18 04:10 Sodium Level 144 mmol/L (136-145) Potassium Level 3.7 mmol/L (3.5-5.1) Chloride Level 108 mmol/L (98-107) Carbon Dioxide Level 24 mmol/L (21-32) Anion Gap 12 (6-14) Blood Urea Nitrogen 23 mg/dL (8-26) Creatinine 1.2 mg/dL (0.7-1.3) Estimated GFR (Cockcroft-Gault) 70.1 Glucose Level 102 mg/dL (70-99) Calcium Level 8.4 mg/dL (8.5-10.1) Phosphorus Level 2.4 mg/dL (2.6-4.7) Magnesium Level 1.8 mg/dL (1.8-2.4) Albumin 1.9 g/dL (3.4-5.0) Micro Micro Microbiology 04/25/18 Blood Culture - Final, Complete NO GROWTH AFTER 5 DAYS Review of Systems Constitutional: yes: other (SOME CONFUSION) Physical Exam General Appearance: no apparent distress Skin: warm Respiratory: decreased breath sounds Heart: S1S2, RRR Abdomen: soft, bowel sounds present Genitourinary: bladder flat Extremities: pulses present Assessment Assessment IMP SYLVIE-ESSENTIALLY RESOLVED HYPOKALEMIA-CORRECTED HYPERNATREMIA-STABLE PANCREATITIS METS TO LIVER ?PNEUMONIA PLAN CONT SUPPORTIVE CARE RENAL LABS STABLE WILL SIGN OFF MARQUIS GOMEZ MD May 04, 2018 11:34
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
--- NOTE | 2018-05-04 12:42 | PDOC ---
PROGRESS NOTES Subjective Subjective HPI - f/u of Liver mets ROS - confused Objective Objective Vital Signs Date Time Temp Pulse Resp B/P (MAP) Pulse Ox O2 Delivery O2 Flow Rate FiO2 05/04/18 10:53 98.8 88 16 115/94 (101) 99 Room Air 98.8 Intake and Output 05/04/18 07:00 Intake Total 1150 ml Balance 1150 ml Intake Oral 300 ml IV Total 850 ml # Voids 10 # Bowel Movements 8 Physical Exam General: Alert, No acute distress Neck: No JVD Assessment Assessment Problems Medical Problems: (1) Renal insufficiency Status: Acute IMPRESSION AND PLAN: 1. 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 Primary is unknown, likely origination from small bowel or pancreas per pathology. Further investigation to look for primary would not add much to the treatment plan as his functional status is very poor. His mental status is poor and he is not a candidate for any treatment of his malignancy. He is on one-on-one watch in the hospital and I discussed with the registered nurse. His ECOG performance status at this time is 4 and he is needing help for all his daily activities. Appreciate palliative care help in transitioning to hospice and best supportive care. 2. Pancreatitis. Appreciate Gastroenterology evaluation and management. His lipase was significantly elevated. 3. Altered mental status and confusion. Continue supportive care. 4. Anemia. Hemoglobin 10.8, thought to be due to malignancy. Continue to monitor p.r.n. Comment Review of Relevant I have reviewed the following items pily (where applicable) has been applied. Labs Laboratory Tests Test 05/03/18 06:00 05/04/18 04:10 White Blood Count 9.2 x10^3/uL (4.0-11.0) Red Blood Count 5.11 x10^6/uL (4.30-5.70) Hemoglobin 11.7 g/dL (13.0-17.5) Hematocrit 36.7 % (39.0-53.0) Mean Corpuscular Volume 72 fL (79-100) Mean Corpuscular Hemoglobin 23 pg (25-35) Mean Corpuscular Hemoglobin Concent 32 g/dL (31-37) Red Cell Distribution Width 16.6 % (11.5-14.5) Platelet Count 298 x10^3/uL (140-400) Neutrophils (%) (Auto) 72 % (31-73) Lymphocytes (%) (Auto) 16 % (24-48) Monocytes (%) (Auto) 9 % (0-9) Eosinophils (%) (Auto) 3 % (0-3) Basophils (%) (Auto) 1 % (0-3) Neutrophils # (Auto) 6.5 x10^3uL (1.8-7.7) Lymphocytes # (Auto) 1.4 x10^3/uL (1.0-4.8) Monocytes # (Auto) 0.9 x10^3/uL (0.0-1.1) Eosinophils # (Auto) 0.2 x10^3/uL (0.0-0.7) Basophils # (Auto) 0.1 x10^3/uL (0.0-0.2) Sodium Level 145 mmol/L (136-145) 144 mmol/L (136-145) Potassium Level 3.5 mmol/L (3.5-5.1) 3.7 mmol/L (3.5-5.1) Chloride Level 108 mmol/L (98-107) 108 mmol/L (98-107) Carbon Dioxide Level 22 mmol/L (21-32) 24 mmol/L (21-32) Anion Gap 15 (6-14) 12 (6-14) Blood Urea Nitrogen 25 mg/dL (8-26) 23 mg/dL (8-26) Creatinine 1.2 mg/dL (0.7-1.3) 1.2 mg/dL (0.7-1.3) Estimated GFR (Cockcroft-Gault) 70.1 70.1 BUN/Creatinine Ratio 21 (6-20) Glucose Level 109 mg/dL (70-99) 102 mg/dL (70-99) Calcium Level 8.9 mg/dL (8.5-10.1) 8.4 mg/dL (8.5-10.1) Phosphorus Level 2.5 mg/dL (2.6-4.7) 2.4 mg/dL (2.6-4.7) Magnesium Level 1.9 mg/dL (1.8-2.4) 1.8 mg/dL (1.8-2.4) Total Bilirubin 0.5 mg/dL (0.2-1.0) Aspartate Amino Transf (AST/SGOT) 46 U/L (15-37) Alanine Aminotransferase (ALT/SGPT) 30 U/L (16-63) Alkaline Phosphatase 215 U/L (46-116) Total Protein 6.9 g/dL (6.4-8.2) Albumin 2.1 g/dL (3.4-5.0) 1.9 g/dL (3.4-5.0) Albumin/Globulin Ratio 0.4 (1.0-1.7) Laboratory Tests Test 05/04/18 04:10 Sodium Level 144 mmol/L (136-145) Potassium Level 3.7 mmol/L (3.5-5.1) Chloride Level 108 mmol/L (98-107) Carbon Dioxide Level 24 mmol/L (21-32) Anion Gap 12 (6-14) Blood Urea Nitrogen 23 mg/dL (8-26) Creatinine 1.2 mg/dL (0.7-1.3) Estimated GFR (Cockcroft-Gault) 70.1 Glucose Level 102 mg/dL (70-99) Calcium Level 8.4 mg/dL (8.5-10.1) Phosphorus Level 2.4 mg/dL (2.6-4.7) Magnesium Level 1.8 mg/dL (1.8-2.4) Albumin 1.9 g/dL (3.4-5.0) Microbiology 04/25/18 Blood Culture - Final, Complete NO GROWTH AFTER 5 DAYS Medications Current Medications Sodium Chloride 1,000 ml @ 1,000 mls/hr Q1H IV Last administered on 04/25/18 10:12; Start 04/25/18 at 09:38; Stop 04/25/18 at 10:37; Status DC Ondansetron HCl (Zofran) 4 mg 1X ONCE IV Last administered on 04/25/18 10:11 ; Start 04/25/18 at 09:45; Stop 04/25/18 at 09:46; Status DC Hyoscyamine (Anaspaz) 0.125 mg ONCE ONCE PO Last administered on 04/25/18 10: 12; Start 04/25/18 at 09:45; Stop 04/25/18 at 09:46; Status DC Pantoprazole Sodium (PROTONIX VIAL for IV PUSH) 40 mg 1X ONCE IVP Last administered on 04/25/18 10:23; Start 04/25/18 at 10:15; Stop 04/25/18 at 10:16 ; Status DC Ceftriaxone Sodium (Rocephin) 1 gm 1X ONCE IVP Last administered on 04/25/18 12:23; Start 04/25/18 at 11:45; Stop 04/25/18 at 11:46; Status DC Azithromycin 250 ml @ 250 mls/hr 1X ONCE IV Last administered on 04/25/18 12 :23; Start 04/25/18 at 11:45; Stop 04/25/18 at 12:44; Status DC Ondansetron HCl (Zofran) 4 mg PRN Q8HRS PRN IV NAUSEA/VOMITING; Start 04/25/18 at 11:45; Stop 04/26/18 at 11:44; Status DC Morphine Sulfate (Morphine Sulfate) 2 mg PRN Q2HR PRN IV PAIN Last administered on 04/25/18 12:19; Start 04/25/18 at 11:45; Stop 04/26/18 at 11:44 ; Status DC Sodium Chloride 1,000 ml @ 125 mls/hr Q8H IV Last administered on 04/25/18 16 :34; Start 04/25/18 at 11:36; Stop 04/26/18 at 06:23; Status DC Ringer's Solution 1,000 ml @ 125 mls/hr Q8H IV Last administered on 04/30/18 05:57; Start 04/25/18 at 13:34; Stop 04/30/18 at 09:56; Status DC Ondansetron HCl (Zofran) 4 mg PRN Q6HRS PRN IV NAUSEA/VOMITING; Start 04/25/18 at 13:45 Morphine Sulfate (Morphine Sulfate) 2 mg PRN Q4HRS PRN IV PAIN Last administered on 04/29/18 05:26; Start 04/25/18 at 13:45 Acetaminophen/ Hydrocodone Bitart (Lortab 5/325) 1 tab PRN Q4HRS PRN PO MILD PAIN, 2ND CHOICE Last administered on 05/04/18 00:16; Start 04/25/18 at 13:45 Heparin Sodium (Porcine) (Heparin Sodium) 5,000 unit Q12HR SQ ; Start 04/25/18 at 21:00; Stop 04/26/18 at 17:38; Status DC Pantoprazole Sodium (PROTONIX VIAL for IV PUSH) 40 mg DAILYAC IVP Last administered on 05/04/18at 08:43; Start 04/26/18 at 07:30 Saliva Substitute (Biotene Moisturizing Mouth) 2 spray PRN Q15MIN PRN PO DRY MOUTH Last administered on 04/28/18at 02:23; Start 04/26/18 at 10:00 Potassium Chloride/Water 100 ml @ 100 mls/hr Q1H IV Last administered on at 14:30; Start 04/26/18 at 11:30; Stop 04/26/18 at 15:29; Status DC Potassium Chloride (Klor-Con) 20 meq DAILYWBKFT PO ; Start 04/27/18 at 08:00; Stop 04/29/18 at 12:20; Status DC Potassium Chloride (Klor-Con) 40 meq 1X ONCE PO ; Start 04/26/18 at 19:00; Stop 04/26/18 at 19:01; Status DC Lidocaine/Sodium Bicarbonate (Buffered Lidocaine 1%) 3 ml STK-MED ONCE .ROUTE ; Start 04/26/18 at 13:46; Stop 04/26/18 at 13:47; Status DC Gelatin (Gelfoam Size 12-7mm) 1 each STK-MED ONCE .ROUTE ; Start 04/26/18 at 13 :46; Stop 04/26/18 at 13:47; Status DC Midazolam HCl (Versed) 2 mg STK-MED ONCE .ROUTE ; Start 04/26/18 at 14:13; Stop 04/26/18 at 14:14; Status DC Fentanyl Citrate (Fentanyl 2ml Vial) 100 mcg STK-MED ONCE .ROUTE ; Start at 14:13; Stop 04/26/18 at 14:14; Status DC Lidocaine/Sodium Bicarbonate (Buffered Lidocaine 1%) 3 ml 1X ONCE INJ Last administered on 04/26/18at 14:44; Start 04/26/18 at 14:45; Stop 04/26/18 at 14:46 ; Status DC Gelatin (Gelfoam Size 12-7mm) 1 each 1X ONCE TP Last administered on at 14:44; Start 04/26/18 at 14:45; Stop 04/26/18 at 14:46; Status DC Azithromycin 250 mg/Sodium Chloride 250 ml @ 250 mls/hr Q24H IV Last administered on 05/03/18at 16:58; Start 04/26/18 at 18:00 Ceftriaxone Sodium (Rocephin) 1 gm Q24H IVP Last administered on 05/03/18 16: 58; Start 04/26/18 at 17:30 Potassium Chloride/Water 100 ml @ 100 mls/hr Q1H IV Last administered on at 11:10; Start 04/27/18 at 10:00; Stop 04/27/18 at 11:59; Status DC Potassium Chloride/Water 100 ml @ 100 mls/hr Q1H IV Last administered on at 19:14; Start 04/28/18 at 18:00; Stop 04/28/18 at 19:59; Status DC Potassium Chloride (Klor-Con) 40 meq 1X ONCE PO ; Start 04/28/18 at 17:30; Stop 04/28/18 at 17:30; Status DC Potassium Chloride (Klor-Con) 20 meq DAILYWBKFT PO ; Start 04/29/18 at 08:00; Stop 04/29/18 at 08:00; Status DC Heparin Sodium (Porcine) (Heparin Sodium) 5,000 unit Q8HRS SQ Last administered on 05/04/18at 05:56; Start 04/28/18 at 22:00 Potassium Chloride/Water 100 ml @ 100 mls/hr Q1H IV Last administered on at 21:28; Start 04/28/18 at 20:00; Stop 04/28/18 at 21:59; Status DC Haloperidol Lactate (Haldol Inj) 2.5 mg PRN Q6HRS PRN IVP AGITATION Last administered on 05/04/18 11:58; Start 04/28/18 at 17:00 Magnesium Sulfate 50 ml @ 25 mls/hr PRN DAILY PRN IV for Mag < 1.7 on am labs; Start 04/29/18 at 12:30 Potassium Chloride (Klor-Con) 40 meq BID PO ; Start 04/29/18 at 12:30; Stop at 13:29; Status DC Potassium Chloride (Klor-Con) 20 meq DAILYWBKFT PO Last administered on at 08:44; Start 05/01/18 at 08:00 Potassium Chloride/Water 100 ml @ 100 mls/hr Q1H IV Last administered on at 20:29; Start 04/29/18 at 14:00; Stop 04/29/18 at 17:59; Status DC Amino Acids/ Glycerin/ Electrolytes 1,000 ml @ 80 mls/hr [id number] IV Last administered on 05/04/18at 08:41; Start 04/30/18 at 08:15 Olanzapine (ZyPREXA IM) 10 mg 1X ONCE IM Last administered on 04/30/18at 11:51 ; Start 04/30/18 at 11:45; Stop 04/30/18 at 11:46; Status DC Quetiapine Fumarate (SEROquel XR) 50 mg DAILY PO Last administered on at 08:43; Start 05/01/18 at 11:00 Potassium Chloride (Klor-Con) 40 meq 1X ONCE PO ; Start 05/01/18 at 11:15; Stop 05/01/18 at 11:16; Status DC Potassium Chloride (Klor-Con) 20 meq DAILYWBKFT PO ; Start 05/02/18 at 08:00; Stop 05/02/18 at 08:00; Status DC Potassium Chloride/Water 100 ml @ 100 mls/hr Q1H IV Last administered on at 17:14; Start 05/02/18 at 14:00; Stop 05/02/18 at 17:59; Status DC Active Scripts Active Reported Tamsulosin Hcl 0.4 Mg Cap.er.24h 0.4 Mg PO DAILY Potassium Chloride 20 Meq Tablet.er 20 Meq PO DAILY Protonix (Pantoprazole Sodium) 20 Mg Tablet.dr 20 Mg PO DAILY Meclizine Hcl 12.5 Mg Tablet 2 Tab PO TID Losartan Potassium 100 Mg Tablet 100 Mg PO DAILY Albuterol Sulfate Neb Soln (Albuterol Sulfate) 2.5 Mg/3 Ml Vial.neb 1 Vial NEB PRN Q4HRS Ibuprofen 800 Mg Tablet 800 Mg PO TID PRN Furosemide 20 Mg Tablet 1 Tab PO DAILY Finasteride 5 Mg Tablet 1 Tab PO DAILY Doxazosin Mesylate 8 Mg Tablet 1 Tab PO DAILY Allopurinol 300 Mg Tablet 1 Tab PO DAILY Vitals/I & O Vital Sign - Last 24 Hours 05/03/18 05/03/18 05/03/18 05/03/18 14:52 19:00 20:00 23:00 Temp 97.9 97.7 100.2 97.9 97.7 100.2 Pulse 79 92 82 Resp 18 20 18 B/P (MAP) 126/78 (94) 130/86 (101) 139/88 (105) Pulse Ox 97 98 98 O2 Delivery Room Air Room Air Room Air 05/04/18 05/04/18 05/04/18 05/04/18 00:16 03:00 07:00 10:53 Temp 99.0 97.9 98.8 99.0 97.9 98.8 Pulse 95 82 88 Resp 18 20 18 16 B/P (MAP) 134/95 (108) 129/84 (99) 115/94 (101) Pulse Ox 99 98 99 O2 Delivery Room Air Room Air Room Air Room Air Intake and Output 05/03/18 05/03/18 05/04/18 15:00 23:00 07:00 Intake Total 100 ml 1050 ml Balance 100 ml 1050 ml MANAS PATEL MD May 04, 2018 12:42
--- NOTE | 2018-05-04 12:44 | PDOC2 ---
PALLIATIVE CARE Palliative Care Note Palliative Care Patient more alert today. Oriented to person. Knows he is in the hospital. Remain on 1:1 nursing care. Becomes agitated at times. Does not know why he is in the hospital. Could not verbalize where he lives. Informed (after asking if he wanted to know about his medical condition) that he has cancer--liver bx. Stated "well I need to get my affairs in order" Asked who he would want to help make medical decisions and assist him. He stated he would want Luis Carlos (my sisters boy) to help. He lives in [place], [place]. Continued to refer back to x- and his friend but did not ask that they help with decisions. Barbara CISNEROS following for placement. Will continue to follow as needed. See handwritten notes (computer down at that time) of family meeting in hard chart. 05/03/2018 ROSIE HARRIS May 04, 2018 12:44
[2018-05-04 14:51] VITALS: BP 133/79
--- NOTE | 2018-05-04 15:07 | PDOC ---
G I PROGRESS NOTE Subjective Not interviewed. Objective Others' notes reviewed. Physical Exam No PE. Review of Relevant I have reviewed the following items pily (where applicable) has been applied. Labs Laboratory Tests Test 05/03/18 06:00 05/03/18 14:05 05/04/18 04:10 White Blood Count 9.2 x10^3/uL (4.0-11.0) Red Blood Count 5.11 x10^6/uL (4.30-5.70) Hemoglobin 11.7 g/dL (13.0-17.5) Hematocrit 36.7 % (39.0-53.0) Mean Corpuscular Volume 72 fL (79-100) Mean Corpuscular Hemoglobin 23 pg (25-35) Mean Corpuscular Hemoglobin Concent 32 g/dL (31-37) Red Cell Distribution Width 16.6 % (11.5-14.5) Platelet Count 298 x10^3/uL (140-400) Neutrophils (%) (Auto) 72 % (31-73) Lymphocytes (%) (Auto) 16 % (24-48) Monocytes (%) (Auto) 9 % (0-9) Eosinophils (%) (Auto) 3 % (0-3) Basophils (%) (Auto) 1 % (0-3) Neutrophils # (Auto) 6.5 x10^3uL (1.8-7.7) Lymphocytes # (Auto) 1.4 x10^3/uL (1.0-4.8) Monocytes # (Auto) 0.9 x10^3/uL (0.0-1.1) Eosinophils # (Auto) 0.2 x10^3/uL (0.0-0.7) Basophils # (Auto) 0.1 x10^3/uL (0.0-0.2) Sodium Level 145 mmol/L (136-145) 144 mmol/L (136-145) Potassium Level 3.5 mmol/L (3.5-5.1) 3.7 mmol/L (3.5-5.1) Chloride Level 108 mmol/L (98-107) 108 mmol/L (98-107) Carbon Dioxide Level 22 mmol/L (21-32) 24 mmol/L (21-32) Anion Gap 15 (6-14) 12 (6-14) Blood Urea Nitrogen 25 mg/dL (8-26) 23 mg/dL (8-26) Creatinine 1.2 mg/dL (0.7-1.3) 1.2 mg/dL (0.7-1.3) Estimated GFR (Cockcroft-Gault) 70.1 70.1 BUN/Creatinine Ratio 21 (6-20) Glucose Level 109 mg/dL (70-99) 102 mg/dL (70-99) Calcium Level 8.9 mg/dL (8.5-10.1) 8.4 mg/dL (8.5-10.1) Phosphorus Level 2.5 mg/dL (2.6-4.7) 2.4 mg/dL (2.6-4.7) Magnesium Level 1.9 mg/dL (1.8-2.4) 1.8 mg/dL (1.8-2.4) Total Bilirubin 0.5 mg/dL (0.2-1.0) Aspartate Amino Transf (AST/SGOT) 46 U/L (15-37) Alanine Aminotransferase (ALT/SGPT) 30 U/L (16-63) Alkaline Phosphatase 215 U/L (46-116) Total Protein 6.9 g/dL (6.4-8.2) Albumin 2.1 g/dL (3.4-5.0) 1.9 g/dL (3.4-5.0) Albumin/Globulin Ratio 0.4 (1.0-1.7) Clostridium difficile Toxin B Gene Negative (Negative) Laboratory Tests Test 05/04/18 04:10 Sodium Level 144 mmol/L (136-145) Potassium Level 3.7 mmol/L (3.5-5.1) Chloride Level 108 mmol/L (98-107) Carbon Dioxide Level 24 mmol/L (21-32) Anion Gap 12 (6-14) Blood Urea Nitrogen 23 mg/dL (8-26) Creatinine 1.2 mg/dL (0.7-1.3) Estimated GFR (Cockcroft-Gault) 70.1 Glucose Level 102 mg/dL (70-99) Calcium Level 8.4 mg/dL (8.5-10.1) Phosphorus Level 2.4 mg/dL (2.6-4.7) Magnesium Level 1.8 mg/dL (1.8-2.4) Albumin 1.9 g/dL (3.4-5.0) Microbiology 04/25/18 Blood Culture - Final, Complete NO GROWTH AFTER 5 DAYS Vitals/I & O Vital Sign - Last 24 Hours 05/03/18 05/03/18 05/03/18 05/04/18 19:00 20:00 23:00 00:16 Temp 97.7 100.2 97.7 100.2 Pulse 92 82 Resp 20 18 18 B/P (MAP) 130/86 (101) 139/88 (105) Pulse Ox 98 98 O2 Delivery Room Air Room Air Room Air 05/04/18 05/04/18 05/04/18 05/04/18 03:00 07:00 10:53 14:51 Temp 99.0 97.9 98.8 98.6 99.0 97.9 98.8 98.6 Pulse 95 82 88 88 Resp 20 18 16 18 B/P (MAP) 134/95 (108) 129/84 (99) 115/94 (101) 133/79 (97) Pulse Ox 99 98 99 98 O2 Delivery Room Air Room Air Room Air Room Air Intake and Output 05/03/18 05/03/18 05/04/18 15:00 23:00 07:00 Intake Total 100 ml 1050 ml Balance 100 ml 1050 ml Problem List Problems Medical Problems: (1) Renal insufficiency Status: Acute Assessment Metastatic NE tumor; not treatment candidate for many reasons. Plan of Care Note Hospice? Note transfer being investigated. Will sign off. Thanks. PATEL COLLIER MD May 04, 2018 15:07
--- NOTE | 2018-05-04 15:41 | NUR ---
SW following. Discussed with RN. AMELIA contacted [facility] to determine if they would be able to assist with this patient and the transition to Hospice. AMELIA advised of pt's statements to Nan Ledezma about wanting his nephew to help with the discharge planning. [facility] requested the referral to look over and advised they would call pt's nephew Luis Carlos to possibly assist with the process of determining pt's finances. AMELIA faxed referral. AMELIA will continue to follow. RN notified.
[2018-05-04] MEDS ORDERED: HALOPERIDOL 2 MG TABLET. PO SCH (16:00)
[2018-05-04] MEDS: HALOPERIDOL 2 MG/ML ORAL.CONC. PO SCH ×2 (16:30→17:25)
[2018-05-04] MEDS: cefTRIAXone IV Push 1 GM VIAL. IVP SCH (17:31)
[2018-05-04] MEDS: AZITHROMYCIN 250 MG in IV NORMAL SALINE 250ML 250 ML IV SCH (17:31)
[2018-05-04 19:00] VITALS: BP 140/86
[2018-05-04 23:00] VITALS: BP 141/88
[2018-05-05] MEDS: AMINO AC 3%/ELECTROLYTE/GLYCER 1,000 ML IV SCH ×2 (00:45→18:12)
[2018-05-05 03:00] VITALS: BP 142/88
[2018-05-05] MEDS: HALOPERIDOL 2 MG/ML ORAL.CONC. PO SCH ×4 (06:00→18:14)
[2018-05-05] MEDS: HEPARIN for SUB-Q USE 5,000 UNIT/ML VIAL. SQ SCH ×2 (06:00→18:12)
[2018-05-05 07:00] VITALS: BP 156/99
[2018-05-05] MEDS: PANTOPRAZOLE IV PUSH 40 MG VIAL. IVP SCH (07:30)
[2018-05-05] MEDS: POTASSIUM CHLORIDE 20 MEQ TABLET.ER. PO SCH (08:00)
--- NOTE | 2018-05-05 08:31 | PDOC ---
PROGRESS NOTES Subjective Subjective HPI - f/u of Liver mets ROS - confused, alert Objective Objective Vital Signs Date Time Temp Pulse Resp B/P (MAP) Pulse Ox O2 Delivery O2 Flow Rate FiO2 05/05/18 07:00 98.1 99 20 156/99 (118) 99 Room Air 98.1 Intake and Output 05/05/18 07:00 Intake Total 450 ml Output Total 200 ml Balance 250 ml Intake Oral 450 ml Output Urine Total 200 ml # Voids 9 # Bowel Movements 4 Physical Exam General: Alert, No acute distress Neck: No JVD Assessment Assessment Problems Medical Problems: (1) Renal insufficiency Status: Acute IMPRESSION AND PLAN: 1. 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 Primary is unknown, likely originating from small bowel or pancreas per pathology. Ki-67 is 10% consistent with intermediate grade, I d/w Dr Peck. Further investigation to look for primary would not add much to the management plan as his functional status is very poor. His mental status is poor and he is not a candidate for any treatment for his malignancy. He is on one-on-one watch in the hospital and I discussed with the registered nurse. His ECOG performance status at this time is 4 and he is needing help for all his daily activities. Appreciate palliative care help in transitioning to hospice and best supportive care. 2. Pancreatitis. Appreciate Gastroenterology evaluation and management. His lipase was significantly elevated. 3. Altered mental status and confusion. Continue supportive care. 4. Anemia. Hemoglobin 11.7, thought to be due to malignancy. Continue to monitor p.r.n. Comment Review of Relevant I have reviewed the following items pily (where applicable) has been applied. Labs Laboratory Tests Test 05/03/18 14:05 05/04/18 04:10 Clostridium difficile Toxin B Gene Negative (Negative) Sodium Level 144 mmol/L (136-145) Potassium Level 3.7 mmol/L (3.5-5.1) Chloride Level 108 mmol/L (98-107) Carbon Dioxide Level 24 mmol/L (21-32) Anion Gap 12 (6-14) Blood Urea Nitrogen 23 mg/dL (8-26) Creatinine 1.2 mg/dL (0.7-1.3) Estimated GFR (Cockcroft-Gault) 70.1 Glucose Level 102 mg/dL (70-99) Calcium Level 8.4 mg/dL (8.5-10.1) Phosphorus Level 2.4 mg/dL (2.6-4.7) Magnesium Level 1.8 mg/dL (1.8-2.4) Albumin 1.9 g/dL (3.4-5.0) Microbiology 04/25/18 Blood Culture - Final, Complete NO GROWTH AFTER 5 DAYS Medications Current Medications Sodium Chloride 1,000 ml @ 1,000 mls/hr Q1H IV Last administered on 04/25/18 10:12; Start 04/25/18 at 09:38; Stop 04/25/18 at 10:37; Status DC Ondansetron HCl (Zofran) 4 mg 1X ONCE IV Last administered on 04/25/18 10:11 ; Start 04/25/18 at 09:45; Stop 04/25/18 at 09:46; Status DC Hyoscyamine (Anaspaz) 0.125 mg ONCE ONCE PO Last administered on 04/25/18 10: 12; Start 04/25/18 at 09:45; Stop 04/25/18 at 09:46; Status DC Pantoprazole Sodium (PROTONIX VIAL for IV PUSH) 40 mg 1X ONCE IVP Last administered on 04/25/18 10:23; Start 04/25/18 at 10:15; Stop 04/25/18 at 10:16 ; Status DC Ceftriaxone Sodium (Rocephin) 1 gm 1X ONCE IVP Last administered on 04/25/18 12:23; Start 04/25/18 at 11:45; Stop 04/25/18 at 11:46; Status DC Azithromycin 250 ml @ 250 mls/hr 1X ONCE IV Last administered on 04/25/18 12 :23; Start 04/25/18 at 11:45; Stop 04/25/18 at 12:44; Status DC Ondansetron HCl (Zofran) 4 mg PRN Q8HRS PRN IV NAUSEA/VOMITING; Start 04/25/18 at 11:45; Stop 04/26/18 at 11:44; Status DC Morphine Sulfate (Morphine Sulfate) 2 mg PRN Q2HR PRN IV PAIN Last administered on 04/25/18 12:19; Start 04/25/18 at 11:45; Stop 04/26/18 at 11:44 ; Status DC Sodium Chloride 1,000 ml @ 125 mls/hr Q8H IV Last administered on 04/25/18 16 :34; Start 04/25/18 at 11:36; Stop 04/26/18 at 06:23; Status DC Ringer's Solution 1,000 ml @ 125 mls/hr Q8H IV Last administered on 04/30/18 05:57; Start 04/25/18 at 13:34; Stop 04/30/18 at 09:56; Status DC Ondansetron HCl (Zofran) 4 mg PRN Q6HRS PRN IV NAUSEA/VOMITING; Start 04/25/18 at 13:45 Morphine Sulfate (Morphine Sulfate) 2 mg PRN Q4HRS PRN IV PAIN Last administered on 04/29/18 05:26; Start 04/25/18 at 13:45 Acetaminophen/ Hydrocodone Bitart (Lortab 5/325) 1 tab PRN Q4HRS PRN PO MILD PAIN, 2ND CHOICE Last administered on 05/04/18 00:16; Start 04/25/18 at 13:45 Heparin Sodium (Porcine) (Heparin Sodium) 5,000 unit Q12HR SQ ; Start 04/25/18 at 21:00; Stop 04/26/18 at 17:38; Status DC Pantoprazole Sodium (PROTONIX VIAL for IV PUSH) 40 mg DAILYAC IVP Last administered on 05/04/18at 08:43; Start 04/26/18 at 07:30 Saliva Substitute (Biotene Moisturizing Mouth) 2 spray PRN Q15MIN PRN PO DRY MOUTH Last administered on 04/28/18at 02:23; Start 04/26/18 at 10:00 Potassium Chloride/Water 100 ml @ 100 mls/hr Q1H IV Last administered on at 14:30; Start 04/26/18 at 11:30; Stop 04/26/18 at 15:29; Status DC Potassium Chloride (Klor-Con) 20 meq DAILYWBKFT PO ; Start 04/27/18 at 08:00; Stop 04/29/18 at 12:20; Status DC Potassium Chloride (Klor-Con) 40 meq 1X ONCE PO ; Start 04/26/18 at 19:00; Stop 04/26/18 at 19:01; Status DC Lidocaine/Sodium Bicarbonate (Buffered Lidocaine 1%) 3 ml STK-MED ONCE .ROUTE ; Start 04/26/18 at 13:46; Stop 04/26/18 at 13:47; Status DC Gelatin (Gelfoam Size 12-7mm) 1 each STK-MED ONCE .ROUTE ; Start 04/26/18 at 13 :46; Stop 04/26/18 at 13:47; Status DC Midazolam HCl (Versed) 2 mg STK-MED ONCE .ROUTE ; Start 04/26/18 at 14:13; Stop 04/26/18 at 14:14; Status DC Fentanyl Citrate (Fentanyl 2ml Vial) 100 mcg STK-MED ONCE .ROUTE ; Start at 14:13; Stop 04/26/18 at 14:14; Status DC Lidocaine/Sodium Bicarbonate (Buffered Lidocaine 1%) 3 ml 1X ONCE INJ Last administered on 04/26/18at 14:44; Start 04/26/18 at 14:45; Stop 04/26/18 at 14:46 ; Status DC Gelatin (Gelfoam Size 12-7mm) 1 each 1X ONCE TP Last administered on at 14:44; Start 04/26/18 at 14:45; Stop 04/26/18 at 14:46; Status DC Azithromycin 250 mg/Sodium Chloride 250 ml @ 250 mls/hr Q24H IV Last administered on 05/04/18at 17:31; Start 04/26/18 at 18:00 Ceftriaxone Sodium (Rocephin) 1 gm Q24H IVP Last administered on 05/04/18at 17: 31; Start 04/26/18 at 17:30 Potassium Chloride/Water 100 ml @ 100 mls/hr Q1H IV Last administered on at 11:10; Start 04/27/18 at 10:00; Stop 04/27/18 at 11:59; Status DC Potassium Chloride/Water 100 ml @ 100 mls/hr Q1H IV Last administered on at 19:14; Start 04/28/18 at 18:00; Stop 04/28/18 at 19:59; Status DC Potassium Chloride (Klor-Con) 40 meq 1X ONCE PO ; Start 04/28/18 at 17:30; Stop 04/28/18 at 17:30; Status DC Potassium Chloride (Klor-Con) 20 meq DAILYWBKFT PO ; Start 04/29/18 at 08:00; Stop 04/29/18 at 08:00; Status DC Heparin Sodium (Porcine) (Heparin Sodium) 5,000 unit Q8HRS SQ Last administered on 05/04/18at 05:56; Start 04/28/18 at 22:00 Potassium Chloride/Water 100 ml @ 100 mls/hr Q1H IV Last administered on at 21:28; Start 04/28/18 at 20:00; Stop 04/28/18 at 21:59; Status DC Haloperidol Lactate (Haldol Inj) 2.5 mg PRN Q6HRS PRN IVP AGITATION Last administered on 05/04/18at 11:58; Start 04/28/18 at 17:00 Magnesium Sulfate 50 ml @ 25 mls/hr PRN DAILY PRN IV for Mag < 1.7 on am labs; Start 04/29/18 at 12:30 Potassium Chloride (Klor-Con) 40 meq BID PO ; Start 04/29/18 at 12:30; Stop at 13:29; Status DC Potassium Chloride (Klor-Con) 20 meq DAILYWBKFT PO Last administered on at 08:44; Start 05/01/18 at 08:00 Potassium Chloride/Water 100 ml @ 100 mls/hr Q1H IV Last administered on at 20:29; Start 04/29/18 at 14:00; Stop 04/29/18 at 17:59; Status DC Amino Acids/ Glycerin/ Electrolytes 1,000 ml @ 80 mls/hr [id number] IV Last administered on 05/05/18at 00:45; Start 04/30/18 at 08:15 Olanzapine (ZyPREXA IM) 10 mg 1X ONCE IM Last administered on 04/30/18at 11:51 ; Start 04/30/18 at 11:45; Stop 04/30/18 at 11:46; Status DC Quetiapine Fumarate (SEROquel XR) 50 mg DAILY PO Last administered on 08:43; Start 05/01/18 at 11:00 Potassium Chloride (Klor-Con) 40 meq 1X ONCE PO ; Start 05/01/18 at 11:15; Stop 05/01/18 at 11:16; Status DC Potassium Chloride (Klor-Con) 20 meq DAILYWBKFT PO ; Start 05/02/18 at 08:00; Stop 05/02/18 at 08:00; Status DC Potassium Chloride/Water 100 ml @ 100 mls/hr Q1H IV Last administered on at 17:14; Start 05/02/18 at 14:00; Stop 05/02/18 at 17:59; Status DC Haloperidol (Haldol) 1 mg Q6HRS PO ; Start 05/04/18 at 16:00; Stop 05/04/18 at 16:00; Status DC Haloperidol Lactate (HALDOL 2mg ORAL CONC) 1 mg Q6HRS PO ; Start 05/04/18 at 16: 30 Active Scripts Active Reported Tamsulosin Hcl 0.4 Mg Cap.er.24h 0.4 Mg PO DAILY Potassium Chloride 20 Meq Tablet.er 20 Meq PO DAILY Protonix (Pantoprazole Sodium) 20 Mg Tablet.dr 20 Mg PO DAILY Meclizine Hcl 12.5 Mg Tablet 2 Tab PO TID Losartan Potassium 100 Mg Tablet 100 Mg PO DAILY Albuterol Sulfate Neb Soln (Albuterol Sulfate) 2.5 Mg/3 Ml Vial.neb 1 Vial NEB PRN Q4HRS Ibuprofen 800 Mg Tablet 800 Mg PO TID PRN Furosemide 20 Mg Tablet 1 Tab PO DAILY Finasteride 5 Mg Tablet 1 Tab PO DAILY Doxazosin Mesylate 8 Mg Tablet 1 Tab PO DAILY Allopurinol 300 Mg Tablet 1 Tab PO DAILY Vitals/I & O Vital Sign - Last 24 Hours 05/04/18 05/04/18 05/04/18 05/04/18 10:53 14:51 19:00 20:00 Temp 98.8 98.6 98.1 98.8 98.6 98.1 Pulse 88 88 92 Resp 16 18 18 B/P (MAP) 115/94 (101) 133/79 (97) 140/86 (104) Pulse Ox 99 98 98 O2 Delivery Room Air Room Air Room Air Room Air 05/04/18 05/05/18 05/05/18 23:00 03:00 07:00 Temp 98.4 98.6 98.1 98.4 98.6 98.1 Pulse 89 87 99 Resp 20 20 20 B/P (MAP) 141/88 (105) 142/88 (106) 156/99 (118) Pulse Ox 97 96 99 O2 Delivery Room Air Room Air Room Air Intake and Output 05/04/18 05/04/18 05/05/18 15:00 23:00 07:00 Intake Total 200 ml 50 ml 200 ml Output Total 200 ml Balance 0 ml 50 ml 200 ml MANAS PATEL MD May 05, 2018 08:31
[2018-05-05] MEDS: QUEtiapine 50 MG TAB.ER.24H. PO SCH (08:59)
--- NOTE | 2018-05-05 09:24 | PDOC ---
PULMONARY PROGRESS NOTES Subjective PT AWAKE NOT VERY RESPONSIVE Vitals Vital Signs Date Time Temp Pulse Resp B/P (MAP) Pulse Ox O2 Delivery O2 Flow Rate FiO2 05/05/18 07:00 98.1 99 20 156/99 (118) 99 Room Air 98.1 ROS: No Nausea Lungs: Clear Cardiovascular: S1, S2 Abdomen: Soft Neuro Exam: Alert Extremities: No Edema Labs Laboratory Tests Test 05/03/18 14:05 05/04/18 04:10 Clostridium difficile Toxin B Gene Negative (Negative) Sodium Level 144 mmol/L (136-145) Potassium Level 3.7 mmol/L (3.5-5.1) Chloride Level 108 mmol/L (98-107) Carbon Dioxide Level 24 mmol/L (21-32) Anion Gap 12 (6-14) Blood Urea Nitrogen 23 mg/dL (8-26) Creatinine 1.2 mg/dL (0.7-1.3) Estimated GFR (Cockcroft-Gault) 70.1 Glucose Level 102 mg/dL (70-99) Calcium Level 8.4 mg/dL (8.5-10.1) Phosphorus Level 2.4 mg/dL (2.6-4.7) Magnesium Level 1.8 mg/dL (1.8-2.4) Albumin 1.9 g/dL (3.4-5.0) Medications Active Scripts Medications Dose Route/Sig Max Daily Dose Days Date Category Tamsulosin Hcl 0.4 Mg Cap.er.24h 0.4 Mg PO DAILY 04/26/18 Reported Potassium Chloride 20 Meq Tablet.er 20 Meq PO DAILY 04/26/18 Reported Protonix (Pantoprazole Sodium) 20 Mg Tablet.dr 20 Mg PO DAILY 04/26/18 Reported Meclizine Hcl 12.5 Mg Tablet 2 Tab PO TID 04/26/18 Reported Losartan Potassium 100 Mg Tablet 100 Mg PO DAILY 04/26/18 Reported Albuterol Sulfate Neb Soln (Albuterol Sulfate) 2.5 Mg/3 Ml Vial.neb 1 Vial NEB PRN Q4HRS 04/26/18 Reported Ibuprofen 800 Mg Tablet 800 Mg PO TID PRN 04/26/18 Reported Furosemide 20 Mg Tablet 1 Tab PO DAILY 04/26/18 Reported Finasteride 5 Mg Tablet 1 Tab PO DAILY 04/26/18 Reported Doxazosin Mesylate 8 Mg Tablet 1 Tab PO DAILY 04/26/18 Reported Allopurinol 300 Mg Tablet 1 Tab PO DAILY 04/26/18 Reported Impression . 1. PNEUMONIA LLL 2. Abnormal CT abdomen and pelvis with multiple densities seen in the liver, largest being 4.5 cm. 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 3. No significant history of tobacco use. 4. Acute kidney injury, present on admission, improving. 5. Acute pancreatitis. 6. Metabolic encephalopathy related to uremia with mild improvement. 7. ACUTE BRONCHIECTASIS 8. [address] REPORT IMPRESSION: There is an increase in left lower lobe consolidation of the basal segments around the previously seen round area of infiltrate noted on April 25, [address] study. There is stable ill-defined nodular interstitial lung infiltrates of the right lower lobe. There is less prominent interstitial nodular lung infiltrate within the inferior aspect of the right middle lobe. Bilateral lower lobe bronchiectasis and right middle lobe bronchiectasis and left upper lobe bronchiectasis is evident. Noncalcified 9 mm lung nodule within the posterior segment of the right upper lobe. An early metastatic lung nodule is possible. New finding of small bilateral pleural effusions. Calcified atheromatous disease of the coronary arteries. Heart size at the upper limits of normal. No thoracic lymphadenopathy. Plan . PLACEMENT IS AN ISSUE SEE CT CHEST REPORT ANTIBX DVT PROPH FOLLOW ONCO RECOMMENDATION PROGNOSIS IS POOR DR PATEL'S RECOMMENDATION I reviewed case at tumor conference today. 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 This is not high grade and hence prognosis is better but still incurable. I would recommend supportive care only. ENRIQUE NICOLE MD May 05, 2018 09:24
[2018-05-05 10:02] LABS: CALCIUM 8.4 mg/dL (8.5-10.1); CREATININE 1.2 mg/dL (0.7-1.3); GFR 70.1; PHOSPHORUS 2.3 mg/dL (2.6-4.7); POTASSIUM 3.7 mmol/L (3.5-5.1)
[2018-05-05 11:00] VITALS: BP 134/88
[2018-05-05] MEDS: HALOPERIDOL LACTATE 5 MG/ML VIAL. IVP PRN (11:09)
--- NOTE | 2018-05-05 11:56 | PDOC ---
PROGRESS NOTES Chief Complaint Chief Complaint Acute pancreatitis - with Abdominal pain, , consult GI. Still has GB, triglycerides normal, not on a thiazide that he knows of and he doesn't recall if he has been losing weight. Concerning liver masses on CT could be metastatic disease, he does not recall his last colonoscopy during my interview. Pain control with morphine Acute metabolic encephalopathy - uremia, delirium Hypokalemia - 3.1, will monitor. Replace IVF SYLVIE - vasomotor with possible ATN, appears dry and Cr and BUN elevated. Unknown baseline. Liver masses - metastatic disease. Contrast contraindicated based on his renal function. consult GI. NEED [place] medical records. RBC microcytosis - POor PO Enceph, metabolic AGITATION, CONTINUES no sitter 05/05 His mental status is poor and he is not a candidate for any treatment of his malignancy. palliative care discussed with PAT 05/05 placement pending History of Present Illness History of Present Illness NEPHEW AGREES WITH HOSPICE PLAN Sitter at bedside unpredictable with behavior Refusing by mouth pills and to eat ProcalAmine running Potassium REPLACED Palliative and drug abuse social worker trying to reach family Patient not cooperative with me Plan Continue Procalamine KCl 20 Appreciate palliative and social work Continue sitter Can be off telemetry, FOCUS ON COMFORT MEASURES Vitals Vitals Vital Signs Date Time Temp Pulse Resp B/P (MAP) Pulse Ox O2 Delivery O2 Flow Rate FiO2 05/05/18 11:00 98.0 98 20 134/88 (103) 98 Room Air 98.0 Physical Exam General: Alert, Cooperative, No acute distress Heart: Regular rate, Normal S1 Lungs: Clear Abdomen: Normal bowel sounds, Soft, No tenderness, No hepatosplenomegaly, No masses, Other (RUQ tenderness) Extremities: No clubbing, No cyanosis, No edema, Normal pulses, No tenderness/ swelling Skin: No rashes, No breakdown, No significant lesion Labs LABS Laboratory Tests Test 05/05/18 09:20 Sodium Level 144 mmol/L (136-145) Potassium Level 3.7 mmol/L (3.5-5.1) Chloride Level 107 mmol/L (98-107) Carbon Dioxide Level 22 mmol/L (21-32) Anion Gap 15 (6-14) Blood Urea Nitrogen 22 mg/dL (8-26) Creatinine 1.2 mg/dL (0.7-1.3) Estimated GFR (Cockcroft-Gault) 70.1 Glucose Level 111 mg/dL (70-99) Calcium Level 8.4 mg/dL (8.5-10.1) Phosphorus Level 2.3 mg/dL (2.6-4.7) Albumin 2.0 g/dL (3.4-5.0) Assessment and Plan Assessmemt and Plan Problems Medical Problems: (1) Renal insufficiency Status: Acute Comment Review of Relevant I have reviewed the following items pily (where applicable) has been applied. Labs Laboratory Tests Test 05/03/18 14:05 05/04/18 04:10 05/05/18 09:20 Clostridium difficile Toxin B Gene Negative (Negative) Sodium Level 144 mmol/L (136-145) 144 mmol/L (136-145) Potassium Level 3.7 mmol/L (3.5-5.1) 3.7 mmol/L (3.5-5.1) Chloride Level 108 mmol/L (98-107) 107 mmol/L (98-107) Carbon Dioxide Level 24 mmol/L (21-32) 22 mmol/L (21-32) Anion Gap 12 (6-14) 15 (6-14) Blood Urea Nitrogen 23 mg/dL (8-26) 22 mg/dL (8-26) Creatinine 1.2 mg/dL (0.7-1.3) 1.2 mg/dL (0.7-1.3) Estimated GFR (Cockcroft-Gault) 70.1 70.1 Glucose Level 102 mg/dL (70-99) 111 mg/dL (70-99) Calcium Level 8.4 mg/dL (8.5-10.1) 8.4 mg/dL (8.5-10.1) Phosphorus Level 2.4 mg/dL (2.6-4.7) 2.3 mg/dL (2.6-4.7) Magnesium Level 1.8 mg/dL (1.8-2.4) Albumin 1.9 g/dL (3.4-5.0) 2.0 g/dL (3.4-5.0) Laboratory Tests Test 05/05/18 09:20 Sodium Level 144 mmol/L (136-145) Potassium Level 3.7 mmol/L (3.5-5.1) Chloride Level 107 mmol/L (98-107) Carbon Dioxide Level 22 mmol/L (21-32) Anion Gap 15 (6-14) Blood Urea Nitrogen 22 mg/dL (8-26) Creatinine 1.2 mg/dL (0.7-1.3) Estimated GFR (Cockcroft-Gault) 70.1 Glucose Level 111 mg/dL (70-99) Calcium Level 8.4 mg/dL (8.5-10.1) Phosphorus Level 2.3 mg/dL (2.6-4.7) Albumin 2.0 g/dL (3.4-5.0) Microbiology 04/25/18 Blood Culture - Final, Complete NO GROWTH AFTER 5 DAYS Medications Current Medications Sodium Chloride 1,000 ml @ 1,000 mls/hr Q1H IV Last administered on 04/25/18 10:12; Start 04/25/18 at 09:38; Stop 04/25/18 at 10:37; Status DC Ondansetron HCl (Zofran) 4 mg 1X ONCE IV Last administered on 04/25/18 10:11 ; Start 04/25/18 at 09:45; Stop 04/25/18 at 09:46; Status DC Hyoscyamine (Anaspaz) 0.125 mg ONCE ONCE PO Last administered on 04/25/18 10: 12; Start 04/25/18 at 09:45; Stop 04/25/18 at 09:46; Status DC Pantoprazole Sodium (PROTONIX VIAL for IV PUSH) 40 mg 1X ONCE IVP Last administered on 04/25/18 10:23; Start 04/25/18 at 10:15; Stop 04/25/18 at 10:16 ; Status DC Ceftriaxone Sodium (Rocephin) 1 gm 1X ONCE IVP Last administered on 04/25/18 12:23; Start 04/25/18 at 11:45; Stop 04/25/18 at 11:46; Status DC Azithromycin 250 ml @ 250 mls/hr 1X ONCE IV Last administered on 04/25/18 12 :23; Start 04/25/18 at 11:45; Stop 04/25/18 at 12:44; Status DC Ondansetron HCl (Zofran) 4 mg PRN Q8HRS PRN IV NAUSEA/VOMITING; Start 04/25/18 at 11:45; Stop 04/26/18 at 11:44; Status DC Morphine Sulfate (Morphine Sulfate) 2 mg PRN Q2HR PRN IV PAIN Last administered on 04/25/18 12:19; Start 04/25/18 at 11:45; Stop 04/26/18 at 11:44 ; Status DC Sodium Chloride 1,000 ml @ 125 mls/hr Q8H IV Last administered on 04/25/18 16 :34; Start 04/25/18 at 11:36; Stop 04/26/18 at 06:23; Status DC Ringer's Solution 1,000 ml @ 125 mls/hr Q8H IV Last administered on 04/30/18 05:57; Start 04/25/18 at 13:34; Stop 04/30/18 at 09:56; Status DC Ondansetron HCl (Zofran) 4 mg PRN Q6HRS PRN IV NAUSEA/VOMITING; Start 04/25/18 at 13:45 Morphine Sulfate (Morphine Sulfate) 2 mg PRN Q4HRS PRN IV PAIN Last administered on 04/29/18 05:26; Start 04/25/18 at 13:45 Acetaminophen/ Hydrocodone Bitart (Lortab 5/325) 1 tab PRN Q4HRS PRN PO MILD PAIN, 2ND CHOICE Last administered on 05/04/18 00:16; Start 04/25/18 at 13:45 Heparin Sodium (Porcine) (Heparin Sodium) 5,000 unit Q12HR SQ ; Start 04/25/18 at 21:00; Stop 04/26/18 at 17:38; Status DC Pantoprazole Sodium (PROTONIX VIAL for IV PUSH) 40 mg DAILYAC IVP Last administered on 05/05/18 07:30; Start 04/26/18 at 07:30 Saliva Substitute (Biotene Moisturizing Mouth) 2 spray PRN Q15MIN PRN PO DRY MOUTH Last administered on 04/28/18 02:23; Start 04/26/18 at 10:00 Potassium Chloride/Water 100 ml @ 100 mls/hr Q1H IV Last administered on 14:30; Start 04/26/18 at 11:30; Stop 04/26/18 at 15:29; Status DC Potassium Chloride (Klor-Con) 20 meq DAILYWBKFT PO ; Start 04/27/18 at 08:00; Stop 04/29/18 at 12:20; Status DC Potassium Chloride (Klor-Con) 40 meq 1X ONCE PO ; Start 04/26/18 at 19:00; Stop 04/26/18 at 19:01; Status DC Lidocaine/Sodium Bicarbonate (Buffered Lidocaine 1%) 3 ml STK-MED ONCE .ROUTE ; Start 04/26/18 at 13:46; Stop 04/26/18 at 13:47; Status DC Gelatin (Gelfoam Size 12-7mm) 1 each STK-MED ONCE .ROUTE ; Start 04/26/18 at 13 :46; Stop 04/26/18 at 13:47; Status DC Midazolam HCl (Versed) 2 mg STK-MED ONCE .ROUTE ; Start 04/26/18 at 14:13; Stop 04/26/18 at 14:14; Status DC Fentanyl Citrate (Fentanyl 2ml Vial) 100 mcg STK-MED ONCE .ROUTE ; Start at 14:13; Stop 04/26/18 at 14:14; Status DC Lidocaine/Sodium Bicarbonate (Buffered Lidocaine 1%) 3 ml 1X ONCE INJ Last administered on 04/26/18at 14:44; Start 04/26/18 at 14:45; Stop 04/26/18 at 14:46 ; Status DC Gelatin (Gelfoam Size 12-7mm) 1 each 1X ONCE TP Last administered on at 14:44; Start 04/26/18 at 14:45; Stop 04/26/18 at 14:46; Status DC Azithromycin 250 mg/Sodium Chloride 250 ml @ 250 mls/hr Q24H IV Last administered on 05/04/18at 17:31; Start 04/26/18 at 18:00 Ceftriaxone Sodium (Rocephin) 1 gm Q24H IVP Last administered on 05/04/18at 17: 31; Start 04/26/18 at 17:30 Potassium Chloride/Water 100 ml @ 100 mls/hr Q1H IV Last administered on at 11:10; Start 04/27/18 at 10:00; Stop 04/27/18 at 11:59; Status DC Potassium Chloride/Water 100 ml @ 100 mls/hr Q1H IV Last administered on at 19:14; Start 04/28/18 at 18:00; Stop 04/28/18 at 19:59; Status DC Potassium Chloride (Klor-Con) 40 meq 1X ONCE PO ; Start 04/28/18 at 17:30; Stop 04/28/18 at 17:30; Status DC Potassium Chloride (Klor-Con) 20 meq DAILYWBKFT PO ; Start 04/29/18 at 08:00; Stop 04/29/18 at 08:00; Status DC Heparin Sodium (Porcine) (Heparin Sodium) 5,000 unit Q8HRS SQ Last administered on 05/04/18at 05:56; Start 04/28/18 at 22:00 Potassium Chloride/Water 100 ml @ 100 mls/hr Q1H IV Last administered on at 21:28; Start 04/28/18 at 20:00; Stop 04/28/18 at 21:59; Status DC Haloperidol Lactate (Haldol Inj) 2.5 mg PRN Q6HRS PRN IVP AGITATION Last administered on 05/05/18at 11:09; Start 04/28/18 at 17:00 Magnesium Sulfate 50 ml @ 25 mls/hr PRN DAILY PRN IV for Mag < 1.7 on am labs; Start 04/29/18 at 12:30 Potassium Chloride (Klor-Con) 40 meq BID PO ; Start 04/29/18 at 12:30; Stop at 13:29; Status DC Potassium Chloride (Klor-Con) 20 meq DAILYWBKFT PO Last administered on at 08:44; Start 05/01/18 at 08:00 Potassium Chloride/Water 100 ml @ 100 mls/hr Q1H IV Last administered on at 20:29; Start 04/29/18 at 14:00; Stop 04/29/18 at 17:59; Status DC Amino Acids/ Glycerin/ Electrolytes 1,000 ml @ 80 mls/hr [id number] IV Last administered on 05/05/18at 00:45; Start 04/30/18 at 08:15 Olanzapine (ZyPREXA IM) 10 mg 1X ONCE IM Last administered on 04/30/18at 11:51 ; Start 04/30/18 at 11:45; Stop 04/30/18 at 11:46; Status DC Quetiapine Fumarate (SEROquel XR) 50 mg DAILY PO Last administered on at 08:43; Start 05/01/18 at 11:00 Potassium Chloride (Klor-Con) 40 meq 1X ONCE PO ; Start 05/01/18 at 11:15; Stop 05/01/18 at 11:16; Status DC Potassium Chloride (Klor-Con) 20 meq DAILYWBKFT PO ; Start 05/02/18 at 08:00; Stop 05/02/18 at 08:00; Status DC Potassium Chloride/Water 100 ml @ 100 mls/hr Q1H IV Last administered on at 17:14; Start 05/02/18 at 14:00; Stop 05/02/18 at 17:59; Status DC Haloperidol (Haldol) 1 mg Q6HRS PO ; Start 05/04/18 at 16:00; Stop 05/04/18 at 16:00; Status DC Haloperidol Lactate (HALDOL 2mg ORAL CONC) 1 mg Q6HRS PO ; Start 05/04/18 at 16: 30 Active Scripts Active Reported Tamsulosin Hcl 0.4 Mg Cap.er.24h 0.4 Mg PO DAILY Potassium Chloride 20 Meq Tablet.er 20 Meq PO DAILY Protonix (Pantoprazole Sodium) 20 Mg Tablet.dr 20 Mg PO DAILY Meclizine Hcl 12.5 Mg Tablet 2 Tab PO TID Losartan Potassium 100 Mg Tablet 100 Mg PO DAILY Albuterol Sulfate Neb Soln (Albuterol Sulfate) 2.5 Mg/3 Ml Vial.neb 1 Vial NEB PRN Q4HRS Ibuprofen 800 Mg Tablet 800 Mg PO TID PRN Furosemide 20 Mg Tablet 1 Tab PO DAILY Finasteride 5 Mg Tablet 1 Tab PO DAILY Doxazosin Mesylate 8 Mg Tablet 1 Tab PO DAILY Allopurinol 300 Mg Tablet 1 Tab PO DAILY Vitals/I & O Vital Sign - Last 24 Hours 05/04/18 05/04/18 05/04/18 05/04/18 14:51 19:00 20:00 23:00 Temp 98.6 98.1 98.4 98.6 98.1 98.4 Pulse 88 92 89 Resp 18 18 20 B/P (MAP) 133/79 (97) 140/86 (104) 141/88 (105) Pulse Ox 98 98 97 O2 Delivery Room Air Room Air Room Air Room Air 05/05/18 05/05/18 05/05/18 03:00 07:00 11:00 Temp 98.6 98.1 98.0 98.6 98.1 98.0 Pulse 87 99 98 Resp 20 20 20 B/P (MAP) 142/88 (106) 156/99 (118) 134/88 (103) Pulse Ox 96 99 98 O2 Delivery Room Air Room Air Room Air Intake and Output 05/04/18 05/04/18 05/05/18 15:00 23:00 07:00 Intake Total 200 ml 50 ml 200 ml Output Total 200 ml Balance 0 ml 50 ml 200 ml THERESA CLARK MD May 05, 2018 11:56
[2018-05-05 14:50] VITALS: BP 149/95
--- NOTE | 2018-05-05 15:31 | PDOC2 ---
PALLIATIVE CARE Palliative Care Note Palliative Care Patient remains confused. Refusing po medication. Remain 1:1 Nursing Care Spoke with Daniela nephew and his in [place] along with Guy Hutchinson Hospice Specialist and Barbara CISNEROS. Reviewed current medical condition; [place]. Bx+ Liver, unknown primary. [place], AMS changes. Guy from [facility] has reached out to [employer] to assist with need for Guardianship requirements. Contact information provided to Luis Carlos and Krupa. Family will contact and assist with obtaining information as needed. Will need to make arrangement to come to [place] once they have talked with attorneys and know what information they need and length of time needed to assist. Contact information; Luis Carlos Holt [phone] nephew. Patient want Luis Carlos to assist with decisions. Krupa Holt ( of Luis Carlos) [phone] not available during the day---school clerk. Guy Hutchinson [facility] ROSIE HARRIS May 05, 2018 15:31
--- NOTE | 2018-05-05 16:32 | NUR ---
AMELIA following. Guy CISNEROS from [facility] and Nan Ledezma had call with pt's nephew, Luis Carlos and his , Krupa. Luis Carlos and Krupa will contact [facility] [employer] to discuss guardianship and this process. Luis Carlos and Krupa are willing to come to [place], they are trying to work out when and how long for and to arrange this with their work. Krupa's contact number [phone]. AMELIA will continue to follow.
[2018-05-05] MEDS: cefTRIAXone IV Push 1 GM VIAL. IVP SCH (18:11)
[2018-05-05] MEDS: AZITHROMYCIN 250 MG in IV NORMAL SALINE 250ML 250 ML IV SCH (18:14)
[2018-05-05 19:13] VITALS: BP 129/82
[2018-05-05 22:30] VITALS: BP 134/84
[2018-05-06] VITALS (9 sets, daily range): BP systolic 134–156; BP diastolic 84–105
[2018-05-06] MEDS: HALOPERIDOL 2 MG/ML ORAL.CONC. PO SCH ×5 (01:25→23:55)
[2018-05-06] MEDS: HEPARIN for SUB-Q USE 5,000 UNIT/ML VIAL. SQ SCH ×4 (01:32→22:00)
[2018-05-06] MEDS: AMINO AC 3%/ELECTROLYTE/GLYCER 1,000 ML IV SCH ×2 (04:34→15:03)
[2018-05-06] MEDS: HALOPERIDOL LACTATE 5 MG/ML VIAL. IVP PRN (05:16)
[2018-05-06 06:52] LABS: CALCIUM 8.4 mg/dL (8.5-10.1); CREATININE 1.1 mg/dL (0.7-1.3); GFR 77.5; PHOSPHORUS 2.9 mg/dL (2.6-4.7); POTASSIUM 3.8 mmol/L (3.5-5.1)
[2018-05-06] MEDS: QUEtiapine 50 MG TAB.ER.24H. PO SCH (10:11)
[2018-05-06] MEDS: PANTOPRAZOLE IV PUSH 40 MG VIAL. IVP SCH (10:11)
[2018-05-06] MEDS: POTASSIUM CHLORIDE 20 MEQ TABLET.ER. PO SCH (10:11)
[2018-05-06] MEDS: MORPHINE SULFATE 4 MG/ML VIAL. IV PRN ×2 (10:12→10:21)
--- NOTE | 2018-05-06 10:49 | PDOC ---
PROGRESS NOTES Chief Complaint Chief Complaint Acute pancreatitis - with Abdominal pain, , consult GI. Still has GB, triglycerides normal, not on a thiazide that he knows of and he doesn't recall if he has been losing weight. Concerning liver masses on CT could be metastatic disease, he does not recall his last colonoscopy during my interview. Pain control with morphine Acute metabolic encephalopathy - uremia, delirium Hypokalemia - 3.1, will monitor. Replace IVF SYLVIE - vasomotor with possible ATN, appears dry and Cr and BUN elevated. Unknown baseline. Liver masses - metastatic disease. Contrast contraindicated based on his renal function. consult GI. NEED [place] medical records. RBC microcytosis - POor PO Enceph, metabolic AGITATION, CONTINUES no sitter 05/05 His mental status is poor and he is not a candidate for any treatment of his malignancy. palliative care discussed with PAT 05/05 placement pending 05/06 BP UNCONTROLLED, HE IS REFUSING MOST po meds will rx with iv hydralazine 10mg q 6 hrs prn, start norvasc 5 mg po daily History of Present Illness History of Present Illness NEPHEW AGREES WITH HOSPICE PLAN Sitter at bedside unpredictable with behavior Refusing by mouth pills and to eat ProcalAmine running Potassium REPLACED Palliative and health social work professor d/w nephew by phone Patient not cooperative with nurses at times Plan Continue Procalamine KCl 20 Appreciate palliative and social work Continue sitter 05/06 remains to take off clothes and try to move out of bed FOCUS ON COMFORT MEASURES morphine prn Vitals Vitals Vital Signs Date Time Temp Pulse Resp B/P (MAP) Pulse Ox O2 Delivery O2 Flow Rate FiO2 05/06/18 10:21 18 98 Room Air 05/06/18 07:18 97.7 101 151/99 (116) 97.7 Physical Exam General: Alert, Cooperative, No acute distress, mild distress Heart: Regular rate, Normal S1 Lungs: Clear, Other (rare exp wheeze) Abdomen: Normal bowel sounds, Soft, No tenderness, No hepatosplenomegaly, No masses, Other (RUQ tenderness) Extremities: No clubbing, No cyanosis, No edema, Normal pulses, No tenderness/ swelling Skin: No rashes, No breakdown, No significant lesion Labs LABS Laboratory Tests Test 05/06/18 06:09 Sodium Level 144 mmol/L (136-145) Potassium Level 3.8 mmol/L (3.5-5.1) Chloride Level 107 mmol/L (98-107) Carbon Dioxide Level 22 mmol/L (21-32) Anion Gap 15 (6-14) Blood Urea Nitrogen 20 mg/dL (8-26) Creatinine 1.1 mg/dL (0.7-1.3) Estimated GFR (Cockcroft-Gault) 77.5 Glucose Level 110 mg/dL (70-99) Calcium Level 8.4 mg/dL (8.5-10.1) Phosphorus Level 2.9 mg/dL (2.6-4.7) Albumin 2.0 g/dL (3.4-5.0) Assessment and Plan Assessmemt and Plan Problems Medical Problems: (1) Renal insufficiency Status: Acute Comment Review of Relevant I have reviewed the following items pily (where applicable) has been applied. Labs Laboratory Tests Test 05/05/18 09:20 05/06/18 06:09 Sodium Level 144 mmol/L (136-145) 144 mmol/L (136-145) Potassium Level 3.7 mmol/L (3.5-5.1) 3.8 mmol/L (3.5-5.1) Chloride Level 107 mmol/L (98-107) 107 mmol/L (98-107) Carbon Dioxide Level 22 mmol/L (21-32) 22 mmol/L (21-32) Anion Gap 15 (6-14) 15 (6-14) Blood Urea Nitrogen 22 mg/dL (8-26) 20 mg/dL (8-26) Creatinine 1.2 mg/dL (0.7-1.3) 1.1 mg/dL (0.7-1.3) Estimated GFR (Cockcroft-Gault) 70.1 77.5 Glucose Level 111 mg/dL (70-99) 110 mg/dL (70-99) Calcium Level 8.4 mg/dL (8.5-10.1) 8.4 mg/dL (8.5-10.1) Phosphorus Level 2.3 mg/dL (2.6-4.7) 2.9 mg/dL (2.6-4.7) Albumin 2.0 g/dL (3.4-5.0) 2.0 g/dL (3.4-5.0) Laboratory Tests Test 05/06/18 06:09 Sodium Level 144 mmol/L (136-145) Potassium Level 3.8 mmol/L (3.5-5.1) Chloride Level 107 mmol/L (98-107) Carbon Dioxide Level 22 mmol/L (21-32) Anion Gap 15 (6-14) Blood Urea Nitrogen 20 mg/dL (8-26) Creatinine 1.1 mg/dL (0.7-1.3) Estimated GFR (Cockcroft-Gault) 77.5 Glucose Level 110 mg/dL (70-99) Calcium Level 8.4 mg/dL (8.5-10.1) Phosphorus Level 2.9 mg/dL (2.6-4.7) Albumin 2.0 g/dL (3.4-5.0) Microbiology 04/25/18 Blood Culture - Final, Complete NO GROWTH AFTER 5 DAYS Medications Current Medications Sodium Chloride 1,000 ml @ 1,000 mls/hr Q1H IV Last administered on 04/25/18 10:12; Start 04/25/18 at 09:38; Stop 04/25/18 at 10:37; Status DC Ondansetron HCl (Zofran) 4 mg 1X ONCE IV Last administered on 04/25/18 10:11 ; Start 04/25/18 at 09:45; Stop 04/25/18 at 09:46; Status DC Hyoscyamine (Anaspaz) 0.125 mg ONCE ONCE PO Last administered on 04/25/18 10: 12; Start 04/25/18 at 09:45; Stop 04/25/18 at 09:46; Status DC Pantoprazole Sodium (PROTONIX VIAL for IV PUSH) 40 mg 1X ONCE IVP Last administered on 04/25/18at 10:23; Start 04/25/18 at 10:15; Stop 04/25/18 at 10:16 ; Status DC Ceftriaxone Sodium (Rocephin) 1 gm 1X ONCE IVP Last administered on 04/25/18at 12:23; Start 04/25/18 at 11:45; Stop 04/25/18 at 11:46; Status DC Azithromycin 250 ml @ 250 mls/hr 1X ONCE IV Last administered on 04/25/18at 12 :23; Start 04/25/18 at 11:45; Stop 04/25/18 at 12:44; Status DC Ondansetron HCl (Zofran) 4 mg PRN Q8HRS PRN IV NAUSEA/VOMITING; Start 04/25/18 at 11:45; Stop 04/26/18 at 11:44; Status DC Morphine Sulfate (Morphine Sulfate) 2 mg PRN Q2HR PRN IV PAIN Last administered on 04/25/18 12:19; Start 04/25/18 at 11:45; Stop 04/26/18 at 11:44 ; Status DC Sodium Chloride 1,000 ml @ 125 mls/hr Q8H IV Last administered on 04/25/18 16 :34; Start 04/25/18 at 11:36; Stop 04/26/18 at 06:23; Status DC Ringer's Solution 1,000 ml @ 125 mls/hr Q8H IV Last administered on 04/30/18 05:57; Start 04/25/18 at 13:34; Stop 04/30/18 at 09:56; Status DC Ondansetron HCl (Zofran) 4 mg PRN Q6HRS PRN IV NAUSEA/VOMITING; Start 04/25/18 at 13:45 Morphine Sulfate (Morphine Sulfate) 2 mg PRN Q4HRS PRN IV PAIN Last administered on 05/06/18 10:21; Start 04/25/18 at 13:45 Acetaminophen/ Hydrocodone Bitart (Lortab 5/325) 1 tab PRN Q4HRS PRN PO MILD PAIN, 2ND CHOICE Last administered on 05/04/18 00:16; Start 04/25/18 at 13:45 Heparin Sodium (Porcine) (Heparin Sodium) 5,000 unit Q12HR SQ ; Start 04/25/18 at 21:00; Stop 04/26/18 at 17:38; Status DC Pantoprazole Sodium (PROTONIX VIAL for IV PUSH) 40 mg DAILYAC IVP Last administered on 05/06/18 10:11; Start 04/26/18 at 07:30 Saliva Substitute (Biotene Moisturizing Mouth) 2 spray PRN Q15MIN PRN PO DRY MOUTH Last administered on 04/28/18 02:23; Start 04/26/18 at 10:00 Potassium Chloride/Water 100 ml @ 100 mls/hr Q1H IV Last administered on 14:30; Start 04/26/18 at 11:30; Stop 04/26/18 at 15:29; Status DC Potassium Chloride (Klor-Con) 20 meq DAILYWBKFT PO ; Start 04/27/18 at 08:00; Stop 04/29/18 at 12:20; Status DC Potassium Chloride (Klor-Con) 40 meq 1X ONCE PO ; Start 04/26/18 at 19:00; Stop 04/26/18 at 19:01; Status DC Lidocaine/Sodium Bicarbonate (Buffered Lidocaine 1%) 3 ml STK-MED ONCE .ROUTE ; Start 04/26/18 at 13:46; Stop 04/26/18 at 13:47; Status DC Gelatin (Gelfoam Size 12-7mm) 1 each STK-MED ONCE .ROUTE ; Start 04/26/18 at 13 :46; Stop 04/26/18 at 13:47; Status DC Midazolam HCl (Versed) 2 mg STK-MED ONCE .ROUTE ; Start 04/26/18 at 14:13; Stop 04/26/18 at 14:14; Status DC Fentanyl Citrate (Fentanyl 2ml Vial) 100 mcg STK-MED ONCE .ROUTE ; Start at 14:13; Stop 04/26/18 at 14:14; Status DC Lidocaine/Sodium Bicarbonate (Buffered Lidocaine 1%) 3 ml 1X ONCE INJ Last administered on 04/26/18at 14:44; Start 04/26/18 at 14:45; Stop 04/26/18 at 14:46 ; Status DC Gelatin (Gelfoam Size 12-7mm) 1 each 1X ONCE TP Last administered on at 14:44; Start 04/26/18 at 14:45; Stop 04/26/18 at 14:46; Status DC Azithromycin 250 mg/Sodium Chloride 250 ml @ 250 mls/hr Q24H IV Last administered on 05/05/18 18:14; Start 04/26/18 at 18:00 Ceftriaxone Sodium (Rocephin) 1 gm Q24H IVP Last administered on 05/05/18at 18:11 ; Start 04/26/18 at 17:30 Potassium Chloride/Water 100 ml @ 100 mls/hr Q1H IV Last administered on at 11:10; Start 04/27/18 at 10:00; Stop 04/27/18 at 11:59; Status DC Potassium Chloride/Water 100 ml @ 100 mls/hr Q1H IV Last administered on at 19:14; Start 04/28/18 at 18:00; Stop 04/28/18 at 19:59; Status DC Potassium Chloride (Klor-Con) 40 meq 1X ONCE PO ; Start 04/28/18 at 17:30; Stop 04/28/18 at 17:30; Status DC Potassium Chloride (Klor-Con) 20 meq DAILYWBKFT PO ; Start 04/29/18 at 08:00; Stop 04/29/18 at 08:00; Status DC Heparin Sodium (Porcine) (Heparin Sodium) 5,000 unit Q8HRS SQ Last administered on 05/06/18 01:32; Start 04/28/18 at 22:00 Potassium Chloride/Water 100 ml @ 100 mls/hr Q1H IV Last administered on at 21:28; Start 04/28/18 at 20:00; Stop 04/28/18 at 21:59; Status DC Haloperidol Lactate (Haldol Inj) 2.5 mg PRN Q6HRS PRN IVP AGITATION Last administered on 05/06/18 05:16; Start 04/28/18 at 17:00 Magnesium Sulfate 50 ml @ 25 mls/hr PRN DAILY PRN IV for Mag < 1.7 on am labs; Start 04/29/18 at 12:30 Potassium Chloride (Klor-Con) 40 meq BID PO ; Start 04/29/18 at 12:30; Stop at 13:29; Status DC Potassium Chloride (Klor-Con) 20 meq DAILYWBKFT PO Last administered on at 10:11; Start 05/01/18 at 08:00 Potassium Chloride/Water 100 ml @ 100 mls/hr Q1H IV Last administered on at 20:29; Start 04/29/18 at 14:00; Stop 04/29/18 at 17:59; Status DC Amino Acids/ Glycerin/ Electrolytes 1,000 ml @ 80 mls/hr [id number] IV Last administered on 05/06/18 04:34; Start 04/30/18 at 08:15 Olanzapine (ZyPREXA IM) 10 mg 1X ONCE IM Last administered on 04/30/18at 11:51 ; Start 04/30/18 at 11:45; Stop 04/30/18 at 11:46; Status DC Quetiapine Fumarate (SEROquel XR) 50 mg DAILY PO Last administered on 05/06/18at 10:11; Start 05/01/18 at 11:00 Potassium Chloride (Klor-Con) 40 meq 1X ONCE PO ; Start 05/01/18 at 11:15; Stop 05/01/18 at 11:16; Status DC Potassium Chloride (Klor-Con) 20 meq DAILYWBKFT PO ; Start 05/02/18 at 08:00; Stop 05/02/18 at 08:00; Status DC Potassium Chloride/Water 100 ml @ 100 mls/hr Q1H IV Last administered on at 17:14; Start 05/02/18 at 14:00; Stop 05/02/18 at 17:59; Status DC Haloperidol (Haldol) 1 mg Q6HRS PO ; Start 05/04/18 at 16:00; Stop 05/04/18 at 16:00; Status DC Haloperidol Lactate (HALDOL 2mg ORAL CONC) 1 mg Q6HRS PO Last administered on at 06:30; Start 05/04/18 at 16:30 Active Scripts Active Reported Tamsulosin Hcl 0.4 Mg Cap.er.24h 0.4 Mg PO DAILY Potassium Chloride 20 Meq Tablet.er 20 Meq PO DAILY Protonix (Pantoprazole Sodium) 20 Mg Tablet.dr 20 Mg PO DAILY Meclizine Hcl 12.5 Mg Tablet 2 Tab PO TID Losartan Potassium 100 Mg Tablet 100 Mg PO DAILY Albuterol Sulfate Neb Soln (Albuterol Sulfate) 2.5 Mg/3 Ml Vial.neb 1 Vial NEB PRN Q4HRS Ibuprofen 800 Mg Tablet 800 Mg PO TID PRN Furosemide 20 Mg Tablet 1 Tab PO DAILY Finasteride 5 Mg Tablet 1 Tab PO DAILY Doxazosin Mesylate 8 Mg Tablet 1 Tab PO DAILY Allopurinol 300 Mg Tablet 1 Tab PO DAILY Vitals/I & O Vital Sign - Last 24 Hours 05/05/18 05/05/18 05/05/18 05/05/18 11:00 14:50 19:13 20:00 Temp 98.0 98.0 97.1 98.0 98.0 97.1 Pulse 98 99 96 Resp 20 18 16 B/P (MAP) 134/88 (103) 149/95 (113) 129/82 (98) Pulse Ox 98 98 97 O2 Delivery Room Air Room Air Room Air Room Air 05/05/18 05/06/18 05/06/18 05/06/18 22:30 03:00 07:18 10:12 Temp 98.5 98.5 97.7 98.5 98.5 97.7 Pulse 96 96 101 Resp 18 18 20 18 B/P (MAP) 134/84 (101) 138/93 (108) 151/99 (116) Pulse Ox 98 98 98 O2 Delivery Room Air Room Air Room Air Room Air 05/06/18 10:21 Resp 18 Pulse Ox 98 O2 Delivery Room Air Intake and Output 05/05/18 05/05/18 05/06/18 14:59 22:59 06:59 Intake Total 300 ml 1000 ml Output Total 50 ml 150 ml Balance 250 ml 850 ml THERESA CLARK MD May 06, 2018 10:49
--- NOTE | 2018-05-06 13:50 | PDOC ---
PROGRESS NOTES Subjective Subjective HPI - f/u of Liver mets ROS - confused, not agitated Objective Objective Vital Signs Date Time Temp Pulse Resp B/P (MAP) Pulse Ox O2 Delivery O2 Flow Rate FiO2 05/06/18 11:13 97.6 96 20 143/93 (110) 96 Room Air 97.6 Intake and Output 05/06/18 07:00 Intake Total 1300 ml Output Total 200 ml Balance 1100 ml Intake Oral 50 ml IV Total 1250 ml Output Urine Total 200 ml # Voids 9 # Bowel Movements 2 Physical Exam Heart: Normal S1 General: Alert, No acute distress Neck: No JVD Assessment Assessment Problems Medical Problems: (1) Renal insufficiency Status: Acute IMPRESSION AND PLAN: 1. 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 Primary is unknown, likely originating from small bowel or pancreas per pathology. Ki-67 is 10% consistent with intermediate grade, I d/w Dr Peck. Further investigation to look for primary would not add much to the management plan as his functional status is very poor. His mental status is poor and he is not a candidate for any treatment for his malignancy. He is on one-on-one watch in the hospital and I discussed with the registered nurse. His ECOG performance status at this time is 4 and he is needing help for all his daily activities. Appreciate palliative care help in transitioning to hospice and best supportive care. 2. Pancreatitis. Appreciate Gastroenterology evaluation and management. His lipase was significantly elevated. 3. Altered mental status and confusion. Continue supportive care. 4. Anemia. Hemoglobin 11.7, thought to be due to malignancy. Continue to monitor p.r.n. Appreciate palliative care help. Comment Review of Relevant I have reviewed the following items pily (where applicable) has been applied. Labs Laboratory Tests Test 05/05/18 09:20 05/06/18 06:09 Sodium Level 144 mmol/L (136-145) 144 mmol/L (136-145) Potassium Level 3.7 mmol/L (3.5-5.1) 3.8 mmol/L (3.5-5.1) Chloride Level 107 mmol/L (98-107) 107 mmol/L (98-107) Carbon Dioxide Level 22 mmol/L (21-32) 22 mmol/L (21-32) Anion Gap 15 (6-14) 15 (6-14) Blood Urea Nitrogen 22 mg/dL (8-26) 20 mg/dL (8-26) Creatinine 1.2 mg/dL (0.7-1.3) 1.1 mg/dL (0.7-1.3) Estimated GFR (Cockcroft-Gault) 70.1 77.5 Glucose Level 111 mg/dL (70-99) 110 mg/dL (70-99) Calcium Level 8.4 mg/dL (8.5-10.1) 8.4 mg/dL (8.5-10.1) Phosphorus Level 2.3 mg/dL (2.6-4.7) 2.9 mg/dL (2.6-4.7) Albumin 2.0 g/dL (3.4-5.0) 2.0 g/dL (3.4-5.0) Laboratory Tests Test 05/06/18 06:09 Sodium Level 144 mmol/L (136-145) Potassium Level 3.8 mmol/L (3.5-5.1) Chloride Level 107 mmol/L (98-107) Carbon Dioxide Level 22 mmol/L (21-32) Anion Gap 15 (6-14) Blood Urea Nitrogen 20 mg/dL (8-26) Creatinine 1.1 mg/dL (0.7-1.3) Estimated GFR (Cockcroft-Gault) 77.5 Glucose Level 110 mg/dL (70-99) Calcium Level 8.4 mg/dL (8.5-10.1) Phosphorus Level 2.9 mg/dL (2.6-4.7) Albumin 2.0 g/dL (3.4-5.0) Microbiology 04/25/18 Blood Culture - Final, Complete NO GROWTH AFTER 5 DAYS Medications Current Medications Sodium Chloride 1,000 ml @ 1,000 mls/hr Q1H IV Last administered on 04/25/18at 10:12; Start 04/25/18 at 09:38; Stop 04/25/18 at 10:37; Status DC Ondansetron HCl (Zofran) 4 mg 1X ONCE IV Last administered on 04/25/18at 10:11 ; Start 04/25/18 at 09:45; Stop 04/25/18 at 09:46; Status DC Hyoscyamine (Anaspaz) 0.125 mg ONCE ONCE PO Last administered on 04/25/18 10: 12; Start 04/25/18 at 09:45; Stop 04/25/18 at 09:46; Status DC Pantoprazole Sodium (PROTONIX VIAL for IV PUSH) 40 mg 1X ONCE IVP Last administered on 04/25/18 10:23; Start 04/25/18 at 10:15; Stop 04/25/18 at 10:16 ; Status DC Ceftriaxone Sodium (Rocephin) 1 gm 1X ONCE IVP Last administered on 04/25/18 12:23; Start 04/25/18 at 11:45; Stop 04/25/18 at 11:46; Status DC Azithromycin 250 ml @ 250 mls/hr 1X ONCE IV Last administered on 04/25/18 12 :23; Start 04/25/18 at 11:45; Stop 04/25/18 at 12:44; Status DC Ondansetron HCl (Zofran) 4 mg PRN Q8HRS PRN IV NAUSEA/VOMITING; Start 04/25/18 at 11:45; Stop 04/26/18 at 11:44; Status DC Morphine Sulfate (Morphine Sulfate) 2 mg PRN Q2HR PRN IV PAIN Last administered on 04/25/18 12:19; Start 04/25/18 at 11:45; Stop 04/26/18 at 11:44 ; Status DC Sodium Chloride 1,000 ml @ 125 mls/hr Q8H IV Last administered on 04/25/18 16 :34; Start 04/25/18 at 11:36; Stop 04/26/18 at 06:23; Status DC Ringer's Solution 1,000 ml @ 125 mls/hr Q8H IV Last administered on 04/30/18 05:57; Start 04/25/18 at 13:34; Stop 04/30/18 at 09:56; Status DC Ondansetron HCl (Zofran) 4 mg PRN Q6HRS PRN IV NAUSEA/VOMITING; Start 04/25/18 at 13:45 Morphine Sulfate (Morphine Sulfate) 2 mg PRN Q4HRS PRN IV PAIN Last administered on 05/06/18 10:21; Start 04/25/18 at 13:45 Acetaminophen/ Hydrocodone Bitart (Lortab 5/325) 1 tab PRN Q4HRS PRN PO MILD PAIN, 2ND CHOICE Last administered on 05/04/18 00:16; Start 04/25/18 at 13:45 Heparin Sodium (Porcine) (Heparin Sodium) 5,000 unit Q12HR SQ ; Start 04/25/18 at 21:00; Stop 04/26/18 at 17:38; Status DC Pantoprazole Sodium (PROTONIX VIAL for IV PUSH) 40 mg DAILYAC IVP Last administered on 05/06/18at 10:11; Start 04/26/18 at 07:30 Saliva Substitute (Biotene Moisturizing Mouth) 2 spray PRN Q15MIN PRN PO DRY MOUTH Last administered on 04/28/18at 02:23; Start 04/26/18 at 10:00 Potassium Chloride/Water 100 ml @ 100 mls/hr Q1H IV Last administered on at 14:30; Start 04/26/18 at 11:30; Stop 04/26/18 at 15:29; Status DC Potassium Chloride (Klor-Con) 20 meq DAILYWBKFT PO ; Start 04/27/18 at 08:00; Stop 04/29/18 at 12:20; Status DC Potassium Chloride (Klor-Con) 40 meq 1X ONCE PO ; Start 04/26/18 at 19:00; Stop 04/26/18 at 19:01; Status DC Lidocaine/Sodium Bicarbonate (Buffered Lidocaine 1%) 3 ml STK-MED ONCE .ROUTE ; Start 04/26/18 at 13:46; Stop 04/26/18 at 13:47; Status DC Gelatin (Gelfoam Size 12-7mm) 1 each STK-MED ONCE .ROUTE ; Start 04/26/18 at 13 :46; Stop 04/26/18 at 13:47; Status DC Midazolam HCl (Versed) 2 mg STK-MED ONCE .ROUTE ; Start 04/26/18 at 14:13; Stop 04/26/18 at 14:14; Status DC Fentanyl Citrate (Fentanyl 2ml Vial) 100 mcg STK-MED ONCE .ROUTE ; Start at 14:13; Stop 04/26/18 at 14:14; Status DC Lidocaine/Sodium Bicarbonate (Buffered Lidocaine 1%) 3 ml 1X ONCE INJ Last administered on 04/26/18at 14:44; Start 04/26/18 at 14:45; Stop 04/26/18 at 14:46 ; Status DC Gelatin (Gelfoam Size 12-7mm) 1 each 1X ONCE TP Last administered on at 14:44; Start 04/26/18 at 14:45; Stop 04/26/18 at 14:46; Status DC Azithromycin 250 mg/Sodium Chloride 250 ml @ 250 mls/hr Q24H IV Last administered on 05/05/18at 18:14; Start 04/26/18 at 18:00; Stop 05/06/18 at 12:56; Status DC Ceftriaxone Sodium (Rocephin) 1 gm Q24H IVP Last administered on 05/05/18 18:11 ; Start 04/26/18 at 17:30; Stop 05/06/18 at 12:56; Status DC Potassium Chloride/Water 100 ml @ 100 mls/hr Q1H IV Last administered on at 11:10; Start 04/27/18 at 10:00; Stop 04/27/18 at 11:59; Status DC Potassium Chloride/Water 100 ml @ 100 mls/hr Q1H IV Last administered on at 19:14; Start 04/28/18 at 18:00; Stop 04/28/18 at 19:59; Status DC Potassium Chloride (Klor-Con) 40 meq 1X ONCE PO ; Start 04/28/18 at 17:30; Stop 04/28/18 at 17:30; Status DC Potassium Chloride (Klor-Con) 20 meq DAILYWBKFT PO ; Start 04/29/18 at 08:00; Stop 04/29/18 at 08:00; Status DC Heparin Sodium (Porcine) (Heparin Sodium) 5,000 unit Q8HRS SQ Last administered on 05/06/18at 01:32; Start 04/28/18 at 22:00 Potassium Chloride/Water 100 ml @ 100 mls/hr Q1H IV Last administered on at 21:28; Start 04/28/18 at 20:00; Stop 04/28/18 at 21:59; Status DC Haloperidol Lactate (Haldol Inj) 2.5 mg PRN Q6HRS PRN IVP AGITATION Last administered on 05/06/18 05:16; Start 04/28/18 at 17:00 Magnesium Sulfate 50 ml @ 25 mls/hr PRN DAILY PRN IV for Mag < 1.7 on am labs; Start 04/29/18 at 12:30 Potassium Chloride (Klor-Con) 40 meq BID PO ; Start 04/29/18 at 12:30; Stop at 13:29; Status DC Potassium Chloride (Klor-Con) 20 meq DAILYWBKFT PO Last administered on at 10:11; Start 05/01/18 at 08:00 Potassium Chloride/Water 100 ml @ 100 mls/hr Q1H IV Last administered on at 20:29; Start 04/29/18 at 14:00; Stop 04/29/18 at 17:59; Status DC Amino Acids/ Glycerin/ Electrolytes 1,000 ml @ 80 mls/hr [id number] IV Last administered on 05/06/18 04:34; Start 04/30/18 at 08:15 Olanzapine (ZyPREXA IM) 10 mg 1X ONCE IM Last administered on 04/30/18at 11:51 ; Start 04/30/18 at 11:45; Stop 04/30/18 at 11:46; Status DC Quetiapine Fumarate (SEROquel XR) 50 mg DAILY PO Last administered on 05/06/18at 10:11; Start 05/01/18 at 11:00 Potassium Chloride (Klor-Con) 40 meq 1X ONCE PO ; Start 05/01/18 at 11:15; Stop 05/01/18 at 11:16; Status DC Potassium Chloride (Klor-Con) 20 meq DAILYWBKFT PO ; Start 05/02/18 at 08:00; Stop 05/02/18 at 08:00; Status DC Potassium Chloride/Water 100 ml @ 100 mls/hr Q1H IV Last administered on at 17:14; Start 05/02/18 at 14:00; Stop 05/02/18 at 17:59; Status DC Haloperidol (Haldol) 1 mg Q6HRS PO ; Start 05/04/18 at 16:00; Stop 05/04/18 at 16:00; Status DC Haloperidol Lactate (HALDOL 2mg ORAL CONC) 1 mg Q6HRS PO Last administered on at 06:30; Start 05/04/18 at 16:30 Active Scripts Active Reported Tamsulosin Hcl 0.4 Mg Cap.er.24h 0.4 Mg PO DAILY Potassium Chloride 20 Meq Tablet.er 20 Meq PO DAILY Protonix (Pantoprazole Sodium) 20 Mg Tablet.dr 20 Mg PO DAILY Meclizine Hcl 12.5 Mg Tablet 2 Tab PO TID Losartan Potassium 100 Mg Tablet 100 Mg PO DAILY Albuterol Sulfate Neb Soln (Albuterol Sulfate) 2.5 Mg/3 Ml Vial.neb 1 Vial NEB PRN Q4HRS Ibuprofen 800 Mg Tablet 800 Mg PO TID PRN Furosemide 20 Mg Tablet 1 Tab PO DAILY Finasteride 5 Mg Tablet 1 Tab PO DAILY Doxazosin Mesylate 8 Mg Tablet 1 Tab PO DAILY Allopurinol 300 Mg Tablet 1 Tab PO DAILY Vitals/I & O Vital Sign - Last 24 Hours 05/05/18 05/05/18 05/05/18 05/05/18 14:50 19:13 20:00 22:30 Temp 98.0 97.1 98.5 98.0 97.1 98.5 Pulse 99 96 96 Resp 18 16 18 B/P (MAP) 149/95 (113) 129/82 (98) 134/84 (101) Pulse Ox 98 97 98 O2 Delivery Room Air Room Air Room Air Room Air 05/06/18 05/06/18 05/06/18 05/06/18 03:00 07:18 08:00 10:12 Temp 98.5 97.7 98.5 97.7 Pulse 96 101 Resp 18 20 18 B/P (MAP) 138/93 (108) 151/99 (116) Pulse Ox 98 98 O2 Delivery Room Air Room Air Room Air Room Air 05/06/18 05/06/18 05/06/18 10:21 10:42 11:13 Temp 97.6 97.6 Pulse 96 Resp 18 18 20 B/P (MAP) 143/93 (110) Pulse Ox 98 96 96 O2 Delivery Room Air Room Air Room Air Intake and Output 05/05/18 05/05/18 05/06/18 15:00 23:00 07:00 Intake Total 300 ml 1000 ml Output Total 50 ml 150 ml Balance 250 ml 850 ml MANAS PATEL MD May 06, 2018 13:50
[2018-05-06] MEDS ORDERED: hydrALAZINE 20 MG/ML VIAL. IVP ONE (15:30)
[2018-05-06] MEDS: amLODIPine BESYLATE 5 MG TABLET PO SCH (17:44)
[2018-05-06] MEDS: HYDROcodone/APAP 5/325MG 1 TAB TABLET PO PRN (21:25)
--- NOTE | 2018-05-06 22:00 | NUR ---
Patient has been agitated, heparin not given at this time.
[2018-05-07 03:00] VITALS: BP 138/105
[2018-05-07] MEDS: HEPARIN for SUB-Q USE 5,000 UNIT/ML VIAL. SQ SCH ×3 (06:00→22:00)
[2018-05-07] MEDS: AMINO AC 3%/ELECTROLYTE/GLYCER 1,000 ML IV SCH ×2 (06:13→15:12)
[2018-05-07] MEDS: HALOPERIDOL 2 MG/ML ORAL.CONC. PO SCH ×3 (06:13→19:04)
[2018-05-07 07:12] VITALS: BP 136/93
[2018-05-07 07:51] LABS: ALBUMIN 2.2 g/dL (3.4-5.0); CALCIUM 8.6 mg/dL (8.5-10.1); CREATININE 1.1 mg/dL (0.7-1.3); GFR 77.5; PHOSPHORUS 2.7 mg/dL (2.6-4.7); POTASSIUM 3.8 mmol/L (3.5-5.1)
[2018-05-07] MEDS: PANTOPRAZOLE IV PUSH 40 MG VIAL. IVP SCH (08:55)
[2018-05-07] MEDS: POTASSIUM CHLORIDE 20 MEQ TABLET.ER. PO SCH (08:55)
[2018-05-07] MEDS: QUEtiapine 50 MG TAB.ER.24H. PO SCH (08:55)
[2018-05-07] MEDS: amLODIPine BESYLATE 5 MG TABLET PO SCH (08:57)
[2018-05-07 11:08] VITALS: BP 138/94
--- NOTE | 2018-05-07 11:30 | NUR ---
Pt. was agreeable to take medications this am. Pt. told this nurse (1:1 sitter) and primary nurse that he would take his medication. Primary nurse pulled, scanned, and opened medications. Pt. stated he would like them crushed and would take them with cranberry juice. When primary nurse tried to give pt. the cranberry juice with medications, pt. refused. This nurse has tried to have pt. take sips of the juice every 15-30 minutes. Pt. has taken 3 small sips and spit juice across the room once. This nurse and primary nurse have educated pt. on the importance of taking his medications. Pt. still refuses. Will continue to monitor.
--- NOTE | 2018-05-07 11:34 | NUR ---
This nurse tried again to get pt. to take morning medication. Pt. currently stating "You are so delicately hiding things from me." "You just keep lying through your teeth." "I am a doctor just like you." Pt. informed this 1:1 sitter is not a doctor but a nurse. Pt. laughed and got agitated stating "Would you trust me if I lied as much as you do. I am an intelligent man. I am a doctor just like you." This nurse will continue to monitor and reorient pt.
--- NOTE | 2018-05-07 12:10 | PDOC ---
PROGRESS NOTES Chief Complaint Chief Complaint Acute pancreatitis - with Abdominal pain, , Concerning liver /metastatic disease, Acute metabolic encephalopathy - uremia, delirium Hypokalemia - 3.1, will monitor. Replace IVF SYLVIE - vasomotor with possible ATN, Liver masses - metastatic disease. Contrast contraindicated based on his renal function. consult GI. NEED [place] medical records. 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 palliative care discussed with PAT 05/05 placement pending SUPPLEMENTS, DIETARY 3 BP UNCONTROLLED, HE IS REFUSING MOST po meds will rx with iv hydralazine 10mg q 6 hrs prn, start norvasc 5 mg po daily 05/07 HYPERTENSION ONLY FAIR CONTROL History of Present Illness History of Present Illness NEPHEW AGREES WITH HOSPICE PLAN Sitter at bedside unpredictable with behavior Refusing by mouth pills and to eat ProcalAmine running Potassium REPLACED Palliative and social service coordinator d/w nephew by phone Patient not cooperative with nurses at times Plan Continue Procalamine KCl 20 Appreciate palliative and social work Continue sitter 05/06 remains to take off clothes and try to move out of bed FOCUS ON COMFORT MEASURES morphine prn Vitals Vitals Vital Signs Date Time Temp Pulse Resp B/P (MAP) Pulse Ox O2 Delivery O2 Flow Rate FiO2 05/07/18 11:08 98.5 102 20 138/94 (109) 98 Room Air 98.5 Physical Exam General: Alert, No acute distress, mild distress Heart: Regular rate, Normal S1 Lungs: Clear, Other (rare exp wheeze) Abdomen: Normal bowel sounds, Soft, No tenderness, No hepatosplenomegaly, No masses, Other (RUQ tenderness NO REBOUND) Extremities: No clubbing, No cyanosis, No edema, Normal pulses, No tenderness/ swelling Skin: No rashes, No breakdown, No significant lesion Labs LABS PATIENT: OADLIS YEAGER ACCT: [id number] LOC: [address] [place] [address] U : [id number] AGE/SX: 82/M ROOM: 538 REG : 04/25/[address]: LAKISHA CR MD : [id number] BED: 1 DIS : STATUS: ADM IN TLOC: SPEC #: [id number] MARVIN: 04/25/18 STATUS: COMP REQ #: [id number] RECD: 04/25/[address]: MADAN SMALL DO SOURCE: BLOOD ENTR: 04/25/[address]: UNKNOWN PCP NAME [facility]: ORDERED: BCULT Procedure Result BLOOD CULTURE Final NO GROWTH AFTER 5 DAYS Laboratory Tests Test 05/07/18 07:15 Sodium Level 142 mmol/L (136-145) Potassium Level 3.8 mmol/L (3.5-5.1) Chloride Level 106 mmol/L (98-107) Carbon Dioxide Level 22 mmol/L (21-32) Anion Gap 14 (6-14) Blood Urea Nitrogen 20 mg/dL (8-26) Creatinine 1.1 mg/dL (0.7-1.3) Estimated GFR (Cockcroft-Gault) 77.5 Glucose Level 108 mg/dL (70-99) Calcium Level 8.6 mg/dL (8.5-10.1) Phosphorus Level 2.7 mg/dL (2.6-4.7) Albumin 2.2 g/dL (3.4-5.0) Assessment and Plan Assessmemt and Plan Problems Medical Problems: (1) Renal insufficiency Status: Acute Comment Review of Relevant I have reviewed the following items pily (where applicable) has been applied. Labs Laboratory Tests Test 05/06/18 06:09 05/07/18 07:15 Sodium Level 144 mmol/L (136-145) 142 mmol/L (136-145) Potassium Level 3.8 mmol/L (3.5-5.1) 3.8 mmol/L (3.5-5.1) Chloride Level 107 mmol/L (98-107) 106 mmol/L (98-107) Carbon Dioxide Level 22 mmol/L (21-32) 22 mmol/L (21-32) Anion Gap 15 (6-14) 14 (6-14) Blood Urea Nitrogen 20 mg/dL (8-26) 20 mg/dL (8-26) Creatinine 1.1 mg/dL (0.7-1.3) 1.1 mg/dL (0.7-1.3) Estimated GFR (Cockcroft-Gault) 77.5 77.5 Glucose Level 110 mg/dL (70-99) 108 mg/dL (70-99) Calcium Level 8.4 mg/dL (8.5-10.1) 8.6 mg/dL (8.5-10.1) Phosphorus Level 2.9 mg/dL (2.6-4.7) 2.7 mg/dL (2.6-4.7) Albumin 2.0 g/dL (3.4-5.0) 2.2 g/dL (3.4-5.0) Laboratory Tests Test 05/07/18 07:15 Sodium Level 142 mmol/L (136-145) Potassium Level 3.8 mmol/L (3.5-5.1) Chloride Level 106 mmol/L (98-107) Carbon Dioxide Level 22 mmol/L (21-32) Anion Gap 14 (6-14) Blood Urea Nitrogen 20 mg/dL (8-26) Creatinine 1.1 mg/dL (0.7-1.3) Estimated GFR (Cockcroft-Gault) 77.5 Glucose Level 108 mg/dL (70-99) Calcium Level 8.6 mg/dL (8.5-10.1) Phosphorus Level 2.7 mg/dL (2.6-4.7) Albumin 2.2 g/dL (3.4-5.0) Microbiology 04/25/18 Blood Culture - Final, Complete NO GROWTH AFTER 5 DAYS Medications Current Medications Sodium Chloride 1,000 ml @ 1,000 mls/hr Q1H IV Last administered on 04/25/18 10:12; Start 04/25/18 at 09:38; Stop 04/25/18 at 10:37; Status DC Ondansetron HCl (Zofran) 4 mg 1X ONCE IV Last administered on 04/25/18 10:11 ; Start 04/25/18 at 09:45; Stop 04/25/18 at 09:46; Status DC Hyoscyamine (Anaspaz) 0.125 mg ONCE ONCE PO Last administered on 04/25/18 10: 12; Start 04/25/18 at 09:45; Stop 04/25/18 at 09:46; Status DC Pantoprazole Sodium (PROTONIX VIAL for IV PUSH) 40 mg 1X ONCE IVP Last administered on 04/25/18at 10:23; Start 04/25/18 at 10:15; Stop 04/25/18 at 10:16 ; Status DC Ceftriaxone Sodium (Rocephin) 1 gm 1X ONCE IVP Last administered on 04/25/18at 12:23; Start 04/25/18 at 11:45; Stop 04/25/18 at 11:46; Status DC Azithromycin 250 ml @ 250 mls/hr 1X ONCE IV Last administered on 04/25/18 12 :23; Start 04/25/18 at 11:45; Stop 04/25/18 at 12:44; Status DC Ondansetron HCl (Zofran) 4 mg PRN Q8HRS PRN IV NAUSEA/VOMITING; Start 04/25/18 at 11:45; Stop 04/26/18 at 11:44; Status DC Morphine Sulfate (Morphine Sulfate) 2 mg PRN Q2HR PRN IV PAIN Last administered on 04/25/18 12:19; Start 04/25/18 at 11:45; Stop 04/26/18 at 11:44 ; Status DC Sodium Chloride 1,000 ml @ 125 mls/hr Q8H IV Last administered on 04/25/18 16 :34; Start 04/25/18 at 11:36; Stop 04/26/18 at 06:23; Status DC Ringer's Solution 1,000 ml @ 125 mls/hr Q8H IV Last administered on 04/30/18 05:57; Start 04/25/18 at 13:34; Stop 04/30/18 at 09:56; Status DC Ondansetron HCl (Zofran) 4 mg PRN Q6HRS PRN IV NAUSEA/VOMITING; Start 04/25/18 at 13:45 Morphine Sulfate (Morphine Sulfate) 2 mg PRN Q4HRS PRN IV PAIN Last administered on 05/06/18 10:21; Start 04/25/18 at 13:45 Acetaminophen/ Hydrocodone Bitart (Lortab 5/325) 1 tab PRN Q4HRS PRN PO PAIN Last administered on 05/06/18 21:25; Start 04/25/18 at 13:45 Heparin Sodium (Porcine) (Heparin Sodium) 5,000 unit Q12HR SQ ; Start 04/25/18 at 21:00; Stop 04/26/18 at 17:38; Status DC Pantoprazole Sodium (PROTONIX VIAL for IV PUSH) 40 mg DAILYAC IVP Last administered on 05/07/18 08:55; Start 04/26/18 at 07:30 Saliva Substitute (Biotene Moisturizing Mouth) 2 spray PRN Q15MIN PRN PO DRY MOUTH Last administered on 04/28/18at 02:23; Start 04/26/18 at 10:00 Potassium Chloride/Water 100 ml @ 100 mls/hr Q1H IV Last administered on at 14:30; Start 04/26/18 at 11:30; Stop 04/26/18 at 15:29; Status DC Potassium Chloride (Klor-Con) 20 meq DAILYWBKFT PO ; Start 04/27/18 at 08:00; Stop 04/29/18 at 12:20; Status DC Potassium Chloride (Klor-Con) 40 meq 1X ONCE PO ; Start 04/26/18 at 19:00; Stop 04/26/18 at 19:01; Status DC Lidocaine/Sodium Bicarbonate (Buffered Lidocaine 1%) 3 ml STK-MED ONCE .ROUTE ; Start 04/26/18 at 13:46; Stop 04/26/18 at 13:47; Status DC Gelatin (Gelfoam Size 12-7mm) 1 each STK-MED ONCE .ROUTE ; Start 04/26/18 at 13 :46; Stop 04/26/18 at 13:47; Status DC Midazolam HCl (Versed) 2 mg STK-MED ONCE .ROUTE ; Start 04/26/18 at 14:13; Stop 04/26/18 at 14:14; Status DC Fentanyl Citrate (Fentanyl 2ml Vial) 100 mcg STK-MED ONCE .ROUTE ; Start at 14:13; Stop 04/26/18 at 14:14; Status DC Lidocaine/Sodium Bicarbonate (Buffered Lidocaine 1%) 3 ml 1X ONCE INJ Last administered on 04/26/18at 14:44; Start 04/26/18 at 14:45; Stop 04/26/18 at 14:46 ; Status DC Gelatin (Gelfoam Size 12-7mm) 1 each 1X ONCE TP Last administered on at 14:44; Start 04/26/18 at 14:45; Stop 04/26/18 at 14:46; Status DC Azithromycin 250 mg/Sodium Chloride 250 ml @ 250 mls/hr Q24H IV Last administered on 05/05/18at 18:14; Start 04/26/18 at 18:00; Stop 05/06/18 at 12:56; Status DC Ceftriaxone Sodium (Rocephin) 1 gm Q24H IVP Last administered on 05/05/18at 18:11 ; Start 04/26/18 at 17:30; Stop 05/06/18 at 12:56; Status DC Potassium Chloride/Water 100 ml @ 100 mls/hr Q1H IV Last administered on at 11:10; Start 04/27/18 at 10:00; Stop 04/27/18 at 11:59; Status DC Potassium Chloride/Water 100 ml @ 100 mls/hr Q1H IV Last administered on at 19:14; Start 04/28/18 at 18:00; Stop 04/28/18 at 19:59; Status DC Potassium Chloride (Klor-Con) 40 meq 1X ONCE PO ; Start 04/28/18 at 17:30; Stop 04/28/18 at 17:30; Status DC Potassium Chloride (Klor-Con) 20 meq DAILYWBKFT PO ; Start 04/29/18 at 08:00; Stop 04/29/18 at 08:00; Status DC Heparin Sodium (Porcine) (Heparin Sodium) 5,000 unit Q8HRS SQ Last administered on 05/06/18at 01:32; Start 04/28/18 at 22:00 Potassium Chloride/Water 100 ml @ 100 mls/hr Q1H IV Last administered on at 21:28; Start 04/28/18 at 20:00; Stop 04/28/18 at 21:59; Status DC Haloperidol Lactate (Haldol Inj) 2.5 mg PRN Q6HRS PRN IVP AGITATION Last administered on 05/06/18at 05:16; Start 04/28/18 at 17:00 Magnesium Sulfate 50 ml @ 25 mls/hr PRN DAILY PRN IV for Mag < 1.7 on am labs; Start 04/29/18 at 12:30 Potassium Chloride (Klor-Con) 40 meq BID PO ; Start 04/29/18 at 12:30; Stop at 13:29; Status DC Potassium Chloride (Klor-Con) 20 meq DAILYWBKFT PO Last administered on at 08:55; Start 05/01/18 at 08:00 Potassium Chloride/Water 100 ml @ 100 mls/hr Q1H IV Last administered on at 20:29; Start 04/29/18 at 14:00; Stop 04/29/18 at 17:59; Status DC Amino Acids/ Glycerin/ Electrolytes 1,000 ml @ 80 mls/hr [id number] IV Last administered on 05/07/18 06:13; Start 04/30/18 at 08:15 Olanzapine (ZyPREXA IM) 10 mg 1X ONCE IM Last administered on 04/30/18at 11:51 ; Start 04/30/18 at 11:45; Stop 04/30/18 at 11:46; Status DC Quetiapine Fumarate (SEROquel XR) 50 mg DAILY PO Last administered on 05/07/18 08:55; Start 05/01/18 at 11:00 Potassium Chloride (Klor-Con) 40 meq 1X ONCE PO ; Start 05/01/18 at 11:15; Stop 05/01/18 at 11:16; Status DC Potassium Chloride (Klor-Con) 20 meq DAILYWBKFT PO ; Start 05/02/18 at 08:00; Stop 05/02/18 at 08:00; Status DC Potassium Chloride/Water 100 ml @ 100 mls/hr Q1H IV Last administered on at 17:14; Start 05/02/18 at 14:00; Stop 05/02/18 at 17:59; Status DC Haloperidol (Haldol) 1 mg Q6HRS PO ; Start 05/04/18 at 16:00; Stop 05/04/18 at 16:00; Status DC Haloperidol Lactate (HALDOL 2mg ORAL CONC) 1 mg Q6HRS PO Last administered on 06:13; Start 05/04/18 at 16:30 Amlodipine Besylate (Norvasc) 5 mg DAILY PO Last administered on 05/07/18 08:57 ; Start 05/06/18 at 16:00 Hydralazine HCl (Apresoline Inj) 10 mg 1X ONCE IVP Last administered on at 15:25; Start 05/06/18 at 15:30; Stop 05/06/18 at 15:31; Status DC Hydralazine HCl (Apresoline Inj) 10 mg PRN Q4HRS PRN IVP ELEVATED BP, SEE COMMENTS; Start 05/06/18 at 15:45 Active Scripts Active Reported Tamsulosin Hcl 0.4 Mg Cap.er.24h 0.4 Mg PO DAILY Potassium Chloride 20 Meq Tablet.er 20 Meq PO DAILY Protonix (Pantoprazole Sodium) 20 Mg Tablet.dr 20 Mg PO DAILY Meclizine Hcl 12.5 Mg Tablet 2 Tab PO TID Losartan Potassium 100 Mg Tablet 100 Mg PO DAILY Albuterol Sulfate Neb Soln (Albuterol Sulfate) 2.5 Mg/3 Ml Vial.neb 1 Vial NEB PRN Q4HRS Ibuprofen 800 Mg Tablet 800 Mg PO TID PRN Furosemide 20 Mg Tablet 1 Tab PO DAILY Finasteride 5 Mg Tablet 1 Tab PO DAILY Doxazosin Mesylate 8 Mg Tablet 1 Tab PO DAILY Allopurinol 300 Mg Tablet 1 Tab PO DAILY Vitals/I & O Vital Sign - Last 24 Hours 05/06/18 05/06/18 05/06/18 05/06/18 15:00 15:05 15:10 15:25 Temp 97.7 97.7 Pulse 93 100 109 109 Resp 20 20 B/P (MAP) 146/105 (119) 147/100 (116) 156/102 (120) 156/102 Pulse Ox 99 99 99 O2 Delivery Room Air 05/06/18 05/06/18 05/06/18 05/06/18 16:12 17:44 19:00 20:10 Temp 97.9 97.9 Pulse 101 101 103 Resp 20 B/P (MAP) 140/94 (109) 140/94 135/84 (101) Pulse Ox 98 O2 Delivery Room Air Room Air 05/06/18 05/06/18 05/06/18 05/07/18 21:25 22:25 23:00 03:00 Temp 97.9 97.8 97.9 97.8 Pulse 100 100 Resp 20 20 18 B/P (MAP) 134/84 (101) 138/105 (116) Pulse Ox 98 98 O2 Delivery Room Air Room Air Room Air Room Air 05/07/18 05/07/18 05/07/18 05/07/18 07:12 08:00 08:57 11:08 Temp 97.7 98.5 97.7 98.5 Pulse 101 101 102 Resp 20 B/P (MAP) 136/93 (107) 136/93 138/94 (109) Pulse Ox 97 98 O2 Delivery Room Air Room Air Room Air Intake and Output 05/06/18 05/06/18 05/07/18 15:00 23:00 07:00 Intake Total 150 ml 0 ml 1050 ml Output Total 25 ml Balance 125 ml 0 ml 1050 ml THERESA CLARK MD May 07, 2018 12:10
--- NOTE | 2018-05-07 12:14 | NUR ---
Pt. rested briefly. Upon waking pt. was agitated and aggressive. Pt. was pushing this nurse away saying "stay away from me" when offered the urinal, a wipe, and hand oriental medicine practitioner. Will continue to monitor.
--- NOTE | 2018-05-07 13:45 | NUR ---
Pt. refused to drink anymore of the cranberry juice with his morning medicine. This nurse dumped juice down the sink with the primary nurse watching as a witness. No controlled substances were apart of the pt. morning medicine Will continue to monitor pt.
[2018-05-07] MEDS: HALOPERIDOL LACTATE 5 MG/ML VIAL. IVP PRN (15:04)
[2018-05-07 15:21] VITALS: BP 141/84
--- NOTE | 2018-05-07 18:20 | NUR ---
This nurse was assigned to be a 1:1 sitter. This nurse took responsibility for helping pt. with ADLs, assessing, and charting on pt. Primary nurse took responsibility for passing medications.
[2018-05-07 18:50] VITALS: BP 139/89
[2018-05-07] MEDS: risperiDONE 0.25 MG TABLET. PO SCH (21:00)
[2018-05-07 23:00] VITALS: BP 141/87
[2018-05-08] VITALS (7 sets, daily range): BP systolic 118–160; BP diastolic 72–103
[2018-05-08] MEDS: HALOPERIDOL 2 MG/ML ORAL.CONC. PO SCH ×5 (00:22→23:33)
[2018-05-08] MEDS: HALOPERIDOL LACTATE 5 MG/ML VIAL. IVP PRN ×3 (03:05→23:35)
[2018-05-08] MEDS: AMINO AC 3%/ELECTROLYTE/GLYCER 1,000 ML IV SCH ×3 (05:39→19:44)
[2018-05-08] MEDS: HEPARIN for SUB-Q USE 5,000 UNIT/ML VIAL. SQ SCH ×3 (05:39→21:35)
[2018-05-08] MEDS: PANTOPRAZOLE IV PUSH 40 MG VIAL. IVP SCH (07:28)
[2018-05-08] MEDS: hydrALAZINE 20 MG/ML VIAL. IVP PRN ×2 (07:29→11:50)
[2018-05-08] MEDS: amLODIPine BESYLATE 5 MG TABLET PO SCH (07:33)
[2018-05-08] MEDS: POTASSIUM CHLORIDE 20 MEQ TABLET.ER. PO SCH (07:33)
[2018-05-08] MEDS: QUEtiapine 50 MG TAB.ER.24H. PO SCH (07:34)
[2018-05-08] MEDS: risperiDONE 0.25 MG TABLET. PO SCH ×2 (07:34→15:31)
[2018-05-08 09:13] LABS: ALBUMIN 2.2 g/dL (3.4-5.0); CALCIUM 8.4 mg/dL (8.5-10.1); CREATININE 0.9 mg/dL (0.7-1.3); GFR 97.8; POTASSIUM 4.5 mmol/L (3.5-5.1)
--- NOTE | 2018-05-08 10:03 | PDOC ---
PROGRESS NOTES Chief Complaint Chief Complaint Acute pancreatitis - with Abdominal pain, , Concerning liver /metastatic disease, Acute metabolic encephalopathy - uremia, delirium Hypokalemia - 3.1, will monitor. Replace IVF SYLVIE - vasomotor with possible ATN, Liver masses - metastatic disease. Contrast contraindicated based on his renal function. consult GI. NEED [place] medical records. 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 palliative care discussed with PAT 05/05 placement pending SUPPLEMENTS, DIETARY 3 BP UNCONTROLLED, HE IS REFUSING MOST po meds will rx with iv hydralazine 10mg q 6 hrs prn, start norvasc 5 mg po daily 05/07 HYPERTENSION ONLY FAIR CONTROL History of Present Illness History of Present Illness NEPHEW AGREES WITH HOSPICE PLAN Sitter at bedside unpredictable with behavior Refusing by mouth pills and to eat ProcalAmine running Potassium REPLACED Palliative and social services specialist d/w nephew by phone Patient not cooperative with nurses at times Plan Continue Procalamine KCl 20 Appreciate palliative and social work Continue sitter 05/06 remains to take off clothes and try to move out of bed FOCUS ON COMFORT MEASURES morphine prn Vitals Vitals Vital Signs Date Time Temp Pulse Resp B/P (MAP) Pulse Ox O2 Delivery O2 Flow Rate FiO2 05/08/18 08:08 Room Air 05/08/18 07:29 103 150/101 05/08/18 07:00 97.9 18 97 97.9 Physical Exam General: Alert, No acute distress, mild distress Heart: Regular rate, Normal S1 Lungs: Clear, Other (rare exp wheeze) Abdomen: Normal bowel sounds, Soft, No tenderness, No hepatosplenomegaly, No masses, Other (RUQ tenderness NO REBOUND) Extremities: No clubbing, No cyanosis, No edema, Normal pulses, No tenderness/ swelling Skin: No rashes, No breakdown, No significant lesion Labs LABS Laboratory Tests Test 05/08/18 08:15 Sodium Level 141 mmol/L (136-145) Potassium Level 4.5 mmol/L (3.5-5.1) Chloride Level 105 mmol/L (98-107) Carbon Dioxide Level 19 mmol/L (21-32) Anion Gap 17 (6-14) Blood Urea Nitrogen 20 mg/dL (8-26) Creatinine 0.9 mg/dL (0.7-1.3) Estimated GFR (Cockcroft-Gault) 97.8 Glucose Level 107 mg/dL (70-99) Calcium Level 8.4 mg/dL (8.5-10.1) Phosphorus Level 4.0 mg/dL (2.6-4.7) Albumin 2.2 g/dL (3.4-5.0) Assessment and Plan Assessmemt and Plan Problems Medical Problems: (1) Renal insufficiency Status: Acute Comment Review of Relevant I have reviewed the following items pily (where applicable) has been applied. Labs Laboratory Tests Test 05/07/18 07:15 05/08/18 08:15 Sodium Level 142 mmol/L (136-145) 141 mmol/L (136-145) Potassium Level 3.8 mmol/L (3.5-5.1) 4.5 mmol/L (3.5-5.1) Chloride Level 106 mmol/L (98-107) 105 mmol/L (98-107) Carbon Dioxide Level 22 mmol/L (21-32) 19 mmol/L (21-32) Anion Gap 14 (6-14) 17 (6-14) Blood Urea Nitrogen 20 mg/dL (8-26) 20 mg/dL (8-26) Creatinine 1.1 mg/dL (0.7-1.3) 0.9 mg/dL (0.7-1.3) Estimated GFR (Cockcroft-Gault) 77.5 97.8 Glucose Level 108 mg/dL (70-99) 107 mg/dL (70-99) Calcium Level 8.6 mg/dL (8.5-10.1) 8.4 mg/dL (8.5-10.1) Phosphorus Level 2.7 mg/dL (2.6-4.7) 4.0 mg/dL (2.6-4.7) Albumin 2.2 g/dL (3.4-5.0) 2.2 g/dL (3.4-5.0) Laboratory Tests Test 05/08/18 08:15 Sodium Level 141 mmol/L (136-145) Potassium Level 4.5 mmol/L (3.5-5.1) Chloride Level 105 mmol/L (98-107) Carbon Dioxide Level 19 mmol/L (21-32) Anion Gap 17 (6-14) Blood Urea Nitrogen 20 mg/dL (8-26) Creatinine 0.9 mg/dL (0.7-1.3) Estimated GFR (Cockcroft-Gault) 97.8 Glucose Level 107 mg/dL (70-99) Calcium Level 8.4 mg/dL (8.5-10.1) Phosphorus Level 4.0 mg/dL (2.6-4.7) Albumin 2.2 g/dL (3.4-5.0) Microbiology 04/25/18 Blood Culture - Final, Complete NO GROWTH AFTER 5 DAYS Medications Current Medications Sodium Chloride 1,000 ml @ 1,000 mls/hr Q1H IV Last administered on 04/25/18 10:12; Start 04/25/18 at 09:38; Stop 04/25/18 at 10:37; Status DC Ondansetron HCl (Zofran) 4 mg 1X ONCE IV Last administered on 04/25/18 10:11 ; Start 04/25/18 at 09:45; Stop 04/25/18 at 09:46; Status DC Hyoscyamine (Anaspaz) 0.125 mg ONCE ONCE PO Last administered on 04/25/18 10: 12; Start 04/25/18 at 09:45; Stop 04/25/18 at 09:46; Status DC Pantoprazole Sodium (PROTONIX VIAL for IV PUSH) 40 mg 1X ONCE IVP Last administered on 04/25/18 10:23; Start 04/25/18 at 10:15; Stop 04/25/18 at 10:16 ; Status DC Ceftriaxone Sodium (Rocephin) 1 gm 1X ONCE IVP Last administered on 04/25/18 12:23; Start 04/25/18 at 11:45; Stop 04/25/18 at 11:46; Status DC Azithromycin 250 ml @ 250 mls/hr 1X ONCE IV Last administered on 04/25/18 12 :23; Start 04/25/18 at 11:45; Stop 04/25/18 at 12:44; Status DC Ondansetron HCl (Zofran) 4 mg PRN Q8HRS PRN IV NAUSEA/VOMITING; Start 04/25/18 at 11:45; Stop 04/26/18 at 11:44; Status DC Morphine Sulfate (Morphine Sulfate) 2 mg PRN Q2HR PRN IV PAIN Last administered on 04/25/18 12:19; Start 04/25/18 at 11:45; Stop 04/26/18 at 11:44 ; Status DC Sodium Chloride 1,000 ml @ 125 mls/hr Q8H IV Last administered on 04/25/18 16 :34; Start 04/25/18 at 11:36; Stop 04/26/18 at 06:23; Status DC Ringer's Solution 1,000 ml @ 125 mls/hr Q8H IV Last administered on 04/30/18 05:57; Start 04/25/18 at 13:34; Stop 04/30/18 at 09:56; Status DC Ondansetron HCl (Zofran) 4 mg PRN Q6HRS PRN IV NAUSEA/VOMITING; Start 04/25/18 at 13:45 Morphine Sulfate (Morphine Sulfate) 2 mg PRN Q4HRS PRN IV PAIN Last administered on 05/06/18 10:21; Start 04/25/18 at 13:45 Acetaminophen/ Hydrocodone Bitart (Lortab 5/325) 1 tab PRN Q4HRS PRN PO PAIN Last administered on 05/06/18 21:25; Start 04/25/18 at 13:45 Heparin Sodium (Porcine) (Heparin Sodium) 5,000 unit Q12HR SQ ; Start 04/25/18 at 21:00; Stop 04/26/18 at 17:38; Status DC Pantoprazole Sodium (PROTONIX VIAL for IV PUSH) 40 mg DAILYAC IVP Last administered on 05/08/18 07:28; Start 04/26/18 at 07:30 Saliva Substitute (Biotene Moisturizing Mouth) 2 spray PRN Q15MIN PRN PO DRY MOUTH Last administered on 04/28/18 02:23; Start 04/26/18 at 10:00 Potassium Chloride/Water 100 ml @ 100 mls/hr Q1H IV Last administered on 14:30; Start 04/26/18 at 11:30; Stop 04/26/18 at 15:29; Status DC Potassium Chloride (Klor-Con) 20 meq DAILYWBKFT PO ; Start 04/27/18 at 08:00; Stop 04/29/18 at 12:20; Status DC Potassium Chloride (Klor-Con) 40 meq 1X ONCE PO ; Start 04/26/18 at 19:00; Stop 04/26/18 at 19:01; Status DC Lidocaine/Sodium Bicarbonate (Buffered Lidocaine 1%) 3 ml STK-MED ONCE .ROUTE ; Start 04/26/18 at 13:46; Stop 04/26/18 at 13:47; Status DC Gelatin (Gelfoam Size 12-7mm) 1 each STK-MED ONCE .ROUTE ; Start 04/26/18 at 13 :46; Stop 04/26/18 at 13:47; Status DC Midazolam HCl (Versed) 2 mg STK-MED ONCE .ROUTE ; Start 04/26/18 at 14:13; Stop 04/26/18 at 14:14; Status DC Fentanyl Citrate (Fentanyl 2ml Vial) 100 mcg STK-MED ONCE .ROUTE ; Start at 14:13; Stop 04/26/18 at 14:14; Status DC Lidocaine/Sodium Bicarbonate (Buffered Lidocaine 1%) 3 ml 1X ONCE INJ Last administered on 04/26/18at 14:44; Start 04/26/18 at 14:45; Stop 04/26/18 at 14:46 ; Status DC Gelatin (Gelfoam Size 12-7mm) 1 each 1X ONCE TP Last administered on at 14:44; Start 04/26/18 at 14:45; Stop 04/26/18 at 14:46; Status DC Azithromycin 250 mg/Sodium Chloride 250 ml @ 250 mls/hr Q24H IV Last administered on 05/05/18at 18:14; Start 04/26/18 at 18:00; Stop 05/06/18 at 12:56; Status DC Ceftriaxone Sodium (Rocephin) 1 gm Q24H IVP Last administered on 05/05/18at 18:11 ; Start 04/26/18 at 17:30; Stop 05/06/18 at 12:56; Status DC Potassium Chloride/Water 100 ml @ 100 mls/hr Q1H IV Last administered on at 11:10; Start 04/27/18 at 10:00; Stop 04/27/18 at 11:59; Status DC Potassium Chloride/Water 100 ml @ 100 mls/hr Q1H IV Last administered on 19:14; Start 04/28/18 at 18:00; Stop 04/28/18 at 19:59; Status DC Potassium Chloride (Klor-Con) 40 meq 1X ONCE PO ; Start 04/28/18 at 17:30; Stop 04/28/18 at 17:30; Status DC Potassium Chloride (Klor-Con) 20 meq DAILYWBKFT PO ; Start 04/29/18 at 08:00; Stop 04/29/18 at 08:00; Status DC Heparin Sodium (Porcine) (Heparin Sodium) 5,000 unit Q8HRS SQ Last administered on 05/06/18 01:32; Start 04/28/18 at 22:00 Potassium Chloride/Water 100 ml @ 100 mls/hr Q1H IV Last administered on 21:28; Start 04/28/18 at 20:00; Stop 04/28/18 at 21:59; Status DC Haloperidol Lactate (Haldol Inj) 2.5 mg PRN Q6HRS PRN IVP AGITATION Last administered on 05/08/18 03:05; Start 04/28/18 at 17:00 Magnesium Sulfate 50 ml @ 25 mls/hr PRN DAILY PRN IV for Mag < 1.7 on am labs; Start 04/29/18 at 12:30 Potassium Chloride (Klor-Con) 40 meq BID PO ; Start 04/29/18 at 12:30; Stop at 13:29; Status DC Potassium Chloride (Klor-Con) 20 meq DAILYWBKFT PO Last administered on 08:55; Start 05/01/18 at 08:00 Potassium Chloride/Water 100 ml @ 100 mls/hr Q1H IV Last administered on 20:29; Start 04/29/18 at 14:00; Stop 04/29/18 at 17:59; Status DC Amino Acids/ Glycerin/ Electrolytes 1,000 ml @ 80 mls/hr [id number] IV Last administered on 05/08/18 05:39; Start 04/30/18 at 08:15 Olanzapine (ZyPREXA IM) 10 mg 1X ONCE IM Last administered on 04/30/18 11:51 ; Start 04/30/18 at 11:45; Stop 04/30/18 at 11:46; Status DC Quetiapine Fumarate (SEROquel XR) 50 mg DAILY PO Last administered on 05/07/18at 08:55; Start 05/01/18 at 11:00 Potassium Chloride (Klor-Con) 40 meq 1X ONCE PO ; Start 05/01/18 at 11:15; Stop 05/01/18 at 11:16; Status DC Potassium Chloride (Klor-Con) 20 meq DAILYWBKFT PO ; Start 05/02/18 at 08:00; Stop 05/02/18 at 08:00; Status DC Potassium Chloride/Water 100 ml @ 100 mls/hr Q1H IV Last administered on at 17:14; Start 05/02/18 at 14:00; Stop 05/02/18 at 17:59; Status DC Haloperidol (Haldol) 1 mg Q6HRS PO ; Start 05/04/18 at 16:00; Stop 05/04/18 at 16:00; Status DC Haloperidol Lactate (HALDOL 2mg ORAL CONC) 1 mg Q6HRS PO Last administered on at 05:38; Start 05/04/18 at 16:30 Amlodipine Besylate (Norvasc) 5 mg DAILY PO Last administered on 05/07/18at 08:57 ; Start 05/06/18 at 16:00 Hydralazine HCl (Apresoline Inj) 10 mg 1X ONCE IVP Last administered on at 15:25; Start 05/06/18 at 15:30; Stop 05/06/18 at 15:31; Status DC Hydralazine HCl (Apresoline Inj) 10 mg PRN Q4HRS PRN IVP ELEVATED BP, SEE COMMENTS Last administered on 05/08/18at 07:29; Start 05/06/18 at 15:45 Risperidone (RisperDAL) 0.25 mg BID PO ; Start 05/07/18 at 21:00 Active Scripts Active Reported Tamsulosin Hcl 0.4 Mg Cap.er.24h 0.4 Mg PO DAILY Potassium Chloride 20 Meq Tablet.er 20 Meq PO DAILY Protonix (Pantoprazole Sodium) 20 Mg Tablet.dr 20 Mg PO DAILY Meclizine Hcl 12.5 Mg Tablet 2 Tab PO TID Losartan Potassium 100 Mg Tablet 100 Mg PO DAILY Albuterol Sulfate Neb Soln (Albuterol Sulfate) 2.5 Mg/3 Ml Vial.neb 1 Vial NEB PRN Q4HRS Ibuprofen 800 Mg Tablet 800 Mg PO TID PRN Furosemide 20 Mg Tablet 1 Tab PO DAILY Finasteride 5 Mg Tablet 1 Tab PO DAILY Doxazosin Mesylate 8 Mg Tablet 1 Tab PO DAILY Allopurinol 300 Mg Tablet 1 Tab PO DAILY Vitals/I & O Vital Sign - Last 24 Hours 05/07/18 05/07/18 05/07/18 05/07/18 11:08 15:21 18:50 20:05 Temp 98.5 98.4 98.3 98.5 98.4 98.3 Pulse 102 96 101 Resp 15 B/P (MAP) 138/94 (109) 141/84 (103) 139/89 (106) Pulse Ox 98 98 O2 Delivery Room Air Room Air Room Air Room Air 05/07/18 05/08/18 05/08/18 05/08/18 23:00 03:00 07:00 07:29 Temp 98.2 98.3 97.9 98.2 98.3 97.9 Pulse 105 102 103 103 Resp 18 B/P (MAP) 141/87 (105) 134/93 (107) 150/101 (117) 150/101 Pulse Ox 97 98 97 O2 Delivery Room Air Room Air Room Air 05/08/18 08:08 O2 Delivery Room Air Intake and Output 05/07/18 05/07/18 05/08/18 15:00 23:00 07:00 Intake Total 0 ml Balance 0 ml THERESA CLARK MD May 08, 2018 10:03
--- NOTE | 2018-05-08 12:00 | NUR ---
SW following. Discussed with RN, pt still agitated. SW had voicemail from Krupa (pt's nephew's ) requesting a call back to answer questions regarding [facility]. SW returned Krupa's call, leaving a voicemail requesting a call back. SW will continue to follow.
--- NOTE | 2018-05-08 14:16 | PDOC ---
PROGRESS NOTES Subjective Subjective HPI - f/u of Liver mets ROS - confused Objective Objective Vital Signs Date Time Temp Pulse Resp B/P (MAP) Pulse Ox O2 Delivery O2 Flow Rate FiO2 05/08/18 12:32 114 118/72 (87) Room Air 05/08/18 11:00 96.8 20 97 96.8 Intake and Output 05/08/18 07:00 Intake Total 0 ml Balance 0 ml Intake Oral 0 ml # Voids 7 # Bowel Movements 5 Physical Exam General: Alert, No acute distress Neck: No JVD Assessment Assessment Problems Medical Problems: (1) Renal insufficiency Status: Acute IMPRESSION AND PLAN: 1. 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 Primary is unknown, likely originating from small bowel or pancreas per pathology. Ki-67 is 10% consistent with intermediate grade, I d/w Dr Peck. Further investigation to look for primary would not add much to the management plan as his functional status is very poor. His mental status is poor and he is not a candidate for any treatment for his malignancy. He is on one-on-one watch in the hospital and I discussed with the registered nurse. His ECOG performance status at this time is 4 and he is needing help for all his daily activities. Appreciate palliative care help in transitioning to hospice and best supportive care. 2. Pancreatitis. Appreciate Gastroenterology evaluation and management. His lipase was significantly elevated. 3. Altered mental status and confusion. Continue supportive care. 4. Anemia. Hemoglobin 11.7, thought to be due to malignancy. Continue to monitor p.r.n. I d/w RN Comment Review of Relevant I have reviewed the following items pily (where applicable) has been applied. Labs Laboratory Tests Test 05/07/18 07:15 05/08/18 08:15 Sodium Level 142 mmol/L (136-145) 141 mmol/L (136-145) Potassium Level 3.8 mmol/L (3.5-5.1) 4.5 mmol/L (3.5-5.1) Chloride Level 106 mmol/L (98-107) 105 mmol/L (98-107) Carbon Dioxide Level 22 mmol/L (21-32) 19 mmol/L (21-32) Anion Gap 14 (6-14) 17 (6-14) Blood Urea Nitrogen 20 mg/dL (8-26) 20 mg/dL (8-26) Creatinine 1.1 mg/dL (0.7-1.3) 0.9 mg/dL (0.7-1.3) Estimated GFR (Cockcroft-Gault) 77.5 97.8 Glucose Level 108 mg/dL (70-99) 107 mg/dL (70-99) Calcium Level 8.6 mg/dL (8.5-10.1) 8.4 mg/dL (8.5-10.1) Phosphorus Level 2.7 mg/dL (2.6-4.7) 4.0 mg/dL (2.6-4.7) Albumin 2.2 g/dL (3.4-5.0) 2.2 g/dL (3.4-5.0) Laboratory Tests Test 05/08/18 08:15 Sodium Level 141 mmol/L (136-145) Potassium Level 4.5 mmol/L (3.5-5.1) Chloride Level 105 mmol/L (98-107) Carbon Dioxide Level 19 mmol/L (21-32) Anion Gap 17 (6-14) Blood Urea Nitrogen 20 mg/dL (8-26) Creatinine 0.9 mg/dL (0.7-1.3) Estimated GFR (Cockcroft-Gault) 97.8 Glucose Level 107 mg/dL (70-99) Calcium Level 8.4 mg/dL (8.5-10.1) Phosphorus Level 4.0 mg/dL (2.6-4.7) Albumin 2.2 g/dL (3.4-5.0) Microbiology 04/25/18 Blood Culture - Final, Complete NO GROWTH AFTER 5 DAYS Medications Current Medications Sodium Chloride 1,000 ml @ 1,000 mls/hr Q1H IV Last administered on 04/25/18 10:12; Start 04/25/18 at 09:38; Stop 04/25/18 at 10:37; Status DC Ondansetron HCl (Zofran) 4 mg 1X ONCE IV Last administered on 04/25/18at 10:11 ; Start 04/25/18 at 09:45; Stop 04/25/18 at 09:46; Status DC Hyoscyamine (Anaspaz) 0.125 mg ONCE ONCE PO Last administered on 04/25/18 10: 12; Start 04/25/18 at 09:45; Stop 04/25/18 at 09:46; Status DC Pantoprazole Sodium (PROTONIX VIAL for IV PUSH) 40 mg 1X ONCE IVP Last administered on 04/25/18 10:23; Start 04/25/18 at 10:15; Stop 04/25/18 at 10:16 ; Status DC Ceftriaxone Sodium (Rocephin) 1 gm 1X ONCE IVP Last administered on 04/25/18 12:23; Start 04/25/18 at 11:45; Stop 04/25/18 at 11:46; Status DC Azithromycin 250 ml @ 250 mls/hr 1X ONCE IV Last administered on 04/25/18 12 :23; Start 04/25/18 at 11:45; Stop 04/25/18 at 12:44; Status DC Ondansetron HCl (Zofran) 4 mg PRN Q8HRS PRN IV NAUSEA/VOMITING; Start 04/25/18 at 11:45; Stop 04/26/18 at 11:44; Status DC Morphine Sulfate (Morphine Sulfate) 2 mg PRN Q2HR PRN IV PAIN Last administered on 04/25/18 12:19; Start 04/25/18 at 11:45; Stop 04/26/18 at 11:44 ; Status DC Sodium Chloride 1,000 ml @ 125 mls/hr Q8H IV Last administered on 04/25/18 16 :34; Start 04/25/18 at 11:36; Stop 04/26/18 at 06:23; Status DC Ringer's Solution 1,000 ml @ 125 mls/hr Q8H IV Last administered on 04/30/18 05:57; Start 04/25/18 at 13:34; Stop 04/30/18 at 09:56; Status DC Ondansetron HCl (Zofran) 4 mg PRN Q6HRS PRN IV NAUSEA/VOMITING; Start 04/25/18 at 13:45 Morphine Sulfate (Morphine Sulfate) 2 mg PRN Q4HRS PRN IV PAIN Last administered on 05/06/18 10:21; Start 04/25/18 at 13:45 Acetaminophen/ Hydrocodone Bitart (Lortab 5/325) 1 tab PRN Q4HRS PRN PO PAIN Last administered on 05/06/18 21:25; Start 04/25/18 at 13:45 Heparin Sodium (Porcine) (Heparin Sodium) 5,000 unit Q12HR SQ ; Start 04/25/18 at 21:00; Stop 04/26/18 at 17:38; Status DC Pantoprazole Sodium (PROTONIX VIAL for IV PUSH) 40 mg DAILYAC IVP Last administered on 05/08/18at 07:28; Start 04/26/18 at 07:30 Saliva Substitute (Biotene Moisturizing Mouth) 2 spray PRN Q15MIN PRN PO DRY MOUTH Last administered on 04/28/18at 02:23; Start 04/26/18 at 10:00 Potassium Chloride/Water 100 ml @ 100 mls/hr Q1H IV Last administered on at 14:30; Start 04/26/18 at 11:30; Stop 04/26/18 at 15:29; Status DC Potassium Chloride (Klor-Con) 20 meq DAILYWBKFT PO ; Start 04/27/18 at 08:00; Stop 04/29/18 at 12:20; Status DC Potassium Chloride (Klor-Con) 40 meq 1X ONCE PO ; Start 04/26/18 at 19:00; Stop 04/26/18 at 19:01; Status DC Lidocaine/Sodium Bicarbonate (Buffered Lidocaine 1%) 3 ml STK-MED ONCE .ROUTE ; Start 04/26/18 at 13:46; Stop 04/26/18 at 13:47; Status DC Gelatin (Gelfoam Size 12-7mm) 1 each STK-MED ONCE .ROUTE ; Start 04/26/18 at 13 :46; Stop 04/26/18 at 13:47; Status DC Midazolam HCl (Versed) 2 mg STK-MED ONCE .ROUTE ; Start 04/26/18 at 14:13; Stop 04/26/18 at 14:14; Status DC Fentanyl Citrate (Fentanyl 2ml Vial) 100 mcg STK-MED ONCE .ROUTE ; Start at 14:13; Stop 04/26/18 at 14:14; Status DC Lidocaine/Sodium Bicarbonate (Buffered Lidocaine 1%) 3 ml 1X ONCE INJ Last administered on 04/26/18at 14:44; Start 04/26/18 at 14:45; Stop 04/26/18 at 14:46 ; Status DC Gelatin (Gelfoam Size 12-7mm) 1 each 1X ONCE TP Last administered on 14:44; Start 04/26/18 at 14:45; Stop 04/26/18 at 14:46; Status DC Azithromycin 250 mg/Sodium Chloride 250 ml @ 250 mls/hr Q24H IV Last administered on 05/05/18 18:14; Start 04/26/18 at 18:00; Stop 05/06/18 at 12:56; Status DC Ceftriaxone Sodium (Rocephin) 1 gm Q24H IVP Last administered on 05/05/18 18:11 ; Start 04/26/18 at 17:30; Stop 05/06/18 at 12:56; Status DC Potassium Chloride/Water 100 ml @ 100 mls/hr Q1H IV Last administered on 11:10; Start 04/27/18 at 10:00; Stop 04/27/18 at 11:59; Status DC Potassium Chloride/Water 100 ml @ 100 mls/hr Q1H IV Last administered on at 19:14; Start 04/28/18 at 18:00; Stop 04/28/18 at 19:59; Status DC Potassium Chloride (Klor-Con) 40 meq 1X ONCE PO ; Start 04/28/18 at 17:30; Stop 04/28/18 at 17:30; Status DC Potassium Chloride (Klor-Con) 20 meq DAILYWBKFT PO ; Start 04/29/18 at 08:00; Stop 04/29/18 at 08:00; Status DC Heparin Sodium (Porcine) (Heparin Sodium) 5,000 unit Q8HRS SQ Last administered on 05/06/18at 01:32; Start 04/28/18 at 22:00 Potassium Chloride/Water 100 ml @ 100 mls/hr Q1H IV Last administered on at 21:28; Start 04/28/18 at 20:00; Stop 04/28/18 at 21:59; Status DC Haloperidol Lactate (Haldol Inj) 2.5 mg PRN Q6HRS PRN IVP AGITATION Last administered on 05/08/18 03:05; Start 04/28/18 at 17:00 Magnesium Sulfate 50 ml @ 25 mls/hr PRN DAILY PRN IV for Mag < 1.7 on am labs; Start 04/29/18 at 12:30 Potassium Chloride (Klor-Con) 40 meq BID PO ; Start 04/29/18 at 12:30; Stop at 13:29; Status DC Potassium Chloride (Klor-Con) 20 meq DAILYWBKFT PO Last administered on 08:55; Start 05/01/18 at 08:00 Potassium Chloride/Water 100 ml @ 100 mls/hr Q1H IV Last administered on at 20:29; Start 04/29/18 at 14:00; Stop 04/29/18 at 17:59; Status DC Amino Acids/ Glycerin/ Electrolytes 1,000 ml @ 80 mls/hr [id number] IV Last administered on 05/08/18 05:39; Start 04/30/18 at 08:15 Olanzapine (ZyPREXA IM) 10 mg 1X ONCE IM Last administered on 04/30/18 11:51 ; Start 04/30/18 at 11:45; Stop 04/30/18 at 11:46; Status DC Quetiapine Fumarate (SEROquel XR) 50 mg DAILY PO Last administered on 05/07/18 08:55; Start 05/01/18 at 11:00 Potassium Chloride (Klor-Con) 40 meq 1X ONCE PO ; Start 05/01/18 at 11:15; Stop 05/01/18 at 11:16; Status DC Potassium Chloride (Klor-Con) 20 meq DAILYWBKFT PO ; Start 05/02/18 at 08:00; Stop 05/02/18 at 08:00; Status DC Potassium Chloride/Water 100 ml @ 100 mls/hr Q1H IV Last administered on at 17:14; Start 05/02/18 at 14:00; Stop 05/02/18 at 17:59; Status DC Haloperidol (Haldol) 1 mg Q6HRS PO ; Start 05/04/18 at 16:00; Stop 05/04/18 at 16:00; Status DC Haloperidol Lactate (HALDOL 2mg ORAL CONC) 1 mg Q6HRS PO Last administered on 05:38; Start 05/04/18 at 16:30 Amlodipine Besylate (Norvasc) 5 mg DAILY PO Last administered on 3/3/19at 08:57 ; Start 05/06/18 at 16:00 Hydralazine HCl (Apresoline Inj) 10 mg 1X ONCE IVP Last administered on at 15:25; Start 05/06/18 at 15:30; Stop 05/06/18 at 15:31; Status DC Hydralazine HCl (Apresoline Inj) 10 mg PRN Q4HRS PRN IVP ELEVATED BP, SEE COMMENTS Last administered on 05/08/18at 11:50; Start 05/06/18 at 15:45 Risperidone (RisperDAL) 0.25 mg BID PO ; Start 05/07/18 at 21:00 Active Scripts Active Reported Tamsulosin Hcl 0.4 Mg Cap.er.24h 0.4 Mg PO DAILY Potassium Chloride 20 Meq Tablet.er 20 Meq PO DAILY Protonix (Pantoprazole Sodium) 20 Mg Tablet.dr 20 Mg PO DAILY Meclizine Hcl 12.5 Mg Tablet 2 Tab PO TID Losartan Potassium 100 Mg Tablet 100 Mg PO DAILY Albuterol Sulfate Neb Soln (Albuterol Sulfate) 2.5 Mg/3 Ml Vial.neb 1 Vial NEB PRN Q4HRS Ibuprofen 800 Mg Tablet 800 Mg PO TID PRN Furosemide 20 Mg Tablet 1 Tab PO DAILY Finasteride 5 Mg Tablet 1 Tab PO DAILY Doxazosin Mesylate 8 Mg Tablet 1 Tab PO DAILY Allopurinol 300 Mg Tablet 1 Tab PO DAILY Vitals/I & O Vital Sign - Last 24 Hours 05/07/18 05/07/18 05/07/18 05/07/18 15:21 18:50 20:05 23:00 Temp 98.4 98.3 98.2 98.4 98.3 98.2 Pulse 96 101 105 Resp 20 19 B/P (MAP) 141/84 (103) 139/89 (106) 141/87 (105) Pulse Ox 98 97 O2 Delivery Room Air Room Air Room Air Room Air 05/08/18 05/08/18 05/08/18 05/08/18 03:00 07:00 07:29 08:08 Temp 98.3 97.9 98.3 97.9 Pulse 102 103 103 Resp 18 B/P (MAP) 134/93 (107) 150/101 (117) 150/101 Pulse Ox 98 97 O2 Delivery Room Air Room Air Room Air 05/08/18 05/08/18 05/08/18 11:00 11:50 12:32 Temp 96.8 96.8 Pulse 105 105 114 Resp 20 B/P (MAP) 160/103 (122) 160/103 118/72 (87) Pulse Ox 97 O2 Delivery Room Air Room Air Intake and Output 05/07/18 05/07/18 05/08/18 15:00 23:00 07:00 Intake Total 0 ml Balance 0 ml MANAS PATEL MD May 08, 2018 14:16
[2018-05-08] MEDS: MORPHINE SULFATE 4 MG/ML VIAL. IV PRN (14:51)
[2018-05-09 02:36] VITALS: BP 131/84
[2018-05-09] MEDS: MORPHINE SULFATE 4 MG/ML VIAL. IV PRN ×3 (02:46→23:23)
[2018-05-09] MEDS: HALOPERIDOL 2 MG/ML ORAL.CONC. PO SCH ×3 (05:38→18:00)
[2018-05-09] MEDS: HEPARIN for SUB-Q USE 5,000 UNIT/ML VIAL. SQ SCH ×3 (05:39→20:50)
[2018-05-09 07:00] VITALS: BP 158/99
[2018-05-09] MEDS: AMINO AC 3%/ELECTROLYTE/GLYCER 1,000 ML IV SCH ×2 (07:26→19:17)
[2018-05-09] MEDS: HALOPERIDOL LACTATE 5 MG/ML VIAL. IVP PRN (07:26)
[2018-05-09] MEDS: POTASSIUM CHLORIDE 20 MEQ TABLET.ER. PO SCH (08:00)
--- NOTE | 2018-05-09 09:02 | PDOC ---
PROGRESS NOTES Subjective Subjective HPI - f/u of Liver mets ROS - confused, agitated at times Objective Objective Vital Signs Date Time Temp Pulse Resp B/P (MAP) Pulse Ox O2 Delivery O2 Flow Rate FiO2 05/09/18 07:00 98.2 103 19 158/99 (118) 96 Room Air 98.2 Intake and Output 05/09/18 07:00 Intake Total 1010 ml Balance 1010 ml Intake Oral 60 ml IV Total 950 ml # Voids 10 # Bowel Movements 1 Physical Exam General: No acute distress Neck: No JVD Assessment Assessment Problems Medical Problems: (1) Renal insufficiency Status: Acute IMPRESSION AND PLAN: 1. 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 Primary is unknown, likely originating from small bowel or pancreas per pathology. Ki-67 is 10% consistent with intermediate grade, I d/w Dr Peck. Further investigation to look for primary would not add much to the management plan as his functional status is very poor. His mental status is poor and he is not a candidate for any treatment for his malignancy. He is on one-on-one watch in the hospital and I discussed with the registered nurse. His ECOG performance status at this time is 4 and he is needing help for all his daily activities. Appreciate palliative care help in transitioning to hospice and best supportive care. No further recommendations. Please call if needed. 2. Pancreatitis. Appreciate Gastroenterology evaluation and management. His lipase was significantly elevated. 3. Altered mental status and confusion. Continue supportive care. I d/w RN. 4. Anemia. Hemoglobin 11.7, thought to be due to malignancy. Continue to monitor p.r.n. Comment Review of Relevant I have reviewed the following items pily (where applicable) has been applied. Labs Laboratory Tests Test 05/08/18 08:15 Sodium Level 141 mmol/L (136-145) Potassium Level 4.5 mmol/L (3.5-5.1) Chloride Level 105 mmol/L (98-107) Carbon Dioxide Level 19 mmol/L (21-32) Anion Gap 17 (6-14) Blood Urea Nitrogen 20 mg/dL (8-26) Creatinine 0.9 mg/dL (0.7-1.3) Estimated GFR (Cockcroft-Gault) 97.8 Glucose Level 107 mg/dL (70-99) Calcium Level 8.4 mg/dL (8.5-10.1) Phosphorus Level 4.0 mg/dL (2.6-4.7) Albumin 2.2 g/dL (3.4-5.0) Microbiology 04/25/18 Blood Culture - Final, Complete NO GROWTH AFTER 5 DAYS Medications Current Medications Sodium Chloride 1,000 ml @ 1,000 mls/hr Q1H IV Last administered on 04/25/18 10:12; Start 04/25/18 at 09:38; Stop 04/25/18 at 10:37; Status DC Ondansetron HCl (Zofran) 4 mg 1X ONCE IV Last administered on 04/25/18 10:11 ; Start 04/25/18 at 09:45; Stop 04/25/18 at 09:46; Status DC Hyoscyamine (Anaspaz) 0.125 mg ONCE ONCE PO Last administered on 04/25/18 10: 12; Start 04/25/18 at 09:45; Stop 04/25/18 at 09:46; Status DC Pantoprazole Sodium (PROTONIX VIAL for IV PUSH) 40 mg 1X ONCE IVP Last administered on 04/25/18 10:23; Start 04/25/18 at 10:15; Stop 04/25/18 at 10:16 ; Status DC Ceftriaxone Sodium (Rocephin) 1 gm 1X ONCE IVP Last administered on 04/25/18 12:23; Start 04/25/18 at 11:45; Stop 04/25/18 at 11:46; Status DC Azithromycin 250 ml @ 250 mls/hr 1X ONCE IV Last administered on 04/25/18 12 :23; Start 04/25/18 at 11:45; Stop 04/25/18 at 12:44; Status DC Ondansetron HCl (Zofran) 4 mg PRN Q8HRS PRN IV NAUSEA/VOMITING; Start 04/25/18 at 11:45; Stop 04/26/18 at 11:44; Status DC Morphine Sulfate (Morphine Sulfate) 2 mg PRN Q2HR PRN IV PAIN Last administered on 04/25/18 12:19; Start 04/25/18 at 11:45; Stop 04/26/18 at 11:44 ; Status DC Sodium Chloride 1,000 ml @ 125 mls/hr Q8H IV Last administered on 04/25/18 16 :34; Start 04/25/18 at 11:36; Stop 04/26/18 at 06:23; Status DC Ringer's Solution 1,000 ml @ 125 mls/hr Q8H IV Last administered on 04/30/18 05:57; Start 04/25/18 at 13:34; Stop 04/30/18 at 09:56; Status DC Ondansetron HCl (Zofran) 4 mg PRN Q6HRS PRN IV NAUSEA/VOMITING; Start 04/25/18 at 13:45 Morphine Sulfate (Morphine Sulfate) 2 mg PRN Q4HRS PRN IV PAIN Last administered on 05/09/18 02:46; Start 04/25/18 at 13:45 Acetaminophen/ Hydrocodone Bitart (Lortab 5/325) 1 tab PRN Q4HRS PRN PO PAIN Last administered on 05/06/18 21:25; Start 04/25/18 at 13:45 Heparin Sodium (Porcine) (Heparin Sodium) 5,000 unit Q12HR SQ ; Start 04/25/18 at 21:00; Stop 04/26/18 at 17:38; Status DC Pantoprazole Sodium (PROTONIX VIAL for IV PUSH) 40 mg DAILYAC IVP Last administered on 05/08/18 07:28; Start 04/26/18 at 07:30 Saliva Substitute (Biotene Moisturizing Mouth) 2 spray PRN Q15MIN PRN PO DRY MOUTH Last administered on 04/28/18 02:23; Start 04/26/18 at 10:00 Potassium Chloride/Water 100 ml @ 100 mls/hr Q1H IV Last administered on 14:30; Start 04/26/18 at 11:30; Stop 04/26/18 at 15:29; Status DC Potassium Chloride (Klor-Con) 20 meq DAILYWBKFT PO ; Start 04/27/18 at 08:00; Stop 04/29/18 at 12:20; Status DC Potassium Chloride (Klor-Con) 40 meq 1X ONCE PO ; Start 04/26/18 at 19:00; Stop 04/26/18 at 19:01; Status DC Lidocaine/Sodium Bicarbonate (Buffered Lidocaine 1%) 3 ml STK-MED ONCE .ROUTE ; Start 04/26/18 at 13:46; Stop 04/26/18 at 13:47; Status DC Gelatin (Gelfoam Size 12-7mm) 1 each STK-MED ONCE .ROUTE ; Start 04/26/18 at 13 :46; Stop 04/26/18 at 13:47; Status DC Midazolam HCl (Versed) 2 mg STK-MED ONCE .ROUTE ; Start 04/26/18 at 14:13; Stop 04/26/18 at 14:14; Status DC Fentanyl Citrate (Fentanyl 2ml Vial) 100 mcg STK-MED ONCE .ROUTE ; Start at 14:13; Stop 04/26/18 at 14:14; Status DC Lidocaine/Sodium Bicarbonate (Buffered Lidocaine 1%) 3 ml 1X ONCE INJ Last administered on 04/26/18at 14:44; Start 04/26/18 at 14:45; Stop 04/26/18 at 14:46 ; Status DC Gelatin (Gelfoam Size 12-7mm) 1 each 1X ONCE TP Last administered on at 14:44; Start 04/26/18 at 14:45; Stop 04/26/18 at 14:46; Status DC Azithromycin 250 mg/Sodium Chloride 250 ml @ 250 mls/hr Q24H IV Last administered on 05/05/18at 18:14; Start 04/26/18 at 18:00; Stop 05/06/18 at 12:56; Status DC Ceftriaxone Sodium (Rocephin) 1 gm Q24H IVP Last administered on 05/05/18at 18:11 ; Start 04/26/18 at 17:30; Stop 05/06/18 at 12:56; Status DC Potassium Chloride/Water 100 ml @ 100 mls/hr Q1H IV Last administered on at 11:10; Start 04/27/18 at 10:00; Stop 04/27/18 at 11:59; Status DC Potassium Chloride/Water 100 ml @ 100 mls/hr Q1H IV Last administered on at 19:14; Start 04/28/18 at 18:00; Stop 04/28/18 at 19:59; Status DC Potassium Chloride (Klor-Con) 40 meq 1X ONCE PO ; Start 04/28/18 at 17:30; Stop 04/28/18 at 17:30; Status DC Potassium Chloride (Klor-Con) 20 meq DAILYWBKFT PO ; Start 04/29/18 at 08:00; Stop 04/29/18 at 08:00; Status DC Heparin Sodium (Porcine) (Heparin Sodium) 5,000 unit Q8HRS SQ Last administered on 05/08/18at 15:13; Start 04/28/18 at 22:00 Potassium Chloride/Water 100 ml @ 100 mls/hr Q1H IV Last administered on 21:28; Start 04/28/18 at 20:00; Stop 04/28/18 at 21:59; Status DC Haloperidol Lactate (Haldol Inj) 2.5 mg PRN Q6HRS PRN IVP AGITATION Last administered on 05/09/18 07:26; Start 04/28/18 at 17:00 Magnesium Sulfate 50 ml @ 25 mls/hr PRN DAILY PRN IV for Mag < 1.7 on am labs; Start 04/29/18 at 12:30 Potassium Chloride (Klor-Con) 40 meq BID PO ; Start 04/29/18 at 12:30; Stop at 13:29; Status DC Potassium Chloride (Klor-Con) 20 meq DAILYWBKFT PO Last administered on 08:55; Start 05/01/18 at 08:00 Potassium Chloride/Water 100 ml @ 100 mls/hr Q1H IV Last administered on at 20:29; Start 04/29/18 at 14:00; Stop 04/29/18 at 17:59; Status DC Amino Acids/ Glycerin/ Electrolytes 1,000 ml @ 80 mls/hr [id number] IV Last administered on 05/09/18 07:26; Start 04/30/18 at 08:15 Olanzapine (ZyPREXA IM) 10 mg 1X ONCE IM Last administered on 04/30/18at 11:51 ; Start 04/30/18 at 11:45; Stop 04/30/18 at 11:46; Status DC Quetiapine Fumarate (SEROquel XR) 50 mg DAILY PO Last administered on 05/07/18 08:55; Start 05/01/18 at 11:00 Potassium Chloride (Klor-Con) 40 meq 1X ONCE PO ; Start 05/01/18 at 11:15; Stop 05/01/18 at 11:16; Status DC Potassium Chloride (Klor-Con) 20 meq DAILYWBKFT PO ; Start 05/02/18 at 08:00; Stop 05/02/18 at 08:00; Status DC Potassium Chloride/Water 100 ml @ 100 mls/hr Q1H IV Last administered on at 17:14; Start 05/02/18 at 14:00; Stop 05/02/18 at 17:59; Status DC Haloperidol (Haldol) 1 mg Q6HRS PO ; Start 05/04/18 at 16:00; Stop 05/04/18 at 16:00; Status DC Haloperidol Lactate (HALDOL 2mg ORAL CONC) 1 mg Q6HRS PO Last administered on at 05:38; Start 05/04/18 at 16:30 Amlodipine Besylate (Norvasc) 5 mg DAILY PO Last administered on 05/07/18at 08:57 ; Start 05/06/18 at 16:00 Hydralazine HCl (Apresoline Inj) 10 mg 1X ONCE IVP Last administered on at 15:25; Start 05/06/18 at 15:30; Stop 05/06/18 at 15:31; Status DC Hydralazine HCl (Apresoline Inj) 10 mg PRN Q4HRS PRN IVP ELEVATED BP, SEE COMMENTS Last administered on 05/08/18at 11:50; Start 05/06/18 at 15:45 Risperidone (RisperDAL) 0.25 mg BID PO ; Start 05/07/18 at 21:00 Lorazepam (Ativan) 2 mg PRN Q6HRS PRN IV ANXIETY / AGITATION Last administered on 05/09/18at 05:28; Start 05/09/18 at 03:00 Active Scripts Active Reported Tamsulosin Hcl 0.4 Mg Cap.er.24h 0.4 Mg PO DAILY Potassium Chloride 20 Meq Tablet.er 20 Meq PO DAILY Protonix (Pantoprazole Sodium) 20 Mg Tablet.dr 20 Mg PO DAILY Meclizine Hcl 12.5 Mg Tablet 2 Tab PO TID Losartan Potassium 100 Mg Tablet 100 Mg PO DAILY Albuterol Sulfate Neb Soln (Albuterol Sulfate) 2.5 Mg/3 Ml Vial.neb 1 Vial NEB PRN Q4HRS Ibuprofen 800 Mg Tablet 800 Mg PO TID PRN Furosemide 20 Mg Tablet 1 Tab PO DAILY Finasteride 5 Mg Tablet 1 Tab PO DAILY Doxazosin Mesylate 8 Mg Tablet 1 Tab PO DAILY Allopurinol 300 Mg Tablet 1 Tab PO DAILY Vitals/I & O Vital Sign - Last 24 Hours 05/08/18 05/08/18 05/08/18 05/08/18 11:00 11:50 12:32 14:51 Temp 96.8 96.8 Pulse 105 105 114 Resp 20 B/P (MAP) 160/103 (122) 160/103 118/72 (87) Pulse Ox 97 97 O2 Delivery Room Air Room Air Room Air 05/08/18 05/08/18 05/08/18 05/08/18 15:07 15:30 18:54 20:00 Temp 97.1 98.3 97.1 98.3 Pulse 103 101 Resp 18 16 B/P (MAP) 145/85 (105) 124/80 (95) Pulse Ox 98 98 98 O2 Delivery Room Air Room Air Room Air 05/08/18 05/09/18 05/09/18 05/09/18 22:51 02:36 02:46 03:19 Temp 98.2 98.3 98.2 98.3 Pulse 97 106 Resp 15 17 B/P (MAP) 129/87 (101) 131/84 (100) Pulse Ox 96 97 O2 Delivery Room Air Room Air Room Air Room Air 05/09/18 07:00 Temp 98.2 98.2 Pulse 103 Resp 19 B/P (MAP) 158/99 (118) Pulse Ox 96 O2 Delivery Room Air Intake and Output 05/08/18 05/08/18 05/09/18 15:00 23:00 07:00 Intake Total 950 ml 0 ml 60 ml Balance 950 ml 0 ml 60 ml MANAS PATEL MD May 09, 2018 09:02
[2018-05-09] MEDS: PANTOPRAZOLE IV PUSH 40 MG VIAL. IVP SCH (09:46)
[2018-05-09] MEDS: risperiDONE 0.25 MG TABLET. PO SCH ×2 (09:46→20:50)
[2018-05-09] MEDS: amLODIPine BESYLATE 5 MG TABLET PO SCH (09:47)
[2018-05-09] MEDS: QUEtiapine 50 MG TAB.ER.24H. PO SCH (09:47)
[2018-05-09 11:00] VITALS: BP 131/84
--- NOTE | 2018-05-09 14:24 | NUR ---
SW following. Discussed with RN, 1:1 has been discontinued. RN advised pt has not been eating. AMELIA spoke with Guy at [facility], Guy tried to call Krupa ( of pt's nephew) and left voicemail. Guy also called [facility] to determine progress, Guy awaiting a call back. AMELIA will continue to follow. RN notified.
--- NOTE | 2018-05-09 14:29 | PDOC ---
PROGRESS NOTES Chief Complaint Chief Complaint Acute pancreatitis - with Abdominal pain, currently asymptomatic. Concerning liver /metastatic disease, Acute metabolic encephalopathy - uremia, delirium Hypokalemia replacing as needed SYLVIE - vasomotor with possible ATN, Liver masses - metastatic disease. Contrast contraindicated based on his renal function. consult GI. awaiting [facility] medical records. RBC microcytosis SEVERE PROTEIN-CALORIC MALNUTRITION- Poor oral intake Enceph, metabolic NOT IMPROVED AGITATION, CONTINUES NEEDS sitter 05/07 His mental status is poor and he is not a candidate for any treatment of his malignancy. palliative care discussed with PAT 05/05 placement pending SUPPLEMENTS, DIETARY Plan Continue Procalamine KCl 20 Appreciate palliative and social work Continue sitter 05/06 remains to take off clothes and try to move out of bed FOCUS ON COMFORT MEASURES morphine prn History of Present Illness History of Present Illness Patient resting comfortably in bed in no acute distress. The patient is lethargic due to Haldol and benzodiazepines administered earlier in the day. We will continue to monitor given that wishes are as follows: NEPHEW AGREES WITH HOSPICE PLAN He has been unpredictable with behavior Refusing by mouth pills and to eat at times ProcalAmine running Potassium REPLACED Palliative and social insurance administrator d/w nephew by phone Patient not cooperative with nurses at times Vitals Vitals Vital Signs Date Time Temp Pulse Resp B/P (MAP) Pulse Ox O2 Delivery O2 Flow Rate FiO2 05/09/18 11:06 Room Air 05/09/18 11:00 97.9 100 18 131/84 (100) 96 97.9 Physical Exam General: No acute distress Heart: Regular rate, Normal S1 Lungs: Clear, Other (rare exp wheeze) Abdomen: Normal bowel sounds, Soft, No tenderness, No hepatosplenomegaly, No masses, Other (RUQ tenderness NO REBOUND) Extremities: No clubbing, No cyanosis, No edema, Normal pulses, No tenderness/ swelling Skin: No rashes, No breakdown, No significant lesion Assessment and Plan Assessmemt and Plan Problems Medical Problems: (1) Renal insufficiency Status: Acute Comment Review of Relevant I have reviewed the following items pily (where applicable) has been applied. Labs Laboratory Tests Test 05/08/18 08:15 Sodium Level 141 mmol/L (136-145) Potassium Level 4.5 mmol/L (3.5-5.1) Chloride Level 105 mmol/L (98-107) Carbon Dioxide Level 19 mmol/L (21-32) Anion Gap 17 (6-14) Blood Urea Nitrogen 20 mg/dL (8-26) Creatinine 0.9 mg/dL (0.7-1.3) Estimated GFR (Cockcroft-Gault) 97.8 Glucose Level 107 mg/dL (70-99) Calcium Level 8.4 mg/dL (8.5-10.1) Phosphorus Level 4.0 mg/dL (2.6-4.7) Albumin 2.2 g/dL (3.4-5.0) Microbiology 04/25/18 Blood Culture - Final, Complete NO GROWTH AFTER 5 DAYS Medications Current Medications Sodium Chloride 1,000 ml @ 1,000 mls/hr Q1H IV Last administered on 04/25/18 10:12; Start 04/25/18 at 09:38; Stop 04/25/18 at 10:37; Status DC Ondansetron HCl (Zofran) 4 mg 1X ONCE IV Last administered on 04/25/18 10:11 ; Start 04/25/18 at 09:45; Stop 04/25/18 at 09:46; Status DC Hyoscyamine (Anaspaz) 0.125 mg ONCE ONCE PO Last administered on 04/25/18 10: 12; Start 04/25/18 at 09:45; Stop 04/25/18 at 09:46; Status DC Pantoprazole Sodium (PROTONIX VIAL for IV PUSH) 40 mg 1X ONCE IVP Last administered on 04/25/18 10:23; Start 04/25/18 at 10:15; Stop 04/25/18 at 10:16 ; Status DC Ceftriaxone Sodium (Rocephin) 1 gm 1X ONCE IVP Last administered on 04/25/18 12:23; Start 04/25/18 at 11:45; Stop 04/25/18 at 11:46; Status DC Azithromycin 250 ml @ 250 mls/hr 1X ONCE IV Last administered on 04/25/18 12 :23; Start 04/25/18 at 11:45; Stop 04/25/18 at 12:44; Status DC Ondansetron HCl (Zofran) 4 mg PRN Q8HRS PRN IV NAUSEA/VOMITING; Start 04/25/18 at 11:45; Stop 04/26/18 at 11:44; Status DC Morphine Sulfate (Morphine Sulfate) 2 mg PRN Q2HR PRN IV PAIN Last administered on 04/25/18 12:19; Start 04/25/18 at 11:45; Stop 04/26/18 at 11:44 ; Status DC Sodium Chloride 1,000 ml @ 125 mls/hr Q8H IV Last administered on 04/25/18 16 :34; Start 04/25/18 at 11:36; Stop 04/26/18 at 06:23; Status DC Ringer's Solution 1,000 ml @ 125 mls/hr Q8H IV Last administered on 04/30/18 05:57; Start 04/25/18 at 13:34; Stop 04/30/18 at 09:56; Status DC Ondansetron HCl (Zofran) 4 mg PRN Q6HRS PRN IV NAUSEA/VOMITING; Start 04/25/18 at 13:45 Morphine Sulfate (Morphine Sulfate) 2 mg PRN Q4HRS PRN IV PAIN Last administered on 05/09/18 09:54; Start 04/25/18 at 13:45 Acetaminophen/ Hydrocodone Bitart (Lortab 5/325) 1 tab PRN Q4HRS PRN PO PAIN Last administered on 05/06/18 21:25; Start 04/25/18 at 13:45 Heparin Sodium (Porcine) (Heparin Sodium) 5,000 unit Q12HR SQ ; Start 04/25/18 at 21:00; Stop 04/26/18 at 17:38; Status DC Pantoprazole Sodium (PROTONIX VIAL for IV PUSH) 40 mg DAILYAC IVP Last administered on 05/09/18 09:46; Start 04/26/18 at 07:30 Saliva Substitute (Biotene Moisturizing Mouth) 2 spray PRN Q15MIN PRN PO DRY MOUTH Last administered on 04/28/18 02:23; Start 04/26/18 at 10:00 Potassium Chloride/Water 100 ml @ 100 mls/hr Q1H IV Last administered on 14:30; Start 04/26/18 at 11:30; Stop 04/26/18 at 15:29; Status DC Potassium Chloride (Klor-Con) 20 meq DAILYWBKFT PO ; Start 04/27/18 at 08:00; Stop 04/29/18 at 12:20; Status DC Potassium Chloride (Klor-Con) 40 meq 1X ONCE PO ; Start 04/26/18 at 19:00; Stop 04/26/18 at 19:01; Status DC Lidocaine/Sodium Bicarbonate (Buffered Lidocaine 1%) 3 ml STK-MED ONCE .ROUTE ; Start 04/26/18 at 13:46; Stop 04/26/18 at 13:47; Status DC Gelatin (Gelfoam Size 12-7mm) 1 each STK-MED ONCE .ROUTE ; Start 04/26/18 at 13 :46; Stop 04/26/18 at 13:47; Status DC Midazolam HCl (Versed) 2 mg STK-MED ONCE .ROUTE ; Start 04/26/18 at 14:13; Stop 04/26/18 at 14:14; Status DC Fentanyl Citrate (Fentanyl 2ml Vial) 100 mcg STK-MED ONCE .ROUTE ; Start at 14:13; Stop 04/26/18 at 14:14; Status DC Lidocaine/Sodium Bicarbonate (Buffered Lidocaine 1%) 3 ml 1X ONCE INJ Last administered on 04/26/18at 14:44; Start 04/26/18 at 14:45; Stop 04/26/18 at 14:46 ; Status DC Gelatin (Gelfoam Size 12-7mm) 1 each 1X ONCE TP Last administered on at 14:44; Start 04/26/18 at 14:45; Stop 04/26/18 at 14:46; Status DC Azithromycin 250 mg/Sodium Chloride 250 ml @ 250 mls/hr Q24H IV Last administered on 05/05/18at 18:14; Start 04/26/18 at 18:00; Stop 05/06/18 at 12:56; Status DC Ceftriaxone Sodium (Rocephin) 1 gm Q24H IVP Last administered on 05/05/18at 18:11 ; Start 04/26/18 at 17:30; Stop 05/06/18 at 12:56; Status DC Potassium Chloride/Water 100 ml @ 100 mls/hr Q1H IV Last administered on at 11:10; Start 04/27/18 at 10:00; Stop 04/27/18 at 11:59; Status DC Potassium Chloride/Water 100 ml @ 100 mls/hr Q1H IV Last administered on 19:14; Start 04/28/18 at 18:00; Stop 04/28/18 at 19:59; Status DC Potassium Chloride (Klor-Con) 40 meq 1X ONCE PO ; Start 04/28/18 at 17:30; Stop 04/28/18 at 17:30; Status DC Potassium Chloride (Klor-Con) 20 meq DAILYWBKFT PO ; Start 04/29/18 at 08:00; Stop 04/29/18 at 08:00; Status DC Heparin Sodium (Porcine) (Heparin Sodium) 5,000 unit Q8HRS SQ Last administered on 05/08/18 15:13; Start 04/28/18 at 22:00 Potassium Chloride/Water 100 ml @ 100 mls/hr Q1H IV Last administered on 21:28; Start 04/28/18 at 20:00; Stop 04/28/18 at 21:59; Status DC Haloperidol Lactate (Haldol Inj) 2.5 mg PRN Q6HRS PRN IVP AGITATION Last administered on 05/09/18 07:26; Start 04/28/18 at 17:00 Magnesium Sulfate 50 ml @ 25 mls/hr PRN DAILY PRN IV for Mag < 1.7 on am labs; Start 04/29/18 at 12:30 Potassium Chloride (Klor-Con) 40 meq BID PO ; Start 04/29/18 at 12:30; Stop at 13:29; Status DC Potassium Chloride (Klor-Con) 20 meq DAILYWBKFT PO Last administered on 08:55; Start 05/01/18 at 08:00 Potassium Chloride/Water 100 ml @ 100 mls/hr Q1H IV Last administered on 20:29; Start 04/29/18 at 14:00; Stop 04/29/18 at 17:59; Status DC Amino Acids/ Glycerin/ Electrolytes 1,000 ml @ 80 mls/hr [id number] IV Last administered on 05/09/18 07:26; Start 04/30/18 at 08:15 Olanzapine (ZyPREXA IM) 10 mg 1X ONCE IM Last administered on 04/30/18 11:51 ; Start 04/30/18 at 11:45; Stop 04/30/18 at 11:46; Status DC Quetiapine Fumarate (SEROquel XR) 50 mg DAILY PO Last administered on 05/09/18at 09:47; Start 05/01/18 at 11:00 Potassium Chloride (Klor-Con) 40 meq 1X ONCE PO ; Start 05/01/18 at 11:15; Stop 05/01/18 at 11:16; Status DC Potassium Chloride (Klor-Con) 20 meq DAILYWBKFT PO ; Start 05/02/18 at 08:00; Stop 05/02/18 at 08:00; Status DC Potassium Chloride/Water 100 ml @ 100 mls/hr Q1H IV Last administered on at 17:14; Start 05/02/18 at 14:00; Stop 05/02/18 at 17:59; Status DC Haloperidol (Haldol) 1 mg Q6HRS PO ; Start 05/04/18 at 16:00; Stop 05/04/18 at 16:00; Status DC Haloperidol Lactate (HALDOL 2mg ORAL CONC) 1 mg Q6HRS PO Last administered on at 11:54; Start 05/04/18 at 16:30 Amlodipine Besylate (Norvasc) 5 mg DAILY PO Last administered on 05/09/18 09:47 ; Start 05/06/18 at 16:00 Hydralazine HCl (Apresoline Inj) 10 mg 1X ONCE IVP Last administered on at 15:25; Start 05/06/18 at 15:30; Stop 05/06/18 at 15:31; Status DC Hydralazine HCl (Apresoline Inj) 10 mg PRN Q4HRS PRN IVP ELEVATED BP, SEE COMMENTS Last administered on 05/08/18at 11:50; Start 05/06/18 at 15:45 Risperidone (RisperDAL) 0.25 mg BID PO Last administered on 05/09/18at 09:46; Start 05/07/18 at 21:00 Lorazepam (Ativan) 2 mg PRN Q6HRS PRN IV ANXIETY / AGITATION Last administered on 05/09/18at 05:28; Start 05/09/18 at 03:00 Active Scripts Active Reported Tamsulosin Hcl 0.4 Mg Cap.er.24h 0.4 Mg PO DAILY Potassium Chloride 20 Meq Tablet.er 20 Meq PO DAILY Protonix (Pantoprazole Sodium) 20 Mg Tablet.dr 20 Mg PO DAILY Meclizine Hcl 12.5 Mg Tablet 2 Tab PO TID Losartan Potassium 100 Mg Tablet 100 Mg PO DAILY Albuterol Sulfate Neb Soln (Albuterol Sulfate) 2.5 Mg/3 Ml Vial.neb 1 Vial NEB PRN Q4HRS Ibuprofen 800 Mg Tablet 800 Mg PO TID PRN Furosemide 20 Mg Tablet 1 Tab PO DAILY Finasteride 5 Mg Tablet 1 Tab PO DAILY Doxazosin Mesylate 8 Mg Tablet 1 Tab PO DAILY Allopurinol 300 Mg Tablet 1 Tab PO DAILY Vitals/I & O Vital Sign - Last 24 Hours 05/08/18 05/08/18 05/08/18 05/08/18 14:51 15:07 15:30 18:54 Temp 97.1 98.3 97.1 98.3 Pulse 103 101 Resp 18 16 B/P (MAP) 145/85 (105) 124/80 (95) Pulse Ox 97 98 98 98 O2 Delivery Room Air Room Air Room Air 05/08/18 05/08/18 05/09/18 05/09/18 20:00 22:51 02:36 02:46 Temp 98.2 98.3 98.2 98.3 Pulse 97 106 Resp 15 17 B/P (MAP) 129/87 (101) 131/84 (100) Pulse Ox 96 97 O2 Delivery Room Air Room Air Room Air Room Air 05/09/18 05/09/18 05/09/18 05/09/18 07:00 08:00 09:47 09:54 Temp 98.2 98.2 Pulse 103 103 Resp 19 B/P (MAP) 158/99 (118) 158/99 Pulse Ox 96 O2 Delivery Room Air Room Air Room Air 05/09/18 05/09/18 11:00 11:06 Temp 97.9 97.9 Pulse 100 Resp 18 B/P (MAP) 131/84 (100) Pulse Ox 96 O2 Delivery Room Air Room Air Intake and Output 05/08/18 05/08/18 05/09/18 15:00 23:00 07:00 Intake Total 950 ml 0 ml 60 ml Balance 950 ml 0 ml 60 ml ИВАН HOUSER MD May 09, 2018 14:29
[2018-05-09 15:00] VITALS: BP 148/98
[2018-05-09 19:00] VITALS: BP 150/99
[2018-05-09 23:00] VITALS: BP 150/105
[2018-05-10 03:00] VITALS: BP 146/98
[2018-05-10] MEDS: MORPHINE SULFATE 4 MG/ML VIAL. IV PRN ×2 (03:27→12:32)
[2018-05-10] MEDS: HEPARIN for SUB-Q USE 5,000 UNIT/ML VIAL. SQ SCH ×2 (06:00→08:01)
[2018-05-10] MEDS: HALOPERIDOL 2 MG/ML ORAL.CONC. PO SCH ×3 (06:02→07:55)
[2018-05-10 07:00] VITALS: BP 141/103
[2018-05-10] MEDS: PANTOPRAZOLE IV PUSH 40 MG VIAL. IVP SCH (07:57)
[2018-05-10] MEDS: POTASSIUM CHLORIDE 20 MEQ TABLET.ER. PO SCH (08:00)
[2018-05-10] MEDS: AMINO AC 3%/ELECTROLYTE/GLYCER 1,000 ML IV SCH (08:02)
[2018-05-10] MEDS: QUEtiapine 50 MG TAB.ER.24H. PO SCH (09:00)
[2018-05-10] MEDS: risperiDONE 0.25 MG TABLET. PO SCH (09:00)
[2018-05-10] MEDS: amLODIPine BESYLATE 5 MG TABLET PO SCH (09:00)
--- NOTE | 2018-05-10 09:21 | NUR ---
does not wake to name or sternal rub. this senior writer able to give liquid haldol but not pills.
--- NOTE | 2018-05-10 11:03 | NUR ---
SW following. Discussed with RN, pt os not eating, drinking, or waking, with pulse increasing. Dr. Luevano queried whether pt would be appropriate for inpatient hospice. SW contacted [facility] ([phone], fax: [phone]), Wilda will come to do an assessment of pt. SW to discuss with hospice about pt's nephew in [place]. RN notified. SW will continue to follow.
--- NOTE | 2018-05-10 13:07 | NUR ---
AMELIA following. AMELIA attempted to contact Krupa, sent text message requesting a call back. AMELIA contacted Luis Carlos (pt's nephew) who requested SW call him back in 25 minutes ([phone]). AMELIA will contact Luis Carlos again at that time. AMELIA notified Luis Carlos that another hospice agency may also contact him. [facility] with pt currently doing a bedside assessment. AMELIA will continue to follow.
[2018-05-10] MEDS ORDERED: MORPHINE SULFATE 4 MG/ML VIAL. IV PRN (14:15)
[2018-05-10] MEDS ORDERED: RISP0.2519 PO (14:22)
[2018-05-10] MEDS ORDERED: QUET50TA9 PO (14:22)
--- NOTE | 2018-05-10 15:51 | NUR ---
AMELIA following. AMELIA contacted Luis Carlos again with Wilda from [facility]. Luis Carlos and Krupa gave verbal consent and understanding to sign pt into inpatient hospice. [facility] paperwork faxed to Luis Carlos and Krupa. Awaiting return fax with completed paperwork. Pt is now inpatient hospice. AMELIA will continue to follow. Wilda at [facility] (ph: [phone], fax: [phone]). RN notified.
--- NOTE | 2018-05-10 16:10 | PDOC3 ---
Discharge Summary Visit Information Date of Admission: Apr 25, 2018 Date of Discharge: May 10, 2018 Admitting Diagnosis Comment: Acute pancreatitis - with Abdominal pain, nausea vomiting. NPO, consult GI. Still has GB, triglycerides normal, not on a thiazide that he knows of and he doesn't recall if he has been losing weight. Concerning liver masses on CT could be metastatic disease, he does not recall his last colonoscopy during my interview. Pain control with morphine Acute encephalopathy - this seems partially delerium as he can give accurate information but then is inaccurate with some easy questions. Bili not that high , could be uremia or he may have an element of dementia Hypokalemia - 3.1, will monitor. Replace IVF SYLVIE - Cr and BUN elevated. Unknown baseline. Seems acute with his mental status. Will consult nephrology Liver masses - possibly metastatic disease. Contrast contraindicated based on his renal function. Will consult GI. Will see if I can get ahold of his [facility] medical records. RBC microcytosis - will check iron studies, may be sickle trait, he does not recall HTN - will need to reconcile his meds Final Diagnosis Acute pancreatitis - with Abdominal pain, currently asymptomatic. Concerning liver /metastatic disease, Acute metabolic encephalopathy - uremia, delirium Hypokalemia replacing as needed SYLVIE - vasomotor with possible ATN, Liver masses - metastatic disease. Contrast contraindicated based on his renal function. consult GI. awaiting [facility] records. RBC microcytosis SEVERE PROTEIN-CALORIC MALNUTRITION- Poor oral intake Enceph, metabolic NOT IMPROVED AGITATION, resolved His mental status is poor and he is not a candidate for any treatment of his malignancy. Brief Hospital Course Allergies Allergies Coded Allergies Type Severity Reaction Last Updated Verified No Known Drug Allergies 04/25/18 No Vital Signs Vital Signs Date Time Temp Pulse Resp B/P (MAP) Pulse Ox O2 Delivery O2 Flow Rate FiO2 05/10/18 12:32 Room Air 05/10/18 07:00 98.6 118 17 141/103 (116) 98 98.6 Brief Hospital Course 82 year old male with PMHx HTN (he cannot recall any other PMHx) who presents with upper abdominal pain, vomiting, and diarrhea. This has been present for the past week. He reports some blood in his emesis. Denies black or bloody stool. Reports that he normally only eats one meal a day but that he is been unable to tolerate it during this time and states that even bread makes him feel nauseated. Cannot stand the sight of food recently. Pain is dull and burning. Moderate to severe in intensity. Patient reports that he has been taking ibuprofen without any relief. In ED had concerning CT scan for liver masses and pancreatic fat stranding and Lipase 3214 as well as leukocytosis WBC 13K, Bili 1.4, Alk phos 292 and Cr 3.7 as well as BUN 88 and K of 3.1. 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 He is from [place], [place] and has moved to [place] 6 years ago to be near his ex-. Notably he cannot remember her phone number or any of his children. He knows his pharmacy is [facility] and does not remember the name of his PCP. He notes he is a practicing [employer] and does not drink or smoke or use illicit substances. Patient had a very prolonged hospital stay. In short patient was admitted due to the abnormal findings of the CAT scan with multiple densities seen in the liver largest being 4.5 mm. 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 Dr. Young saw the patient in consultation and given his poor functional status currently ECOG 4 he is not a candidate for GM therapy. Patient was met by palliative care team on 05/04/2018 and slowly he transitioned to a palliative measures only type of care. Unfortunately the patient was very agitated as expected due to encephalopathy from his underlying liver disease and also uremia given his acute kidney injury. The patient will be transitioned to inpatient hospice given the grim prognosis at this point. The decision was made along his nephew who lives in [place] and is unable to be present at the present time. Greater Than 35 Minutes Were Spent in the Transfer Process General: No acute distress Heart: Regular rate, Normal S1 Lungs: Clear, Other (rare exp wheeze) Discharge Information Condition at Discharge: Improved Disposition/Orders: D/C to Another Facility Scheduled Albuterol Sulfate (Albuterol Sulfate Neb Soln) 2.5 Mg/3 Ml Vial.neb, 1 VIAL NEB PRN Q4HRS for ASTHMA, #50 (Reported) Entered as Reported by: RAHEEM SOLIS RN on 04/26/18308 Last Action: New Order on 04/26/18308 by RAHEEM SOLIS RN Pantoprazole Sodium (Protonix) 20 Mg Tablet.dr, 20 MG PO DAILY for GERD, ( Reported) Entered as Reported by: RAHEEM SOLIS RN on 04/26/18308 Last Action: New Order on 04/26/18308 by RAHEEM SOLIS RN Potassium Chloride (Potassium Chloride) 20 Meq Tablet.er, 20 MEQ PO DAILY for HYPOKALEMIA, (Reported) Entered as Reported by: RAHEEM SOLIS RN on 04/26/18308 Last Action: New Order on 04/26/18308 by RAHEEM SOLIS RN Quetiapine Fumarate (Seroquel Xr) 50 Mg Tab.er.24h, 50 MG PO DAILY for mood stabilizer for 30 Days, #30 Prescribed by: ИВАН HOUSER MD on 05/10/18 1422 Risperidone (Risperdal) 0.25 Mg Tablet, 0.25 MG PO BID for mood stabilizer for 30 Days, #60 Prescribed by: ИВАН HOUSER MD on 05/10/18 1422 Discontinued Medications Allopurinol (Allopurinol) 300 Mg Tablet, 1 TAB PO DAILY for gout, #30 Ref 5 ( Reported) Entered as Reported by: RAHEEM SOLIS RN on 04/26/18308 Last Action: New Order on 04/26/18308 by RAHEEM SOLIS RN Doxazosin Mesylate (Doxazosin Mesylate) 8 Mg Tablet, 1 TAB PO DAILY for HTN, # 30 Ref 5 (Reported) Entered as Reported by: RAHEEM SOLIS RN on 04/26/18308 Last Action: New Order on 04/26/18308 by RAHEEM SOLIS RN Finasteride (Finasteride) 5 Mg Tablet, 1 TAB PO DAILY for BPH, #30 Ref 11 ( Reported) Entered as Reported by: RAHEEM SOLIS RN on 04/26/18308 Last Action: New Order on 04/26/18308 by RAHEEM SOLIS RN Furosemide (Furosemide) 20 Mg Tablet, 1 TAB PO DAILY for HTN, #90 Ref 1 ( Reported) Entered as Reported by: RAHEEM SOLIS RN on 04/26/18308 Last Action: New Order on 04/26/18308 by RAHEEM SOLIS RN Ibuprofen (Ibuprofen) 800 Mg Tablet, 800 MG PO TID PRN for INFLAMMATION, ( Reported) Entered as Reported by: RAHEEM SOLIS RN on 04/26/18308 Last Action: New Order on 04/26/18308 by RAHEEM SOLIS RN Losartan Potassium (Losartan Potassium) 100 Mg Tablet, 100 MG PO DAILY for HYPERTENSION, (Reported) Entered as Reported by: RAHEEM SOLIS RN on 04/26/18308 Last Action: New Order on 04/26/18308 by RAHEEM SOLIS RN Meclizine Hcl (Meclizine Hcl) 12.5 Mg Tablet, 2 TAB PO TID for VERTIGO, #90 Ref 3 (Reported) Entered as Reported by: RAHEEM SOLIS RN on 04/26/18308 Last Action: New Order on 04/26/18308 by RAHEEM SOLIS RN Tamsulosin Hcl (Tamsulosin Hcl) 0.4 Mg Cap.er.24h, 0.4 MG PO DAILY for BPH, ( Reported) Entered as Reported by: RAHEEM SOLIS RN on 04/26/18308 Last Action: New Order on 04/26/18308 by AMY MATUTE HECTOR M MD May 10, 2018 16:10
== END 2018-05-10 14:29 | disposition hospice, inpatient (51) | DRG 871 ==
LOC: ER 09:26 → 5 NORTH 11:27 → 5 SOUTH 05-02 09:59
PROVIDERS: ADMIT Internal Medicine; ATTEND Internal Medicine
PROC: 0FB13ZX Excision of Right Lobe Liver, Percutaneous Approach, Diagnostic (ICD-10-PCS; principal; 2018-04-26)
DX: A41.9 Sepsis, unspecified organism (principal); K85.90 Acute pancreatitis without necrosis or infection, unspecified; N17.0 Acute kidney failure with tubular necrosis; G93.41 Metabolic encephalopathy; E43 Unspecified severe protein-calorie malnutrition; J18.9 Pneumonia, unspecified organism; E87.0 Hyperosmolality and hypernatremia; J47.1 Bronchiectasis with (acute) exacerbation; C78.7 Secondary malignant neoplasm of liver and intrahepatic bile duct; J47.0 Bronchiectasis with acute lower respiratory infection; E87.6 Hypokalemia; R16.0 Hepatomegaly, not elsewhere classified; T40.2X5A Adverse effect of other opioids, initial encounter; I10 Essential (primary) hypertension; I70.0 Atherosclerosis of aorta; J45.909 Unspecified asthma, uncomplicated; D63.8 Anemia in other chronic diseases classified elsewhere; Z60.2 Problems related to living alone; K21.9 Gastro-esophageal reflux disease without esophagitis; K57.90 Diverticulosis of intestine, part unspecified, without perforation or abscess without bleeding; M10.9 Gout, unspecified; N28.1 Cyst of kidney, acquired; Z96.653 Presence of artificial knee joint, bilateral; N40.0 Benign prostatic hyperplasia without lower urinary tract symptoms; T43.4X5A Adverse effect of butyrophenone and thiothixene neuroleptics, initial encounter; Z51.5 Encounter for palliative care; Z79.899 Other long term (current) drug therapy; Z82.49 Family history of ischemic heart disease and other diseases of the circulatory system; Z90.49 Acquired absence of other specified parts of digestive tract; Z68.21 Body mass index [BMI] 21.0-21.9, adult; Y92.89 Other specified places as the place of occurrence of the external cause
CPT/HCPCS: 36415; 47000; 71045; 71250; 74176; 76700; 76942; 80048; 80053; 80061; 80069; 81001; 82105; 82140; 82274; 82378; 82728; 83540; 83550; 83690; 83735; 84100; 84484; 85007; 85025; 85610; 87040; 87493; 87804; 88307; 88313; 88341; 88342; 88360; 93005; 96361; 96365; 96375; C9113; G0480; J0360; J0456; J0696; J1630; J1644; J2060; J2270; J2405; J3480; J3490; J7030; J7050; J7120; 97530; 99285-25

== ENCOUNTER 2018-05-10 14:46 | Inpatient (IN) | payer MEDICARE, OTHER ==
[~2018-05-10] VITALS: Ht 182.9 cm; Wt 93.1 kg
[2018-05-10 11:00] VITALS: BP 140/92
[~2018-05-10 14:46] MED LIST: ALBU2.5V5 NEB; ALLO300T PO; DOXA8TAB59 PO; FINA5TAB4 PO; FURO20TA3 PO; IBUP-1060 PO; LOSA100T14 PO; MECL12.52 PO; PANT20TA2 PO; POTA20TA82 PO; QUET50TA9 PO; RISP0.2519 PO; TAMS0.4C2 PO
[2018-05-10 15:00] VITALS: BP 144/99
[2018-05-10] MEDS ORDERED: HALOPERIDOL 2 MG/ML ORAL.CONC. PO PRN (15:00)
[2018-05-10] MEDS: SCOPOLAMINE 1.5MG PATCH. TD SCH (15:30)
[2018-05-10] MEDS: LORazepam INTENSOL 2 MG/ML ORAL.CONC SL PRN (17:23)
[2018-05-10] MEDS: HALOPERIDOL 2 MG/ML ORAL.CONC. PO PRN (17:47)
[2018-05-10] MEDS: MORPHINE SULFATE 20 MG/ML CONC SOLUTION. SL PRN (17:57)
--- NOTE | 2018-05-10 18:28 | NUR ---
pt discharged as inpatient and re-admitted under care of [facility]
[2018-05-10] MEDS: HALOPERIDOL 2 MG/ML ORAL.CONC. PO SCH ×2 (19:15→22:03)
[2018-05-10 23:00] VITALS: BP 138/99
[2018-05-11] MEDS: MORPHINE SULFATE 20 MG/ML CONC SOLUTION. SL PRN ×6 (00:41→17:46)
[2018-05-11] MEDS: LORazepam INTENSOL 2 MG/ML ORAL.CONC SL PRN (06:00)
--- NOTE | 2018-05-11 08:40 | NUR ---
SW left voicemail for pt's nephew regarding completed hospice paperwork. SW will continue to follow.
[2018-05-11] MEDS: HALOPERIDOL 2 MG/ML ORAL.CONC. PO SCH ×4 (09:07→20:39)
[2018-05-11] MEDS: MORPHINE SULFATE 20 MG/ML CONC SOLUTION. SL SCH ×3 (12:00→20:40)
[2018-05-11] MEDS: LORazepam INTENSOL 2 MG/ML ORAL.CONC SL SCH ×2 (12:37→17:34)
--- NOTE | 2018-05-11 13:29 | NUR ---
This nurse did not administer this patient's 1300 dose of morphine as the patient had received Haldol and Ativan scheduled at at noon. Client was assessed for the need of the additional medication and it was determined it was not needed at the time as the patient was sleeping soundly with out any sign of pain.
--- NOTE | 2018-05-11 14:09 | NUR ---
SW following. SW contacted pt's nephew Luis Carlos, left voicemail regarding hospice paperwork. SW will await return call.
--- NOTE | 2018-05-11 16:30 | NUR ---
This nurse did not administer this patient's 1600 Haldol as the client also had Morphine scheduled at the same time and upon assessment the client was resting peacefully and did not appear to be in any pain.
[2018-05-11] MEDS: HALOPERIDOL 2 MG/ML ORAL.CONC. PO PRN (17:34)
--- NOTE | 2018-05-11 18:25 | PDOC ---
PROGRESS NOTES Chief Complaint Chief Complaint Acute pancreatitis - with Abdominal pain, currently asymptomatic. liver /metastatic disease, Acute metabolic encephalopathy - uremia, delirium SYLVIE - vasomotor with possible ATN, Liver masses - metastatic disease. SEVERE PROTEIN-CALORIC MALNUTRITION- Encephalopathy Plan: continue palliative care measures secretion management pain management History of Present Illness History of Present Illness no acute events reported, patient requiring more medication to keep him calm. Vitals Vitals Vital Signs Date Time Temp Pulse Resp B/P (MAP) Pulse Ox O2 Delivery O2 Flow Rate FiO2 05/11/18 17:46 Room Air 05/11/18 05:35 97 05/10/18 23:00 104 21 138/99 (112) 05/10/18 15:00 97.5 97.5 Physical Exam General: No acute distress Heart: Regular rate Lungs: Other Abdomen: Soft, No tenderness Skin: No rashes, No significant lesion Comment Review of Relevant I have reviewed the following items pily (where applicable) has been applied. Medications Current Medications Haloperidol Lactate (HALDOL 2mg ORAL CONC) 2 mg PRN Q6HRS PRN PO AGITATION 3RD CHOICE Last administered on 05/10/18 15:28; Start 05/10/18 at 15:00; Stop at 19:14; Status DC Haloperidol Lactate (HALDOL 2mg ORAL CONC) 1 mg PRN Q3HRS PRN PO AGITATION 2ND CHOICE Last administered on 05/11/18at 17:34; Start 05/10/18 at 15:00 Lorazepam (Ativan Intensol) 2 mg PRN Q4HRS PRN SL ANXIETY / AGITATION 1ST CHOICE Last administered on 05/11/18at 06:00; Start 05/10/18 at 15:00; Stop at 09:35; Status DC Morphine Sulfate (Roxanol Conc) 20 mg PRN Q1HR PRN SL PAIN Last administered on 05/11/18 17:46; Start 05/10/18 at 15:00 Scopolamine (Transderm-Scop) 1 patch Q3DAYS TD Last administered on 05/10/18 15 :30; Start 05/10/18 at 16:00 Haloperidol Lactate (HALDOL 2mg ORAL CONC) 2 mg QID PO Last administered on 05/11 09:07; Start 05/10/18 at 19:15; Stop 05/11/18 at 09:35; Status DC Haloperidol Lactate (HALDOL 2mg ORAL CONC) 2 mg Q4HRS PO Last administered on at 12:37; Start 05/11/18 at 12:00 Lorazepam (Ativan Intensol) 2 mg Q6HRS SL Last administered on 05/11/18at 17:34; Start 05/11/18 at 12:00 Morphine Sulfate (Roxanol Conc) 20 mg Q4HRS SL Last administered on 05/11/18at 16 :28; Start 05/11/18 at 12:00 Active Scripts Active Risperdal (Risperidone) 0.25 Mg Tablet 0.25 Mg PO BID 30 Days Seroquel Xr (Quetiapine Fumarate) 50 Mg Tab.er.24h 50 Mg PO DAILY 30 Days Reported Potassium Chloride 20 Meq Tablet.er 20 Meq PO DAILY Protonix (Pantoprazole Sodium) 20 Mg Tablet.dr 20 Mg PO DAILY Albuterol Sulfate Neb Soln (Albuterol Sulfate) 2.5 Mg/3 Ml Vial.neb 1 Vial NEB PRN Q4HRS Vitals/I & O Vital Sign - Last 24 Hours 05/10/18 05/10/18 05/10/18 05/11/18 19:00 20:00 23:00 00:41 Pulse 104 Resp 21 B/P (MAP) 138/99 (112) Pulse Ox 97 O2 Delivery Room Air Room Air Room Air Room Air 05/11/18 05/11/18 05/11/18 05/11/18 03:00 03:40 05:35 09:07 Pulse Ox 97 97 O2 Delivery Room Air Room Air Room Air Room Air 05/11/18 05/11/18 05/11/18 05/11/18 11:02 12:06 16:28 17:46 O2 Delivery Room Air Room Air Room Air Room Air Intake and Output 05/10/18 05/10/18 05/11/18 15:00 23:00 07:00 Intake Total 0 ml 0 ml Output Total 750 ml 450 ml Balance -750 ml -450 ml ИВАН HOUSER MD May 11, 2018 18:25
--- NOTE | 2018-05-11 18:29 | NUR ---
Patient spent most of the day sleeping. Patient would have episodes of agitation and moaning and PRN meds would be administered. Patient's skin is warm to the touch and color is still appropriate. Patient does still have urine output which is tea colored, but did not have any bowel movement this shift. Patient is still refusing to eat. Hospice nurse, aid and center specialists all came to see the patient today. Hospice aid bathed the patient and made him comfortable in bed. Skin is clean, dry and intact.
--- NOTE | 2018-05-11 20:00 | NUR ---
NURSING NOTE: Patient cold to touch, respirations approximately 12-14 breaths per minute and regular. Patient moaning and slight restless movements noted. Patient slightly crooked, so patient was readjusted in bed. Additional blanket and sheet applied to patient to provide comfort and warmth. Patient has medications due at this time, will administer to provide relief. Will continue to monitor.
[2018-05-12] MEDS: LORazepam INTENSOL 2 MG/ML ORAL.CONC SL SCH ×2 (00:25→05:47)
--- NOTE | 2018-05-12 00:30 | NUR ---
MED ADMINISTRATION NOTE: Non-administered patient's 0000 dose of Haldol and 0000 dose of Roxanol d/t patient not moaning or giving any other signs of discomfort. Will implement PRN orders of these medications if needed. DID administer 0000 dose of Ativan d/t no PRN order of this medication available. Will continue to monitor for s/sx of discomfort.
[2018-05-12] MEDS: HALOPERIDOL 2 MG/ML ORAL.CONC. PO SCH ×3 (03:09→08:50)
[2018-05-12] MEDS: MORPHINE SULFATE 20 MG/ML CONC SOLUTION. SL SCH ×3 (03:10→08:51)
[2018-05-12] MEDS: MORPHINE SULFATE 20 MG/ML CONC SOLUTION. SL PRN ×3 (05:48→18:24)
--- NOTE | 2018-05-12 10:30 | NUR ---
SW following. Discussed with RN and [facility]. Hospice paperwork has been received from pt's nephew, Luis Carlos. SW will continue to follow.
--- NOTE | 2018-05-12 10:54 | NUR ---
Hospice requests pt scheduled meds be changed to PRN and add tylenol supp. Dr. Luevano in agreement.
[2018-05-12] MEDS ORDERED: LORazepam INTENSOL 2 MG/ML ORAL.CONC SL PRN (11:00)
[2018-05-12] MEDS ORDERED: ACETAMINOPHEN 650 MG SUPP.RECT. PR PRN (11:00)
[2018-05-12] MEDS ORDERED: HALOPERIDOL 2 MG/ML ORAL.CONC. PO PRN (11:00)
--- NOTE | 2018-05-12 12:40 | NUR ---
SW following. Discussed with RN. AMELIA faxed referral to [facility], [place] (ph: [phone], fax: [phone]). RN notified.
--- NOTE | 2018-05-12 13:42 | PDOC ---
PROGRESS NOTES Chief Complaint Chief Complaint Acute pancreatitis - with Abdominal pain, currently asymptomatic. liver /metastatic disease, Acute metabolic encephalopathy - uremia, delirium SYLVIE - vasomotor with possible ATN, Liver masses - metastatic disease. SEVERE PROTEIN-CALORIC MALNUTRITION- Encephalopathy Plan: continue palliative care measures secretion management pain management History of Present Illness History of Present Illness no acute events reported, patient stable, he may require to move to a different institution to continue with his care since that the patient present time seems to have plateaued will have palliative care nurse discussed with case management Vitals Vitals Vital Signs Date Time Temp Pulse Resp B/P (MAP) Pulse Ox O2 Delivery O2 Flow Rate FiO2 05/12/18 13:19 97 Room Air 05/12/18 06:53 15 Physical Exam General: No acute distress Heart: Regular rate Lungs: Other Abdomen: Soft, No tenderness Skin: No rashes, No significant lesion Comment Review of Relevant I have reviewed the following items pily (where applicable) has been applied. Medications Current Medications Haloperidol Lactate (HALDOL 2mg ORAL CONC) 2 mg PRN Q6HRS PRN PO AGITATION 3RD CHOICE Last administered on 05/10/18 15:28; Start 05/10/18 at 15:00; Stop at 19:14; Status DC Haloperidol Lactate (HALDOL 2mg ORAL CONC) 1 mg PRN Q3HRS PRN PO AGITATION Last administered on 05/11/18 17:34; Start 05/10/18 at 15:00; Stop 05/12/18 at 12: 43; Status DC Lorazepam (Ativan Intensol) 2 mg PRN Q4HRS PRN SL ANXIETY / AGITATION 1ST CHOICE Last administered on 05/11/18 06:00; Start 05/10/18 at 15:00; Stop at 09:35; Status DC Morphine Sulfate (Roxanol Conc) 20 mg PRN Q1HR PRN SL PAIN Last administered on 05/12/18 05:48; Start 05/10/18 at 15:00 Scopolamine (Transderm-Scop) 1 patch Q3DAYS TD Last administered on 05/10/18 15 :30; Start 05/10/18 at 16:00 Haloperidol Lactate (HALDOL 2mg ORAL CONC) 2 mg QID PO Last administered on 05/11 09:07; Start 05/10/18 at 19:15; Stop 05/11/18 at 09:35; Status DC Haloperidol Lactate (HALDOL 2mg ORAL CONC) 2 mg Q4HRS PO Last administered on at 08:50; Start 05/11/18 at 12:00; Stop 05/12/18 at 11:06; Status DC Lorazepam (Ativan Intensol) 2 mg Q6HRS SL Last administered on 05/12/18at 05:47; Start 05/11/18 at 12:00; Stop 05/12/18 at 11:06; Status DC Morphine Sulfate (Roxanol Conc) 20 mg Q4HRS SL Last administered on 05/12/18at 08 :51; Start 05/11/18 at 12:00; Stop 05/12/18 at 11:06; Status DC Haloperidol Lactate (HALDOL 2mg ORAL CONC) 2 mg PRN Q4HRS PRN PO AGITATION, 2nd CHOICE; Start 05/12/18 at 11:00 Lorazepam (Ativan Intensol) 2 mg PRN Q6HRS PRN SL AGITATION 1ST CHOICE; Start 05/12/18 at 11:00 Acetaminophen (Tylenol Supp) 650 mg PRN Q6HRS PRN [place] MILD PAIN / TEMP; Start at 11:00 Active Scripts Active Risperdal (Risperidone) 0.25 Mg Tablet 0.25 Mg PO BID 30 Days Seroquel Xr (Quetiapine Fumarate) 50 Mg Tab.er.24h 50 Mg PO DAILY 30 Days Reported Potassium Chloride 20 Meq Tablet.er 20 Meq PO DAILY Protonix (Pantoprazole Sodium) 20 Mg Tablet.dr 20 Mg PO DAILY Albuterol Sulfate Neb Soln (Albuterol Sulfate) 2.5 Mg/3 Ml Vial.neb 1 Vial NEB PRN Q4HRS Vitals/I & O Vital Sign - Last 24 Hours 05/11/18 05/11/18 05/11/18 05/11/18 16:28 17:46 19:00 20:40 Resp 14 Pulse Ox 97 O2 Delivery Room Air Room Air Room Air Room Air 05/12/18 05/12/18 05/12/18 05/12/18 03:10 04:15 05:48 06:53 Resp 14 13 17 15 Pulse Ox 97 97 97 O2 Delivery Room Air Room Air Room Air 05/12/18 13:19 Pulse Ox 97 O2 Delivery Room Air Intake and Output 05/11/18 05/11/18 05/12/18 14:59 22:59 06:59 Intake Total 0 ml 0 ml Output Total 475 ml 50 ml Balance -475 ml -50 ml ИВАН HOUSER MD May 12, 2018 13:42
--- NOTE | 2018-05-12 15:36 | NUR ---
AMELIA following. AMELIA contacted [facility] to determine if pt had been accepted. [facility] is still reviewing. AMELIA spoke with Arpita Barbosa at [facility] to determine plan and understand [facility] hospice process. Pt was only to be on GIP until midnight.
--- NOTE | 2018-05-12 16:21 | NUR ---
AMELIA following. Arpita Barbosa contacted AMELIA to advise she had spoken with their corporate and [facility] will continue to provide GIP services to patient. [facility] will cover the cost of the GIP that pt's insurance won't. Will reassess on Tuesday (05/15/18) if need be. RN notified.
--- NOTE | 2018-05-12 17:13 | NUR ---
Patient warm to touch, respirations approximately 10-12 breaths per minute and regular. Patient moaning and slight restless movements noted. PRN medications administered through out the day to ensure the patient remained comfortable. Will continue to monitor.
[2018-05-13] MEDS: SCOPOLAMINE 1.5MG PATCH. TD SCH (09:40)
--- NOTE | 2018-05-13 13:09 | PDOC ---
PROGRESS NOTES Chief Complaint Chief Complaint Acute pancreatitis - with Abdominal pain, currently asymptomatic. liver /metastatic disease, Acute metabolic encephalopathy - uremia, delirium SYLVIE - vasomotor with possible ATN, Liver masses - metastatic disease. SEVERE PROTEIN-CALORIC MALNUTRITION- Encephalopathy Plan: continue palliative care measures secretion management pain management History of Present Illness History of Present Illness no acute events reported, patient stable, he may require to move to a different institution to continue with his care, [facility] evaluation being done today Vitals Vitals Vital Signs Date Time Temp Pulse Resp B/P (MAP) Pulse Ox O2 Delivery O2 Flow Rate FiO2 05/12/18 21:32 14 97 Room Air Physical Exam General: No acute distress Heart: Regular rate Lungs: Other Abdomen: Soft, No tenderness Skin: No rashes, No significant lesion Comment Review of Relevant I have reviewed the following items pily (where applicable) has been applied. Medications Current Medications Haloperidol Lactate (HALDOL 2mg ORAL CONC) 2 mg PRN Q6HRS PRN PO AGITATION 3RD CHOICE Last administered on 05/10/18at 15:28; Start 05/10/18 at 15:00; Stop at 19:14; Status DC Haloperidol Lactate (HALDOL 2mg ORAL CONC) 1 mg PRN Q3HRS PRN PO AGITATION Last administered on 05/11/18at 17:34; Start 05/10/18 at 15:00; Stop 05/12/18 at 12: 43; Status DC Lorazepam (Ativan Intensol) 2 mg PRN Q4HRS PRN SL ANXIETY / AGITATION 1ST CHOICE Last administered on 05/11/18at 06:00; Start 05/10/18 at 15:00; Stop at 09:35; Status DC Morphine Sulfate (Roxanol Conc) 20 mg PRN Q1HR PRN SL PAIN Last administered on 05/12/18at 18:24; Start 05/10/18 at 15:00 Scopolamine (Transderm-Scop) 1 patch Q3DAYS TD Last administered on 05/13/18at 09 :40; Start 05/10/18 at 16:00 Haloperidol Lactate (HALDOL 2mg ORAL CONC) 2 mg QID PO Last administered on 05/11at 09:07; Start 05/10/18 at 19:15; Stop 05/11/18 at 09:35; Status DC Haloperidol Lactate (HALDOL 2mg ORAL CONC) 2 mg Q4HRS PO Last administered on 08:50; Start 05/11/18 at 12:00; Stop 05/12/18 at 11:06; Status DC Lorazepam (Ativan Intensol) 2 mg Q6HRS SL Last administered on 05/12/18at 05:47; Start 05/11/18 at 12:00; Stop 05/12/18 at 11:06; Status DC Morphine Sulfate (Roxanol Conc) 20 mg Q4HRS SL Last administered on 05/12/18at 08 :51; Start 05/11/18 at 12:00; Stop 05/12/18 at 11:06; Status DC Haloperidol Lactate (HALDOL 2mg ORAL CONC) 2 mg PRN Q4HRS PRN PO AGITATION, 2nd CHOICE Last administered on 05/12/18at 16:01; Start 05/12/18 at 11:00 Lorazepam (Ativan Intensol) 2 mg PRN Q6HRS PRN SL AGITATION 1ST CHOICE Last administered on 05/12/18 16:02; Start 05/12/18 at 11:00 Acetaminophen (Tylenol Supp) 650 mg PRN Q6HRS PRN [place] MILD PAIN / TEMP; Start at 11:00 Active Scripts Active Risperdal (Risperidone) 0.25 Mg Tablet 0.25 Mg PO BID 30 Days Seroquel Xr (Quetiapine Fumarate) 50 Mg Tab.er.24h 50 Mg PO DAILY 30 Days Reported Potassium Chloride 20 Meq Tablet.er 20 Meq PO DAILY Protonix (Pantoprazole Sodium) 20 Mg Tablet.dr 20 Mg PO DAILY Albuterol Sulfate Neb Soln (Albuterol Sulfate) 2.5 Mg/3 Ml Vial.neb 1 Vial NEB PRN Q4HRS Vitals/I & O Vital Sign - Last 24 Hours 05/12/18 05/12/18 05/12/18 05/12/18 13:19 16:34 18:24 21:32 Resp 14 Pulse Ox 97 97 O2 Delivery Room Air Room Air Room Air Room Air Intake and Output 05/12/18 05/12/18 05/13/18 15:00 23:00 07:00 Intake Total 0 ml 0 ml Output Total 1150 ml Balance 0 ml -1150 ml ИВАН HOUSER MD May 13, 2018 13:09
--- NOTE | 2018-05-13 14:18 | SNU/HH DC ---
DISCHARGE ORDERS DISCHARGE INFORMATION: DISCHARGE DATE: May 13, 2018 FINAL DIAGNOSIS Metastatic liver CA CONDITION ON DISCHARGE: Stable CODE STATUS: Code Status: DNR/DNI HOSPICE: HOSPICE: Yes DISCHARGE MEDICATIONS: Home Meds Discontinued Reported Medications Potassium Chloride (POTASSIUM CHLORIDE) 20 Meq Tablet.er, 20 MEQ PO DAILY for HYPOKALEMIA, TAB.SR 04/26/18 Pantoprazole Sodium (PROTONIX) 20 Mg Tablet.dr, 20 MG PO DAILY for GERD, TAB 04/26/18 Albuterol Sulfate (ALBUTEROL SULFATE NEB SOLN) 2.5 Mg/3 Ml Vial.neb, 1 VIAL NEB PRN Q4HRS for ASTHMA, #50 VIAL 04/26/18 Tamsulosin Hcl (TAMSULOSIN HCL) 0.4 Mg Cap.er.24h, 0.4 MG PO DAILY for BPH, TAB 04/26/18 Meclizine Hcl (MECLIZINE HCL) 12.5 Mg Tablet, 2 TAB PO TID for VERTIGO, #90 TAB 3 Refills 04/26/18 Losartan Potassium (LOSARTAN POTASSIUM) 100 Mg Tablet, 100 MG PO DAILY for HYPERTENSION, TAB 04/26/18 Ibuprofen (IBUPROFEN) 800 Mg Tablet, 800 MG PO TID PRN for INFLAMMATION, TAB 04/26/18 Furosemide (FUROSEMIDE) 20 Mg Tablet, 1 TAB PO DAILY for HTN, #90 TAB 1 Refill 04/26/18 Finasteride (FINASTERIDE) 5 Mg Tablet, 1 TAB PO DAILY for BPH, #30 TAB 11 Refills 04/26/18 Doxazosin Mesylate (DOXAZOSIN MESYLATE) 8 Mg Tablet, 1 TAB PO DAILY for HTN, # 30 TAB 5 Refills 04/26/18 Allopurinol (ALLOPURINOL) 300 Mg Tablet, 1 TAB PO DAILY for gout, #30 TAB 5 Refills 04/26/18 Discontinued Scripts Risperidone (RISPERDAL) 0.25 Mg Tablet, 0.25 MG PO BID for mood stabilizer for 30 Days, #60 TAB Prov:ИВАН HOUSER MD 05/10/18 Quetiapine Fumarate (SEROQUEL XR) 50 Mg Tab.er.24h, 50 MG PO DAILY for mood stabilizer for 30 Days, #30 TAB.SR Prov:ИВАН HOUSER MD 05/10/18 ИВАН HOUSER MD May 13, 2018 14:18
--- NOTE | 2018-05-13 14:22 | PDOC3 ---
Discharge Summary Visit Information Date of Admission: May 11, 2018 Date of Discharge: May 13, 2018 Admitting Diagnosis Comment: Acute pancreatitis - with Abdominal pain, currently asymptomatic. Acute metabolic encephalopathy - uremia, delirium SYLVIE - vasomotor with possible ATN, Liver masses - metastatic disease. Contrast contraindicated based on his renal function. RBC microcytosis SEVERE PROTEIN-CALORIC MALNUTRITION- Enceph, metabolic NOT IMPROVED AGITATION, resolved His mental status is poor and he is not a candidate for any treatment of his malignancy. Final Diagnosis Acute pancreatitis - with Abdominal pain, currently asymptomatic. Acute metabolic encephalopathy - uremia, delirium SYLVIE - vasomotor with possible ATN, Liver masses - metastatic disease. Contrast contraindicated based on his renal function. RBC microcytosis SEVERE PROTEIN-CALORIC MALNUTRITION- Enceph, metabolic NOT IMPROVED AGITATION, resolved His mental status is poor and he is not a candidate for any treatment of his malignancy. Brief Hospital Course Allergies Allergies Coded Allergies Type Severity Reaction Last Updated Verified No Known Drug Allergies 04/25/18 No Vital Signs Vital Signs Date Time Temp Pulse Resp B/P (MAP) Pulse Ox O2 Delivery O2 Flow Rate FiO2 05/12/18 21:32 14 97 Room Air Brief Hospital Course 82 year old male with PMHx HTN (he cannot recall any other PMHx) who presents with upper abdominal pain, vomiting, and diarrhea. This has been present for the past week. He reports some blood in his emesis. Denies black or bloody stool. Reports that he normally only eats one meal a day but that he is been unable to tolerate it during this time and states that even bread makes him feel nauseated. Cannot stand the sight of food recently. Pain is dull and burning. Moderate to severe in intensity. Patient reports that he has been taking ibuprofen without any relief. In ED had concerning CT scan for liver masses and pancreatic fat stranding and Lipase 3214 as well as leukocytosis WBC 13K, Bili 1.4, Alk phos 292 and Cr 3.7 as well as BUN 88 and K of 3.1. 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 He is from [place], [place] and has moved to [place] 6 years ago to be near his ex-. Notably he cannot remember her phone number or any of his children. He knows his pharmacy is [facility] and does not remember the name of his PCP. He notes he is a practicing [employer] and does not drink or smoke or use illicit substances. Patient had a very prolonged hospital stay. In short patient was admitted due to the abnormal findings of the CAT scan with multiple densities seen in the liver largest being 4.5 mm. 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 Dr. Young saw the patient in consultation and given his poor functional status currently ECOG 4 he is not a candidate for GM therapy. Patient was met by palliative care team on 05/04/2018 and slowly he transitioned to a palliative measures only type of care. Unfortunately the patient was very agitated as expected due to encephalopathy from his underlying liver disease and also uremia given his acute kidney injury. The patient will be transitioned to inpatient hospice given the grim prognosis at this point. Patient will be moving to hospice house to continue with his care. Discharge Information Condition at Discharge: Stable Disposition/Orders: D/C to Another Facility (hospice house) No Active Prescriptions or Reported Meds ИВАН HOUSER MD May 13, 2018 14:22
[2018-05-13] MEDS: MORPHINE SULFATE 20 MG/ML CONC SOLUTION. SL PRN ×2 (14:45→18:12)
--- NOTE | 2018-05-13 16:13 | NUR ---
Patient to discharge to [facility]. This RN spoke extensively with Holley GRANT from [facility], after discussion and all questions answered, patient was determined to qualify for the hospice house. This RN spoke with Lacie REYES from [facility] that patient's family prefers that patient be transported to the hospice house instead of staying in hospital with hospice support. Holley GRANT was present at the time this RN was speaking with Lacie REYES. Both hospice nurses wished to talk to one another and discuss transfer of care. Holley and Lacie spoke on the phone with one another and determined what needed to be done. This RN called the point of contact, the patient's nephew-Luis Carlos, Holley spoke with Luis Carlos on the phone, who once again agreed that that he and family would prefer the hospice house since patient was now accepted. Holley handed this RN needed paperwork with point of contact, resource nurse MYRNA. Family returned to the hospital, this RN called Lacie who was in route to have family sign transfer of care papers. Once Lacie arrived, transfer of care papers were signed and faxed to [facility]. This RN called MYRNA who verified she had everything she needed and that patient would need no prescriptions. This RN received discharge orders from Dr. Luevano. This RN had nephew sign Outside DNR form and Dr. Luevano sign it. Family realized the patient's keys and wallet were not present in the room, this RN called security who handed over these belongings to the family. Transportation number received from Nursing Sup. Garner. This RN set up a time with [facility], earliest they could come with a stretcher was 7-7:30pm. This RN agreed to time and called MYRNA to costume designer her a heads up in the delay. MYRNA said she will still be the nurse on duty. Minor to stay in place. No IV present. All belongings returned to family. Patient resting comfortably at this time, awaiting transportation. This RN will pass on this information to oncoming night RN if transportation is not here by the time of shift change.
--- NOTE | 2018-05-13 21:10 | NUR ---
DISCHARGE NOTE: [facility] Transport picked up patient at approximately 2054. All belongings still left in room were bagged and placed on gurney to be taken with patient. Mily luis. [place] envelope with "outside of hospital DNR form" paper clipped to front was given to transport team. Received in report to call MYRNA at [phone] once patient was picked up. Called this number at approximately [phone] to inform them that patient was on his way. Was told that KB was no longer on duty but that they would contact the appropriate person. Addendum: 05/13/18 at 2239 by SLY BARAJAS RN Housekeeping found a black cane in patient's closet. Notified [facility] at [phone]. Will attempt to notify irving Aldridge at [phone] in the AM. Patient sticker applied to handle of cane, will place in green lost and found bin at the nurse's station.
== END 2018-05-13 21:05 | disposition hospice, inpatient (51) | DRG 438 ==
LOC: 5 SOUTH 14:46
PROVIDERS: ADMIT Internal Medicine; ATTEND Internal Medicine
DX: K85.90 Acute pancreatitis without necrosis or infection, unspecified (principal); G93.41 Metabolic encephalopathy; E43 Unspecified severe protein-calorie malnutrition; N17.0 Acute kidney failure with tubular necrosis; C78.7 Secondary malignant neoplasm of liver and intrahepatic bile duct; R16.0 Hepatomegaly, not elsewhere classified; I10 Essential (primary) hypertension; Z51.5 Encounter for palliative care